=== PATIENT | male | born 1965 | race American Indian/Alaskan Native ===

== ENCOUNTER 2020-06-04 09:36 | Inpatient (IN) | payer OTHER, SELFPAY ==
--- NOTE | 2020-06-04 10:42 | XRay Report ---
CHEST 2 VIEWS INDICATION / CLINICAL INFORMATION: Chest Pain. COMPARISON: 09/16/2009 FINDINGS: SUPPORT DEVICES: None. HEART / MEDIASTINUM: Stable. LUNGS / PLEURA: No significant pulmonary or pleural abnormality. No pneumothorax. No confluent infilt rate or pleural effusion. ADDITIONAL FINDINGS: No significant additional findings. IMPRESSION: 1. No acute findings. No significant interval change since prior exam. Signer Name: Ricardo Sharpe MD Signed: 06/04/2020 10:37 AM Workstation Name: [id number]
[2020-06-04 11:17] LABS: BUN/Creatinine Ratio 15; Blood Urea Nitrogen 19 mg/dL (9-20); Calcium 9.5 mg/dL (8.4-10.2); Hemolysis Index 3
[2020-06-04 11:31] LABS: Basophils # (Auto) 0.1 K/mm3 (0.0-0.1); Basophils % (Auto) 0.8 % (0.0-1.8); Eosinophils # (Auto) 0.1 K/mm3 (0.0-0.4); Eosinophils % (Auto) 0.7 % (0.0-4.3); Hematocrit 38.9 % (35.5-45.6); Hemoglobin 13.3 gm/dl (11.8-15.2); Lymphocytes # (Auto) 2.7 K/mm3 (1.2-5.4); Lymphocytes % (Auto) 31.4 % (13.4-35.0); Mean Corpuscular HGB Conc 34 % (32-34); Mean Corpuscular Volume 81 fl (84-94); Monocytes # (Auto) 0.6 K/mm3 (0.0-0.8); Monocytes % (Auto) 6.9 % (0.0-7.3); Platelet Count 357 K/mm3 (140-440); Red Blood Count 4.82 M/mm3 (3.65-5.03)
[2020-06-04] MEDS ORDERED: INSULIN REGULAR, HUMAN 100 UNITS/1 ML ONE ×3 (16:30)
[2020-06-04] MEDS ORDERED: INSULIN REGULAR, HUMAN 100 UNIT/ML 3ML VIAL IV ONE ×3 (16:31→21:14)
[2020-06-04] MEDS ORDERED: ONDANSETRON 4 MG/2 ML INJ IV ONE (16:52)
[2020-06-04] MEDS ORDERED: SODIUM CHLORIDE 0.9% 1000 ML 1,000 ML IV ONE ×2 (16:52→21:14)
--- NOTE | 2020-06-04 17:13 | Emergency Department Report ---
ED Chest Pain HPI - General Chief Complaint: Chest Pain Stated Complaint: CHEST PAIN/HYPER GLYCEMIA Time Seen by Provider: 06/04/20 16:19 Source: patient, EMS Mode of arrival: Wheelchair Limitations: No Limitations - History of Present Illness Initial Comments: 54-year-old male with a past medical history of manic depression, tobacco use, elevated cholesterol, hypertension, obesity, DVT in 1996, and diabetes currently on insulin presents to the with complaints of chest pain, homelessness, homicidal ideation, and suicidal ideation. Patient states he has had mid sternal chest pain since 6 AM. Pain is aching and constant and sharp with cough and movement. Patient had mild shortness of breath which has since resolved. Patient also reports nausea without vomiting or diaphoresis. Patient has had a dry cough x1 day without fever and denies loss of sense of taste or smell. He received nitroglycerin via EMS reports pain improved after the medication. Last Covid test was -2 months ago. Last stress test approximately 5 years ago was "okay". Positive family history of CAD. Patient is compliant with cholesterol medication, blood pressure medication, but has not taken insulin in 2 days. He has been homeless for the last several days and sleeping at a friend's home since his brother kicked him out. Patient does have a homicidal ideation and suicidal ideation without a plan. He has history of suicide in the past via overdose and when asked if he has access to a gun he states "no comment". Patient presents to the hospital hyperglycemia however, he also states he has not had anything to eat in several days. He denies alcohol or drug abuse Severity scale (0 -10): 0 - Related Data Allergies Allergy/AdvReac Type Severity Reaction Status Date / Time aspirin Allergy Swelling Verified 06/04/20 10:06 Heart Score - HEART Score History: Moderately suspicious EKG: Normal Age: 45-65 Risk factors: > 3 risk factors or hx of atherosclerotic disease Troponin: < normal limit HEART Score: 4 ED Review of Systems ROS: Stated complaint: CHEST PAIN/HYPER GLYCEMIA Other details as noted in HPI Comment: All other systems reviewed and negative ED Past Medical Hx - Past Medical History Hx Hypertension: Yes Hx Diabetes: Yes Hx Deep Vein Thrombosis: Yes (1996) Hx Psychiatric Treatment: Yes (Manic depressive) Additional medical history: HIGH CHOLESTROL / COLLASPE LUNG - Surgical History Additional Surgical History: EYE SURGERY - Social History Smoking Status: Current Every Day Smoker ED Physical Exam - General Limitations: No Limitations - Other Other exam information: General: No acute distress Head: Atraumatic Eyes: normal appearance ENT: Moist mucous membranes Neck: Normal appearance, no midline tenderness Chest: Clear to auscultation bilaterally. Mild sternal chest wall tenderness CV: Regular rate and rhythm Abdomen: Soft, normal bowel sounds, nontender, nondistended, no rebound or guarding Back: Normal inspection Extremity: Normal inspection, full range of motion, no calf tenderness or leg edema, no leg asymmetry Neuro: Alert O x 3, no facial asymmetry, speech clear, no gross motor sensory deficit Psych: Depressed affect Skin: No rash ED Course Vital Signs 06/04/20 06/04/20 10:14 16:23 Temperature 98.2 F Pulse Rate 88 87 Respiratory 18 13 Rate Blood Pressure 132/77 145/96 [Right] O2 Sat by Pulse 100 Oximetry ED Medical Decision Making - Lab Data Result diagrams: 06/04/20 10:43 06/04/20 10:43 Lab Results 06/04/20 06/04/20 06/04/20 Range/Units 10:09 10:43 10:43 WBC 8.6 (4.5-11.0) K/mm3 RBC 4.82 (3.65-5.03) M/mm3 Hgb 13.3 (11.8-15.2) gm/dl Hct 38.9 (35.5-45.6) % MCV 81 L (84-94) fl MCH 28 (28-32) pg MCHC 34 (32-34) % RDW 15.0 (13.2-15.2) % Plt Count 357 (140-440) K/mm3 Lymph % (Auto) 31.4 (13.4-35.0) % [place] % (Auto) 6.9 (0.0-7.3) % Eos % (Auto) 0.7 (0.0-4.3) % Baso % (Auto) 0.8 (0.0-1.8) % Lymph # (Auto) 2.7 (1.2-5.4) K/mm3 [place] # (Auto) 0.6 (0.0-0.8) K/mm3 Eos # (Auto) 0.1 (0.0-0.4) K/mm3 Baso # (Auto) 0.1 (0.0-0.1) K/mm3 Seg Neutrophils % 60.2 (40.0-70.0) % Seg Neutrophils # 5.2 (1.8-7.7) K/mm3 D-Dimer (0-234) ng/mlDDU Sodium 134 L (137-145) mmol/L Potassium 4.6 (3.6-5.0) mmol/L Chloride 98.2 (98-107) mmol/L Carbon Dioxide 23 (22-30) mmol/L Anion Gap 17 mmol/L BUN 19 (9-20) mg/dL Creatinine 1.3 (0.8-1.3) mg/dL Estimated GFR > 60 ml/min BUN/Creatinine Ratio 15 % Glucose 484 H (75-100) mg/dL POC Glucose 457 H (70-105) mg/dL Calcium 9.5 (8.4-10.2) mg/dL Troponin T < 0.010 (0.00-0.029) ng/mL Urine Color (Yellow) Urine Turbidity (Clear) Urine pH (5.0-7.0) Ur Specific [place] (1.003-1.030) Urine Protein (Negative) mg/dL Urine Glucose (UA) (Negative) mg/dL Urine Ketones (Negative) mg/dL Urine Blood (Negative) Urine Nitrite (Negative) Urine Bilirubin (Negative) Urine Urobilinogen (<2.0) mg/dL Ur Leukocyte Esterase (Negative) Urine WBC (Auto) (0.0-6.0) /HPF Urine RBC (Auto) (0.0-6.0) /HPF U Epithel Cells (Auto) (0-13.0) /HPF Urine Opiates Screen Urine Methadone Screen Acetaminophen (10.0-30.0) ug/mL Ur Barbiturates Screen Ur Phencyclidine Scrn Ur Amphetamines Screen U Benzodiazepines Scrn Urine Cocaine Screen U Marijuana (THC) Screen Drugs of Abuse Note Plasma/Serum Alcohol (0-0.07) % 06/04/20 06/04/20 06/04/20 Range/Units 13:28 16:15 18:10 WBC (4.5-11.0) K/mm3 RBC (3.65-5.03) M/mm3 Hgb (11.8-15.2) gm/dl Hct (35.5-45.6) % MCV (84-94) fl MCH (28-32) pg MCHC (32-34) % RDW (13.2-15.2) % Plt Count (140-440) K/mm3 Lymph % (Auto) (13.4-35.0) % [place] % (Auto) (0.0-7.3) % Eos % (Auto) (0.0-4.3) % Baso % (Auto) (0.0-1.8) % Lymph # (Auto) (1.2-5.4) K/mm3 [place] # (Auto) (0.0-0.8) K/mm3 Eos # (Auto) (0.0-0.4) K/mm3 Baso # (Auto) (0.0-0.1) K/mm3 Seg Neutrophils % (40.0-70.0) % Seg Neutrophils # (1.8-7.7) K/mm3 D-Dimer 135.60 (0-234) ng/mlDDU Sodium (137-145) mmol/L Potassium (3.6-5.0) mmol/L Chloride (98-107) mmol/L Carbon Dioxide (22-30) mmol/L Anion Gap mmol/L BUN (9-20) mg/dL Creatinine (0.8-1.3) mg/dL Estimated GFR ml/min BUN/Creatinine Ratio % Glucose (75-100) mg/dL POC Glucose 424 H (70-105) mg/dL Calcium (8.4-10.2) mg/dL Troponin T < 0.010 (0.00-0.029) ng/mL Urine Color (Yellow) Urine Turbidity (Clear) Urine pH (5.0-7.0) Ur Specific [place] (1.003-1.030) Urine Protein (Negative) mg/dL Urine Glucose (UA) (Negative) mg/dL Urine Ketones (Negative) mg/dL Urine Blood (Negative) Urine Nitrite (Negative) Urine Bilirubin (Negative) Urine Urobilinogen (<2.0) mg/dL Ur Leukocyte Esterase (Negative) Urine WBC (Auto) (0.0-6.0) /HPF Urine RBC (Auto) (0.0-6.0) /HPF U Epithel Cells (Auto) (0-13.0) /HPF Urine Opiates Screen Urine Methadone Screen Acetaminophen (10.0-30.0) ug/mL Ur Barbiturates Screen Ur Phencyclidine Scrn Ur Amphetamines Screen U Benzodiazepines Scrn Urine Cocaine Screen U Marijuana (THC) Screen Drugs of Abuse Note Plasma/Serum Alcohol (0-0.07) % 06/04/20 06/04/20 06/04/20 Range/Units 18:10 18:10 18:10 WBC (4.5-11.0) K/mm3 RBC (3.65-5.03) M/mm3 Hgb (11.8-15.2) gm/dl Hct (35.5-45.6) % MCV (84-94) fl MCH (28-32) pg MCHC (32-34) % RDW (13.2-15.2) % Plt Count (140-440) K/mm3 Lymph % (Auto) (13.4-35.0) % [place] % (Auto) (0.0-7.3) % Eos % (Auto) (0.0-4.3) % Baso % (Auto) (0.0-1.8) % Lymph # (Auto) (1.2-5.4) K/mm3 [place] # (Auto) (0.0-0.8) K/mm3 Eos # (Auto) (0.0-0.4) K/mm3 Baso # (Auto) (0.0-0.1) K/mm3 Seg Neutrophils % (40.0-70.0) % Seg Neutrophils # (1.8-7.7) K/mm3 D-Dimer (0-234) ng/mlDDU Sodium (137-145) mmol/L Potassium (3.6-5.0) mmol/L Chloride (98-107) mmol/L Carbon Dioxide (22-30) mmol/L Anion Gap mmol/L BUN (9-20) mg/dL Creatinine (0.8-1.3) mg/dL Estimated GFR ml/min BUN/Creatinine Ratio % Glucose (75-100) mg/dL POC Glucose (70-105) mg/dL Calcium (8.4-10.2) mg/dL Troponin T < 0.010 (0.00-0.029) ng/mL Urine Color (Yellow) Urine Turbidity (Clear) Urine pH (5.0-7.0) Ur Specific [place] (1.003-1.030) Urine Protein (Negative) mg/dL Urine Glucose (UA) (Negative) mg/dL Urine Ketones (Negative) mg/dL Urine Blood (Negative) Urine Nitrite (Negative) Urine Bilirubin (Negative) Urine Urobilinogen (<2.0) mg/dL Ur Leukocyte Esterase (Negative) Urine WBC (Auto) (0.0-6.0) /HPF Urine RBC (Auto) (0.0-6.0) /HPF U Epithel Cells (Auto) (0-13.0) /HPF Urine Opiates Screen Urine Methadone Screen Acetaminophen 5.0 L (10.0-30.0) ug/mL Ur Barbiturates Screen Ur Phencyclidine Scrn Ur Amphetamines Screen U Benzodiazepines Scrn Urine Cocaine Screen U Marijuana (THC) Screen Drugs of Abuse Note Plasma/Serum Alcohol < 0.01 (0-0.07) % 06/04/20 06/04/20 06/04/20 Range/Units 18:25 19:16 19:16 WBC (4.5-11.0) K/mm3 RBC (3.65-5.03) M/mm3 Hgb (11.8-15.2) gm/dl Hct (35.5-45.6) % MCV (84-94) fl MCH (28-32) pg MCHC (32-34) % RDW (13.2-15.2) % Plt Count (140-440) K/mm3 Lymph % (Auto) (13.4-35.0) % [place] % (Auto) (0.0-7.3) % Eos % (Auto) (0.0-4.3) % Baso % (Auto) (0.0-1.8) % Lymph # (Auto) (1.2-5.4) K/mm3 [place] # (Auto) (0.0-0.8) K/mm3 Eos # (Auto) (0.0-0.4) K/mm3 Baso # (Auto) (0.0-0.1) K/mm3 Seg Neutrophils % (40.0-70.0) % Seg Neutrophils # (1.8-7.7) K/mm3 D-Dimer (0-234) ng/mlDDU Sodium (137-145) mmol/L Potassium (3.6-5.0) mmol/L Chloride (98-107) mmol/L Carbon Dioxide (22-30) mmol/L Anion Gap mmol/L BUN (9-20) mg/dL Creatinine (0.8-1.3) mg/dL Estimated GFR ml/min BUN/Creatinine Ratio % Glucose (75-100) mg/dL POC Glucose 365 H (70-105) mg/dL Calcium (8.4-10.2) mg/dL Troponin T (0.00-0.029) ng/mL Urine Color Yellow (Yellow) Urine Turbidity Clear (Clear) Urine pH 5.0 (5.0-7.0) Ur Specific [place] 1.018 (1.003-1.030) Urine Protein <15 mg/dl (Negative) mg/dL Urine Glucose (UA) >=500 (Negative) mg/dL Urine Ketones 20 (Negative) mg/dL Urine Blood Neg (Negative) Urine Nitrite Neg (Negative) Urine Bilirubin Neg (Negative) Urine Urobilinogen < 2.0 (<2.0) mg/dL Ur Leukocyte Esterase Neg (Negative) Urine WBC (Auto) 6.0 (0.0-6.0) /HPF Urine RBC (Auto) 2.0 (0.0-6.0) /HPF U Epithel Cells (Auto) 1.0 (0-13.0) /HPF Urine Opiates Screen Presumptive negative Urine Methadone Screen Presumptive negative Acetaminophen (10.0-30.0) ug/mL Ur Barbiturates Screen Presumptive negative Ur Phencyclidine Scrn Presumptive negative Ur Amphetamines Screen Presumptive negative U Benzodiazepines Scrn Presumptive negative Urine Cocaine Screen Presumptive positive U Marijuana (THC) Screen Presumptive negative Drugs of Abuse Note Disclamer Plasma/Serum Alcohol (0-0.07) % 06/04/20 Range/Units 21:13 WBC (4.5-11.0) K/mm3 RBC (3.65-5.03) M/mm3 Hgb (11.8-15.2) gm/dl Hct (35.5-45.6) % MCV (84-94) fl MCH (28-32) pg MCHC (32-34) % RDW (13.2-15.2) % Plt Count (140-440) K/mm3 Lymph % (Auto) (13.4-35.0) % [place] % (Auto) (0.0-7.3) % Eos % (Auto) (0.0-4.3) % Baso % (Auto) (0.0-1.8) % Lymph # (Auto) (1.2-5.4) K/mm3 [place] # (Auto) (0.0-0.8) K/mm3 Eos # (Auto) (0.0-0.4) K/mm3 Baso # (Auto) (0.0-0.1) K/mm3 Seg Neutrophils % (40.0-70.0) % Seg Neutrophils # (1.8-7.7) K/mm3 D-Dimer (0-234) ng/mlDDU Sodium (137-145) mmol/L Potassium (3.6-5.0) mmol/L Chloride (98-107) mmol/L Carbon Dioxide (22-30) mmol/L Anion Gap mmol/L BUN (9-20) mg/dL Creatinine (0.8-1.3) mg/dL Estimated GFR ml/min BUN/Creatinine Ratio % Glucose (75-100) mg/dL POC Glucose 336 H (70-105) mg/dL Calcium (8.4-10.2) mg/dL Troponin T (0.00-0.029) ng/mL Urine Color (Yellow) Urine Turbidity (Clear) Urine pH (5.0-7.0) Ur Specific [place] (1.003-1.030) Urine Protein (Negative) mg/dL Urine Glucose (UA) (Negative) mg/dL Urine Ketones (Negative) mg/dL Urine Blood (Negative) Urine Nitrite (Negative) Urine Bilirubin (Negative) Urine Urobilinogen (<2.0) mg/dL Ur Leukocyte Esterase (Negative) Urine WBC (Auto) (0.0-6.0) /HPF Urine RBC (Auto) (0.0-6.0) /HPF U Epithel Cells (Auto) (0-13.0) /HPF Urine Opiates Screen Urine Methadone Screen Acetaminophen (10.0-30.0) ug/mL Ur Barbiturates Screen Ur Phencyclidine Scrn Ur Amphetamines Screen U Benzodiazepines Scrn Urine Cocaine Screen U Marijuana (THC) Screen Drugs of Abuse Note Plasma/Serum Alcohol (0-0.07) % - EKG Data -: EKG Interpreted by Fl EKG shows normal: sinus rhythm, ST-T waves (no stemi) Rate: normal - Radiology Data Radiology results: report reviewed CHEST 2 VIEWS INDICATION / CLINICAL INFORMATION: Chest Pain. COMPARISON: 09/16/2009 FINDINGS: SUPPORT DEVICES: None. HEART / MEDIASTINUM: Stable. LUNGS / PLEURA: No significant pulmonary or pleural abnormality. No pneumothorax. No confluent infiltrate or pleural effusion. ADDITIONAL FINDINGS: No significant additional findings. IMPRESSION: 1. No acute findings. No significant interval change since prior exam. - Medical Decision Making 54-year-old male presents with suicidal ideation as well as chest pain. Patient has several cardiac risk factors with a heart score of 4 and UDS positive for cocaine. He has not had any recent cardiac work-up. No signs of ST elevation DE or NSTEMI in the ED. D-dimer negative with low pretest probability for pulmonary. Patient's blood glucose has remained high during ED stay despite IV fluids and insulin because patient ate several meals in the department. No signs of DKA. 1013 signed due to suicidal ideation and patient will be admitted to the hospital service for further cardiac work-up to complete medical cl earance prior to transfer to psychiatric facility. Critical Care Time: No Critical care attestation.: If time is entered above; I have spent that time in minutes in the direct care of this critically ill patient, excluding procedure time. ED Disposition Clinical Impression: Chest pain, Hyperglycemia due to diabetes mellitus, Noncompliance with medication regimen, Suicidal ideation, Homicidal ideation, Homelessness, Manic depressive disorder Disposition: OP ADMIT IP TO THIS HOSP Is pt being admited?: Yes Condition: Stable Instructions: Chest Pain (ED), Diabetes Mellitus Type 2 in Adults (ED) Time of Disposition: 21:41 (DR Calderon/hosp)
[2020-06-04 19:27] LABS: Bilirubin,Urine NEG (Negative); Blood,Urine NEG (Negative); Color,Urine Yellow (Yellow); Protein,Urine <15 mg/dL mg/dL (Negative); Urobilinogen,Urine < 2.0 mg/dL (<2.0)
[2020-06-04 19:35] LABS: Amphetamine Screen,Urine PRESUMPTIVE NEGATIVE; Benzodiazepines Screen,Urine PRESUMPTIVE NEGATIVE; Cannabinoid Screen,Urine PRESUMPTIVE NEGATIVE; Cocaine Screen,Urine PRESUMPTIVE POSITIVE; Methadone Screen,Urine PRESUMPTIVE NEGATIVE; Opiate Screen,Urine PRESUMPTIVE NEGATIVE
[2020-06-05] MEDS ORDERED: ACETAMINOPHEN 325 MG TAB PO PRN (01:42)
[2020-06-05] MEDS ORDERED: NITROGLYCERIN 0.4 MG TAB SUBL SL PRN (01:42)
[2020-06-05] MEDS ORDERED: DEXTROSE 50% IN WATER (25GM) 50 ML SYRINGE IV PRN (01:42)
[2020-06-05] MEDS ORDERED: ONDANSETRON 4 MG/2 ML INJ IV PRN (01:42)
--- NOTE | 2020-06-05 02:14 | History and Physical Report ---
History of Present Illness Date of examination: 06/04/20 Date of admission: 06/04/20 21:42 Chief complaint: Chest Pain History of present illness: 84-year-old -[place] male with known history of bipolar disorder, hypertension, hyperlipidemia, history of DVT in the past and diabetes mellitus presenting to the emergency room today complaining of chest pain. Chest pain was said to have started about 6 AM today and it was midsternal, sharp and constant. He had associated shortness of breath and some mild cough which is nonproductive. He had some nausea but no vomiting. In route to the hospital he had some nitroglycerin which was given by EMS with some improvement. Patient has a strong family history of coronary artery disease and had a stress test about 5 years ago which he indicates was within normal limits. He has been homeless for the past several days and has been staying at a friend's place. He has had some homicidal and suicidal ideations. Work-up in the emergency room today reveals hyperglycemia. Chest x-ray EKG and troponin were within normal limits. Patient is being admitted for chest pain evaluation and hyperglycemia. He has also been placed on 1013 in view of his suicidal homicidal ideations. He has no definite plans at the moment. Past History Past Medical History: diabetes, hypertension, hyperlipidemia, other (DVT in 1996,Bipolar Disorder) Past Surgical History: Other Social history: smoking (Current daily Smoker) Family history: CAD Medications and Allergies Allergies Allergy/AdvReac Type Severity Reaction Status Date / Time aspirin Allergy Swelling Verified 06/04/20 10:06 Active Meds: Active Medications Acetaminophen (Acetaminophen 325 Mg Tab) 650 mg PO Q4H PRN PRN Reason: Pain MILD(1-3)/Fever >100.5/CUNHA Dextrose (Dextrose 50% In Water (25gm) 50 Ml Syringe) 0 ml IV Q30MIN PRN; Protocol PRN Reason: Hypoglycemia Heparin Sodium (Porcine) (Heparin 5,000 Unit/1 Ml Vial) 5,000 unit SUB-Q Q8HR LEOINE Insulin Human Regular (Insulin Regular, Human 100 Unit/Ml 3ml Vial) 0 unit SUB- Q ACHS LEONIE; Protocol Magnesium Hydroxide (Magnesium Hydroxide (Mom) Oral Liqd Udc) 30 ml PO Q4H PRN PRN Reason: Constipation Morphine Sulfate (Morphine 2 Mg/1 Ml Inj) 2 mg IV Q5MIN PRN PRN Reason: Chest Pain Nitroglycerin (Nitroglycerin 0.4 Mg Tab Subl) 0.4 mg SL Q5M PRN PRN Reason: Chest Pain Ondansetron HCl (Ondansetron 4 Mg/2 Ml Inj) 4 mg IV Q8H PRN PRN Reason: Nausea And Vomiting Sodium Chloride (Sodium Chloride 0.9% 10 Ml Flush Syringe) 10 ml IV BID LEONIE Sodium Chloride (Sodium Chloride 0.9% 10 Ml Flush Syringe) 10 ml IV PRN PRN PRN Reason: LINE FLUSH Review of Systems Constitutional: weakness, no fever, no chills Ears, nose, mouth and throat: no nasal congestion, no sore throat Cardiovascular: chest pain, no palpitations Respiratory: no cough, no shortness of breath Gastrointestinal: no abdominal pain, no nausea, no vomiting, no diarrhea Genitourinary Male: no dysuria, no hematuria, no flank pain Musculoskeletal: no neck pain, no low back pain Integumentary: no rash, no pruritis Neurological: no headaches, no confusion Psychiatric: suicidal ideation, depression, no anxiety Exam - Constitutional Vitals: Temp Pulse Resp BP Pulse Ox 98.1 F 93 H 18 134/76 92 06/05/20 00:48 06/05/20 00:48 06/05/20 00:48 06/05/20 00:48 06/05/20 00:48 General appearance: Present: no acute distress, well-nourished - EENT Eyes: Present: PERRL, EOM intact. Absent: scleral icterus ENT: hearing intact, clear oral mucosa, dentition normal - Neck Neck: Present: supple, normal ROM - Respiratory Respiratory effort: normal Respiratory: bilateral: CTA - Cardiovascular Rhythm: regular Heart Sounds: Present: S1 & S2. Absent: gallop, systolic murmur, diastolic murmur, rub - Extremities Extremities: no ischemia, pulses intact, pulses symmetrical, No edema, Full ROM Peripheral Pulses: within normal limits - Abdominal General gastrointestinal: Present: soft, non-tender, non-distended, normal bowel sounds. Absent: mass - Integumentary Integumentary: Present: clear, warm, dry. Absent: rash - Musculoskeletal Musculoskeletal: strength equal bilaterally - Psychiatric Psychiatric: appropriate mood/affect, intact judgment & insight, memory intact, cooperative - Neurologic Neurologic: CNII-XII intact, no focal deficits, moves all extremities HEART Score - HEART Score History: Moderately suspicious EKG: Normal Age: 45-65 Risk factors: > 3 risk factors or hx of atherosclerotic disease Troponin: Troponin T < 0.010 ng/mL (0.00-0.029) 06/04/20 18:10 Troponin: < normal limit HEART Score: 4 Results - Labs CBC & Chem 7: 06/04/20 10:43 06/04/20 10:43 Labs: Abnormal lab results 06/04/20 06/04/20 06/04/20 Range/Units 10:09 10:43 10:43 MCV 81 L (84-94) fl Sodium 134 L (137-145) mmol/L Glucose 484 H (75-100) mg/dL POC Glucose 457 H (70-105) mg/dL Acetaminophen (10.0-30.0) ug/mL 06/04/20 06/04/20 06/04/20 Range/Units 16:15 18:10 18:25 MCV (84-94) fl Sodium (137-145) mmol/L Glucose (75-100) mg/dL POC Glucose 424 H 365 H (70-105) mg/dL Acetaminophen 5.0 L (10.0-30.0) ug/mL 06/04/20 06/04/20 Range/Units 21:13 22:16 MCV (84-94) fl Sodium (137-145) mmol/L Glucose (75-100) mg/dL POC Glucose 336 H 247 H (70-105) mg/dL Acetaminophen (10.0-30.0) ug/mL Assessment and Plan - Patient Problems (1) Chest pain Current Visit: Yes Status: Acute Plan to address problem: Patient admitted and placed on telemetry. We will check serial cardiac enzymes. Patient placed on aspirin, sublingual nitroglycerin and IV morphine as needed for chest pain. We will appreciate cardiology evaluation. (2) Homelessness Current Visit: Yes Status: Acute Plan to address problem: We will place a consult to case management for evaluation. (3) Hyperglycemia due to diabetes mellitus Current Visit: Yes Status: Acute Plan to address problem: We will monitor Accu-Cheks closely. (4) Manic depressive disorder Current Visit: Yes Status: Acute Plan to address problem: Consult placed to mental health for evaluation. (5) Suicidal ideation Current Visit: Yes Status: Acute Plan to address problem: Will await mental health evaluation. (6) DVT prophylaxis Current Visit: Yes Status: Acute Plan to address problem: Patient placed on subcutaneous heparin. (7) Full code status Current Visit: Yes Status: Acute
[2020-06-05] MEDS: HEPARIN 5,000 UNIT/1 ML VIAL SUB-Q SCH ×2 (05:51→21:46)
[2020-06-05] MEDS ORDERED: HEPARIN 5,000 UNIT/1 ML VIAL SUB-Q SCH (06:00)
[2020-06-05] MEDS ORDERED: REGADENOSON 0.4 MG/5 ML INJ IV ONE (07:14)
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
--- NOTE | 2020-06-05 10:41 | Consultation ---
<MICHAEL RODRIGUEZ - Last Filed: 06/05/20 10:55> History of Present Illness Consult date: 06/05/20 Consult reason: chest pain History of present illness: 54-year old male who presents to this hospital with suicidal ideation. There was also report of chest pain thus this cardiac consultation. Chest pain is poorly characterized and non-exertional. No prior cardiac history of prior cardiac workup. Chest x-ray is negative. Laboratory measurements shows uncontrolled diabetes, blood glucose 487 on presentation. Cycled troponin measurement were normal. ECG is benign, no acute ST or T wave changes. Patient was admitted by the hospitalist team and ordered to undergo a stress thallium test today. Past History Past Medical History: diabetes, hypertension, hyperlipidemia, other (DVT in 1996,Bipolar Disorder) Social history: smoking (Current daily Smoker), other (substance abuse) Family history: CAD Medications and Allergies Allergies Allergy/AdvReac Type Severity Reaction Status Date / Time aspirin Allergy Swelling Verified 06/04/20 10:06 Active Meds: Active Medications Acetaminophen (Acetaminophen 325 Mg Tab) 650 mg PO Q4H PRN PRN Reason: Pain MILD(1-3)/Fever >100.5/CUNHA Dextrose (Dextrose 50% In Water (25gm) 50 Ml Syringe) 0 ml IV Q30MIN PRN; Protocol PRN Reason: Hypoglycemia Heparin Sodium (Porcine) (Heparin 5,000 Unit/1 Ml Vial) 5,000 unit SUB-Q Q8HR [facility] Last Admin: 06/05/20 05:51 Dose: 5,000 unit Documented by: Insulin Human Regular (Insulin Regular, Human 100 Unit/Ml 3ml Vial) 0 unit SUB- Q [facility]; Protocol Magnesium Hydroxide (Magnesium Hydroxide (Mom) Oral Liqd Udc) 30 ml PO Q4H PRN PRN Reason: Constipation Morphine Sulfate (Morphine 2 Mg/1 Ml Inj) 2 mg IV Q5MIN PRN PRN Reason: Chest Pain Nitroglycerin (Nitroglycerin 0.4 Mg Tab Subl) 0.4 mg SL Q5M PRN PRN Reason: Chest Pain Ondansetron HCl (Ondansetron 4 Mg/2 Ml Inj) 4 mg IV Q8H PRN PRN Reason: Nausea And Vomiting Sodium Chloride (Sodium Chloride 0.9% 10 Ml Flush Syringe) 10 ml IV BID LEONIE Sodium Chloride (Sodium Chloride 0.9% 10 Ml Flush Syringe) 10 ml IV PRN PRN PRN Reason: LINE FLUSH Review of Systems Cardiovascular: chest pain, no palpitations, no rapid/irregular heart beat, no edema, no syncope, no lightheadedness, no shortness of breath, no dyspnea on e xertion Physical Examination Vital Signs Pulse Pulse Ox 106 H 98 06/04/20 10:13 06/04/20 10:13 General appearance: no acute distress HEENT: Positive: PERRL Neck: Positive: trachea midline Cardiac: Positive: Reg Rate and Rhythm Lungs: Positive: Decreased Breath Sounds Neuro: Positive: Grossly Intact Extremities: Absent: edema Results 06/04/20 10:43 06/04/20 10:43 CBC 06/04/20 Range/Units 10:43 WBC 8.6 (4.5-11.0) K/mm3 RBC 4.82 (3.65-5.03) M/mm3 Hgb 13.3 (11.8-15.2) gm/dl Hct 38.9 (35.5-45.6) % Plt Count 357 (140-440) K/mm3 Lymph # (Auto) 2.7 (1.2-5.4) K/mm3 [place] # (Auto) 0.6 (0.0-0.8) K/mm3 Eos # (Auto) 0.1 (0.0-0.4) K/mm3 Baso # (Auto) 0.1 (0.0-0.1) K/mm3 Comprehensive Metabolic Panel 06/04/20 Range/Units 10:43 Sodium 134 L (137-145) mmol/L Potassium 4.6 (3.6-5.0) mmol/L Chloride 98.2 (98-107) mmol/L Carbon Dioxide 23 (22-30) mmol/L BUN 19 (9-20) mg/dL Creatinine 1.3 (0.8-1.3) mg/dL Glucose 484 H (75-100) mg/dL Calcium 9.5 (8.4-10.2) mg/dL Assessment and Plan Atypical chest pain Suicidal ideation Substance abuse Diabetes, uncontrolled Hypertension Hyperlipidemia Patient completed the resting thallium images but has refuse to undergo stress thallium images due to right and left shoulder pain. Patient was offered pain medication to complete the thallium stress test but this was also declined. An echocardiogram will be done for LVEF assessment. <JASEN SANTILLAN - Last Filed: 06/05/20 12:37> History of Present Illness History of present illness: I SAW THIS PT & AGREE WITH THE Dx & Tx PLAN. Medications and Allergies Active Meds: Active Medications Acetaminophen (Acetaminophen 325 Mg Tab) 650 mg PO Q4H PRN PRN Reason: Pain MILD(1-3)/Fever >100.5/CUNHA Dextrose (Dextrose 50% In Water (25gm) 50 Ml Syringe) 0 ml IV Q30MIN PRN; Protocol PRN Reason: Hypoglycemia Duloxetine HCl (Duloxetine 30 Mg Cap) 30 mg PO QDAY LEONIE Heparin Sodium (Porcine) (Heparin 5,000 Unit/1 Ml Vial) 5,000 unit SUB-Q Q8HR LEONIE Last Admin: 06/05/20 05:51 Dose: 5,000 unit Documented by: Insulin Human Regular (Insulin Regular, Human 100 Unit/Ml 3ml Vial) 0 unit SUB- Q ACHS LEONIE; Protocol Magnesium Hydroxide (Magnesium Hydroxide (Mom) Oral Liqd Udc) 30 ml PO Q4H PRN PRN Reason: Constipation Morphine Sulfate (Morphine 2 Mg/1 Ml Inj) 2 mg IV Q5MIN PRN PRN Reason: Chest Pain Nitroglycerin (Nitroglycerin 0.4 Mg Tab Subl) 0.4 mg SL Q5M PRN PRN Reason: Chest Pain Ondansetron HCl (Ondansetron 4 Mg/2 Ml Inj) 4 mg IV Q8H PRN PRN Reason: Nausea And Vomiting Sodium Chloride (Sodium Chloride 0.9% 10 Ml Flush Syringe) 10 ml IV BID LEONIE Sodium Chloride (Sodium Chloride 0.9% 10 Ml Flush Syringe) 10 ml IV PRN PRN PRN Reason: LINE FLUSH Trazodone HCl (Trazodone 50 Mg Tab) 50 mg PO QHS LEONIE Physical Examination Vital Signs Pulse Pulse Ox 106 H 98 06/04/20 10:13 06/04/20 10:13 Results 06/04/20 10:43 06/04/20 10:43
--- NOTE | 2020-06-05 15:23 | Progress Note ---
Assessment and Plan - Patient Problems (1) Atypical chest pain Current Visit: Yes Status: Acute Plan to address problem: Patient presented with chest pain which was relieved with nitroglycerin Cardiology consulted, patient recommendations 06/05 patient was set to undergo a thallium stress test however he refused Cardiology plans to do an echocardiogram tomorrow Morphine and nitroglycerin EKG as needed Serial troponins have been less than 0.010 (2) Hyperglycemia due to diabetes mellitus Current Visit: Yes Status: Acute Plan to address problem: S/p 26 units of regular insulin in the emergency department given over 3 doses SSI 06/05 Lantus 5 units nightly started for persistent hyperglycemia 06/05 Hemoglobin A1c pending Accu-Cheks AC at bedtime CC cardiac diet (3) Homicidal ideation Current Visit: Yes Status: Acute Plan to address problem: Patient states he has homicidal ideations Psychiatric consult Patient is on 1013 hold Sitter at bedside (4) MDD (major depressive disorder) Current Visit: Yes Status: Acute Qualifiers: Major depression recurrence: recurrent Plan to address problem: Psychiatry consult, appreciate recommendations Initiated patient on Cymbalta Sleep hygiene with trazodone Sitter at bedside Patient presented with SI/HI, currently on a 1013 hold (5) Hyponatremia Current Visit: Yes Status: Acute Plan to address problem: Presented with a sodium of 134 Corrected sodium for hyperglycemia is 140 S/p 2 L normal saline in the emergency department Pseudohyponatremia (6) HLD (hyperlipidemia) Current Visit: Yes Status: Chronic Plan to address problem: 06/06 lipid panel pending We will initiate statin therapy once lipid panel results (7) Substance abuse in remission Current Visit: Yes Status: Chronic Plan to address problem: Per psychiatric note patient had substance abuse with cocaine and meth 3 years ago 06/04 UDS negative (8) Noncompliance with medication regimen Current Visit: Yes Status: Chronic Plan to address problem: Patient reports recent homelessness mental health social worker/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 En route he was given nitroglycerin by EMS which improved his pain. Patient expressed homicidal and suicidal ideation therefore he is a 1013. Work-up in the emergency department revealed hyperglycemia and his troponin, EKG and chest x-ray were within normal limits. Patient was admitted to the hospitalist service with consult to cardiology and psychiatry. This morn ing patient was scheduled for a stress test which she refused due to pain and also reportedly refused pain medication. Cardiology has planned for an echocardiogram in the a.m. Psychiatric consultation has been completed and he was started on antidepressant. No acute events reported overnight and patient does not complain of any chest pain. Hospitalist Physical - Constitutional Vitals: Temp Pulse Resp BP Pulse Ox 98.4 F 92 H 20 140/86 95 06/05/20 08:10 06/05/20 08:10 06/05/20 08:10 06/05/20 09:28 06/05/20 08:10 General appearance: Present: no acute distress, well-nourished - EENT Eyes: Present: PERRL, EOM intact ENT: hearing intact, poor dentition - Neck Neck: Present: normal ROM - Respiratory Respiratory effort: normal Respiratory: bilateral: CTA - Cardiovascular Rhythm: regular Heart Sounds: Present: S1 & S2. Absent: systolic murmur, diastolic murmur - Extremities Extremities: no ischemia, pulses intact, pulses symmetrical, No edema, normal temperature, normal color, Full ROM - Abdominal General gastrointestinal: soft, non-tender, non-distended, normal bowel sounds - Integumentary Integumentary: Present: clear, warm, dry - Psychiatric Psychiatric: appropriate mood/affect, cooperative, other (Patient has homicidal and suicidal ideations, currently on 1013 hold) - Neurologic Neurologic: CNII-XII intact, no focal deficits, moves all extremities - Allied Health Allied health notes reviewed: nursing, social work, case management HEART Score - HEART Score EKG: Normal Age: 45-65 Risk factors: > 3 risk factors or hx of atherosclerotic disease Troponin: Troponin T < 0.010 ng/mL (0.00-0.029) 06/04/20 18:10 Troponin: < normal limit Results - Labs CBC & Chem 7: 06/04/20 10:43 06/04/20 10:43 Labs: Laboratory Last Values WBC 8.6 K/mm3 (4.5-11.0) 06/04/20 10:43 RBC 4.82 M/mm3 (3.65-5.03) 06/04/20 10:43 Hgb 13.3 gm/dl (11.8-15.2) 06/04/20 10:43 Hct 38.9 % (35.5-45.6) 06/04/20 10:43 MCV 81 fl (84-94) L 06/04/20 10:43 MCH 28 pg (28-32) 06/04/20 10:43 MCHC 34 % (32-34) 06/04/20 10:43 RDW 15.0 % (13.2-15.2) 06/04/20 10:43 Plt Count 357 K/mm3 (140-440) 06/04/20 10:43 Lymph % (Auto) 31.4 % (13.4-35.0) 06/04/20 10:43 [place] % (Auto) 6.9 % (0.0-7.3) 06/04/20 10:43 Eos % (Auto) 0.7 % (0.0-4.3) 06/04/20 10:43 Baso % (Auto) 0.8 % (0.0-1.8) 06/04/20 10:43 Lymph # (Auto) 2.7 K/mm3 (1.2-5.4) 06/04/20 10:43 [place] # (Auto) 0.6 K/mm3 (0.0-0.8) 06/04/20 10:43 Eos # (Auto) 0.1 K/mm3 (0.0-0.4) 06/04/20 10:43 Baso # (Auto) 0.1 K/mm3 (0.0-0.1) 06/04/20 10:43 Seg Neutrophils % 60.2 % (40.0-70.0) 06/04/20 10:43 Seg Neutrophils # 5.2 K/mm3 (1.8-7.7) 06/04/20 10:43 D-Dimer 135.60 ng/mlDDU (0-234) 06/04/20 18:10 Sodium 134 mmol/L (137-145) L 06/04/20 10:43 Potassium 4.6 mmol/L (3.6-5.0) 06/04/20 10:43 Chloride 98.2 mmol/L (98-107) 06/04/20 10:43 Carbon Dioxide 23 mmol/L (22-30) 06/04/20 10:43 Anion Gap 17 mmol/L 06/04/20 10:43 BUN 19 mg/dL (9-20) 06/04/20 10:43 Creatinine 1.3 mg/dL (0.8-1.3) 06/04/20 10:43 Estimated GFR > 60 ml/min 06/04/20 10:43 BUN/Creatinine Ratio 15 % 06/04/20 10:43 Glucose 484 mg/dL (75-100) H 06/04/20 10:43 POC Glucose 247 mg/dL (70-105) H 06/04/20 22:16 Calcium 9.5 mg/dL (8.4-10.2) 06/04/20 10:43 Troponin T < 0.010 ng/mL (0.00-0.029) 06/04/20 18:10 Urine Color Yellow (Yellow) 06/04/20 19:16 Urine Turbidity Clear (Clear) 06/04/20 19:16 Urine pH 5.0 (5.0-7.0) 06/04/20 19:16 Ur Specific [place] 1.018 (1.003-1.030) 06/04/20 19:16 Urine Protein <15 mg/dl mg/dL (Negative) 06/04/20 19:16 Urine Glucose (UA) >=500 mg/dL (Negative) 06/04/20 19:16 Urine Ketones 20 mg/dL (Negative) 06/04/20 19:16 Urine Blood Neg (Negative) 06/04/20 19:16 Urine Nitrite Neg (Negative) 06/04/20 19:16 Urine Bilirubin Neg (Negative) 06/04/20 19:16 Urine Urobilinogen < 2.0 mg/dL (<2.0) 06/04/20 19:16 Ur Leukocyte Esterase Neg (Negative) 06/04/20 19:16 Urine WBC (Auto) 6.0 /HPF (0.0-6.0) 06/04/20 19:16 Urine RBC (Auto) 2.0 /HPF (0.0-6.0) 06/04/20 19:16 U Epithel Cells (Auto) 1.0 /HPF (0-13.0) 06/04/20 19:16 Urine Opiates Screen Presumptive negative 06/04/20 19:16 Urine Methadone Screen Presumptive negative 06/04/20 19:16 Acetaminophen 5.0 ug/mL (10.0-30.0) L 06/04/20 18:10 Ur Barbiturates Screen Presumptive negative 06/04/20 19:16 Ur Phencyclidine Scrn Presumptive negative 06/04/20 19:16 Ur Amphetamines Screen Presumptive negative 06/04/20 19:16 U Benzodiazepines Scrn Presumptive negative 06/04/20 19:16 Urine Cocaine Screen Presumptive positive 06/04/20 19:16 U Marijuana (THC) Screen Presumptive negative 06/04/20 19:16 Drugs of Abuse Note Disclamer 06/04/20 19:16 Plasma/Serum Alcohol < 0.01 % (0-0.07) 06/04/20 18:10 - Diagnostic Impressions Diagnostic Impressions: Echocardiogram 06/05/20 01:47 Transthoracic Echocardiogram Indication: Chest Pain BP: 148/87 Conclusions *The left ventricular chamber size is normal. *Mild to moderate concentric left ventricular hypertrophy is observed. *The estimated ejection fraction is 60-65%. *Abnormal left ventricular diastolic filling is observed, consistent with impaired relaxation. *The left atrium is normal in size with no visual thrombus identified. *The right ventricular chamber size and systolic function are within normal limits. *The aortic valve is trileaflet. *The right ventricular systolic pressure is calculated at 23 mmHg. Findings Procedure Info: The study quality is fair. Left Ventricle: The left ventricular chamber size is normal. Mild to moderate concentric left ventricular hypertrophy is observed. The estimated ejection fraction is 60-65%. Abnormal left ventricular diastolic filling is observed, consistent with impaired relaxation. Left Atrium: The left atrium is normal in size with no visual thrombus identified. Right Ventricle: The right ventricular chamber size and systolic function are within normal limits. Right Atrium: The right atrium appears normal. Aortic Valve: The aortic valve is trileaflet. Mild aortic leaflet calcification is visualized. There is trace of aortic regurgitation. There is no evidence of aortic stenosis. Mitral Valve: The mitral valve leaflets appear normal. There is trace of mitral regurgitation. There is no evidence of mitral stenosis. Tricuspid Valve: The tricuspid valve leaflets are normal. There is trace tricuspid regurgitation. The right ventricular systolic pressure is calculated at 23 mmHg. There is no tricuspid stenosis. Pulmonic Valve: The pulmonic valve appears normal in structure and function. Pericardium: The pericardium appears normal. Aorta: The aorta appears normal. Pulmonary Artery: The main pulmonary artery appears normal. Venous: The inferior vena cava appears normal in size. There is a greater than 50% respiratory change in the inferior vena cava dimension. Measurements Chambers 2D Name Value Normal Range IVSd (2D) 1.37 cm (0.6 - 1.1) LVPWd (2D) 1.22 cm (0.6 - 1.1) LVIDd (2D) 5.24 cm (3.7 - 5.6) LVIDs (2D) 3.46 cm (2 - 3.8) LV FS (2D) 34.04 % - EF Teichholz (2D) 62.56 % - Ao root diameter (2D) 3.3 cm (2 - 3.7) Volumes/Mass Name Value Normal Range LA ESV SP 4CH (A/L) 84.94 ml - LA ESV SP 2CH (A/L) 79.25 ml - LA ESV BP (A/L) 84.7 ml - LA ESV BP (A/L) index 33.61 ml/m2 - LA ESV SP 4CH (MOD) 81.89 ml - LA ESV SP 2CH (MOD) 78.96 ml - LA ESV BP (MOD) 82.33 ml - LA ESV BP (MOD) index 32.67 ml/m2 - LV EDV SP 4CH (MOD) 153.69 ml - LV ESV SP 4CH (MOD) 51.13 ml - EF SP 4CH (MOD) 66.73 % - LV EDV SP 2CH (MOD) 110.18 ml - LV ESV SP 2CH (MOD) 42.38 ml - EF SP 2CH (MOD) 61.54 % - LV EDV BP 132.71 ml - LV ESV BP 46.25 ml - BP EF (MOD) 65.15 % - Diastolic/Systolic Function Name Value Normal Range MV E-wave Vmax 0.59 m/sec - MV deceleration time 155.37 msec - MV A-wave Vmax 1 m/sec - MV E:A ratio 0.59 ratio - Aortic Valve Name Value Normal Range AV Vmax 1.52 m/sec - AV VTI 29.1 cm - AV peak gradient 9.23 mmHg - AV mean gradient 5.2 mmHg - LVOT diameter 2.54 cm - LVOT Vmax 0.88 m/sec - LVOT VTI 19.35 cm - LVOT peak gradient 3.08 mmHg - LVOT mean gradient 1.61 mmHg - SV LVOT 98.36 ml - LUKAS (continuity Vmax) 2.94 cm2 - LUKAS (continuity VTI) 3.38 cm2 - Ascending Ao 3.45 cm - Tricuspid Valve Name Value Normal Range TV E-wave Vmax 0.57 m/sec - TR Vmax 2.28 m/sec - TR peak gradient 20.75 mmHg - RAP 3 mmHg - RVSP 23 mmHg - IVC diameter 1.47 cm (1.2 - 2.3) Pulmonic Valve/Qp:Qs Name Value Normal Range PV Vmax 1.36 m/sec - PV peak gradient 7.41 mmHg - RVOT Vmax 0.74 m/sec - RVOT VTI 14 cm - RVOT peak gradient 2.22 mmHg - PV acceleration time 156.04 msec - [place]/IV: Voiding Method Toilet IV Catheter Type [Left Hand] INT / Saline Lock Active Medications - Current Medications Current Medications: Generic Name Dose Route Start Last Admin Trade Name Freq PRN Reason Stop Dose Admin Acetaminophen 650 mg 06/05/20 01:42 Acetaminophen 325 Mg Tab PO Q4H PRN Pain MILD(1-3)/Fever >100.5/CUNHA Dextrose 0 ml 06/05/20 01:42 Dextrose 50% In Water (25gm) 50 Ml Syringe IV Q30MIN PRN Hypoglycemia Protocol Duloxetine HCl 30 mg 06/05/20 13:00 Duloxetine 30 Mg Cap PO QDAY LEONIE Heparin Sodium (Porcine) 5,000 unit 06/05/20 06:00 06/05/20 05:51 Heparin 5,000 Unit/1 Ml Vial SUB-Q 5,000 unit Q8HR LEONIE Administration Insulin Human Regular 0 unit 06/05/20 07:30 Insulin Regular, Human 100 Unit/Ml 3ml Vial SUB-Q ACHS LEONIE Protocol Magnesium Hydroxide 30 ml 06/05/20 01:42 Magnesium Hydroxide (Mom) Oral Liqd Udc PO Q4H PRN Constipation Morphine Sulfate 2 mg 06/05/20 01:42 Morphine 2 Mg/1 Ml Inj IV Q5MIN PRN Chest Pain Nitroglycerin 0.4 mg 06/05/20 01:42 Nitroglycerin 0.4 Mg Tab Subl SL Q5M PRN Chest Pain Ondansetron HCl 4 mg 06/05/20 01:42 Ondansetron 4 Mg/2 Ml Inj IV Q8H PRN Nausea And Vomiting Sodium Chloride 10 ml 06/05/20 10:00 Sodium Chloride 0.9% 10 Ml Flush Syringe IV BID LEONIE Sodium Chloride 10 ml 06/05/20 01:42 Sodium Chloride 0.9% 10 Ml Flush Syringe IV PRN PRN LINE FLUSH Trazodone HCl 50 mg 06/05/20 22:00 Trazodone 50 Mg Tab PO QHS LEONIE Nutrition/Malnutrition Assess - Dietary Evaluation Nutrition/Malnutrition Findings: Nutrition Notes Start: 06/05/20 11:49 Freq: Status: Active Protocol: Document 06/05/20 11:49 AT (Rec: 06/05/20 11:52 AT [id number]) Co-Sign 06/05/20 11:49 LP Nutrition Notes Need for Assessment generated from: MD Order Current Diagnosis Diabetes,Hypertension Other Pertinent Diagnosis Bipolar Disorder, Hyperglycemia Current Diet NPO Labs/Tests BG 484 Subjective/Other Information Consult for diet education. Visited pt twice, first he was not in the room. Second visit , pt refused diet education. Nutrition Intervention Revisit per MD consult or patient Sign Off request:
[2020-06-05 16:11] LABS: Basophils # (Auto) 0.1 K/mm3 (0.0-0.1); Basophils % (Auto) 0.9 % (0.0-1.8); Eosinophils # (Auto) 0.1 K/mm3 (0.0-0.4); Eosinophils % (Auto) 1.6 % (0.0-4.3); Hematocrit 37.1 % (35.5-45.6); Hemoglobin 12.8 gm/dl (11.8-15.2); Lymphocytes # (Auto) 2.5 K/mm3 (1.2-5.4); Lymphocytes % (Auto) 34.8 % (13.4-35.0); Mean Corpuscular HGB Conc 34 % (32-34); Mean Corpuscular Volume 80 fl (84-94); Monocytes # (Auto) 0.4 K/mm3 (0.0-0.8); Monocytes % (Auto) 5.3 % (0.0-7.3); Platelet Count 334 K/mm3 (140-440); Red Blood Count 4.65 M/mm3 (3.65-5.03); Red Cell Distribution Width 14.9 % (13.2-15.2)
[2020-06-05 16:17] LABS: BUN/Creatinine Ratio 15; Blood Urea Nitrogen 16 mg/dL (9-20); Calcium 8.8 mg/dL (8.4-10.2); Hemolysis Index 13
[2020-06-05 16:55] LABS: Chol/HDL Ratio 5.55 %; HDL Cholesterol 34 mg/dL (40-59); LDL Cholesterol,Direct TNR mg/dL (50-130)
[2020-06-05] MEDS: INSULIN REGULAR, HUMAN 100 UNIT/ML 3ML VIAL SUB-Q SCH (21:45)
[2020-06-05] MEDS: GEMFIBROZIL 600 MG TAB PO SCH (21:46)
[2020-06-05] MEDS: INSULIN GLARGINE 100 UNITS/ML SUB-Q SCH (21:47)
[2020-06-05] MEDS: ACETAMINOPHEN 325 MG TAB PO PRN (21:47)
[2020-06-05] MEDS: DULoxetine 30 MG CAP PO SCH (21:51)
[2020-06-05] MEDS: amLODIPine 5 MG TAB PO SCH (21:52)
[2020-06-05] MEDS ORDERED: INSULIN GLARGINE 100 UNITS/ML SUB-Q SCH (22:00)
[2020-06-05] MEDS: traZODone 50 MG TAB PO SCH (22:59)
[2020-06-06] MEDS: HEPARIN 5,000 UNIT/1 ML VIAL SUB-Q SCH ×4 (05:35→21:29)
[2020-06-06 08:02] LABS: Basophils # (Auto) 0.1 K/mm3 (0.0-0.1); Eosinophils # (Auto) 0.2 K/mm3 (0.0-0.4); Eosinophils % (Auto) 2.5 % (0.0-4.3); Hematocrit 36.6 % (35.5-45.6); Hemoglobin 12.6 gm/dl (11.8-15.2); Lymphocytes # (Auto) 2.6 K/mm3 (1.2-5.4); Lymphocytes % (Auto) 42.1 % (13.4-35.0); Mean Corpuscular HGB Conc 34 % (32-34); Mean Corpuscular Volume 80 fl (84-94); Monocytes # (Auto) 0.5 K/mm3 (0.0-0.8); Monocytes % (Auto) 7.2 % (0.0-7.3); Platelet Count 325 K/mm3 (140-440); Red Blood Count 4.57 M/mm3 (3.65-5.03); Red Cell Distribution Width 14.2 % (13.2-15.2)
[2020-06-06 08:07] LABS: INR 0.96 (0.87-1.13)
[2020-06-06 08:10] LABS: BUN/Creatinine Ratio 13; Blood Urea Nitrogen 14 mg/dL (9-20); Calcium 8.8 mg/dL (8.4-10.2); Hemolysis Index 3
--- NOTE | 2020-06-06 08:33 | Progress Note ---
Assessment and Plan Suicidal ideation. Chest pain Type II DM Essential primary hypertension Hyperlipidemia History of DVT 1996 Tobacco use Recommendations: Patient refused ischemic evaluation with stress testing yesterday Continue risk factor modification Subjective Date of service: 06/06/20 Principal diagnosis: Chest Pain Interval history: Patient denies chest pain this morning. No events recorded on tele. Objective Vital Signs Temp Pulse Resp BP Pulse Ox 06/06/20 05:04 97.6 F 79 16 143/79 94 06/06/20 04:00 79 06/06/20 00:03 98.5 F 85 16 147/79 91 06/05/20 21:52 84 06/05/20 21:02 84 95 06/05/20 20:59 98.4 F 82 16 149/81 95 06/05/20 20:09 78 06/05/20 16:11 98.4 F 83 20 144/72 94 06/05/20 11:47 97.8 F 84 20 138/73 95 06/05/20 11:30 77 06/05/20 09:28 140/86 06/05/20 09:27 147/83 06/05/20 09:25 145/87 06/05/20 09:23 158/89 06/05/20 09:21 136/78 06/05/20 09:19 138/83 06/05/20 09:18 141/87 06/05/20 08:52 140/89 - Physical Examination HEENT: Positive: PERRL Neck: Positive: trachea midline Cardiac: Positive: Reg Rate and Rhythm Lungs: Positive: Normal Exam Neuro: Positive: Grossly Intact Extremities: Absent: edema - Labs and Meds Coagulation 06/06/20 Range/Units 07:13 PT 12.6 (12.2-14.9) Sec. INR 0.96 (0.87-1.13) Lipids 06/05/20 Range/Units 15:11 Triglycerides 574 H (2-149) mg/dL Cholesterol 189 (50-199) mg/dL HDL Cholesterol 34 L (40-59) mg/dL Cholesterol/HDL Ratio 5.55 % CBC 06/05/20 06/06/20 Range/Units 15:11 07:13 WBC 7.3 6.2 (4.5-11.0) K/mm3 RBC 4.65 4.57 (3.65-5.03) M/mm3 Hgb 12.8 12.6 (11.8-15.2) gm/dl Hct 37.1 36.6 (35.5-45.6) % Plt Count 334 325 (140-440) K/mm3 Lymph # (Auto) 2.5 2.6 (1.2-5.4) K/mm3 [place] # (Auto) 0.4 0.5 (0.0-0.8) K/mm3 Eos # (Auto) 0.1 0.2 (0.0-0.4) K/mm3 Baso # (Auto) 0.1 0.1 (0.0-0.1) K/mm3 Comprehensive Metabolic Panel 06/05/20 06/06/20 Range/Units 15:11 07:13 Sodium 130 L 135 L (137-145) mmol/L Potassium 4.5 4.2 (3.6-5.0) mmol/L Chloride 96.2 L 99.6 (98-107) mmol/L Carbon Dioxide 22 26 (22-30) mmol/L BUN 16 14 (9-20) mg/dL Creatinine 1.1 1.1 (0.8-1.3) mg/dL Glucose 491 H 378 H (75-100) mg/dL Calcium 8.8 8.8 (8.4-10.2) mg/dL
--- NOTE | 2020-06-06 08:38 | Progress Note ---
Assessment and Plan Assessment and plan: (1) Atypical chest pain Current Visit: Yes Status: Acute Plan to address problem: Patient presented with chest pain which was relieved with nitroglycerin Cardiology consulted, patient recommendations 06/05 patient was set to undergo a thallium stress test however he refused Cardiology plans to do an echocardiogram tomorrow Morphine and nitroglycerin EKG as needed Serial troponins have been less than 0.010 (2) Hyperglycemia due to diabetes mellitus Current Visit: Yes Status: Acute Plan to address problem: S/p 26 units of regular insulin in the emergency department given over 3 doses SSI 06/05 Lantus 5 units nightly started for persistent hyperglycemia 06/05 Hemoglobin A1c pending Accu-Cheks AC at bedtime CC cardiac diet (3) Homicidal ideation Current Visit: Yes Status: Acute Plan to address problem: Patient states he has homicidal ideations Psychiatric consult Patient is on 1013 hold Sitter at bedside (4) MDD (major depressive disorder) Current Visit: Yes Status: Acute Qualifiers: Major depression recurrence: recurrent Plan to address problem: Psychiatry consult, appreciate recommendations Initiated patient on Cymbalta Sleep hygiene with trazodone Sitter at bedside Patient presented with SI/HI, currently on a 1013 hold (5) Hyponatremia Current Visit: Yes Status: Acute Plan to address problem: Presented with a sodium of 134 Corrected sodium for hyperglycemia is 140 S/p 2 L normal saline in the emergency department Pseudohyponatremia (6) HLD (hyperlipidemia) Current Visit: Yes Status: Chronic Plan to address problem: 06/06 lipid panel pending We will initiate statin therapy once lipid panel results (7) Substance abuse in remission Current Visit: Yes Status: Chronic Plan to address problem: Per psychiatric note patient had substance abuse with cocaine and meth 3 years ago 06/04 UDS negative (8) Noncompliance with medication regimen Current Visit: Yes Status: Chronic Plan to address problem: 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 Patient was evaluated by psych and recommended to inpatient psych admission. Patient is on 1013. Patient is still suicidal. History Interval history: Patient was seen and evaluated this morning Patient denied any chest pain He declined ischemic work-up he Is still suicidal Hospitalist Physical - Physical exam Narrative exam: Not in cardiopulmonary distress. The patient appeared well nourished and normally developed. Vital signs as documented. Head exam is unremarkable. No scleral icterus . Neck is without jugular venous distension, thyromegaly, or carotid bruits. Lungs are clear to auscultation. Cardiac exam reveals regular rate and Rhythm. Abdominal exam reveals normal bowel sounds, nontender, no organomegaly. Extremities are nonedematous and both femoral and pedal pulses are normal. ADMINISTRATIVE PROGRAM SPECIALIST: Alert and oriented 3. No focal weakness. - Constitutional Vitals: Temp Pulse Resp BP Pulse Ox 97.6 F 79 16 143/79 94 06/06/20 05:04 06/06/20 05:04 06/06/20 05:04 06/06/20 05:04 06/06/20 05:04 General appearance: Present: no acute distress, well-nourished HEART Score - HEART Score EKG: Normal Age: 45-65 Risk factors: > 3 risk factors or hx of atherosclerotic disease Troponin: Troponin T < 0.010 ng/mL (0.00-0.029) 06/05/20 15:11 Troponin: < normal limit Results - Labs CBC & Chem 7: 06/06/20 07:13 06/06/20 07:13 Labs: Laboratory Last Values WBC 6.2 K/mm3 (4.5-11.0) 06/06/20 07:13 RBC 4.57 M/mm3 (3.65-5.03) 06/06/20 07:13 Hgb 12.6 gm/dl (11.8-15.2) 06/06/20 07:13 Hct 36.6 % (35.5-45.6) 06/06/20 07:13 MCV 80 fl (84-94) L 06/06/20 07:13 MCH 28 pg (28-32) 06/06/20 07:13 MCHC 34 % (32-34) 06/06/20 07:13 RDW 14.2 % (13.2-15.2) 06/06/20 07:13 Plt Count 325 K/mm3 (140-440) 06/06/20 07:13 Lymph % (Auto) 42.1 % (13.4-35.0) H 06/06/20 07:13 [place] % (Auto) 7.2 % (0.0-7.3) 06/06/20 07:13 Eos % (Auto) 2.5 % (0.0-4.3) 06/06/20 07:13 Baso % (Auto) 1.0 % (0.0-1.8) 06/06/20 07:13 Lymph # (Auto) 2.6 K/mm3 (1.2-5.4) 06/06/20 07:13 [place] # (Auto) 0.5 K/mm3 (0.0-0.8) 06/06/20 07:13 Eos # (Auto) 0.2 K/mm3 (0.0-0.4) 06/06/20 07:13 Baso # (Auto) 0.1 K/mm3 (0.0-0.1) 06/06/20 07:13 Seg Neutrophils % 47.2 % (40.0-70.0) 06/06/20 07:13 Seg Neutrophils # 2.9 K/mm3 (1.8-7.7) 06/06/20 07:13 PT 12.6 Sec. (12.2-14.9) 06/06/20 07:13 INR 0.96 (0.87-1.13) 06/06/20 07:13 D-Dimer 135.60 ng/mlDDU (0-234) 06/04/20 18:10 Sodium 135 mmol/L (137-145) L 06/06/20 07:13 Potassium 4.2 mmol/L (3.6-5.0) 06/06/20 07:13 Chloride 99.6 mmol/L (98-107) 06/06/20 07:13 Carbon Dioxide 26 mmol/L (22-30) 06/06/20 07:13 Anion Gap 14 mmol/L 06/06/20 07:13 BUN 14 mg/dL (9-20) 06/06/20 07:13 Creatinine 1.1 mg/dL (0.8-1.3) 06/06/20 07:13 Estimated GFR > 60 ml/min 06/06/20 07:13 BUN/Creatinine Ratio 13 % 06/06/20 07:13 Glucose 378 mg/dL (75-100) H 06/06/20 07:13 POC Glucose 473 mg/dL (70-105) H 06/05/20 21:38 Hemoglobin A1c 11.2 % (4-6) H 06/05/20 15:11 Calcium 8.8 mg/dL (8.4-10.2) 06/06/20 07:13 Troponin T < 0.010 ng/mL (0.00-0.029) 06/05/20 15:11 Triglycerides 574 mg/dL (2-149) H 06/05/20 15:11 Cholesterol 189 mg/dL (50-199) 06/05/20 15:11 LDL Cholesterol Direct TNR 06/05/20 15:11 HDL Cholesterol 34 mg/dL (40-59) L 06/05/20 15:11 Cholesterol/HDL Ratio 5.55 % 06/05/20 15:11 Urine Color Yellow (Yellow) 06/04/20 19:16 Urine Turbidity Clear (Clear) 06/04/20 19:16 Urine pH 5.0 (5.0-7.0) 06/04/20 19:16 Ur Specific [place] 1.018 (1.003-1.030) 06/04/20 19:16 Urine Protein <15 mg/dl mg/dL (Negative) 06/04/20 19:16 Urine Glucose (UA) >=500 mg/dL (Negative) 06/04/20 19:16 Urine Ketones 20 mg/dL (Negative) 06/04/20 19:16 Urine Blood Neg (Negative) 06/04/20 19:16 Urine Nitrite Neg (Negative) 06/04/20 19:16 Urine Bilirubin Neg (Negative) 06/04/20 19:16 Urine Urobilinogen < 2.0 mg/dL (<2.0) 06/04/20 19:16 Ur Leukocyte Esterase Neg (Negative) 06/04/20 19:16 Urine WBC (Auto) 6.0 /HPF (0.0-6.0) 06/04/20 19:16 Urine RBC (Auto) 2.0 /HPF (0.0-6.0) 06/04/20 19:16 U Epithel Cells (Auto) 1.0 /HPF (0-13.0) 06/04/20 19:16 Urine Opiates Screen Presumptive negative 06/04/20 19:16 Urine Methadone Screen Presumptive negative 06/04/20 19:16 Acetaminophen 5.0 ug/mL (10.0-30.0) L 06/04/20 18:10 Ur Barbiturates Screen Presumptive negative 06/04/20 19:16 Ur Phencyclidine Scrn Presumptive negative 06/04/20 19:16 Ur Amphetamines Screen Presumptive negative 06/04/20 19:16 U Benzodiazepines Scrn Presumptive negative 06/04/20 19:16 Urine Cocaine Screen Presumptive positive 06/04/20 19:16 U Marijuana (THC) Screen Presumptive negative 06/04/20 19:16 Drugs of Abuse Note Disclamer 06/04/20 19:16 Plasma/Serum Alcohol < 0.01 % (0-0.07) 06/04/20 18:10 - Diagnostic Impressions Diagnostic Impressions: Echocardiogram 06/05/20 01:47 Transthoracic Echocardiogram Indication: Chest Pain BP: 148/87 Conclusions *The left ventricular chamber size is normal. *Mild to moderate concentric left ventricular hypertrophy is observed. *The estimated ejection fraction is 60-65%. *Abnormal left ventricular diastolic filling is observed, consistent with impaired relaxation. *The left atrium is normal in size with no visual thrombus identified. *The right ventricular chamber size and systolic function are within normal limits. *The aortic valve is trileaflet. *The right ventricular systolic pressure is calculated at 23 mmHg. Findings Procedure Info: The study quality is fair. Left Ventricle: The left ventricular chamber size is normal. Mild to moderate concentric left ventricular hypertrophy is observed. The estimated ejection fraction is 60-65%. Abnormal left ventricular diastolic filling is observed, consistent with impaired relaxation. Left Atrium: The left atrium is normal in size with no visual thrombus identified. Right Ventricle: The right ventricular chamber size and systolic function are within normal limits. Right Atrium: The right atrium appears normal. Aortic Valve: The aortic valve is trileaflet. Mild aortic leaflet calcification is visualized. There is trace of aortic regurgitation. There is no evidence of aortic stenosis. Mitral Valve: The mitral valve leaflets appear normal. There is trace of mitral regurgitation. There is no evidence of mitral stenosis. Tricuspid Valve: The tricuspid valve leaflets are normal. There is trace tricuspid regurgitation. The right ventricular systolic pressure is calculated at 23 mmHg. There is no tricuspid stenosis. Pulmonic Valve: The pulmonic valve appears normal in structure and function. Pericardium: The pericardium appears normal. Aorta: The aorta appears normal. Pulmonary Artery: The main pulmonary artery appears normal. Venous: The inferior vena cava appears normal in size. There is a greater than 50% respiratory change in the inferior vena cava dimension. Measurements Chambers 2D Name Value Normal Range IVSd (2D) 1.37 cm (0.6 - 1.1) LVPWd (2D) 1.22 cm (0.6 - 1.1) LVIDd (2D) 5.24 cm (3.7 - 5.6) LVIDs (2D) 3.46 cm (2 - 3.8) LV FS (2D) 34.04 % - EF Teichholz (2D) 62.56 % - Ao root diameter (2D) 3.3 cm (2 - 3.7) Volumes/Mass Name Value Normal Range LA ESV SP 4CH (A/L) 84.94 ml - LA ESV SP 2CH (A/L) 79.25 ml - LA ESV BP (A/L) 84.7 ml - LA ESV BP (A/L) index 33.61 ml/m2 - LA ESV SP 4CH (MOD) 81.89 ml - LA ESV SP 2CH (MOD) 78.96 ml - LA ESV BP (MOD) 82.33 ml - LA ESV BP (MOD) index 32.67 ml/m2 - LV EDV SP 4CH (MOD) 153.69 ml - LV ESV SP 4CH (MOD) 51.13 ml - EF SP 4CH (MOD) 66.73 % - LV EDV SP 2CH (MOD) 110.18 ml - LV ESV SP 2CH (MOD) 42.38 ml - EF SP 2CH (MOD) 61.54 % - LV EDV BP 132.71 ml - LV ESV BP 46.25 ml - BP EF (MOD) 65.15 % - Diastolic/Systolic Function Name Value Normal Range MV E-wave Vmax 0.59 m/sec - MV deceleration time 155.37 msec - MV A-wave Vmax 1 m/sec - MV E:A ratio 0.59 ratio - Aortic Valve Name Value Normal Range AV Vmax 1.52 m/sec - AV VTI 29.1 cm - AV peak gradient 9.23 mmHg - AV mean gradient 5.2 mmHg - LVOT diameter 2.54 cm - LVOT Vmax 0.88 m/sec - LVOT VTI 19.35 cm - LVOT peak gradient 3.08 mmHg - LVOT mean gradient 1.61 mmHg - SV LVOT 98.36 ml - LUKAS (continuity Vmax) 2.94 cm2 - LUKAS (continuity VTI) 3.38 cm2 - Ascending Ao 3.45 cm - Tricuspid Valve Name Value Normal Range TV E-wave Vmax 0.57 m/sec - TR Vmax 2.28 m/sec - TR peak gradient 20.75 mmHg - RAP 3 mmHg - RVSP 23 mmHg - IVC diameter 1.47 cm (1.2 - 2.3) Pulmonic Valve/Qp:Qs Name Value Normal Range PV Vmax 1.36 m/sec - PV peak gradient 7.41 mmHg - RVOT Vmax 0.74 m/sec - RVOT VTI 14 cm - RVOT peak gradient 2.22 mmHg - PV acceleration time 156.04 msec - [place]/IV: Voiding Method Toilet IV Catheter Type [Left Hand] INT / Saline Lock Active Medications - Current Medications Current Medications: Generic Name Dose Route Start Last Admin Trade Name Freq PRN Reason Stop Dose Admin Acetaminophen 650 mg 06/05/20 01:42 06/05/20 21:47 Acetaminophen 325 Mg Tab PO 650 mg Q4H PRN Administration Pain MILD(1-3)/Fever >100.5/CUNHA Amlodipine Besylate 5 mg 06/05/20 16:00 06/05/20 21:52 Amlodipine 5 Mg Tab PO 5 mg QDAY LEONIE Administration Dextrose 0 ml 06/05/20 01:42 Dextrose 50% In Water (25gm) 50 Ml Syringe IV Q30MIN PRN Hypoglycemia Protocol Duloxetine HCl 30 mg 06/05/20 13:00 06/05/20 21:51 Duloxetine 30 Mg Cap PO 30 mg QDAY LEONIE Administration Gemfibrozil 600 mg 06/05/20 22:00 06/05/20 21:46 Gemfibrozil 600 Mg Tab PO 600 mg BID LEONIE Administration Heparin Sodium (Porcine) 5,000 unit 06/05/20 06:00 06/06/20 05:35 Heparin 5,000 Unit/1 Ml Vial SUB-Q 5,000 unit Q8HR LEONIE Administration Insulin Glargine 10 units 06/05/20 22:00 06/05/20 21:47 Insulin Glargine 100 Units/Ml SUB-Q 10 units QHS LEONIE Administration Insulin Human Regular 0 unit 06/05/20 07:30 06/05/20 21:45 Insulin Regular, Human 100 Unit/Ml 3ml Vial SUB-Q 8 unit ACHS LEONIE Administration Protocol Magnesium Hydroxide 30 ml 06/05/20 01:42 Magnesium Hydroxide (Mom) Oral Liqd Udc PO Q4H PRN Constipation Morphine Sulfate 2 mg 06/05/20 01:42 Morphine 2 Mg/1 Ml Inj IV Q5MIN PRN Chest Pain Nitroglycerin 0.4 mg 06/05/20 01:42 Nitroglycerin 0.4 Mg Tab Subl SL Q5M PRN Chest Pain Ondansetron HCl 4 mg 06/05/20 01:42 Ondansetron 4 Mg/2 Ml Inj IV Q8H PRN Nausea And Vomiting Sodium Chloride 10 ml 06/05/20 10:00 06/05/20 21:45 Sodium Chloride 0.9% 10 Ml Flush Syringe IV 10 ml BID LEONIE Administration Sodium Chloride 10 ml 06/05/20 01:42 Sodium Chloride 0.9% 10 Ml Flush Syringe IV PRN PRN LINE FLUSH Trazodone HCl 50 mg 06/05/20 22:00 06/05/20 22:59 Trazodone 50 Mg Tab PO 50 mg QHS LEONIE Administration Nutrition/Malnutrition Assess - Dietary Evaluation Nutrition/Malnutrition Findings: Nutrition Notes Start: 06/05/20 11:49 Freq: Status: Active Protocol: Document 06/05/20 11:49 AT (Rec: 06/05/20 11:52 AT [id number]) Co-Sign 06/05/20 11:49 LP Nutrition Notes Need for Assessment generated from: MD Order Current Diagnosis Diabetes,Hypertension Other Pertinent Diagnosis Bipolar Disorder, Hyperglycemia Current Diet NPO Labs/Tests BG 484 Subjective/Other Information Consult for diet education. Visited pt twice, first he was not in the room. Second visit , pt refused diet education. Nutrition Intervention Revisit per MD consult or patient Sign Off request:
[2020-06-06] MEDS: INSULIN REGULAR, HUMAN 100 UNIT/ML 3ML VIAL SUB-Q SCH ×5 (09:10→21:31)
[2020-06-06] MEDS: amLODIPine 5 MG TAB PO SCH (09:48)
[2020-06-06] MEDS: GEMFIBROZIL 600 MG TAB PO SCH ×2 (09:48→21:29)
[2020-06-06] MEDS: DULoxetine 30 MG CAP PO SCH (09:48)
[2020-06-06] MEDS: traZODone 50 MG TAB PO SCH (21:29)
[2020-06-06] MEDS: INSULIN GLARGINE 100 UNITS/ML SUB-Q SCH (21:30)
[2020-06-06] MEDS: LORATADINE/PSEUDOEPHEDRINE 5-120 MG TAB 12HR PO SCH (21:30)
[2020-06-07] MEDS: HEPARIN 5,000 UNIT/1 ML VIAL SUB-Q SCH ×3 (06:02→21:54)
[2020-06-07] MEDS: DULoxetine 30 MG CAP PO SCH (09:08)
[2020-06-07] MEDS: GEMFIBROZIL 600 MG TAB PO SCH ×2 (09:08→21:54)
[2020-06-07] MEDS: amLODIPine 5 MG TAB PO SCH (09:08)
[2020-06-07] MEDS: INSULIN REGULAR, HUMAN 100 UNIT/ML 3ML VIAL SUB-Q SCH ×2 (09:12→12:20)
--- NOTE | 2020-06-07 12:54 | Progress Note ---
Assessment and Plan Assessment and Plan Assessment and plan: (1) Atypical chest pain Current Visit: Yes Status: Acute Plan to address problem: Patient presented with chest pain which was relieved with nitroglycerin Cardiology consulted, patient recommendations 06/05 patient was set to undergo a thallium stress test however he refused Cardiology plans to do an echocardiogram tomorrow Morphine and nitroglycerin EKG as needed Serial troponins have been less than 0.010 (2) Hyperglycemia due to diabetes mellitus Current Visit: Yes Status: Acute Plan to address problem: S/p 26 units of regular insulin in the emergency department given over 3 doses SSI 06/05 Lantus 5 units nightly started for persistent hyperglycemia 06/05 Hemoglobin A1c pending Accu-Cheks AC at bedtime CC cardiac diet Lantus changed to 20 units twice a day because of the persistent high blood glucose levels (3) Homicidal ideation Current Visit: Yes Status: Acute Plan to address problem: Patient states he has homicidal ideations Psychiatric consult/mental health consult Patient is on 1013 hold Sitter at bedside (4) MDD (major depressive disorder) Current Visit: Yes Status: Acute Qualifiers: Major depression recurrence: recurrent Plan to address problem: Psychiatry consult, appreciate recommendations Initiated patient on Cymbalta Sleep hygiene with trazodone Sitter at bedside Patient presented with SI/HI, currently on a 1013 hold (5) Hyponatremia Current Visit: Yes Status: Acute Plan to address problem: Presented with a sodium of 134 Corrected sodium for hyperglycemia is 140 S/p 2 L normal saline in the emergency department Pseudohyponatremia --Sodium improved from 130-135 (6) HLD (hyperlipidemia) Current Visit: Yes Status: Chronic Plan to address problem: 06/06 lipid panel pending We will initiate statin therapy once lipid panel results (7) Substance abuse in remission Current Visit: Yes Status: Chronic Plan to address problem: Per psychiatric note patient had substance abuse with cocaine and meth 3 years ago 06/04 UDS negative (8) Noncompliance with medication regimen Current Visit: Yes Status: Chronic Plan to address problem: Patient 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 Counseled on medication compliance (9) DVT prophylaxis Current Visit: Yes Status: Acute Plan to address problem: SCDs to bilateral extremities while in bed Heparin subcu Patient has a history of a DVT in 1996 Discharge planning issues Discharge planning issues Patient may need acute psychiatric inpatient Will defer to mental health consult Subjective Date of service: 06/07/20 Principal diagnosis: Chest Pain Interval history: 54-year-old -[place] male with known history of bipolar disorder, hypertension, hyperlipidemia, history of DVT in the past and diabetes mellitus presenting to the emergency room today complaining of chest pain. Chest pain was said to have started about 6 AM today and it was midsternal, sharp and constant. He had associated shortness of breath and some mild cough which is nonproductive. He had some nausea but no vomiting. In route to the hospital he had some nitroglycerin which was given by EMS with some improvement. Patient has a strong family history of coronary artery disease and had a stress test about 5 years ago which he indicates was within normal limits. He has been homeless for the past several days and has been staying at a friend's place. He has had some homicidal and suicidal ideations. Work-up in the emergency room today reveals hyperglycemia. Chest x-ray EKG and troponin were within normal limits. Patient is being admitted for chest pain evaluation and hyperglycemia. He has also been placed on 1013 in view of his suicidal homicidal ideations. He has no definite plans at the moment. Interval history: Patient was seen and evaluated this morning Patient denied any chest pain He declined ischemic work-up he Is still suicidal 06/06/2020; patient refused ischemic evaluation and cardiology recommend risk modification. Patient was evaluated by psych and recommended to inpatient psych admission. Patient is on 1013. Patient is still suicidal. And usually cannot 06/07/2020 Patient still suicidal Refuses stress test Patient on 1013 Mental health consult requested Objective - Constitutional Vitals: Vital Signs - 12hr 06/07/20 06/07/20 06/07/20 03:33 08:31 10:00 Temperature 97.7 F 97.3 F L Pulse Rate 78 86 86 Respiratory 18 17 Rate Blood Pressure 125/78 144/77 O2 Sat by Pulse 94 92 Oximetry General appearance: Present: no acute distress, well-nourished - EENT Eyes: PERRL, EOM intact ENT: hearing intact, clear oral mucosa Ears: bilateral: normal - Neck Neck: supple, normal ROM - Respiratory Respiratory effort: normal Respiratory: bilateral: CTA - Breasts Breasts: normal - Cardiovascular Heart rate: 78 Rhythm: regular Heart Sounds: Present: S1 & S2. Absent: gallop, rub Extremities: pulses intact, No edema, normal color, Full ROM - Gastrointestinal General gastrointestinal: Present: soft, non-tender, non-distended, normal bowel sounds - Genitourinary Male genitourinary: normal - Integumentary Integumentary: clear, warm, dry - Musculoskeletal Musculoskeletal: 1, strength equal bilaterally - Neurologic Neurologic: moves all extremities - Psychiatric Psychiatric: memory intact, appropriate mood/affect, intact judgment & insight - Allied health notes Allied health notes reviewed: nursing, case management - Labs CBC & Chem 7: 06/06/20 07:13 06/06/20 07:13 Labs: Abnormal lab results 06/06/20 06/06/20 06/07/20 Range/Units 15:37 20:40 08:04 POC Glucose 370 H 322 H 311 H (70-105) mg/dL 06/07/20 Range/Units 12:03 POC Glucose 343 H (70-105) mg/dL HEART Score - HEART Score EKG: Normal Age: 45-65 Risk factors: > 3 risk factors or hx of atherosclerotic disease Troponin: Troponin T < 0.010 ng/mL (0.00-0.029) 06/05/20 15:11 Troponin: < normal limit
[2020-06-07] MEDS: LORATADINE/PSEUDOEPHEDRINE 5-120 MG TAB 12HR PO SCH ×2 (15:33→22:19)
[2020-06-07] MEDS: INSULIN NPH/REGULAR 70/30 INJ SUB-Q SCH (17:29)
[2020-06-07] MEDS: INSULIN LISPRO 100 UNIT/ML VIAL 3 mL SUB-Q SCH ×2 (17:29→21:58)
[2020-06-07] MEDS: traZODone 50 MG TAB PO SCH (21:54)
[2020-06-07] MEDS: INSULIN GLARGINE 100 UNITS/ML SUB-Q SCH (21:57)
[2020-06-08] MEDS: HEPARIN 5,000 UNIT/1 ML VIAL SUB-Q SCH ×3 (05:08→22:24)
[2020-06-08 05:59] LABS: Alanine Aminotransferase 7 units/L (7-56); Albumin 3.5 g/dL (3.9-5); BUN/Creatinine Ratio 15; Blood Urea Nitrogen 16 mg/dL (9-20); Calcium 9.1 mg/dL (8.4-10.2); Hemolysis Index 6
[2020-06-08] MEDS: INSULIN NPH/REGULAR 70/30 INJ SUB-Q SCH (08:43)
[2020-06-08] MEDS: INSULIN LISPRO 100 UNIT/ML VIAL 3 mL SUB-Q SCH ×4 (08:43→22:26)
--- NOTE | 2020-06-08 10:16 | Progress Note ---
Assessment and Plan Atypical chest pain Patient refused ischemic evaluation with stress test Normal LVEF 60-65% by echocardiogram this presentation Suicidal ideation Substance abuse Diabetes, type II Hypertension Hyperlipidemia Advised risk factor modification. Will follow intermittently. Subjective Date of service: 06/08/20 Principal diagnosis: Chest Pain Interval history: Patient is resting in bed comfortably. Has a sitter for safety measures. Objective Vital Signs Temp Pulse Resp BP Pulse Ox 06/08/20 07:50 97.1 F L 88 18 130/88 97 06/08/20 07:15 86 06/08/20 05:29 97.8 F 86 16 147/88 92 06/08/20 02:00 87 06/08/20 00:11 97.8 F 90 16 119/83 94 06/07/20 21:20 98.2 F 84 16 148/89 94 06/07/20 16:35 98.3 F 82 17 144/87 97 06/07/20 12:57 98.2 F 85 17 137/90 96 - Physical Examination General: No Apparent Distress HEENT: Positive: PERRL Neck: Positive: trachea midline Cardiac: Positive: Reg Rate and Rhythm Lungs: Positive: Decreased Breath Sounds Neuro: Positive: Grossly Intact Extremities: Absent: edema - Labs and Meds Cardiac Enzymes 06/08/20 Range/Units 05:26 AST 7 (5-40) units/L Comprehensive Metabolic Panel 06/08/20 Range/Units 05:26 Sodium 136 L (137-145) mmol/L Potassium 4.3 (3.6-5.0) mmol/L Chloride 103.9 (98-107) mmol/L Carbon Dioxide 21 L (22-30) mmol/L BUN 16 (9-20) mg/dL Creatinine 1.1 (0.8-1.3) mg/dL Glucose 291 H (75-100) mg/dL Calcium 9.1 (8.4-10.2) mg/dL AST 7 (5-40) units/L ALT 7 (7-56) units/L Alkaline Phosphatase 114 (35-129) units/L Total Protein 6.9 (6.3-8.2) g/dL Albumin 3.5 L (3.9-5) g/dL
--- NOTE | 2020-06-08 10:30 | Progress Note ---
Subjective - Reason for Consult Consult date: 06/08/20 Reason for consult: MHE Requesting physician: MILTON ROSARIO - Chief Complaint Chief complaint: Psych Progress Patient seen this a.m., patient reported he is feeling so-so, says he has been doing a lot of thinking lately about life indicating has been a little bit about everything but positive and negative thoughts. Patient endorses consistent persistent SI, reports improved sleep with recent medications but states appetite is still poor. REVIEW OF SYSTEMS Constitutional: Negative for weight loss ENT: Negative for stridor Respiratory: Negative for cough or hemoptysis All other systems reviewed and are negative MENTAL STATUS EXAMINATION General Appearance and Behavior: Age appropriate, good hygiene, wearing appro priate clothes,, good eye contact Cooperation: Participating/engaged, but Guarded Psychomotor Behavior: Psychomotor normal Mood: depressed Affect and affective range: irritable, labile Thought Process: illogical Thought Content: hopelessness, helplessness Speech: Normal rate, volume and rythm Intellectual Functioning: Average Suicidal Ideation: SI Homicidal Ideation:HI Impulse Control: Impaired Insight and Judgment: Limited insight and judgment Memory: Normal Attention: Normal Orientation: Alert, oriented Diagnoses: Assessment and Plan - Psychiatric problem (1) MDD (major depressive disorder) Current Visit: Yes Status: Acute Treatment Plan MEDICATIONS: We will start patient on Cymbalta Risks, benefits and alternatives of medications discussed with the patient, questions answered and consent obtained from patient. PSYCHOTHERAPY: Supportive psychotherapy provided MEDICAL: Per primary team DELIRIUM PRECAUTIONS: Please re-orient patient frequently, keep lights on during the day, and minimize benzodiazepines and opiates as these medications could worsen patient's confusion. MANAGER EXCHANGE: DISPOSITION: Do Recommend acute inpatient psychiatric hospitalization at this time LEGAL STATUS: 1013 FOLLOW-UP: Will follow Thank you for the consult. Please contact with any questions and/or concerns. Mental Status Exam - Vital signs Last Vital Signs Temp 97.1 F L 06/08/20 07:50 Pulse 88 06/08/20 07:50 Resp 18 06/08/20 07:50 BP 130/88 06/08/20 07:50 Pulse Ox 97 06/08/20 07:50 Assessment and Plan - Patient Problems (1) MDD (major depressive disorder) Current Visit: Yes Status: Acute Qualifiers: Major depression recurrence: recurrent
[2020-06-08] MEDS: LORATADINE/PSEUDOEPHEDRINE 5-120 MG TAB 12HR PO SCH ×2 (10:48→22:22)
[2020-06-08] MEDS: amLODIPine 5 MG TAB PO SCH (10:48)
[2020-06-08] MEDS: DULoxetine 30 MG CAP PO SCH (10:48)
[2020-06-08] MEDS: busPIRone 5 MG TAB PO SCH (10:48)
[2020-06-08] MEDS: GEMFIBROZIL 600 MG TAB PO SCH ×2 (10:49→22:24)
--- NOTE | 2020-06-08 10:58 | Progress Note ---
Assessment and Plan Assessment and plan: (1) Atypical chest pain Current Visit: Yes Status: Acute Plan to address problem: Patient presented with chest pain which was relieved with nitroglycerin Cardiology consulted, patient recommendations 06/05 patient was set to undergo a thallium stress test however he refused Cardiology plans to do an echocardiogram tomorrow Morphine and nitroglycerin EKG as needed Serial troponins have been less than 0.010 (2) Hyperglycemia due to diabetes mellitus Current Visit: Yes Status: Acute Plan to address problem: S/p 26 units of regular insulin in the emergency department given over 3 doses SSI 06/05 Lantus 5 units nightly started for persistent hyperglycemia 06/05 Hemoglobin A1c pending Accu-Cheks AC at bedtime CC cardiac diet Lantus changed to 20 units twice a day because of the persistent high blood glucose levels (3) Homicidal ideation Current Visit: Yes Status: Acute Plan to address problem: Patient states he has homicidal ideations Psychiatric consult/mental health consult Patient is on 1013 hold Sitter at bedside (4) MDD (major depressive disorder) Current Visit: Yes Status: Acute Qualifiers: Major depression recurrence: recurrent Plan to address problem: Psychiatry consult, appreciate recommendations Initiated patient on Cymbalta Sleep hygiene with trazodone Sitter at bedside Patient presented with SI/HI, currently on a 1013 hold (5) Hyponatremia Current Visit: Yes Status: Acute Plan to address problem: Presented with a sodium of 134 Corrected sodium for hyperglycemia is 140 S/p 2 L normal saline in the emergency department Pseudohyponatremia --Sodium improved from 130-135 (6) HLD (hyperlipidemia) Current Visit: Yes Status: Chronic Plan to address problem: 06/06 lipid panel pending We will initiate statin therapy once lipid panel results (7) Substance abuse in remission Current Visit: Yes Status: Chronic Plan to address problem: Per psychiatric note patient had substance abuse with cocaine and meth 3 years ago 06/04 UDS negative (8) Noncompliance with medication regimen Current Visit: Yes Status: Chronic Plan to address problem: Patient reports recent homelessness property worker/case management consult Counseled on medication compliance (9) DVT prophylaxis Current Visit: Yes Status: Acute Plan to address problem: SCDs to bilateral extremities while in bed Heparin subcu Patient has a history of a DVT in 1996 Discharge planning issues Discharge planning issues Patient may need acute psychiatric inpatient Will defer to mental health consult Subjective Date of service: 06/07/20 Principal diagnosis: Chest Pain Interval history: 54-year-old -[place] male with known history of bipolar disorder, hypertension, hyperlipidemia, history of DVT in the past and diabetes mellitus presenting to the emergency room today complaining of chest pain. Chest pain was said to have started about 6 AM today and it was midsternal, sharp and constant. He had associated shortness of breath and some mild cough which is nonproductive. He had some nausea but no vomiting. In route to the hospital he had some nitroglycerin which was given by EMS with some improvement. Patient has a strong family history of coronary artery disease and had a stress test about 5 years ago which he indicates was within normal limits. He has been homeless for the past several days and has been staying at a friend's place. He has had some homicidal and suicidal ideations. Work-up in the emergency room today reveals hyperglycemia. Chest x-ray EKG and troponin were within normal limits. Patient is being admitted for chest pain evaluation and hyperglycemia. He has also been placed on 1013 in view of his suicidal homicidal ideations. He has no definite plans at the moment. Interval history: Patient was seen and evaluated this morning Patient denied any chest pain He declined ischemic work-up he Is still suicidal 06/06/2020; patient refused ischemic evaluation and cardiology recommend risk modification. Patient was evaluated by psych and recommended to inpatient psych admission. Patient is on 1012. Patient is still suicidal. And usually cannot 06/07/2020 Patient still suicidal Refuses stress test Patient on 1012 Mental health consult requested Hospitalist Physical - Constitutional Vitals: Temp Pulse Resp BP Pulse Ox 97.1 F L 88 18 130/88 97 06/08/20 07:50 06/08/20 07:50 06/08/20 07:50 06/08/20 07:50 06/08/20 07:50 General appearance: Present: no acute distress, well-nourished HEART Score - HEART Score EKG: Normal Age: 45-65 Risk factors: > 3 risk factors or hx of atherosclerotic disease Troponin: Troponin T < 0.010 ng/mL (0.00-0.029) 06/05/20 15:11 Troponin: < normal limit Results - Labs CBC & Chem 7: 06/06/20 07:13 06/08/20 05:26 Labs: Laboratory Last Values WBC 6.2 K/mm3 (4.5-11.0) 06/06/20 07:13 RBC 4.57 M/mm3 (3.65-5.03) 06/06/20 07:13 Hgb 12.6 gm/dl (11.8-15.2) 06/06/20 07:13 Hct 36.6 % (35.5-45.6) 06/06/20 07:13 MCV 80 fl (84-94) L 06/06/20 07:13 MCH 28 pg (28-32) 06/06/20 07:13 MCHC 34 % (32-34) 06/06/20 07:13 RDW 14.2 % (13.2-15.2) 06/06/20 07:13 Plt Count 325 K/mm3 (140-440) 06/06/20 07:13 Lymph % (Auto) 42.1 % (13.4-35.0) H 06/06/20 07:13 [place] % (Auto) 7.2 % (0.0-7.3) 06/06/20 07:13 Eos % (Auto) 2.5 % (0.0-4.3) 06/06/20 07:13 Baso % (Auto) 1.0 % (0.0-1.8) 06/06/20 07:13 Lymph # (Auto) 2.6 K/mm3 (1.2-5.4) 06/06/20 07:13 [place] # (Auto) 0.5 K/mm3 (0.0-0.8) 06/06/20 07:13 Eos # (Auto) 0.2 K/mm3 (0.0-0.4) 06/06/20 07:13 Baso # (Auto) 0.1 K/mm3 (0.0-0.1) 06/06/20 07:13 Seg Neutrophils % 47.2 % (40.0-70.0) 06/06/20 07:13 Seg Neutrophils # 2.9 K/mm3 (1.8-7.7) 06/06/20 07:13 PT 12.6 Sec. (12.2-14.9) 06/06/20 07:13 INR 0.96 (0.87-1.13) 06/06/20 07:13 D-Dimer 135.60 ng/mlDDU (0-234) 06/04/20 18:10 Sodium 136 mmol/L (137-145) L 06/08/20 05:26 Potassium 4.3 mmol/L (3.6-5.0) 06/08/20 05:26 Chloride 103.9 mmol/L (98-107) 06/08/20 05:26 Carbon Dioxide 21 mmol/L (22-30) L 06/08/20 05:26 Anion Gap 15 mmol/L 06/08/20 05:26 BUN 16 mg/dL (9-20) 06/08/20 05:26 Creatinine 1.1 mg/dL (0.8-1.3) 06/08/20 05:26 Estimated GFR > 60 ml/min 06/08/20 05:26 BUN/Creatinine Ratio 15 % 06/08/20 05:26 Glucose 291 mg/dL (75-100) H 06/08/20 05:26 POC Glucose 213 mg/dL (70-105) H 06/07/20 21:55 Hemoglobin A1c 11.2 % (4-6) H 06/05/20 15:11 Calcium 9.1 mg/dL (8.4-10.2) 06/08/20 05:26 Total Bilirubin 0.30 mg/dL (0.1-1.2) 06/08/20 05:26 AST 7 units/L (5-40) 06/08/20 05:26 ALT 7 units/L (7-56) 06/08/20 05:26 Alkaline Phosphatase 114 units/L (35-129) 06/08/20 05:26 Troponin T < 0.010 ng/mL (0.00-0.029) 06/05/20 15:11 Total Protein 6.9 g/dL (6.3-8.2) 06/08/20 05:26 Albumin 3.5 g/dL (3.9-5) L 06/08/20 05:26 Albumin/Globulin Ratio 1.0 % 06/08/20 05:26 Triglycerides 574 mg/dL (2-149) H 06/05/20 15:11 Cholesterol 189 mg/dL (50-199) 06/05/20 15:11 LDL Cholesterol Direct TNR 06/05/20 15:11 HDL Cholesterol 34 mg/dL (40-59) L 06/05/20 15:11 Cholesterol/HDL Ratio 5.55 % 06/05/20 15:11 Urine Color Yellow (Yellow) 06/04/20 19:16 Urine Turbidity Clear (Clear) 06/04/20 19:16 Urine pH 5.0 (5.0-7.0) 06/04/20 19:16 Ur Specific [place] 1.018 (1.003-1.030) 06/04/20 19:16 Urine Protein <15 mg/dl mg/dL (Negative) 06/04/20 19:16 Urine Glucose (UA) >=500 mg/dL (Negative) 06/04/20 19:16 Urine Ketones 20 mg/dL (Negative) 06/04/20 19:16 Urine Blood Neg (Negative) 06/04/20 19:16 Urine Nitrite Neg (Negative) 06/04/20 19:16 Urine Bilirubin Neg (Negative) 06/04/20 19:16 Urine Urobilinogen < 2.0 mg/dL (<2.0) 06/04/20 19:16 Ur Leukocyte Esterase Neg (Negative) 06/04/20 19:16 Urine WBC (Auto) 6.0 /HPF (0.0-6.0) 06/04/20 19:16 Urine RBC (Auto) 2.0 /HPF (0.0-6.0) 06/04/20 19:16 U Epithel Cells (Auto) 1.0 /HPF (0-13.0) 06/04/20 19:16 Urine Opiates Screen Presumptive negative 06/04/20 19:16 Urine Methadone Screen Presumptive negative 06/04/20 19:16 Acetaminophen 5.0 ug/mL (10.0-30.0) L 06/04/20 18:10 Ur Barbiturates Screen Presumptive negative 06/04/20 19:16 Ur Phencyclidine Scrn Presumptive negative 06/04/20 19:16 Ur Amphetamines Screen Presumptive negative 06/04/20 19:16 U Benzodiazepines Scrn Presumptive negative 06/04/20 19:16 Urine Cocaine Screen Presumptive positive 06/04/20 19:16 U Marijuana (THC) Screen Presumptive negative 06/04/20 19:16 Drugs of Abuse Note Disclamer 06/04/20 19:16 Plasma/Serum Alcohol < 0.01 % (0-0.07) 06/04/20 18:10 - Diagnostic Impressions Diagnostic Impressions: Echocardiogram 06/05/20 01:47 Transthoracic Echocardiogram Indication: Chest Pain BP: 148/87 Conclusions *The left ventricular chamber size is normal. *Mild to moderate concentric left ventricular hypertrophy is observed. *The estimated ejection fraction is 60-65%. *Abnormal left ventricular diastolic filling is observed, consistent with impaired relaxation. *The left atrium is normal in size with no visual thrombus identified. *The right ventricular chamber size and systolic function are within normal limits. *The aortic valve is trileaflet. *The right ventricular systolic pressure is calculated at 23 mmHg. Findings Procedure Info: The study quality is fair. Left Ventricle: The left ventricular chamber size is normal. Mild to moderate concentric left ventricular hypertrophy is observed. The estimated ejection fraction is 60-65%. Abnormal left ventricular diastolic filling is observed, consistent with impaired relaxation. Left Atrium: The left atrium is normal in size with no visual thrombus identified. Right Ventricle: The right ventricular chamber size and systolic function are within normal limits. Right Atrium: The right atrium appears normal. Aortic Valve: The aortic valve is trileaflet. Mild aortic leaflet calcification is visualized. There is trace of aortic regurgitation. There is no evidence of aortic stenosis. Mitral Valve: The mitral valve leaflets appear normal. There is trace of mitral regurgitation. There is no evidence of mitral stenosis. Tricuspid Valve: The tricuspid valve leaflets are normal. There is trace tricuspid regurgitation. The right ventricular systolic pressure is calculated at 23 mmHg. There is no tricuspid stenosis. Pulmonic Valve: The pulmonic valve appears normal in structure and function. Pericardium: The pericardium appears normal. Aorta: The aorta appears normal. Pulmonary Artery: The main pulmonary artery appears normal. Venous: The inferior vena cava appears normal in size. There is a greater than 50% respiratory change in the inferior vena cava dimension. Measurements Chambers 2D Name Value Normal Range IVSd (2D) 1.37 cm (0.6 - 1.1) LVPWd (2D) 1.22 cm (0.6 - 1.1) LVIDd (2D) 5.24 cm (3.7 - 5.6) LVIDs (2D) 3.46 cm (2 - 3.8) LV FS (2D) 34.04 % - EF Teichholz (2D) 62.56 % - Ao root diameter (2D) 3.3 cm (2 - 3.7) Volumes/Mass Name Value Normal Range LA ESV SP 4CH (A/L) 84.94 ml - LA ESV SP 2CH (A/L) 79.25 ml - LA ESV BP (A/L) 84.7 ml - LA ESV BP (A/L) index 33.61 ml/m2 - LA ESV SP 4CH (MOD) 81.89 ml - LA ESV SP 2CH (MOD) 78.96 ml - LA ESV BP (MOD) 82.33 ml - LA ESV BP (MOD) index 32.67 ml/m2 - LV EDV SP 4CH (MOD) 153.69 ml - LV ESV SP 4CH (MOD) 51.13 ml - EF SP 4CH (MOD) 66.73 % - LV EDV SP 2CH (MOD) 110.18 ml - LV ESV SP 2CH (MOD) 42.38 ml - EF SP 2CH (MOD) 61.54 % - LV EDV BP 132.71 ml - LV ESV BP 46.25 ml - BP EF (MOD) 65.15 % - Diastolic/Systolic Function Name Value Normal Range MV E-wave Vmax 0.59 m/sec - MV deceleration time 155.37 msec - MV A-wave Vmax 1 m/sec - MV E:A ratio 0.59 ratio - Aortic Valve Name Value Normal Range AV Vmax 1.52 m/sec - AV VTI 29.1 cm - AV peak gradient 9.23 mmHg - AV mean gradient 5.2 mmHg - LVOT diameter 2.54 cm - LVOT Vmax 0.88 m/sec - LVOT VTI 19.35 cm - LVOT peak gradient 3.08 mmHg - LVOT mean gradient 1.61 mmHg - SV LVOT 98.36 ml - LUKAS (continuity Vmax) 2.94 cm2 - LUKAS (continuity VTI) 3.38 cm2 - Ascending Ao 3.45 cm - Tricuspid Valve Name Value Normal Range TV E-wave Vmax 0.57 m/sec - TR Vmax 2.28 m/sec - TR peak gradient 20.75 mmHg - RAP 3 mmHg - RVSP 23 mmHg - IVC diameter 1.47 cm (1.2 - 2.3) Pulmonic Valve/Qp:Qs Name Value Normal Range PV Vmax 1.36 m/sec - PV peak gradient 7.41 mmHg - RVOT Vmax 0.74 m/sec - RVOT VTI 14 cm - RVOT peak gradient 2.22 mmHg - PV acceleration time 156.04 msec - [place]/IV: Voiding Method Toilet IV Catheter Type [Left Hand] INT / Saline Lock Active Medications - Current Medications Current Medications: Generic Name Dose Route Start Last Admin Trade Name Freq PRN Reason Stop Dose Admin Acetaminophen 650 mg 06/05/20 01:42 06/05/20 21:47 Acetaminophen 325 Mg Tab PO 650 mg Q4H PRN Administration Pain MILD(1-3)/Fever >100.5/CUNHA Amlodipine Besylate 5 mg 06/05/20 16:00 06/08/20 10:48 Amlodipine 5 Mg Tab PO 5 mg QDAY LEONIE Administration Buspirone HCl 15 mg 06/08/20 11:00 06/08/20 10:48 Buspirone 5 Mg Tab PO 15 mg QAM LEONIE Administration Dextrose 0 ml 06/05/20 01:42 Dextrose 50% In Water (25gm) 50 Ml Syringe IV Q30MIN PRN Hypoglycemia Protocol Duloxetine HCl 30 mg 06/05/20 13:00 06/08/20 10:48 Duloxetine 30 Mg Cap PO 30 mg QDAY LEONIE Administration Gemfibrozil 600 mg 06/05/20 22:00 06/08/20 10:49 Gemfibrozil 600 Mg Tab PO 600 mg BID LEONIE Administration Heparin Sodium (Porcine) 5,000 unit 06/05/20 06:00 06/08/20 05:08 Heparin 5,000 Unit/1 Ml Vial SUB-Q 5,000 unit Q8HR LEONIE Administration Insulin Glargine 10 units 06/05/20 22:00 06/07/20 21:57 Insulin Glargine 100 Units/Ml SUB-Q 10 units QHS LEONIE Administration Insulin Human Isoph/Insulin Regular 20 unit 06/07/20 17:00 06/08/20 08:43 Insulin Nph/Regular 70/30 Inj SUB-Q 20 unit BIDDIAB LEONIE Administration Insulin Human Lispro 0 unit 06/07/20 16:30 06/08/20 08:43 Insulin Lispro 100 Unit/Ml Vial 3 Ml SUB-Q 6 unit ACHS LEONIE Administration Protocol Loratadine/Pseudoephedrine Sulfate 1 each 06/06/20 22:00 06/08/20 10:48 Loratadine/Pseudoephedrine 5-120 Mg Tab 12hr PO 1 each Q12HR LEONIE Administration Magnesium Hydroxide 30 ml 06/05/20 01:42 Magnesium Hydroxide (Mom) Oral Liqd Udc PO Q4H PRN Constipation Morphine Sulfate 2 mg 06/05/20 01:42 Morphine 2 Mg/1 Ml Inj IV Q5MIN PRN Chest Pain Nitroglycerin 0.4 mg 06/05/20 01:42 Nitroglycerin 0.4 Mg Tab Subl SL Q5M PRN Chest Pain Ondansetron HCl 4 mg 06/05/20 01:42 Ondansetron 4 Mg/2 Ml Inj IV Q8H PRN Nausea And Vomiting Sodium Chloride 10 ml 06/05/20 10:00 06/08/20 10:49 Sodium Chloride 0.9% 10 Ml Flush Syringe IV 10 ml BID LEONIE Administration Sodium Chloride 10 ml 06/05/20 01:42 Sodium Chloride 0.9% 10 Ml Flush Syringe IV PRN PRN LINE FLUSH Trazodone HCl 50 mg 06/05/20 22:00 06/07/20 21:54 Trazodone 50 Mg Tab PO 50 mg QHS LEONIE Administration Nutrition/Malnutrition Assess - Dietary Evaluation Nutrition/Malnutrition Findings: Nutrition Notes Start: 06/05/20 11:49 Freq: Status: Active Protocol: Document 06/05/20 11:49 AT (Rec: 06/05/20 11:52 AT [id number]) Co-Sign 06/05/20 11:49 LP Nutrition Notes Need for Assessment generated from: MD Order Current Diagnosis Diabetes,Hypertension Other Pertinent Diagnosis Bipolar Disorder, Hyperglycemia Current Diet NPO Labs/Tests BG 484 Subjective/Other Information Consult for diet education. Visited pt twice, first he was not in the room. Second visit , pt refused diet education. Nutrition Intervention Revisit per MD consult or patient Sign Off request:
--- NOTE | 2020-06-08 14:53 | Progress Note ---
Assessment and Plan - Patient Problems (1) Atypical chest pain Current Visit: Yes Status: Acute Plan to address problem: Patient presented with chest pain which was relieved with nitroglycerin Cardiology consulted, patient recommendations 06/05 patient was set to undergo a thallium stress test however he refused Cardiology plans to do an echocardiogram tomorrow Morphine and nitroglycerin EKG as needed Serial troponins have been less than 0.010 (2) Hyperglycemia due to diabetes mellitus Current Visit: Yes Status: Acute Plan to address problem: S/p 26 units of regular insulin in the emergency department given over 3 doses SSI 06/05 Lantus 5 units nightly started for persistent hyperglycemia, discontinued 06/08 06/05 Hemoglobin A1c 11.2 06/06 Novolin 70/30 started, titrate as needed Accu-Cheks AC at bedtime CC cardiac diet (3) Homicidal ideation Current Visit: Yes Status: Acute Plan to address problem: Patient states he has homicidal ideations Psychiatric consult Patient is on 1013 hold Sitter at bedside (4) MDD (major depressive disorder) Current Visit: Yes Status: Acute Qualifiers: Major depression recurrence: recurrent Plan to address problem: Psychiatry consult, appreciate recommendations Initiated patient on Cymbalta Sleep hygiene with trazodone Sitter at bedside Patient presented with SI/HI, currently on a 1013 hold Psychiatry recommending inpatient psychiatric hospitalization (5) Hyponatremia Current Visit: Yes Status: Acute Plan to address problem: Presented with a sodium of 134 Corrected sodium for hyperglycemia is remains within normal limits S/p 2 L normal saline in the emergency department Pseudohyponatremia (6) HLD (hyperlipidemia) Current Visit: Yes Status: Chronic Plan to address problem: 06/06 lipid panel pending We will initiate statin therapy once lipid panel results (7) Substance abuse in remission Current Visit: Yes Status: Chronic Plan to address problem: Per psychiatric note patient had substance abuse with cocaine and meth 3 years ago 06/04 UDS negative (8) Noncompliance with medication regimen Current Visit: Yes Status: Chronic Plan to address problem: Patient reports recent homelessness 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 En route he was given nitroglycerin by EMS which improved his pain. Patient expressed homicidal and suicidal ideation therefore he is a 1013. Work-up in the emergency department revealed hyperglycemia and his tropon in, EKG and chest x-ray were within normal limits. Patient was admitted to the hospitalist service with consult to cardiology and psychiatry. This morning patient still complains of chest pain upon examination. He is on room air. Psych history recommends acute inpatient psychiatric hospitalization. Patient was on Novolin 70/30 and Lantus nightly, Lantus discontinued and Novolin 70/30 dose increased. This should help with hypoglycemia. table worker packager made aware of inpatient psych recommendation and will start process of finding placement today. 06/05: Lantus nightly started 06/06: patient refused ischemic evaluation and cardiology recommend risk modification. Patient was evaluated by psych and recommended to inpatient psych admission. Patient is on 1013. Patient is still suicidal. And usually cannot 06/07/2020: Patient still suicidal, Refuses stress test, Patient on 1013, Mental health consult requested, Novolin 70/30 started Hospitalist Physical - Constitutional Vitals: Temp Pulse Resp BP Pulse Ox 98.3 F 88 18 138/88 97 06/08/20 12:30 06/08/20 12:30 06/08/20 12:30 06/08/20 12:30 06/08/20 12:30 General appearance: Present: no acute distress, well-nourished - EENT Eyes: Present: PERRL, EOM intact ENT: hearing intact, poor dentition - Neck Neck: Present: normal ROM - Respiratory Respiratory effort: normal Respiratory: bilateral: CTA - Cardiovascular Rhythm: regular Heart Sounds: Present: S1 & S2. Absent: systolic murmur, diastolic murmur - Extremities Extremities: no ischemia, pulses intact, pulses symmetrical, No edema, normal temperature, normal color, Full ROM Peripheral Pulses: within normal limits - Abdominal General gastrointestinal: soft, non-tender, non-distended, normal bowel sounds - Integumentary Integumentary: Present: clear, warm, dry - Psychiatric Psychiatric: cooperative, depressed, other (SI/HI persist) - Neurologic Neurologic: CNII-XII intact, no focal deficits, moves all extremities HEART Score - HEART Score EKG: Normal Age: 45-65 Risk factors: > 3 risk factors or hx of atherosclerotic disease Troponin: Troponin T < 0.010 ng/mL (0.00-0.029) 06/05/20 15:11 Troponin: < normal limit Results - Labs CBC & Chem 7: 06/06/20 07:13 06/08/20 05:26 Labs: Laboratory Last Values WBC 6.2 K/mm3 (4.5-11.0) 06/06/20 07:13 RBC 4.57 M/mm3 (3.65-5.03) 06/06/20 07:13 Hgb 12.6 gm/dl (11.8-15.2) 06/06/20 07:13 Hct 36.6 % (35.5-45.6) 06/06/20 07:13 MCV 80 fl (84-94) L 06/06/20 07:13 MCH 28 pg (28-32) 06/06/20 07:13 MCHC 34 % (32-34) 06/06/20 07:13 RDW 14.2 % (13.2-15.2) 06/06/20 07:13 Plt Count 325 K/mm3 (140-440) 06/06/20 07:13 Lymph % (Auto) 42.1 % (13.4-35.0) H 06/06/20 07:13 [place] % (Auto) 7.2 % (0.0-7.3) 06/06/20 07:13 Eos % (Auto) 2.5 % (0.0-4.3) 06/06/20 07:13 Baso % (Auto) 1.0 % (0.0-1.8) 06/06/20 07:13 Lymph # (Auto) 2.6 K/mm3 (1.2-5.4) 06/06/20 07:13 [place] # (Auto) 0.5 K/mm3 (0.0-0.8) 06/06/20 07:13 Eos # (Auto) 0.2 K/mm3 (0.0-0.4) 06/06/20 07:13 Baso # (Auto) 0.1 K/mm3 (0.0-0.1) 06/06/20 07:13 Seg Neutrophils % 47.2 % (40.0-70.0) 06/06/20 07:13 Seg Neutrophils # 2.9 K/mm3 (1.8-7.7) 06/06/20 07:13 PT 12.6 Sec. (12.2-14.9) 06/06/20 07:13 INR 0.96 (0.87-1.13) 06/06/20 07:13 D-Dimer 135.60 ng/mlDDU (0-234) 06/04/20 18:10 Sodium 136 mmol/L (137-145) L 06/08/20 05:26 Potassium 4.3 mmol/L (3.6-5.0) 06/08/20 05:26 Chloride 103.9 mmol/L (98-107) 06/08/20 05:26 Carbon Dioxide 21 mmol/L (22-30) L 06/08/20 05:26 Anion Gap 15 mmol/L 06/08/20 05:26 BUN 16 mg/dL (9-20) 06/08/20 05:26 Creatinine 1.1 mg/dL (0.8-1.3) 06/08/20 05:26 Estimated GFR > 60 ml/min 06/08/20 05:26 BUN/Creatinine Ratio 15 % 06/08/20 05:26 Glucose 291 mg/dL (75-100) H 06/08/20 05:26 POC Glucose 232 mg/dL (70-105) H 06/08/20 12:11 Hemoglobin A1c 11.2 % (4-6) H 06/05/20 15:11 Calcium 9.1 mg/dL (8.4-10.2) 06/08/20 05:26 Total Bilirubin 0.30 mg/dL (0.1-1.2) 06/08/20 05:26 AST 7 units/L (5-40) 06/08/20 05:26 ALT 7 units/L (7-56) 06/08/20 05:26 Alkaline Phosphatase 114 units/L (35-129) 06/08/20 05:26 Troponin T < 0.010 ng/mL (0.00-0.029) 06/05/20 15:11 Total Protein 6.9 g/dL (6.3-8.2) 06/08/20 05:26 Albumin 3.5 g/dL (3.9-5) L 06/08/20 05:26 Albumin/Globulin Ratio 1.0 % 06/08/20 05:26 Triglycerides 574 mg/dL (2-149) H 06/05/20 15:11 Cholesterol 189 mg/dL (50-199) 06/05/20 15:11 LDL Cholesterol Direct TNR 06/05/20 15:11 HDL Cholesterol 34 mg/dL (40-59) L 06/05/20 15:11 Cholesterol/HDL Ratio 5.55 % 06/05/20 15:11 Urine Color Yellow (Yellow) 06/04/20 19:16 Urine Turbidity Clear (Clear) 06/04/20 19:16 Urine pH 5.0 (5.0-7.0) 06/04/20 19:16 Ur Specific [place] 1.018 (1.003-1.030) 06/04/20 19:16 Urine Protein <15 mg/dl mg/dL (Negative) 06/04/20 19:16 Urine Glucose (UA) >=500 mg/dL (Negative) 06/04/20 19:16 Urine Ketones 20 mg/dL (Negative) 06/04/20 19:16 Urine Blood Neg (Negative) 06/04/20 19:16 Urine Nitrite Neg (Negative) 06/04/20 19:16 Urine Bilirubin Neg (Negative) 06/04/20 19:16 Urine Urobilinogen < 2.0 mg/dL (<2.0) 06/04/20 19:16 Ur Leukocyte Esterase Neg (Negative) 06/04/20 19:16 Urine WBC (Auto) 6.0 /HPF (0.0-6.0) 06/04/20 19:16 Urine RBC (Auto) 2.0 /HPF (0.0-6.0) 06/04/20 19:16 U Epithel Cells (Auto) 1.0 /HPF (0-13.0) 06/04/20 19:16 Urine Opiates Screen Presumptive negative 06/04/20 19:16 Urine Methadone Screen Presumptive negative 06/04/20 19:16 Acetaminophen 5.0 ug/mL (10.0-30.0) L 12/10/20 18:10 Ur Barbiturates Screen Presumptive negative 06/04/20 19:16 Ur Phencyclidine Scrn Presumptive negative 06/04/20 19:16 Ur Amphetamines Screen Presumptive negative 06/04/20 19:16 U Benzodiazepines Scrn Presumptive negative 06/04/20 19:16 Urine Cocaine Screen Presumptive positive 06/04/20 19:16 U Marijuana (THC) Screen Presumptive negative 06/04/20 19:16 Drugs of Abuse Note Disclamer 06/04/20 19:16 Plasma/Serum Alcohol < 0.01 % (0-0.07) 06/04/20 18:10 - Diagnostic Impressions Diagnostic Impressions: Echocardiogram 06/05/20 01:47 Transthoracic Echocardiogram Indication: Chest Pain BP: 148/87 Conclusions *The left ventricular chamber size is normal. *Mild to moderate concentric left ventricular hypertrophy is observed. *The estimated ejection fraction is 60-65%. *Abnormal left ventricular diastolic filling is observed, consistent with impaired relaxation. *The left atrium is normal in size with no visual thrombus identified. *The right ventricular chamber size and systolic function are within normal limits. *The aortic valve is trileaflet. *The right ventricular systolic pressure is calculated at 23 mmHg. Findings Procedure Info: The study quality is fair. Left Ventricle: The left ventricular chamber size is normal. Mild to moderate concentric left ventricular hypertrophy is observed. The estimated ejection fraction is 60-65%. Abnormal left ventricular diastolic filling is observed, consistent with impaired relaxation. Left Atrium: The left atrium is normal in size with no visual thrombus identified. Right Ventricle: The right ventricular chamber size and systolic function are within normal limits. Right Atrium: The right atrium appears normal. Aortic Valve: The aortic valve is trileaflet. Mild aortic leaflet calcification is visualized. There is trace of aortic regurgitation. There is no evidence of aortic stenosis. Mitral Valve: The mitral valve leaflets appear normal. There is trace of mitral regurgitation. There is no evidence of mitral stenosis. Tricuspid Valve: The tricuspid valve leaflets are normal. There is trace tricuspid regurgitation. The right ventricular systolic pressure is calculated at 23 mmHg. There is no tricuspid stenosis. Pulmonic Valve: The pulmonic valve appears normal in structure and function. Pericardium: The pericardium appears normal. Aorta: The aorta appears normal. Pulmonary Artery: The main pulmonary artery appears normal. Venous: The inferior vena cava appears normal in size. There is a greater than 50% respiratory change in the inferior vena cava dimension. Measurements Chambers 2D Name Value Normal Range IVSd (2D) 1.37 cm (0.6 - 1.1) LVPWd (2D) 1.22 cm (0.6 - 1.1) LVIDd (2D) 5.24 cm (3.7 - 5.6) LVIDs (2D) 3.46 cm (2 - 3.8) LV FS (2D) 34.04 % - EF Teichholz (2D) 62.56 % - Ao root diameter (2D) 3.3 cm (2 - 3.7) Volumes/Mass Name Value Normal Range LA ESV SP 4CH (A/L) 84.94 ml - LA ESV SP 2CH (A/L) 79.25 ml - LA ESV BP (A/L) 84.7 ml - LA ESV BP (A/L) index 33.61 ml/m2 - LA ESV SP 4CH (MOD) 81.89 ml - LA ESV SP 2CH (MOD) 78.96 ml - LA ESV BP (MOD) 82.33 ml - LA ESV BP (MOD) index 32.67 ml/m2 - LV EDV SP 4CH (MOD) 153.69 ml - LV ESV SP 4CH (MOD) 51.13 ml - EF SP 4CH (MOD) 66.73 % - LV EDV SP 2CH (MOD) 110.18 ml - LV ESV SP 2CH (MOD) 42.38 ml - EF SP 2CH (MOD) 61.54 % - LV EDV BP 132.71 ml - LV ESV BP 46.25 ml - BP EF (MOD) 65.15 % - Diastolic/Systolic Function Name Value Normal Range MV E-wave Vmax 0.59 m/sec - MV deceleration time 155.37 msec - MV A-wave Vmax 1 m/sec - MV E:A ratio 0.59 ratio - Aortic Valve Name Value Normal Range AV Vmax 1.52 m/sec - AV VTI 29.1 cm - AV peak gradient 9.23 mmHg - AV mean gradient 5.2 mmHg - LVOT diameter 2.54 cm - LVOT Vmax 0.88 m/sec - LVOT VTI 19.35 cm - LVOT peak gradient 3.08 mmHg - LVOT mean gradient 1.61 mmHg - SV LVOT 98.36 ml - LUKAS (continuity Vmax) 2.94 cm2 - LUKAS (continuity VTI) 3.38 cm2 - Ascending Ao 3.45 cm - Tricuspid Valve Name Value Normal Range TV E-wave Vmax 0.57 m/sec - TR Vmax 2.28 m/sec - TR peak gradient 20.75 mmHg - RAP 3 mmHg - RVSP 23 mmHg - IVC diameter 1.47 cm (1.2 - 2.3) Pulmonic Valve/Qp:Qs Name Value Normal Range PV Vmax 1.36 m/sec - PV peak gradient 7.41 mmHg - RVOT Vmax 0.74 m/sec - RVOT VTI 14 cm - RVOT peak gradient 2.22 mmHg - PV acceleration time 156.04 msec - [place]/IV: Voiding Method Toilet IV Catheter Type [Left Hand] INT / Saline Lock Active Medications - Current Medications Current Medications: Generic Name Dose Route Start Last Admin Trade Name Freq PRN Reason Stop Dose Admin Acetaminophen 650 mg 06/05/20 01:42 06/05/20 21:47 Acetaminophen 325 Mg Tab PO 650 mg Q4H PRN Administration Pain MILD(1-3)/Fever >100.5/CUNHA Amlodipine Besylate 5 mg 06/05/20 16:00 06/08/20 10:48 Amlodipine 5 Mg Tab PO 5 mg QDAY LEONIE Administration Buspirone HCl 15 mg 06/08/20 11:00 06/08/20 10:48 Buspirone 5 Mg Tab PO 15 mg QAM LEONIE Administration Dextrose 0 ml 06/05/20 01:42 Dextrose 50% In Water (25gm) 50 Ml Syringe IV Q30MIN PRN Hypoglycemia Protocol Duloxetine HCl 30 mg 06/05/20 13:00 06/08/20 10:48 Duloxetine 30 Mg Cap PO 30 mg QDAY LEONIE Administration Gemfibrozil 600 mg 06/05/20 22:00 06/08/20 10:49 Gemfibrozil 600 Mg Tab PO 600 mg BID LEONIE Administration Heparin Sodium (Porcine) 5,000 unit 06/05/20 06:00 06/08/20 13:15 Heparin 5,000 Unit/1 Ml Vial SUB-Q 5,000 unit Q8HR LEONIE Administration Insulin Human Isoph/Insulin Regular 22 unit 06/08/20 14:44 Insulin Nph/Regular 70/30 Inj SUB-Q BIDDIAB LEONIE Insulin Human Lispro 0 unit 06/07/20 16:30 06/08/20 13:15 Insulin Lispro 100 Unit/Ml Vial 3 Ml SUB-Q 4 unit ACHS LEONIE Administration Protocol Loratadine/Pseudoephedrine Sulfate 1 each 06/06/20 22:00 06/08/20 10:48 Loratadine/Pseudoephedrine 5-120 Mg Tab 12hr PO 1 each Q12HR LEONIE Administration Magnesium Hydroxide 30 ml 06/05/20 01:42 Magnesium Hydroxide (Mom) Oral Liqd Udc PO Q4H PRN Constipation Morphine Sulfate 2 mg 06/05/20 01:42 Morphine 2 Mg/1 Ml Inj IV Q5MIN PRN Chest Pain Nitroglycerin 0.4 mg 06/05/20 01:42 Nitroglycerin 0.4 Mg Tab Subl SL Q5M PRN Chest Pain Ondansetron HCl 4 mg 06/05/20 01:42 Ondansetron 4 Mg/2 Ml Inj IV Q8H PRN Nausea And Vomiting Sodium Chloride 10 ml 06/05/20 10:00 06/08/20 10:49 Sodium Chloride 0.9% 10 Ml Flush Syringe IV 10 ml BID LEONIE Administration Sodium Chloride 10 ml 06/05/20 01:42 Sodium Chloride 0.9% 10 Ml Flush Syringe IV PRN PRN LINE FLUSH Trazodone HCl 50 mg 06/05/20 22:00 06/07/20 21:54 Trazodone 50 Mg Tab PO 50 mg QHS LEONIE Administration Nutrition/Malnutrition Assess - Dietary Evaluation Nutrition/Malnutrition Findings: Nutrition Notes Start: 06/05/20 11:49 Freq: Status: Active Protocol: Document 06/05/20 11:49 AT (Rec: 06/05/20 11:52 AT [id number]) Co-Sign 06/05/20 11:49 LP Nutrition Notes Need for Assessment generated from: MD Order Current Diagnosis Diabetes,Hypertension Other Pertinent Diagnosis Bipolar Disorder, Hyperglycemia Current Diet NPO Labs/Tests BG 484 Subjective/Other Information Consult for diet education. Visited pt twice, first he was not in the room. Second visit , pt refused diet education. Nutrition Intervention Revisit per MD consult or patient Sign Off request:
[2020-06-08] MEDS ORDERED: INSULIN NPH/REGULAR 70/30 INJ SUB-Q SCH (17:00)
[2020-06-08] MEDS: traZODone 50 MG TAB PO SCH (22:24)
[2020-06-09] MEDS: HEPARIN 5,000 UNIT/1 ML VIAL SUB-Q SCH ×3 (05:31→21:44)
[2020-06-09 05:35] LABS: BUN/Creatinine Ratio 15; Blood Urea Nitrogen 17 mg/dL (9-20); Calcium 9.1 mg/dL (8.4-10.2); Hemolysis Index 13
[2020-06-09] MEDS: INSULIN NPH/REGULAR 70/30 INJ SUB-Q SCH ×2 (09:08→16:53)
[2020-06-09] MEDS: busPIRone 5 MG TAB PO SCH (09:08)
[2020-06-09] MEDS: DULoxetine 30 MG CAP PO SCH (09:09)
[2020-06-09] MEDS: amLODIPine 5 MG TAB PO SCH (09:09)
[2020-06-09] MEDS: INSULIN LISPRO 100 UNIT/ML VIAL 3 mL SUB-Q SCH ×4 (09:09→21:44)
[2020-06-09] MEDS: GEMFIBROZIL 600 MG TAB PO SCH ×2 (09:09→21:44)
[2020-06-09] MEDS: LORATADINE/PSEUDOEPHEDRINE 5-120 MG TAB 12HR PO SCH ×2 (09:13→21:43)
--- NOTE | 2020-06-09 10:42 | Progress Note ---
Assessment and Plan - Patient Problems (1) Atypical chest pain Current Visit: Yes Status: Resolved Plan to address problem: Patient presented with chest pain which was relieved with nitroglycerin Cardiology consulted, patient recommendations 06/05 patient was set to undergo a thallium stress test however he refused Cardiology plans to do an echocardiogram tomorrow Morphine and nitroglycerin EKG as needed Serial troponins have been less than 0.010 (2) Hyperglycemia due to diabetes mellitus Current Visit: Yes Status: Acute Plan to address problem: S/p 26 units of regular insulin in the emergency department given over 3 doses SSI 06/05 Lantus 5 units nightly started for persistent hyperglycemia, discontinued 06/08 06/05 Hemoglobin A1c 11.2 06/06 Novolin 70/30 started, titrate as needed Accu-Cheks AC at bedtime CC cardiac diet (3) Homicidal ideation Current Visit: Yes Status: Acute Plan to address problem: Patient states he has homicidal ideations Psychiatric consult Patient is on 1013 hold Sitter at bedside (4) MDD (major depressive disorder) Current Visit: Yes Status: Acute Qualifiers: Major depression recurrence: recurrent Plan to address problem: Psychiatry consult, appreciate recommendations Initiated patient on Cymbalta Sleep hygiene with trazodone Sitter at bedside Patient presented with SI/HI, currently on a 1013 hold Psychiatry recommending inpatient psychiatric hospitalization (5) Hyponatremia Current Visit: Yes Status: Acute Plan to address problem: Presented with a sodium of 134 Corrected sodium for hyperglycemia is remains within normal limits S/p 2 L normal saline in the emergency department Pseudohyponatremia (6) HLD (hyperlipidemia) Current Visit: Yes Status: Chronic Plan to address problem: 06/06 lipid panel pending We will initiate statin therapy once lipid panel results (7) Substance abuse in remission Current Visit: Yes Status: Chronic Plan to address problem: Per psychiatric note patient had substance abuse with cocaine and meth 3 years ago 06/04 UDS negative (8) Noncompliance with medication regimen Current Visit: Yes Status: Chronic Plan to address problem: Patient reports recent homelessness well service derrick worker/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 En route he was given nitroglycerin by EMS which improved his pain. Patient expressed homicidal and suicidal ideation therefore he is a 1013. Work-up in the emergency department revealed hyperglycemia and his tro ponin, EKG and chest x-ray were within normal limits. Patient was admitted to the hospitalist service with consult to cardiology and psychiatry. This morning patient still complains of chest pain upon examination. He is on room air. Psych history recommends acute inpatient psychiatric hospitalization. He remains hyperglycemic therefore his Novolin 70/30 dose was increased today. RN informs me that according to the psych nurse patient blood glucose has to be persistently less than 200s for transfer. Patient still remains with a 1013. Patient states that he still has SI/HI however does not have a plan. No acute events reported overnight. Patient denies any chest pain. 06/05: Lantus nightly started 06/06: patient refused ischemic evaluation and cardiology recommend risk modification. Patient was evaluated by psych and recommended to inpatient psych admission. Patient is on 1013. Patient is still suicidal. And usually cannot 06/07/2020: Patient still suicidal, Refuses stress test, Patient on 1013, Mental health consult requested, Novolin 70/30 started 06/08: Lantus discontinued and Novolin 70/30 dose increased. well service derrick worker made aware of inpatient psych recommendation and will start process of finding placement today. Hospitalist Physical - Constitutional Vitals: Temp Pulse Resp BP Pulse Ox 98.4 F 80 18 149/81 97 06/09/20 08:40 06/09/20 08:40 06/09/20 08:40 06/09/20 08:40 06/09/20 08:40 General appearance: Present: no acute distress, well-nourished - EENT Eyes: Present: PERRL, EOM intact ENT: hearing intact, poor dentition - Neck Neck: Present: normal ROM - Respiratory Respiratory effort: normal Respiratory: bilateral: CTA - Cardiovascular Rhythm: regular Heart Sounds: Present: S1 & S2. Absent: systolic murmur, diastolic murmur - Extremities Extremities: no ischemia, pulses intact, pulses symmetrical, No edema, normal temperature, normal color, Full ROM - Abdominal General gastrointestinal: soft, non-tender, non-distended, normal bowel sounds - Integumentary Integumentary: Present: clear, warm, dry - Psychiatric Psychiatric: appropriate mood/affect, cooperative - Neurologic Neurologic: CNII-XII intact, no focal deficits, moves all extremities - Allied Health Allied health notes reviewed: nursing HEART Score - HEART Score EKG: Normal Age: 45-65 Risk factors: > 3 risk factors or hx of atherosclerotic disease Troponin: Troponin T < 0.010 ng/mL (0.00-0.029) 06/05/20 15:11 Troponin: < normal limit Results - Labs CBC & Chem 7: 06/06/20 07:13 06/09/20 04:57 Labs: Laboratory Last Values WBC 6.2 K/mm3 (4.5-11.0) 06/06/20 07:13 RBC 4.57 M/mm3 (3.65-5.03) 06/06/20 07:13 Hgb 12.6 gm/dl (11.8-15.2) 06/06/20 07:13 Hct 36.6 % (35.5-45.6) 06/06/20 07:13 MCV 80 fl (84-94) L 06/06/20 07:13 MCH 28 pg (28-32) 06/06/20 07:13 MCHC 34 % (32-34) 06/06/20 07:13 RDW 14.2 % (13.2-15.2) 06/06/20 07:13 Plt Count 325 K/mm3 (140-440) 06/06/20 07:13 Lymph % (Auto) 42.1 % (13.4-35.0) H 06/06/20 07:13 Wharton % (Auto) 7.2 % (0.0-7.3) 06/06/20 07:13 Eos % (Auto) 2.5 % (0.0-4.3) 06/06/20 07:13 Baso % (Auto) 1.0 % (0.0-1.8) 06/06/20 07:13 Lymph # (Auto) 2.6 K/mm3 (1.2-5.4) 06/06/20 07:13 Wharton # (Auto) 0.5 K/mm3 (0.0-0.8) 06/06/20 07:13 Eos # (Auto) 0.2 K/mm3 (0.0-0.4) 06/06/20 07:13 Baso # (Auto) 0.1 K/mm3 (0.0-0.1) 06/06/20 07:13 Seg Neutrophils % 47.2 % (40.0-70.0) 06/06/20 07:13 Seg Neutrophils # 2.9 K/mm3 (1.8-7.7) 06/06/20 07:13 PT 12.6 Sec. (12.2-14.9) 06/06/20 07:13 INR 0.96 (0.87-1.13) 06/06/20 07:13 D-Dimer 135.60 ng/mlDDU (0-234) 06/04/20 18:10 Sodium 135 mmol/L (137-145) L 06/09/20 04:57 Potassium 4.2 mmol/L (3.6-5.0) 06/09/20 04:57 Chloride 102.3 mmol/L (98-107) 06/09/20 04:57 Carbon Dioxide 21 mmol/L (22-30) L 06/09/20 04:57 Anion Gap 16 mmol/L 06/09/20 04:57 BUN 17 mg/dL (9-20) 06/09/20 04:57 Creatinine 1.1 mg/dL (0.8-1.3) 06/09/20 04:57 Estimated GFR > 60 ml/min 06/09/20 04:57 BUN/Creatinine Ratio 15 % 06/09/20 04:57 Glucose 305 mg/dL (75-100) H 06/09/20 04:57 POC Glucose 271 mg/dL (70-105) H 06/09/20 08:34 Hemoglobin A1c 11.2 % (4-6) H 06/05/20 15:11 Calcium 9.1 mg/dL (8.4-10.2) 06/09/20 04:57 Total Bilirubin 0.30 mg/dL (0.1-1.2) 06/08/20 05:26 AST 7 units/L (5-40) 06/08/20 05:26 ALT 7 units/L (7-56) 06/08/20 05:26 Alkaline Phosphatase 114 units/L (35-129) 06/08/20 05:26 Troponin T < 0.010 ng/mL (0.00-0.029) 06/05/20 15:11 Total Protein 6.9 g/dL (6.3-8.2) 06/08/20 05:26 Albumin 3.5 g/dL (3.9-5) L 06/08/20 05:26 Albumin/Globulin Ratio 1.0 % 06/08/20 05:26 Triglycerides 574 mg/dL (2-149) H 06/05/20 15:11 Cholesterol 189 mg/dL (50-199) 06/05/20 15:11 LDL Cholesterol Direct TNR 06/05/20 15:11 HDL Cholesterol 34 mg/dL (40-59) L 06/05/20 15:11 Cholesterol/HDL Ratio 5.55 % 06/05/20 15:11 Urine Color Yellow (Yellow) 06/04/20 19:16 Urine Turbidity Clear (Clear) 06/04/20 19:16 Urine pH 5.0 (5.0-7.0) 06/04/20 19:16 Ur Specific [place] 1.018 (1.003-1.030) 06/04/20 19:16 Urine Protein <15 mg/dl mg/dL (Negative) 06/04/20 19:16 Urine Glucose (UA) >=500 mg/dL (Negative) 06/04/20 19:16 Urine Ketones 20 mg/dL (Negative) 06/04/20 19:16 Urine Blood Neg (Negative) 06/04/20 19:16 Urine Nitrite Neg (Negative) 06/04/20 19:16 Urine Bilirubin Neg (Negative) 06/04/20 19:16 Urine Urobilinogen < 2.0 mg/dL (<2.0) 06/04/20 19:16 Ur Leukocyte Esterase Neg (Negative) 06/04/20 19:16 Urine WBC (Auto) 6.0 /HPF (0.0-6.0) 06/04/20 19:16 Urine RBC (Auto) 2.0 /HPF (0.0-6.0) 06/04/20 19:16 U Epithel Cells (Auto) 1.0 /HPF (0-13.0) 06/04/20 19:16 Urine Opiates Screen Presumptive negative 06/04/20 19:16 Urine Methadone Screen Presumptive negative 06/04/20 19:16 Acetaminophen 5.0 ug/mL (10.0-30.0) L 06/04/20 18:10 Ur Barbiturates Screen Presumptive negative 06/04/20 19:16 Ur Phencyclidine Scrn Presumptive negative 06/04/20 19:16 Ur Amphetamines Screen Presumptive negative 06/04/20 19:16 U Benzodiazepines Scrn Presumptive negative 06/04/20 19:16 Urine Cocaine Screen Presumptive positive 06/04/20 19:16 U Marijuana (THC) Screen Presumptive negative 06/04/20 19:16 Drugs of Abuse Note Disclamer 06/04/20 19:16 Plasma/Serum Alcohol < 0.01 % (0-0.07) 06/04/20 18:10 - Diagnostic Impressions Diagnostic Impressions: Echocardiogram 06/05/20 01:47 Transthoracic Echocardiogram Indication: Chest Pain BP: 148/87 Conclusions *The left ventricular chamber size is normal. *Mild to moderate concentric left ventricular hypertrophy is observed. *The estimated ejection fraction is 60-65%. *Abnormal left ventricular diastolic filling is observed, consistent with impaired relaxation. *The left atrium is normal in size with no visual thrombus identified. *The right ventricular chamber size and systolic function are within normal limits. *The aortic valve is trileaflet. *The right ventricular systolic pressure is calculated at 23 mmHg. Findings Procedure Info: The study quality is fair. Left Ventricle: The left ventricular chamber size is normal. Mild to moderate concentric left ventricular hypertrophy is observed. The estimated ejection fraction is 60-65%. Abnormal left ventricular diastolic filling is observed, consistent with impaired relaxation. Left Atrium: The left atrium is normal in size with no visual thrombus identified. Right Ventricle: The right ventricular chamber size and systolic function are within normal limits. Right Atrium: The right atrium appears normal. Aortic Valve: The aortic valve is trileaflet. Mild aortic leaflet calcification is visualized. There is trace of aortic regurgitation. There is no evidence of aortic stenosis. Mitral Valve: The mitral valve leaflets appear normal. There is trace of mitral regurgitation. There is no evidence of mitral stenosis. Tricuspid Valve: The tricuspid valve leaflets are normal. There is trace tricuspid regurgitation. The right ventricular systolic pressure is calculated at 23 mmHg. There is no tricuspid stenosis. Pulmonic Valve: The pulmonic valve appears normal in structure and function. Pericardium: The pericardium appears normal. Aorta: The aorta appears normal. Pulmonary Artery: The main pulmonary artery appears normal. Venous: The inferior vena cava appears normal in size. There is a greater than 50% respiratory change in the inferior vena cava dimension. Measurements Chambers 2D Name Value Normal Range IVSd (2D) 1.37 cm (0.6 - 1.1) LVPWd (2D) 1.22 cm (0.6 - 1.1) LVIDd (2D) 5.24 cm (3.7 - 5.6) LVIDs (2D) 3.46 cm (2 - 3.8) LV FS (2D) 34.04 % - EF Teichholz (2D) 62.56 % - Ao root diameter (2D) 3.3 cm (2 - 3.7) Volumes/Mass Name Value Normal Range LA ESV SP 4CH (A/L) 84.94 ml - LA ESV SP 2CH (A/L) 79.25 ml - LA ESV BP (A/L) 84.7 ml - LA ESV BP (A/L) index 33.61 ml/m2 - LA ESV SP 4CH (MOD) 81.89 ml - LA ESV SP 2CH (MOD) 78.96 ml - LA ESV BP (MOD) 82.33 ml - LA ESV BP (MOD) index 32.67 ml/m2 - LV EDV SP 4CH (MOD) 153.69 ml - LV ESV SP 4CH (MOD) 51.13 ml - EF SP 4CH (MOD) 66.73 % - LV EDV SP 2CH (MOD) 110.18 ml - LV ESV SP 2CH (MOD) 42.38 ml - EF SP 2CH (MOD) 61.54 % - LV EDV BP 132.71 ml - LV ESV BP 46.25 ml - BP EF (MOD) 65.15 % - Diastolic/Systolic Function Name Value Normal Range MV E-wave Vmax 0.59 m/sec - MV deceleration time 155.37 msec - MV A-wave Vmax 1 m/sec - MV E:A ratio 0.59 ratio - Aortic Valve Name Value Normal Range AV Vmax 1.52 m/sec - AV VTI 29.1 cm - AV peak gradient 9.23 mmHg - AV mean gradient 5.2 mmHg - LVOT diameter 2.54 cm - LVOT Vmax 0.88 m/sec - LVOT VTI 19.35 cm - LVOT peak gradient 3.08 mmHg - LVOT mean gradient 1.61 mmHg - SV LVOT 98.36 ml - LUKAS (continuity Vmax) 2.94 cm2 - LUKAS (continuity VTI) 3.38 cm2 - Ascending Ao 3.45 cm - Tricuspid Valve Name Value Normal Range TV E-wave Vmax 0.57 m/sec - TR Vmax 2.28 m/sec - TR peak gradient 20.75 mmHg - RAP 3 mmHg - RVSP 23 mmHg - IVC diameter 1.47 cm (1.2 - 2.3) Pulmonic Valve/Qp:Qs Name Value Normal Range PV Vmax 1.36 m/sec - PV peak gradient 7.41 mmHg - RVOT Vmax 0.74 m/sec - RVOT VTI 14 cm - RVOT peak gradient 2.22 mmHg - PV acceleration time 156.04 msec - Rosenberg/IV: Voiding Method Toilet IV Catheter Type [Left Hand] INT / Saline Lock Active Medications - Current Medications Current Medications: Generic Name Dose Route Start Last Admin Trade Name Freq PRN Reason Stop Dose Admin Acetaminophen 650 mg 06/05/20 01:42 06/05/20 21:47 Acetaminophen 325 Mg Tab PO 650 mg Q4H PRN Administration Pain MILD(1-3)/Fever >100.5/CUNHA Amlodipine Besylate 5 mg 06/05/20 16:00 06/09/20 09:09 Amlodipine 5 Mg Tab PO 5 mg QDAY LEONIE Administration Buspirone HCl 15 mg 06/08/20 11:00 06/09/20 09:08 Buspirone 5 Mg Tab PO 15 mg QAM LEONIE Administration Dextrose 0 ml 06/05/20 01:42 Dextrose 50% In Water (25gm) 50 Ml Syringe IV Q30MIN PRN Hypoglycemia Protocol Duloxetine HCl 30 mg 06/05/20 13:00 06/09/20 09:09 Duloxetine 30 Mg Cap PO 30 mg QDAY LEONIE Administration Gemfibrozil 600 mg 06/05/20 22:00 06/09/20 09:09 Gemfibrozil 600 Mg Tab PO 600 mg BID LEONIE Administration Heparin Sodium (Porcine) 5,000 unit 06/05/20 06:00 06/09/20 05:31 Heparin 5,000 Unit/1 Ml Vial SUB-Q 5,000 unit Q8HR LEONIE Administration Insulin Human Isoph/Insulin Regular 25 unit 06/09/20 08:00 06/09/20 09:08 Insulin Nph/Regular 70/30 Inj SUB-Q 25 unit BIDDIAB LEONIE Administration Insulin Human Lispro 0 unit 06/07/20 16:30 06/09/20 09:09 Insulin Lispro 100 Unit/Ml Vial 3 Ml SUB-Q 6 unit ACHS LEONIE Administration Protocol Loratadine/Pseudoephedrine Sulfate 1 each 06/06/20 22:00 06/09/20 09:13 Loratadine/Pseudoephedrine 5-120 Mg Tab 12hr PO Not Given Q12HR LEONIE Magnesium Hydroxide 30 ml 06/05/20 01:42 Magnesium Hydroxide (Mom) Oral Liqd Udc PO Q4H PRN Constipation Morphine Sulfate 2 mg 06/05/20 01:42 Morphine 2 Mg/1 Ml Inj IV Q5MIN PRN Chest Pain Nitroglycerin 0.4 mg 06/05/20 01:42 Nitroglycerin 0.4 Mg Tab Subl SL Q5M PRN Chest Pain Ondansetron HCl 4 mg 06/05/20 01:42 Ondansetron 4 Mg/2 Ml Inj IV Q8H PRN Nausea And Vomiting Sodium Chloride 10 ml 06/05/20 10:00 06/09/20 09:09 Sodium Chloride 0.9% 10 Ml Flush Syringe IV 10 ml BID LEONIE Administration Sodium Chloride 10 ml 06/05/20 01:42 Sodium Chloride 0.9% 10 Ml Flush Syringe IV PRN PRN LINE FLUSH Trazodone HCl 50 mg 06/05/20 22:00 06/08/20 22:24 Trazodone 50 Mg Tab PO 50 mg QHS LEONIE Administration Nutrition/Malnutrition Assess - Dietary Evaluation Nutrition/Malnutrition Findings: Nutrition Notes Start: 06/05/20 11:49 Freq: Status: Active Protocol: Document 06/05/20 11:49 AT (Rec: 06/05/20 11:52 AT [id number]) Co-Sign 06/05/20 11:49 LP Nutrition Notes Need for Assessment generated from: MD Order Current Diagnosis Diabetes,Hypertension Other Pertinent Diagnosis Bipolar Disorder, Hyperglycemia Current Diet NPO Labs/Tests BG 484 Subjective/Other Information Consult for diet education. Visited pt twice, first he was not in the room. Second visit , pt refused diet education. Nutrition Intervention Revisit per MD consult or patient Sign Off request:
[2020-06-09] MEDS: ACETAMINOPHEN 325 MG TAB PO PRN (13:57)
--- NOTE | 2020-06-09 14:27 | Treadmill Report ---
[facility] STRESS TEST REPORT This is an incomplete study, with only a resting study available. The patient allegedly declined stress imaging. The resting study shows a normal myocardial perfusion uptake in all segments. CONCLUSION: Incomplete study, uninterpretable in the absence of stress perfusion study. JOB# [id number] CA/NTS
--- NOTE | 2020-06-09 14:31 | Progress Note ---
Assessment and Plan - Patient Problems (1) Hyperglycemia due to diabetes mellitus Current Visit: Yes Status: Acute Plan to address problem: S/p 26 units of regular insulin in the emergency department given over 3 doses SSI 06/05 Lantus 5 units nightly started for persistent hyperglycemia, discontinued 06/08 06/05 Hemoglobin A1c 11.2 06/06 Novolin 70/30 started, titrate as needed Accu-Cheks AC at bedtime CC cardiac diet (2) Homicidal ideation Current Visit: Yes Status: Acute Plan to address problem: Patient states he has homicidal ideations Psychiatric consult Patient is on 1013 hold Sitter at bedside (3) MDD (major depressive disorder) Current Visit: Yes Status: Acute Qualifiers: Major depression recurrence: recurrent Plan to address problem: Psychiatry consult, appreciate recommendations Initiated patient on Cymbalta Sleep hygiene with trazodone Sitter at bedside Patient presented with SI/HI, currently on a 1013 hold Psychiatry recommending inpatient psychiatric hospitalization (4) Hyponatremia Current Visit: Yes Status: Acute Plan to address problem: Presented with a sodium of 134 Corrected sodium for hyperglycemia is remains within normal limits S/p 2 L normal saline in the emergency department Pseudohyponatremia (5) HLD (hyperlipidemia) Current Visit: Yes Status: Chronic Plan to address problem: 06/06 lipid panel pending We will initiate statin therapy once lipid panel results (6) Substance abuse in remission Current Visit: Yes Status: Chronic Plan to address problem: Per psychiatric note patient had substance abuse with cocaine and meth 3 years ago 06/04 UDS negative (7) Noncompliance with medication regimen Current Visit: Yes Status: Chronic Plan to address problem: Patient reports recent homelessness circulation worker/case 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 En route he was given nitroglycerin by EMS which improved his pain. Patient expressed homicidal and suicidal ideation therefore he is a 1013. Work-up in the emergency department revealed hyperglycemia and his troponin, EKG and chest x-ray were within normal limits. Patient was admitted to the hospitalist service with consult to cardiology and psychiatry. This morning patient still complains of chest pain upon examination. He is on room air. Psych history recommends acute inpatient psychiatric hospitalization. He remains hyperglycemic therefore his Novolin 70/30 dose was increased today. RN informs me that according to the psych nurse patient blood glucose has to be persistently less than 200s for transfer. Patient still remains with a 1013. Patient states that he still has SI/HI however does not have a plan. No acute events reported overnight. Patient denies any chest pain. 06/05: Lantus nightly started 06/06: patient refused ischemic evaluation and cardiology recommend risk modification. Patient was evaluated by psych and recommended to inpatient psych admission. Patient is on 1013. Patient is still suicidal. And usually cannot 06/07/2020: Patient still suicidal, Refuses stress test, Patient on 1013, Mental health consult requested, Novolin 70/30 started 06/08: Lantus discontinued and Novolin 70/30 dose increased. circulation worker made aware of inpatient psych recommendation and will start process of finding placement today. Hospitalist Physical - Constitutional Vitals: Temp Pulse Resp BP Pulse Ox 98.4 F 80 16 141/79 98 06/09/20 12:45 06/09/20 12:45 06/09/20 12:45 06/09/20 12:45 06/09/20 12:45 General appearance: Present: no acute distress, well-nourished - EENT Eyes: Present: PERRL, EOM intact ENT: hearing intact, poor dentition - Neck Neck: Present: normal ROM - Respiratory Respiratory effort: normal Respiratory: bilateral: CTA - Cardiovascular Rhythm: regular Heart Sounds: Present: S1 & S2. Absent: systolic murmur, diastolic murmur - Extremities Extremities: no ischemia, pulses intact, pulses symmetrical, No edema, normal temperature, normal color, Full ROM Peripheral Pulses: within normal limits - Abdominal General gastrointestinal: soft, non-tender, non-distended, normal bowel sounds - Integumentary Integumentary: Present: clear, warm, dry - Psychiatric Psychiatric: appropriate mood/affect, cooperative - Neurologic Neurologic: CNII-XII intact, no focal deficits, moves all extremities HEART Score - HEART Score EKG: Normal Age: 45-65 Risk factors: > 3 risk factors or hx of atherosclerotic disease Troponin: Troponin T < 0.010 ng/mL (0.00-0.029) 06/05/20 15:11 Troponin: < normal limit Results - Labs CBC & Chem 7: 06/06/20 07:13 06/09/20 04:57 Labs: Laboratory Last Values WBC 6.2 K/mm3 (4.5-11.0) 06/06/20 07:13 RBC 4.57 M/mm3 (3.65-5.03) 06/06/20 07:13 Hgb 12.6 gm/dl (11.8-15.2) 06/06/20 07:13 Hct 36.6 % (35.5-45.6) 06/06/20 07:13 MCV 80 fl (84-94) L 06/06/20 07:13 MCH 28 pg (28-32) 06/06/20 07:13 MCHC 34 % (32-34) 06/06/20 07:13 RDW 14.2 % (13.2-15.2) 06/06/20 07:13 Plt Count 325 K/mm3 (140-440) 06/06/20 07:13 Lymph % (Auto) 42.1 % (13.4-35.0) H 06/06/20 07:13 [place] % (Auto) 7.2 % (0.0-7.3) 06/06/20 07:13 Eos % (Auto) 2.5 % (0.0-4.3) 06/06/20 07:13 Baso % (Auto) 1.0 % (0.0-1.8) 06/06/20 07:13 Lymph # (Auto) 2.6 K/mm3 (1.2-5.4) 06/06/20 07:13 [place] # (Auto) 0.5 K/mm3 (0.0-0.8) 06/06/20 07:13 Eos # (Auto) 0.2 K/mm3 (0.0-0.4) 06/06/20 07:13 Baso # (Auto) 0.1 K/mm3 (0.0-0.1) 06/06/20 07:13 Seg Neutrophils % 47.2 % (40.0-70.0) 06/06/20 07:13 Seg Neutrophils # 2.9 K/mm3 (1.8-7.7) 06/06/20 07:13 PT 12.6 Sec. (12.2-14.9) 06/06/20 07:13 INR 0.96 (0.87-1.13) 06/06/20 07:13 D-Dimer 135.60 ng/mlDDU (0-234) 06/04/20 18:10 Sodium 135 mmol/L (137-145) L 06/09/20 04:57 Potassium 4.2 mmol/L (3.6-5.0) 06/09/20 04:57 Chloride 102.3 mmol/L (98-107) 06/09/20 04:57 Carbon Dioxide 21 mmol/L (22-30) L 06/09/20 04:57 Anion Gap 16 mmol/L 06/09/20 04:57 BUN 17 mg/dL (9-20) 06/09/20 04:57 Creatinine 1.1 mg/dL (0.8-1.3) 06/09/20 04:57 Estimated GFR > 60 ml/min 06/09/20 04:57 BUN/Creatinine Ratio 15 % 06/09/20 04:57 Glucose 305 mg/dL (75-100) H 06/09/20 04:57 POC Glucose 235 mg/dL (70-105) H 06/09/20 12:37 Hemoglobin A1c 11.2 % (4-6) H 06/05/20 15:11 Calcium 9.1 mg/dL (8.4-10.2) 06/09/20 04:57 Total Bilirubin 0.30 mg/dL (0.1-1.2) 06/08/20 05:26 AST 7 units/L (5-40) 06/08/20 05:26 ALT 7 units/L (7-56) 06/08/20 05:26 Alkaline Phosphatase 114 units/L (35-129) 06/08/20 05:26 Troponin T < 0.010 ng/mL (0.00-0.029) 06/05/20 15:11 Total Protein 6.9 g/dL (6.3-8.2) 06/08/20 05:26 Albumin 3.5 g/dL (3.9-5) L 06/08/20 05:26 Albumin/Globulin Ratio 1.0 % 06/08/20 05:26 Triglycerides 574 mg/dL (2-149) H 06/05/20 15:11 Cholesterol 189 mg/dL (50-199) 06/05/20 15:11 LDL Cholesterol Direct TNR 06/05/20 15:11 HDL Cholesterol 34 mg/dL (40-59) L 06/05/20 15:11 Cholesterol/HDL Ratio 5.55 % 06/05/20 15:11 Urine Color Yellow (Yellow) 06/04/20 19:16 Urine Turbidity Clear (Clear) 06/04/20 19:16 Urine pH 5.0 (5.0-7.0) 06/04/20 19:16 Ur Specific [place] 1.018 (1.003-1.030) 06/04/20 19:16 Urine Protein <15 mg/dl mg/dL (Negative) 06/04/20 19:16 Urine Glucose (UA) >=500 mg/dL (Negative) 06/04/20 19:16 Urine Ketones 20 mg/dL (Negative) 06/04/20 19:16 Urine Blood Neg (Negative) 06/04/20 19:16 Urine Nitrite Neg (Negative) 06/04/20 19:16 Urine Bilirubin Neg (Negative) 06/04/20 19:16 Urine Urobilinogen < 2.0 mg/dL (<2.0) 06/04/20 19:16 Ur Leukocyte Esterase Neg (Negative) 06/04/20 19:16 Urine WBC (Auto) 6.0 /HPF (0.0-6.0) 06/04/20 19:16 Urine RBC (Auto) 2.0 /HPF (0.0-6.0) 06/04/20 19:16 U Epithel Cells (Auto) 1.0 /HPF (0-13.0) 06/04/20 19:16 Urine Opiates Screen Presumptive negative 06/04/20 19:16 Urine Methadone Screen Presumptive negative 06/04/20 19:16 Acetaminophen 5.0 ug/mL (10.0-30.0) L 06/04/20 18:10 Ur Barbiturates Screen Presumptive negative 06/04/20 19:16 Ur Phencyclidine Scrn Presumptive negative 06/04/20 19:16 Ur Amphetamines Screen Presumptive negative 06/04/20 19:16 U Benzodiazepines Scrn Presumptive negative 06/04/20 19:16 Urine Cocaine Screen Presumptive positive 06/04/20 19:16 U Marijuana (THC) Screen Presumptive negative 06/04/20 19:16 Drugs of Abuse Note Disclamer 06/04/20 19:16 Plasma/Serum Alcohol < 0.01 % (0-0.07) 06/04/20 18:10 - Diagnostic Impressions Diagnostic Impressions: Echocardiogram 06/05/20 01:47 Transthoracic Echocardiogram Indication: Chest Pain BP: 148/87 Conclusions *The left ventricular chamber size is normal. *Mild to moderate concentric left ventricular hypertrophy is observed. *The estimated ejection fraction is 60-65%. *Abnormal left ventricular diastolic filling is observed, consistent with impaired relaxation. *The left atrium is normal in size with no visual thrombus identified. *The right ventricular chamber size and systolic function are within normal limits. *The aortic valve is trileaflet. *The right ventricular systolic pressure is calculated at 23 mmHg. Findings Procedure Info: The study quality is fair. Left Ventricle: The left ventricular chamber size is normal. Mild to moderate concentric left ventricular hypertrophy is observed. The estimated ejection fraction is 60-65%. Abnormal left ventricular diastolic filling is observed, consistent with impaired relaxation. Left Atrium: The left atrium is normal in size with no visual thrombus identified. Right Ventricle: The right ventricular chamber size and systolic function are within normal limits. Right Atrium: The right atrium appears normal. Aortic Valve: The aortic valve is trileaflet. Mild aortic leaflet calcification is visualized. There is trace of aortic regurgitation. There is no evidence of aortic stenosis. Mitral Valve: The mitral valve leaflets appear normal. There is trace of mitral regurgitation. There is no evidence of mitral stenosis. Tricuspid Valve: The tricuspid valve leaflets are normal. There is trace tricuspid regurgitation. The right ventricular systolic pressure is calculated at 23 mmHg. There is no tricuspid stenosis. Pulmonic Valve: The pulmonic valve appears normal in structure and function. Pericardium: The pericardium appears normal. Aorta: The aorta appears normal. Pulmonary Artery: The main pulmonary artery appears normal. Venous: The inferior vena cava appears normal in size. There is a greater than 50% respiratory change in the inferior vena cava dimension. Measurements Chambers 2D Name Value Normal Range IVSd (2D) 1.37 cm (0.6 - 1.1) LVPWd (2D) 1.22 cm (0.6 - 1.1) LVIDd (2D) 5.24 cm (3.7 - 5.6) LVIDs (2D) 3.46 cm (2 - 3.8) LV FS (2D) 34.04 % - EF Teichholz (2D) 62.56 % - Ao root diameter (2D) 3.3 cm (2 - 3.7) Volumes/Mass Name Value Normal Range LA ESV SP 4CH (A/L) 84.94 ml - LA ESV SP 2CH (A/L) 79.25 ml - LA ESV BP (A/L) 84.7 ml - LA ESV BP (A/L) index 33.61 ml/m2 - LA ESV SP 4CH (MOD) 81.89 ml - LA ESV SP 2CH (MOD) 78.96 ml - LA ESV BP (MOD) 82.33 ml - LA ESV BP (MOD) index 32.67 ml/m2 - LV EDV SP 4CH (MOD) 153.69 ml - LV ESV SP 4CH (MOD) 51.13 ml - EF SP 4CH (MOD) 66.73 % - LV EDV SP 2CH (MOD) 110.18 ml - LV ESV SP 2CH (MOD) 42.38 ml - EF SP 2CH (MOD) 61.54 % - LV EDV BP 132.71 ml - LV ESV BP 46.25 ml - BP EF (MOD) 65.15 % - Diastolic/Systolic Function Name Value Normal Range MV E-wave Vmax 0.59 m/sec - MV deceleration time 155.37 msec - MV A-wave Vmax 1 m/sec - MV E:A ratio 0.59 ratio - Aortic Valve Name Value Normal Range AV Vmax 1.52 m/sec - AV VTI 29.1 cm - AV peak gradient 9.23 mmHg - AV mean gradient 5.2 mmHg - LVOT diameter 2.54 cm - LVOT Vmax 0.88 m/sec - LVOT VTI 19.35 cm - LVOT peak gradient 3.08 mmHg - LVOT mean gradient 1.61 mmHg - SV LVOT 98.36 ml - LUKAS (continuity Vmax) 2.94 cm2 - LUKAS (continuity VTI) 3.38 cm2 - Ascending Ao 3.45 cm - Tricuspid Valve Name Value Normal Range TV E-wave Vmax 0.57 m/sec - TR Vmax 2.28 m/sec - TR peak gradient 20.75 mmHg - RAP 3 mmHg - RVSP 23 mmHg - IVC diameter 1.47 cm (1.2 - 2.3) Pulmonic Valve/Qp:Qs Name Value Normal Range PV Vmax 1.36 m/sec - PV peak gradient 7.41 mmHg - RVOT Vmax 0.74 m/sec - RVOT VTI 14 cm - RVOT peak gradient 2.22 mmHg - PV acceleration time 156.04 msec - [place]/IV: Voiding Method Toilet IV Catheter Type [Left Hand] INT / Saline Lock Active Medications - Current Medications Current Medications: Generic Name Dose Route Start Last Admin Trade Name Freq PRN Reason Stop Dose Admin Acetaminophen 650 mg 06/05/20 01:42 06/09/20 13:57 Acetaminophen 325 Mg Tab PO 650 mg Q4H PRN Administration Pain MILD(1-3)/Fever >100.5/CUNHA Amlodipine Besylate 5 mg 06/05/20 16:00 06/09/20 09:09 Amlodipine 5 Mg Tab PO 5 mg QDAY LEONIE Administration Buspirone HCl 15 mg 06/08/20 11:00 06/09/20 09:08 Buspirone 5 Mg Tab PO 15 mg QAM LEONIE Administration Dextrose 0 ml 06/05/20 01:42 Dextrose 50% In Water (25gm) 50 Ml Syringe IV Q30MIN PRN Hypoglycemia Protocol Duloxetine HCl 30 mg 06/05/20 13:00 06/09/20 09:09 Duloxetine 30 Mg Cap PO 30 mg QDAY LEONIE Administration Gemfibrozil 600 mg 06/05/20 22:00 06/09/20 09:09 Gemfibrozil 600 Mg Tab PO 600 mg BID LEONIE Administration Heparin Sodium (Porcine) 5,000 unit 06/05/20 06:00 06/09/20 13:58 Heparin 5,000 Unit/1 Ml Vial SUB-Q 5,000 unit Q8HR LEONIE Administration Insulin Human Isoph/Insulin Regular 25 unit 06/09/20 08:00 06/09/20 09:08 Insulin Nph/Regular 70/30 Inj SUB-Q 25 unit BIDDIAB LEONIE Administration Insulin Human Lispro 0 unit 06/07/20 16:30 06/09/20 13:57 Insulin Lispro 100 Unit/Ml Vial 3 Ml SUB-Q 4 unit ACHS LEONIE Administration Protocol Loratadine/Pseudoephedrine Sulfate 1 each 06/06/20 22:00 06/09/20 09:13 Loratadine/Pseudoephedrine 5-120 Mg Tab 12hr PO Not Given Q12HR LEONIE Magnesium Hydroxide 30 ml 06/05/20 01:42 Magnesium Hydroxide (Mom) Oral Liqd Udc PO Q4H PRN Constipation Morphine Sulfate 2 mg 06/05/20 01:42 Morphine 2 Mg/1 Ml Inj IV Q5MIN PRN Chest Pain Nitroglycerin 0.4 mg 06/05/20 01:42 Nitroglycerin 0.4 Mg Tab Subl SL Q5M PRN Chest Pain Ondansetron HCl 4 mg 06/05/20 01:42 Ondansetron 4 Mg/2 Ml Inj IV Q8H PRN Nausea And Vomiting Sodium Chloride 10 ml 06/05/20 10:00 06/09/20 09:09 Sodium Chloride 0.9% 10 Ml Flush Syringe IV 10 ml BID LEONIE Administration Sodium Chloride 10 ml 06/05/20 01:42 Sodium Chloride 0.9% 10 Ml Flush Syringe IV PRN PRN LINE FLUSH Trazodone HCl 50 mg 06/05/20 22:00 06/08/20 22:24 Trazodone 50 Mg Tab PO 50 mg QHS LEONIE Administration Nutrition/Malnutrition Assess - Dietary Evaluation Nutrition/Malnutrition Findings: Nutrition Notes Start: 06/05/20 11:49 Freq: Status: Active Protocol: Document 06/05/20 11:49 AT (Rec: 06/05/20 11:52 AT [id number]) Co-Sign 06/05/20 11:49 LP Nutrition Notes Need for Assessment generated from: MD Order Current Diagnosis Diabetes,Hypertension Other Pertinent Diagnosis Bipolar Disorder, Hyperglycemia Current Diet NPO Labs/Tests BG 484 Subjective/Other Information Consult for diet education. Visited pt twice, first he was not in the room. Second visit , pt refused diet education. Nutrition Intervention Revisit per MD consult or patient Sign Off request:
[2020-06-09] MEDS: traZODone 50 MG TAB PO SCH (21:44)
[2020-06-10] MEDS: HEPARIN 5,000 UNIT/1 ML VIAL SUB-Q SCH ×3 (06:10→22:38)
[2020-06-10] MEDS: GEMFIBROZIL 600 MG TAB PO SCH ×2 (09:23→22:38)
[2020-06-10] MEDS: busPIRone 5 MG TAB PO SCH (09:23)
[2020-06-10] MEDS: DULoxetine 30 MG CAP PO SCH (09:23)
[2020-06-10] MEDS: amLODIPine 5 MG TAB PO SCH (09:23)
[2020-06-10] MEDS: INSULIN LISPRO 100 UNIT/ML VIAL 3 mL SUB-Q SCH ×4 (09:24→22:39)
[2020-06-10] MEDS: INSULIN NPH/REGULAR 70/30 INJ SUB-Q SCH ×2 (09:29→17:54)
[2020-06-10] MEDS: MAGNESIUM HYDROXIDE (MOM) ORAL LIQD UDC PO PRN ×2 (09:35→22:46)
[2020-06-10] MEDS: LORATADINE/PSEUDOEPHEDRINE 5-120 MG TAB 12HR PO SCH ×2 (11:13→22:38)
--- NOTE | 2020-06-10 12:13 | Progress Note ---
Assessment and Plan - Patient Problems (1) Hyperglycemia due to diabetes mellitus Current Visit: Yes Status: Acute Plan to address problem: S/p 26 units of regular insulin in the emergency department given over 3 doses SSI 06/05 Lantus 5 units nightly started for persistent hyperglycemia, discontinued 06/08 06/05 Hemoglobin A1c 11.2 06/06 Novolin 70/30 started, titrate as needed Accu-Cheks AC at bedtime CC cardiac diet (2) Homicidal ideation Current Visit: Yes Status: Acute Plan to address problem: Patient states he has homicidal ideations Psychiatric consult Patient is on 1013 hold Sitter at bedside (3) MDD (major depressive disorder) Current Visit: Yes Status: Acute Qualifiers: Major depression recurrence: recurrent Plan to address problem: Psychiatry consult, appreciate recommendations Initiated patient on Cymbalta Sleep hygiene with trazodone Sitter at bedside Patient presented with SI/HI, currently on a 1013 hold Psychiatry recommending inpatient psychiatric hospitalization (4) Hyponatremia Current Visit: Yes Status: Acute Plan to address problem: Presented with a sodium of 134 Corrected sodium for hyperglycemia is remains within normal limits S/p 2 L normal saline in the emergency department Pseudohyponatremia (5) HLD (hyperlipidemia) Current Visit: Yes Status: Chronic Plan to address problem: 06/06 lipid panel pending We will initiate statin therapy once lipid panel results (6) Substance abuse in remission Current Visit: Yes Status: Chronic Plan to address problem: Per psychiatric note patient had substance abuse with cocaine and meth 3 years ago 06/04 UDS negative (7) Noncompliance with medication regimen Current Visit: Yes Status: Chronic Plan to address problem: Patient reports recent homelessness boil off worker/case 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 En route he was given nitroglycerin by EMS which improved his pain. Patient expressed homicidal and suicidal ideation therefore he is a 1013. Work-up in the emergency department revealed hyperglycemia and his troponin, EKG and chest x-ray were within normal limits. Patient was admitted to the hospitalist service with consult to cardiology and psychiatry. This morning patient still complains of chest pain upon examination. He is on room air. Psych history recommends acute inpatient psychiatric hospitalization. Patient still remains with a 1013. Patient states that he still has SI/HI however does not have a plan. No acute events reported overnight. Patient denies any chest pain. 06/05: Lantus nightly started 06/06: patient refused ischemic evaluation and cardiology recommend risk modification. Patient was evaluated by psych and recommended to inpatient psych admission. Patient is on 1013. Patient is still suicidal. And usually cannot 06/07/2020: Patient still suicidal, Refuses stress test, Patient on 1013, Mental health consult requested, Novolin 70/30 started 06/08: Lantus discontinued and Novolin 70/30 dose increased. boil off worker made aware of inpatient psych recommendation and will start process of finding placement today. 06/09: Novolin 70/30 dose was increased, RN informs me that according to the psych nurse patient blood glucose has to be persistently less than 200s for transfer. Patient still remains with a 1013 and still has SI/HI however does not have a plan. Hospitalist Physical - Constitutional Vitals: Temp Pulse Resp BP Pulse Ox 98.0 F 81 18 143/89 97 06/10/20 08:32 06/10/20 08:32 06/10/20 08:32 06/10/20 08:32 06/10/20 08:32 General appearance: Present: no acute distress, well-nourished - EENT Eyes: Present: EOM intact ENT: hearing intact, poor dentition - Neck Neck: Present: normal ROM - Respiratory Respiratory effort: normal Respiratory: bilateral: CTA - Cardiovascular Rhythm: regular Heart Sounds: Present: S1 & S2. Absent: systolic murmur, diastolic murmur - Extremities Extremities: no ischemia, pulses intact, pulses symmetrical, No edema, normal temperature, normal color, Full ROM Peripheral Pulses: within normal limits - Abdominal General gastrointestinal: soft, non-tender, non-distended, normal bowel sounds - Integumentary Integumentary: Present: warm, dry - Psychiatric Psychiatric: cooperative, depressed - Neurologic Neurologic: CNII-XII intact, no focal deficits, moves all extremities - Allied Health Allied health notes reviewed: nursing HEART Score - HEART Score EKG: Normal Age: 45-65 Risk factors: > 3 risk factors or hx of atherosclerotic disease Troponin: Troponin T < 0.010 ng/mL (0.00-0.029) 06/05/20 15:11 Troponin: < normal limit Results - Labs CBC & Chem 7: 06/06/20 07:13 06/09/20 04:57 Labs: Laboratory Last Values WBC 6.2 K/mm3 (4.5-11.0) 06/06/20 07:13 RBC 4.57 M/mm3 (3.65-5.03) 06/06/20 07:13 Hgb 12.6 gm/dl (11.8-15.2) 06/06/20 07:13 Hct 36.6 % (35.5-45.6) 06/06/20 07:13 MCV 80 fl (84-94) L 06/06/20 07:13 MCH 28 pg (28-32) 06/06/20 07:13 MCHC 34 % (32-34) 06/06/20 07:13 RDW 14.2 % (13.2-15.2) 06/06/20 07:13 Plt Count 325 K/mm3 (140-440) 06/06/20 07:13 Lymph % (Auto) 42.1 % (13.4-35.0) H 06/06/20 07:13 [place] % (Auto) 7.2 % (0.0-7.3) 06/06/20 07:13 Eos % (Auto) 2.5 % (0.0-4.3) 06/06/20 07:13 Baso % (Auto) 1.0 % (0.0-1.8) 06/06/20 07:13 Lymph # (Auto) 2.6 K/mm3 (1.2-5.4) 06/06/20 07:13 [place] # (Auto) 0.5 K/mm3 (0.0-0.8) 06/06/20 07:13 Eos # (Auto) 0.2 K/mm3 (0.0-0.4) 06/06/20 07:13 Baso # (Auto) 0.1 K/mm3 (0.0-0.1) 06/06/20 07:13 Seg Neutrophils % 47.2 % (40.0-70.0) 06/06/20 07:13 Seg Neutrophils # 2.9 K/mm3 (1.8-7.7) 06/06/20 07:13 PT 12.6 Sec. (12.2-14.9) 06/06/20 07:13 INR 0.96 (0.87-1.13) 06/06/20 07:13 D-Dimer 135.60 ng/mlDDU (0-234) 06/04/20 18:10 Sodium 135 mmol/L (137-145) L 06/09/20 04:57 Potassium 4.2 mmol/L (3.6-5.0) 06/09/20 04:57 Chloride 102.3 mmol/L (98-107) 06/09/20 04:57 Carbon Dioxide 21 mmol/L (22-30) L 06/09/20 04:57 Anion Gap 16 mmol/L 06/09/20 04:57 BUN 17 mg/dL (9-20) 06/09/20 04:57 Creatinine 1.1 mg/dL (0.8-1.3) 06/09/20 04:57 Estimated GFR > 60 ml/min 06/09/20 04:57 BUN/Creatinine Ratio 15 % 06/09/20 04:57 Glucose 305 mg/dL (75-100) H 06/09/20 04:57 POC Glucose 307 mg/dL (70-105) H 06/10/20 11:34 Hemoglobin A1c 11.2 % (4-6) H 06/05/20 15:11 Calcium 9.1 mg/dL (8.4-10.2) 06/09/20 04:57 Total Bilirubin 0.30 mg/dL (0.1-1.2) 06/08/20 05:26 AST 7 units/L (5-40) 06/08/20 05:26 ALT 7 units/L (7-56) 06/08/20 05:26 Alkaline Phosphatase 114 units/L (35-129) 06/08/20 05:26 Troponin T < 0.010 ng/mL (0.00-0.029) 06/05/20 15:11 Total Protein 6.9 g/dL (6.3-8.2) 06/08/20 05:26 Albumin 3.5 g/dL (3.9-5) L 06/08/20 05:26 Albumin/Globulin Ratio 1.0 % 06/08/20 05:26 Triglycerides 574 mg/dL (2-149) H 06/05/20 15:11 Cholesterol 189 mg/dL (50-199) 06/05/20 15:11 LDL Cholesterol Direct TNR 06/05/20 15:11 HDL Cholesterol 34 mg/dL (40-59) L 06/05/20 15:11 Cholesterol/HDL Ratio 5.55 % 06/05/20 15:11 Urine Color Yellow (Yellow) 06/04/20 19:16 Urine Turbidity Clear (Clear) 06/04/20 19:16 Urine pH 5.0 (5.0-7.0) 06/04/20 19:16 Ur Specific [place] 1.018 (1.003-1.030) 06/04/20 19:16 Urine Protein <15 mg/dl mg/dL (Negative) 06/04/20 19:16 Urine Glucose (UA) >=500 mg/dL (Negative) 06/04/20 19:16 Urine Ketones 20 mg/dL (Negative) 06/04/20 19:16 Urine Blood Neg (Negative) 06/04/20 19:16 Urine Nitrite Neg (Negative) 06/04/20 19:16 Urine Bilirubin Neg (Negative) 06/04/20 19:16 Urine Urobilinogen < 2.0 mg/dL (<2.0) 06/04/20 19:16 Ur Leukocyte Esterase Neg (Negative) 06/04/20 19:16 Urine WBC (Auto) 6.0 /HPF (0.0-6.0) 06/04/20 19:16 Urine RBC (Auto) 2.0 /HPF (0.0-6.0) 06/04/20 19:16 U Epithel Cells (Auto) 1.0 /HPF (0-13.0) 06/04/20 19:16 Urine Opiates Screen Presumptive negative 06/04/20 19:16 Urine Methadone Screen Presumptive negative 06/04/20 19:16 Acetaminophen 5.0 ug/mL (10.0-30.0) L 06/04/20 18:10 Ur Barbiturates Screen Presumptive negative 06/04/20 19:16 Ur Phencyclidine Scrn Presumptive negative 06/04/20 19:16 Ur Amphetamines Screen Presumptive negative 06/04/20 19:16 U Benzodiazepines Scrn Presumptive negative 06/04/20 19:16 Urine Cocaine Screen Presumptive positive 06/04/20 19:16 U Marijuana (THC) Screen Presumptive negative 06/04/20 19:16 Drugs of Abuse Note Disclamer 06/04/20 19:16 Plasma/Serum Alcohol < 0.01 % (0-0.07) 06/04/20 18:10 Coronavirus (PCR) Negative (Negative) 06/09/20 Unknown - Diagnostic Impressions Diagnostic Impressions: Echocardiogram 06/05/20 01:47 Transthoracic Echocardiogram Indication: Chest Pain BP: 148/87 Conclusions *The left ventricular chamber size is normal. *Mild to moderate concentric left ventricular hypertrophy is observed. *The estimated ejection fraction is 60-65%. *Abnormal left ventricular diastolic filling is observed, consistent with impaired relaxation. *The left atrium is normal in size with no visual thrombus identified. *The right ventricular chamber size and systolic function are within normal limits. *The aortic valve is trileaflet. *The right ventricular systolic pressure is calculated at 23 mmHg. Findings Procedure Info: The study quality is fair. Left Ventricle: The left ventricular chamber size is normal. Mild to moderate concentric left ventricular hypertrophy is observed. The estimated ejection fraction is 60-65%. Abnormal left ventricular diastolic filling is observed, consistent with impaired relaxation. Left Atrium: The left atrium is normal in size with no visual thrombus identified. Right Ventricle: The right ventricular chamber size and systolic function are within normal limits. Right Atrium: The right atrium appears normal. Aortic Valve: The aortic valve is trileaflet. Mild aortic leaflet calcification is visualized. There is trace of aortic regurgitation. There is no evidence of aortic stenosis. Mitral Valve: The mitral valve leaflets appear normal. There is trace of mitral regurgitation. There is no evidence of mitral stenosis. Tricuspid Valve: The tricuspid valve leaflets are normal. There is trace tricuspid regurgitation. The right ventricular systolic pressure is calculated at 23 mmHg. There is no tricuspid stenosis. Pulmonic Valve: The pulmonic valve appears normal in structure and function. Pericardium: The pericardium appears normal. Aorta: The aorta appears normal. Pulmonary Artery: The main pulmonary artery appears normal. Venous: The inferior vena cava appears normal in size. There is a greater than 50% respiratory change in the inferior vena cava dimension. Measurements Chambers 2D Name Value Normal Range IVSd (2D) 1.37 cm (0.6 - 1.1) LVPWd (2D) 1.22 cm (0.6 - 1.1) LVIDd (2D) 5.24 cm (3.7 - 5.6) LVIDs (2D) 3.46 cm (2 - 3.8) LV FS (2D) 34.04 % - EF Teichholz (2D) 62.56 % - Ao root diameter (2D) 3.3 cm (2 - 3.7) Volumes/Mass Name Value Normal Range LA ESV SP 4CH (A/L) 84.94 ml - LA ESV SP 2CH (A/L) 79.25 ml - LA ESV BP (A/L) 84.7 ml - LA ESV BP (A/L) index 33.61 ml/m2 - LA ESV SP 4CH (MOD) 81.89 ml - LA ESV SP 2CH (MOD) 78.96 ml - LA ESV BP (MOD) 82.33 ml - LA ESV BP (MOD) index 32.67 ml/m2 - LV EDV SP 4CH (MOD) 153.69 ml - LV ESV SP 4CH (MOD) 51.13 ml - EF SP 4CH (MOD) 66.73 % - LV EDV SP 2CH (MOD) 110.18 ml - LV ESV SP 2CH (MOD) 42.38 ml - EF SP 2CH (MOD) 61.54 % - LV EDV BP 132.71 ml - LV ESV BP 46.25 ml - BP EF (MOD) 65.15 % - Diastolic/Systolic Function Name Value Normal Range MV E-wave Vmax 0.59 m/sec - MV deceleration time 155.37 msec - MV A-wave Vmax 1 m/sec - MV E:A ratio 0.59 ratio - Aortic Valve Name Value Normal Range AV Vmax 1.52 m/sec - AV VTI 29.1 cm - AV peak gradient 9.23 mmHg - AV mean gradient 5.2 mmHg - LVOT diameter 2.54 cm - LVOT Vmax 0.88 m/sec - LVOT VTI 19.35 cm - LVOT peak gradient 3.08 mmHg - LVOT mean gradient 1.61 mmHg - SV LVOT 98.36 ml - LUKAS (continuity Vmax) 2.94 cm2 - LUKAS (continuity VTI) 3.38 cm2 - Ascending Ao 3.45 cm - Tricuspid Valve Name Value Normal Range TV E-wave Vmax 0.57 m/sec - TR Vmax 2.28 m/sec - TR peak gradient 20.75 mmHg - RAP 3 mmHg - RVSP 23 mmHg - IVC diameter 1.47 cm (1.2 - 2.3) Pulmonic Valve/Qp:Qs Name Value Normal Range PV Vmax 1.36 m/sec - PV peak gradient 7.41 mmHg - RVOT Vmax 0.74 m/sec - RVOT VTI 14 cm - RVOT peak gradient 2.22 mmHg - PV acceleration time 156.04 msec - [place]/IV: Voiding Method Toilet IV Catheter Type [Left Hand] INT / Saline Lock Active Medications - Current Medications Current Medications: Generic Name Dose Route Start Last Admin Trade Name Freq PRN Reason Stop Dose Admin Acetaminophen 650 mg 06/05/20 01:42 06/09/20 13:57 Acetaminophen 325 Mg Tab PO 650 mg Q4H PRN Administration Pain MILD(1-3)/Fever >100.5/CUNHA Amlodipine Besylate 10 mg 06/10/20 10:00 06/10/20 09:23 Amlodipine 5 Mg Tab PO 10 mg QDAY LEONIE Administration Buspirone HCl 15 mg 06/08/20 11:00 06/10/20 09:23 Buspirone 5 Mg Tab PO 15 mg QAM LEONIE Administration Dextrose 0 ml 06/05/20 01:42 Dextrose 50% In Water (25gm) 50 Ml Syringe IV Q30MIN PRN Hypoglycemia Protocol Duloxetine HCl 30 mg 06/05/20 13:00 06/10/20 09:23 Duloxetine 30 Mg Cap PO 30 mg QDAY LEONIE Administration Gemfibrozil 600 mg 06/05/20 22:00 06/10/20 09:23 Gemfibrozil 600 Mg Tab PO 600 mg BID ELONIE Administration Heparin Sodium (Porcine) 5,000 unit 06/05/20 06:00 06/10/20 06:10 Heparin 5,000 Unit/1 Ml Vial SUB-Q 5,000 unit Q8HR LEONIE Administration Insulin Human Isoph/Insulin Regular 27 unit 12/16/20 08:30 06/10/20 09:29 Insulin Nph/Regular 70/30 Inj SUB-Q 27 unit BIDDIAB LEONIE Administration Insulin Human Lispro 0 unit 06/07/20 16:30 06/10/20 09:24 Insulin Lispro 100 Unit/Ml Vial 3 Ml SUB-Q 6 unit ACHS LEONIE Administration Protocol Loratadine/Pseudoephedrine Sulfate 1 each 06/06/20 22:00 06/10/20 11:13 Loratadine/Pseudoephedrine 5-120 Mg Tab 12hr PO 1 each Q12HR LEONIE Administration Magnesium Hydroxide 30 ml 06/05/20 01:42 06/10/20 09:35 Magnesium Hydroxide (Mom) Oral Liqd Udc PO 30 ml Q4H PRN Administration Constipation Morphine Sulfate 2 mg 06/05/20 01:42 Morphine 2 Mg/1 Ml Inj IV Q5MIN PRN Chest Pain Nitroglycerin 0.4 mg 06/05/20 01:42 Nitroglycerin 0.4 Mg Tab Subl SL Q5M PRN Chest Pain Ondansetron HCl 4 mg 06/05/20 01:42 Ondansetron 4 Mg/2 Ml Inj IV Q8H PRN Nausea And Vomiting Sodium Chloride 10 ml 06/05/20 10:00 06/10/20 09:25 Sodium Chloride 0.9% 10 Ml Flush Syringe IV 10 ml BID LEONIE Administration Sodium Chloride 10 ml 06/05/20 01:42 Sodium Chloride 0.9% 10 Ml Flush Syringe IV PRN PRN LINE FLUSH Trazodone HCl 50 mg 06/05/20 22:00 06/09/20 21:44 Trazodone 50 Mg Tab PO 50 mg QHS LEONIE Administration Nutrition/Malnutrition Assess - Dietary Evaluation Nutrition/Malnutrition Findings: Nutrition Notes Start: 06/05/20 11:49 Freq: Status: Active Protocol: Document 06/05/20 11:49 AT (Rec: 06/05/20 11:52 AT [id number]) Co-Sign 06/05/20 11:49 LP Nutrition Notes Need for Assessment generated from: Order Current Diagnosis Diabetes,Hypertension Other Pertinent Diagnosis Bipolar Disorder, Hyperglycemia Current Diet NPO Labs/Tests BG 484 Subjective/Other Information Consult for diet education. Visited pt twice, first he was not in the room. Second visit , pt refused diet education. Nutrition Intervention Revisit per MD consult or patient Sign Off request:
[2020-06-10] MEDS: MORPHINE 2 MG/1 ML INJ IV PRN ×2 (17:59→22:46)
[2020-06-10] MEDS: traZODone 50 MG TAB PO SCH (22:38)
[2020-06-11] MEDS: HEPARIN 5,000 UNIT/1 ML VIAL SUB-Q SCH ×3 (06:21→22:30)
[2020-06-11 06:53] LABS: BUN/Creatinine Ratio 13; Blood Urea Nitrogen 13 mg/dL (9-20); Calcium 9.3 mg/dL (8.4-10.2); Hemolysis Index 2
[2020-06-11] MEDS: INSULIN LISPRO 100 UNIT/ML VIAL 3 mL SUB-Q SCH ×4 (07:30→22:23)
[2020-06-11] MEDS: oxyCODONE /ACETAMINOPHEN 5-325MG TAB PO PRN ×3 (08:14→22:29)
[2020-06-11] MEDS ORDERED: INSULIN NPH/REGULAR 70/30 INJ SUB-Q SCH (09:00)
[2020-06-11] MEDS: DULoxetine 30 MG CAP PO SCH (09:35)
[2020-06-11] MEDS: busPIRone 5 MG TAB PO SCH (09:35)
[2020-06-11] MEDS: amLODIPine 5 MG TAB PO SCH (09:36)
[2020-06-11] MEDS: GEMFIBROZIL 600 MG TAB PO SCH ×2 (09:37→22:28)
[2020-06-11] MEDS: LORATADINE/PSEUDOEPHEDRINE 5-120 MG TAB 12HR PO SCH (10:29)
--- NOTE | 2020-06-11 13:10 | Progress Note ---
Assessment and Plan - Patient Problems (1) Hyperglycemia due to diabetes mellitus Current Visit: Yes Status: Acute Plan to address problem: S/p 26 units of regular insulin in the emergency department given over 3 doses SSI 06/05 Lantus 5 units nightly started for persistent hyperglycemia, discontinued 06/08 06/05 Hemoglobin A1c 11.2 06/06 Novolin 70/30 started, titrate as needed Accu-Cheks AC at bedtime CC cardiac diet (2) Homicidal ideation Current Visit: Yes Status: Acute Plan to address problem: Patient states he has homicidal ideations Psychiatric consult Patient is on 1013 hold Sitter at bedside (3) MDD (major depressive disorder) Current Visit: Yes Status: Chronic Qualifiers: Major depression recurrence: recurrent Plan to address problem: Psychiatry consult, appreciate recommendations Initiated patient on Cymbalta Sleep hygiene with trazodone Sitter at bedside Patient presented with SI/HI, currently on a 1013 hold Psychiatry recommending inpatient psychiatric hospitalization (4) Hyponatremia Current Visit: Yes Status: Acute Plan to address problem: Presented with a sodium of 134 Corrected sodium for hyperglycemia is remains within normal limits S/p 2 L normal saline in the emergency department Pseudohyponatremia (5) HLD (hyperlipidemia) Current Visit: Yes Status: Chronic Plan to address problem: 06/06 lipid panel pending We will initiate statin therapy once lipid panel results (6) Substance abuse in remission Current Visit: Yes Status: Chronic Plan to address problem: Per psychiatric note patient had substance abuse with cocaine and meth 3 years ago 06/04 UDS negative (7) Noncompliance with medication regimen Current Visit: Yes Status: Chronic Plan to address problem: Patient reports recent homelessness community mental health social worker/case 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 En route he was given nitroglycerin by EMS which improved his pain. Patient expressed homicidal and suicidal ideation therefore he is a 1013. Work-up in the emergency department revealed hyperglycemia and his troponin, EKG and chest x-ray were within normal limits. Patient was admitted to the hospitalist service with consult to cardiology and psychiatry. This morning patient still complains of chest pain upon examination. He is on room air. Psych history recommends acute inpatient psychiatric hospitalization. Patient still remains with a 1013. Patient states that he still has SI/HI however does not have a plan and has a flat affect today. No acute events reported overnight.Patient remains hyperglycemic and Novolin 70/30 increased 06/05: Lantus nightly started 06/06: patient refused ischemic evaluation and cardiology recommend risk modification. Patient was evaluated by psych and recommended to inpatient psych admission. Patient is on 1013. Patient is still suicidal. And usually cannot 06/07/2020: Patient still suicidal, Refuses stress test, Patient on 1013, Mental health consult requested, Novolin 70/30 started 06/08: Lantus discontinued and Novolin 70/30 dose increased. community mental health social worker made aware of inpatient psych recommendation and will start process of finding placement today. 06/09: Novolin 70/30 dose was increased, RN informs me that according to the psych nurse patient blood glucose has to be persistently less than 200s for transfer. Patient still remains with a 1013 and still has SI/HI however does not have a plan. 06/10: Novolin 70/30 increased due to persistent hypoglycemia Hospitalist Physical - Constitutional Vitals: Temp Pulse Resp BP Pulse Ox 98.4 F 81 20 158/68 93 06/11/20 10:00 06/11/20 10:00 06/11/20 10:00 06/11/20 10:00 06/11/20 10:00 General appearance: Present: no acute distress, well-nourished - EENT Eyes: Present: PERRL, EOM intact ENT: hearing intact, poor dentition - Neck Neck: Present: normal ROM - Respiratory Respiratory effort: normal Respiratory: bilateral: CTA - Cardiovascular Rhythm: regular Heart Sounds: Present: S1 & S2. Absent: systolic murmur, diastolic murmur - Extremities Extremities: no ischemia, pulses intact, pulses symmetrical, No edema, normal temperature, normal color, Full ROM Peripheral Pulses: within normal limits - Abdominal General gastrointestinal: soft, non-tender, non-distended, normal bowel sounds - Integumentary Integumentary: Present: warm, dry - Psychiatric Psychiatric: cooperative, depressed - Neurologic Neurologic: CNII-XII intact, no focal deficits, moves all extremities - Allied Health Allied health notes reviewed: nursing HEART Score - HEART Score EKG: Normal Age: 45-65 Risk factors: > 3 risk factors or hx of atherosclerotic disease Troponin: Troponin T < 0.010 ng/mL (0.00-0.029) 06/05/20 15:11 Troponin: < normal limit Results - Labs CBC & Chem 7: 06/06/20 07:13 06/11/20 04:46 Labs: Laboratory Last Values WBC 6.2 K/mm3 (4.5-11.0) 06/06/20 07:13 RBC 4.57 M/mm3 (3.65-5.03) 06/06/20 07:13 Hgb 12.6 gm/dl (11.8-15.2) 06/06/20 07:13 Hct 36.6 % (35.5-45.6) 06/06/20 07:13 MCV 80 fl (84-94) L 06/06/20 07:13 MCH 28 pg (28-32) 06/06/20 07:13 MCHC 34 % (32-34) 06/06/20 07:13 RDW 14.2 % (13.2-15.2) 06/06/20 07:13 Plt Count 325 K/mm3 (140-440) 06/06/20 07:13 Lymph % (Auto) 42.1 % (13.4-35.0) H 06/06/20 07:13 [place] % (Auto) 7.2 % (0.0-7.3) 06/06/20 07:13 Eos % (Auto) 2.5 % (0.0-4.3) 06/06/20 07:13 Baso % (Auto) 1.0 % (0.0-1.8) 06/06/20 07:13 Lymph # (Auto) 2.6 K/mm3 (1.2-5.4) 06/06/20 07:13 [place] # (Auto) 0.5 K/mm3 (0.0-0.8) 06/06/20 07:13 Eos # (Auto) 0.2 K/mm3 (0.0-0.4) 06/06/20 07:13 Baso # (Auto) 0.1 K/mm3 (0.0-0.1) 06/06/20 07:13 Seg Neutrophils % 47.2 % (40.0-70.0) 06/06/20 07:13 Seg Neutrophils # 2.9 K/mm3 (1.8-7.7) 06/06/20 07:13 PT 12.6 Sec. (12.2-14.9) 06/06/20 07:13 INR 0.96 (0.87-1.13) 06/06/20 07:13 D-Dimer 135.60 ng/mlDDU (0-234) 06/04/20 18:10 Sodium 136 mmol/L (137-145) L 06/11/20 04:46 Potassium 4.2 mmol/L (3.6-5.0) 06/11/20 04:46 Chloride 99.9 mmol/L (98-107) 06/11/20 04:46 Carbon Dioxide 24 mmol/L (22-30) 06/11/20 04:46 Anion Gap 16 mmol/L 06/11/20 04:46 BUN 13 mg/dL (9-20) 06/11/20 04:46 Creatinine 1.0 mg/dL (0.8-1.3) 06/11/20 04:46 Estimated GFR > 60 ml/min 06/11/20 04:46 BUN/Creatinine Ratio 13 % 06/11/20 04:46 Glucose 280 mg/dL (75-100) H 06/11/20 04:46 POC Glucose 288 mg/dL (70-105) H 06/11/20 11:55 Hemoglobin A1c 11.2 % (4-6) H 06/05/20 15:11 Calcium 9.3 mg/dL (8.4-10.2) 06/11/20 04:46 Total Bilirubin 0.30 mg/dL (0.1-1.2) 06/08/20 05:26 AST 7 units/L (5-40) 06/08/20 05:26 ALT 7 units/L (7-56) 06/08/20 05:26 Alkaline Phosphatase 114 units/L (35-129) 06/08/20 05:26 Troponin T < 0.010 ng/mL (0.00-0.029) 06/05/20 15:11 Total Protein 6.9 g/dL (6.3-8.2) 06/08/20 05:26 Albumin 3.5 g/dL (3.9-5) L 06/08/20 05:26 Albumin/Globulin Ratio 1.0 % 06/08/20 05:26 Triglycerides 574 mg/dL (2-149) H 06/05/20 15:11 Cholesterol 189 mg/dL (50-199) 06/05/20 15:11 LDL Cholesterol Direct TNR 06/05/20 15:11 HDL Cholesterol 34 mg/dL (40-59) L 06/05/20 15:11 Cholesterol/HDL Ratio 5.55 % 06/05/20 15:11 Urine Color Yellow (Yellow) 06/04/20 19:16 Urine Turbidity Clear (Clear) 06/04/20 19:16 Urine pH 5.0 (5.0-7.0) 06/04/20 19:16 Ur Specific [place] 1.018 (1.003-1.030) 06/04/20 19:16 Urine Protein <15 mg/dl mg/dL (Negative) 06/04/20 19:16 Urine Glucose (UA) >=500 mg/dL (Negative) 06/04/20 19:16 Urine Ketones 20 mg/dL (Negative) 06/04/20 19:16 Urine Blood Neg (Negative) 06/04/20 19:16 Urine Nitrite Neg (Negative) 06/04/20 19:16 Urine Bilirubin Neg (Negative) 06/04/20 19:16 Urine Urobilinogen < 2.0 mg/dL (<2.0) 06/04/20 19:16 Ur Leukocyte Esterase Neg (Negative) 06/04/20 19:16 Urine WBC (Auto) 6.0 /HPF (0.0-6.0) 06/04/20 19:16 Urine RBC (Auto) 2.0 /HPF (0.0-6.0) 06/04/20 19:16 U Epithel Cells (Auto) 1.0 /HPF (0-13.0) 06/04/20 19:16 Urine Opiates Screen Presumptive negative 06/04/20 19:16 Urine Methadone Screen Presumptive negative 06/04/20 19:16 Acetaminophen 5.0 ug/mL (10.0-30.0) L 06/04/20 18:10 Ur Barbiturates Screen Presumptive negative 06/04/20 19:16 Ur Phencyclidine Scrn Presumptive negative 06/04/20 19:16 Ur Amphetamines Screen Presumptive negative 06/04/20 19:16 U Benzodiazepines Scrn Presumptive negative 06/04/20 19:16 Urine Cocaine Screen Presumptive positive 06/04/20 19:16 U Marijuana (THC) Screen Presumptive negative 06/04/20 19:16 Drugs of Abuse Note Disclamer 06/04/20 19:16 Plasma/Serum Alcohol < 0.01 % (0-0.07) 06/04/20 18:10 Coronavirus (PCR) Negative (Negative) 06/09/20 Unknown - Diagnostic Impressions Diagnostic Impressions: Echocardiogram 06/05/20 01:47 Transthoracic Echocardiogram Indication: Chest Pain BP: 148/87 Conclusions *The left ventricular chamber size is normal. *Mild to moderate concentric left ventricular hypertrophy is observed. *The estimated ejection fraction is 60-65%. *Abnormal left ventricular diastolic filling is observed, consistent with impaired relaxation. *The left atrium is normal in size with no visual thrombus identified. *The right ventricular chamber size and systolic function are within normal limits. *The aortic valve is trileaflet. *The right ventricular systolic pressure is calculated at 23 mmHg. Findings Procedure Info: The study quality is fair. Left Ventricle: The left ventricular chamber size is normal. Mild to moderate concentric left ventricular hypertrophy is observed. The estimated ejection fraction is 60-65%. Abnormal left ventricular diastolic filling is observed, consistent with impaired relaxation. Left Atrium: The left atrium is normal in size with no visual thrombus identified. Right Ventricle: The right ventricular chamber size and systolic function are within normal limits. Right Atrium: The right atrium appears normal. Aortic Valve: The aortic valve is trileaflet. Mild aortic leaflet calcification is visualized. There is trace of aortic regurgitation. There is no evidence of aortic stenosis. Mitral Valve: The mitral valve leaflets appear normal. There is trace of mitral regurgitation. There is no evidence of mitral stenosis. Tricuspid Valve: The tricuspid valve leaflets are normal. There is trace tricuspid regurgitation. The right ventricular systolic pressure is calculated at 23 mmHg. There is no tricuspid stenosis. Pulmonic Valve: The pulmonic valve appears normal in structure and function. Pericardium: The pericardium appears normal. Aorta: The aorta appears normal. Pulmonary Artery: The main pulmonary artery appears normal. Venous: The inferior vena cava appears normal in size. There is a greater than 50% respiratory change in the inferior vena cava dimension. Measurements Chambers 2D Name Value Normal Range IVSd (2D) 1.37 cm (0.6 - 1.1) LVPWd (2D) 1.22 cm (0.6 - 1.1) LVIDd (2D) 5.24 cm (3.7 - 5.6) LVIDs (2D) 3.46 cm (2 - 3.8) LV FS (2D) 34.04 % - EF Teichholz (2D) 62.56 % - Ao root diameter (2D) 3.3 cm (2 - 3.7) Volumes/Mass Name Value Normal Range LA ESV SP 4CH (A/L) 84.94 ml - LA ESV SP 2CH (A/L) 79.25 ml - LA ESV BP (A/L) 84.7 ml - LA ESV BP (A/L) index 33.61 ml/m2 - LA ESV SP 4CH (MOD) 81.89 ml - LA ESV SP 2CH (MOD) 78.96 ml - LA ESV BP (MOD) 82.33 ml - LA ESV BP (MOD) index 32.67 ml/m2 - LV EDV SP 4CH (MOD) 153.69 ml - LV ESV SP 4CH (MOD) 51.13 ml - EF SP 4CH (MOD) 66.73 % - LV EDV SP 2CH (MOD) 110.18 ml - LV ESV SP 2CH (MOD) 42.38 ml - EF SP 2CH (MOD) 61.54 % - LV EDV BP 132.71 ml - LV ESV BP 46.25 ml - BP EF (MOD) 65.15 % - Diastolic/Systolic Function Name Value Normal Range MV E-wave Vmax 0.59 m/sec - MV deceleration time 155.37 msec - MV A-wave Vmax 1 m/sec - MV E:A ratio 0.59 ratio - Aortic Valve Name Value Normal Range AV Vmax 1.52 m/sec - AV VTI 29.1 cm - AV peak gradient 9.23 mmHg - AV mean gradient 5.2 mmHg - LVOT diameter 2.54 cm - LVOT Vmax 0.88 m/sec - LVOT VTI 19.35 cm - LVOT peak gradient 3.08 mmHg - LVOT mean gradient 1.61 mmHg - SV LVOT 98.36 ml - LUKAS (continuity Vmax) 2.94 cm2 - LUKAS (continuity VTI) 3.38 cm2 - Ascending Ao 3.45 cm - Tricuspid Valve Name Value Normal Range TV E-wave Vmax 0.57 m/sec - TR Vmax 2.28 m/sec - TR peak gradient 20.75 mmHg - RAP 3 mmHg - RVSP 23 mmHg - IVC diameter 1.47 cm (1.2 - 2.3) Pulmonic Valve/Qp:Qs Name Value Normal Range PV Vmax 1.36 m/sec - PV peak gradient 7.41 mmHg - RVOT Vmax 0.74 m/sec - RVOT VTI 14 cm - RVOT peak gradient 2.22 mmHg - PV acceleration time 156.04 msec - Rosenberg/IV: Voiding Method Toilet IV Catheter Type [Left Hand] INT / Saline Lock Active Medications - Current Medications Current Medications: Generic Name Dose Route Start Last Admin Trade Name Freq PRN Reason Stop Dose Admin Acetaminophen 650 mg 06/05/20 01:42 06/09/20 13:57 Acetaminophen 325 Mg Tab PO 650 mg Q4H PRN Administration Pain MILD(1-3)/Fever >100.5/CUNHA Amlodipine Besylate 10 mg 06/10/20 10:00 06/11/20 09:36 Amlodipine 5 Mg Tab PO 10 mg QDAY LEONIE Administration Buspirone HCl 15 mg 06/08/20 11:00 06/11/20 09:35 Buspirone 5 Mg Tab PO 15 mg QAM LEONIE Administration Dextrose 0 ml 06/05/20 01:42 Dextrose 50% In Water (25gm) 50 Ml Syringe IV Q30MIN PRN Hypoglycemia Protocol Duloxetine HCl 30 mg 06/05/20 13:00 06/11/20 09:35 Duloxetine 30 Mg Cap PO 30 mg QDAY LEONIE Administration Gemfibrozil 600 mg 06/05/20 22:00 06/11/20 09:37 Gemfibrozil 600 Mg Tab PO 600 mg BID LEONIE Administration Heparin Sodium (Porcine) 5,000 unit 06/05/20 06:00 06/11/20 06:21 Heparin 5,000 Unit/1 Ml Vial SUB-Q 5,000 unit Q8HR LEONIE Administration Insulin Human Isoph/Insulin Regular 29 unit 06/11/20 09:00 06/11/20 09:34 Insulin Nph/Regular 70/30 Inj SUB-Q 29 unit BIDDIAB LEONIE Administration Insulin Human Lispro 0 unit 06/07/20 16:30 06/11/20 11:30 Insulin Lispro 100 Unit/Ml Vial 3 Ml SUB-Q 6 unit ACHS LEONIE Administration Protocol Loratadine/Pseudoephedrine Sulfate 1 each 06/06/20 22:00 06/11/20 10:29 Loratadine/Pseudoephedrine 5-120 Mg Tab 12hr PO 1 each Q12HR LEONIE Administration Magnesium Hydroxide 30 ml 06/05/20 01:42 06/10/20 22:46 Magnesium Hydroxide (Mom) Oral Liqd Udc PO 30 ml Q4H PRN Administration Constipation Morphine Sulfate 2 mg 06/05/20 01:42 06/10/20 22:46 Morphine 2 Mg/1 Ml Inj IV 2 mg Q5MIN PRN Administration Chest Pain Nitroglycerin 0.4 mg 06/05/20 01:42 Nitroglycerin 0.4 Mg Tab Subl SL Q5M PRN Chest Pain Ondansetron HCl 4 mg 06/05/20 01:42 Ondansetron 4 Mg/2 Ml Inj IV Q8H PRN Nausea And Vomiting Oxycodone/Acetaminophen 1 tab 06/11/20 08:30 06/11/20 08:14 Oxycodone /Acetaminophen 5-325mg Tab PO 1 tab Q6H PRN Administration Pain, Moderate (4-6) Sodium Chloride 10 ml 06/05/20 10:00 06/11/20 09:37 Sodium Chloride 0.9% 10 Ml Flush Syringe IV 10 ml BID LEONIE Administration Sodium Chloride 10 ml 06/05/20 01:42 Sodium Chloride 0.9% 10 Ml Flush Syringe IV PRN PRN LINE FLUSH Trazodone HCl 50 mg 06/05/20 22:00 06/10/20 22:38 Trazodone 50 Mg Tab PO 50 mg QHS LEONIE Administration Nutrition/Malnutrition Assess - Dietary Evaluation Nutrition/Malnutrition Findings: Nutrition Notes Start: 06/05/20 11:49 Freq: Status: Active Protocol: Document 12/11/20 11:49 AT (Rec: 06/05/20 11:52 AT [id number]) Co-Sign 06/05/20 11:49 LP Nutrition Notes Need for Assessment generated from: MD Order Current Diagnosis Diabetes,Hypertension Other Pertinent Diagnosis Bipolar Disorder, Hyperglycemia Current Diet NPO Labs/Tests BG 484 Subjective/Other Information Consult for diet education. Visited pt twice, first he was not in the room. Second visit , pt refused diet education. Nutrition Intervention Revisit per MD consult or patient Sign Off request:
[2020-06-11] MEDS: LISINOPRIL 5 MG TAB PO SCH (13:34)
--- NOTE | 2020-06-11 15:39 | Progress Note ---
Subjective - Reason for Consult Consult date: 06/11/20 Reason for consult: MHE Requesting physician: DORA VARGAS - Chief Complaint Chief complaint: Psych Progress Patient seen this a.m., endorses intermittent SI thoughts, poor sleep and poor appetite. Reports trazodone not working for him. REVIEW OF SYSTEMS Constitutional: Negative for weight loss ENT: Negative for stridor Respiratory: Negative for cough or hemoptysis All other systems reviewed and are negative MENTAL STATUS EXAMINATION General Appearance and Behavior: Age appropriate, good hygiene, wearing appropr iate clothes,, good eye contact Cooperation: Participating/engaged, but Guarded Psychomotor Behavior: Psychomotor normal Mood: depressed Affect and affective range: irritable, labile Thought Process: illogical Thought Content: hopelessness, helplessness Speech: Normal rate, volume and rythm Intellectual Functioning: Average Suicidal Ideation: SI Homicidal Ideation:HI Impulse Control: Impaired Insight and Judgment: Limited insight and judgment Memory: Normal Attention: Normal Orientation: Alert, oriented Diagnoses: Assessment and Plan - Psychiatric problem (1) MDD (major depressive disorder) Current Visit: Yes Status: Acute Treatment Plan MEDICATIONS: Patient started on Cymbalta and seroquel 200mg QHS addded Risks, benefits and alternatives of medications discussed with the patient, questions answered and consent obtained from patient. PSYCHOTHERAPY: Supportive psychotherapy provided MEDICAL: Per primary team DELIRIUM PRECAUTIONS: Please re-orient patient frequently, keep lights on during the day, and minimize benzodiazepines and opiates as these medications could wor sen patient's confusion. 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 Please contact with any questions and/or concerns. Mental Status Exam - Vital signs Last Vital Signs Temp 95.1 F L 06/11/20 11:51 Pulse 85 06/11/20 13:34 Resp 20 06/11/20 10:00 BP 158/68 06/11/20 13:34 Pulse Ox 94 06/11/20 11:51 Assessment and Plan - Patient Problems (1) MDD (major depressive disorder) Current Visit: Yes Status: Chronic Qualifiers: Major depression recurrence: recurrent
[2020-06-11] MEDS: INSULIN NPH/REGULAR 70/30 INJ SUB-Q SCH (17:09)
[2020-06-11] MEDS ORDERED: QUEtiapine 25 MG TAB PO SCH (22:00)
[2020-06-11] MEDS: QUEtiapine 200 MG TAB PO SCH (22:28)
[2020-06-12] MEDS: LORATADINE/PSEUDOEPHEDRINE 5-120 MG TAB 12HR PO SCH ×3 (01:07→23:22)
[2020-06-12] MEDS: HEPARIN 5,000 UNIT/1 ML VIAL SUB-Q SCH ×3 (06:38→22:08)
[2020-06-12] MEDS: INSULIN NPH/REGULAR 70/30 INJ SUB-Q SCH ×3 (08:36→22:08)
[2020-06-12] MEDS: INSULIN LISPRO 100 UNIT/ML VIAL 3 mL SUB-Q SCH ×4 (08:37→22:08)
[2020-06-12] MEDS: amLODIPine 5 MG TAB PO SCH (10:31)
[2020-06-12] MEDS: oxyCODONE /ACETAMINOPHEN 5-325MG TAB PO PRN ×2 (10:32→19:29)
[2020-06-12] MEDS: LISINOPRIL 5 MG TAB PO SCH (10:32)
[2020-06-12] MEDS: busPIRone 5 MG TAB PO SCH (10:32)
[2020-06-12] MEDS: GEMFIBROZIL 600 MG TAB PO SCH ×2 (10:32→22:08)
[2020-06-12] MEDS: DULoxetine 30 MG CAP PO SCH (10:32)
--- NOTE | 2020-06-12 18:22 | Progress Note ---
Assessment and Plan - Patient Problems (1) Hyperglycemia due to diabetes mellitus Current Visit: Yes Status: Acute Plan to address problem: S/p 26 units of regular insulin in the emergency department given over 3 doses SSI 06/05 Lantus 5 units nightly started for persistent hyperglycemia, discontinued 06/08 06/05 Hemoglobin A1c 11.2 06/06 Novolin 70/30 started, titrate as needed Accu-Cheks AC at bedtime CC cardiac diet (2) Homicidal ideation Current Visit: Yes Status: Acute Plan to address problem: Patient states he has homicidal ideations Psychiatric consult Patient is on 1013 hold Sitter at bedside (3) MDD (major depressive disorder) Current Visit: Yes Status: Chronic Qualifiers: Major depression recurrence: recurrent Plan to address problem: Psychiatry consult, appreciate recommendations Initiated patient on Cymbalta Sleep hygiene with trazodone Sitter at bedside Patient presented with SI/HI, currently on a 1013 hold Psychiatry recommending inpatient psychiatric hospitalization (4) Hyponatremia Current Visit: Yes Status: Acute Plan to address problem: Presented with a sodium of 134 Corrected sodium for hyperglycemia is remains within normal limits S/p 2 L normal saline in the emergency department Pseudohyponatremia (5) HLD (hyperlipidemia) Current Visit: Yes Status: Chronic Plan to address problem: 06/06 lipid panel pending We will initiate statin therapy once lipid panel results (6) Substance abuse in remission Current Visit: Yes Status: Chronic Plan to address problem: Per psychiatric note patient had substance abuse with cocaine and meth 3 years ago 06/04 UDS negative (7) Noncompliance with medication regimen Current Visit: Yes Status: Chronic Plan to address problem: Patient reports recent homelessness bridge gang worker/case 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 En route he was given nitroglycerin by EMS which improved his pain. Patient expressed homicidal and suicidal ideation therefore he is a 1013. Work-up in the emergency department revealed hyperglycemia and his troponin, EKG and chest x-ray were within normal limits. Patient was admitted to the hospitalist service with consult to cardiology and psychiatry. This morning patient still complains of chest pain upon examination. He is on room air. Psych history recommends acute inpatient psychiatric hospitalization. Patient still remains with a 1013. Patient states that he still has SI/HI however does not have a plan and has a flat affect today. No acute events reported overnight. Patient remains hyperglycemic and Novolin 70/30 increased. Patient has not had any more chest pain during admission. 06/05: Lantus nightly started 06/06: patient refused ischemic evaluation and cardiology recommend risk modification. Patient was evaluated by psych and recommended to inpatient psych admission. Patient is on 1013. Patient is still suicidal. 06/07/2020: Patient still suicidal, Refuses stress test, Patient on 1013, Mental health consult requested, Novolin 70/30 started 06/08: Lantus discontinued and Novolin 70/30 dose increased. bridge gang worker made aware of inpatient psych recommendation and will start process of finding placement today. 06/09: Novolin 70/30 dose was increased, RN informs me that according to the psych nurse patient blood glucose has to be persistently less than 200s for transfer. Patient still remains with a 1013 and still has SI/HI however does not have a plan. 06/10: Novolin 70/30 increased due to persistent hyperglycemia 06/11: Novolin 70/30 increased due to persistent hyperglycemia Hospitalist Physical - Constitutional Vitals: Temp Pulse Resp BP Pulse Ox 98.2 F 85 18 146/84 98 06/12/20 16:00 06/12/20 16:00 06/12/20 16:00 06/12/20 16:00 06/12/20 16:00 General appearance: Present: no acute distress, well-nourished - EENT Eyes: Present: PERRL, EOM intact ENT: hearing decreased, poor dentition - Neck Neck: Present: normal ROM - Respiratory Respiratory effort: normal Respiratory: bilateral: CTA - Cardiovascular Rhythm: regular Heart Sounds: Present: S1 & S2. Absent: systolic murmur, diastolic murmur - Extremities Extremities: no ischemia, pulses intact, pulses symmetrical, No edema, normal temperature, normal color, Full ROM Peripheral Pulses: within normal limits - Abdominal General gastrointestinal: soft, non-tender, non-distended, normal bowel sounds - Integumentary Integumentary: Present: clear, warm, dry - Psychiatric Psychiatric: cooperative, depressed - Neurologic Neurologic: CNII-XII intact, no focal deficits, moves all extremities - Allied Health Allied health notes reviewed: nursing HEART Score - HEART Score EKG: Normal Age: 45-65 Risk factors: > 3 risk factors or hx of atherosclerotic disease Troponin: Troponin T < 0.010 ng/mL (0.00-0.029) 06/05/20 15:11 Troponin: < normal limit Results - Labs CBC & Chem 7: 06/06/20 07:13 06/11/20 04:46 Labs: Laboratory Last Values WBC 6.2 K/mm3 (4.5-11.0) 06/06/20 07:13 RBC 4.57 M/mm3 (3.65-5.03) 06/06/20 07:13 Hgb 12.6 gm/dl (11.8-15.2) 06/06/20 07:13 Hct 36.6 % (35.5-45.6) 06/06/20 07:13 MCV 80 fl (84-94) L 06/06/20 07:13 MCH 28 pg (28-32) 06/06/20 07:13 MCHC 34 % (32-34) 06/06/20 07:13 RDW 14.2 % (13.2-15.2) 06/06/20 07:13 Plt Count 325 K/mm3 (140-440) 06/06/20 07:13 Lymph % (Auto) 42.1 % (13.4-35.0) H 06/06/20 07:13 [place] % (Auto) 7.2 % (0.0-7.3) 06/06/20 07:13 Eos % (Auto) 2.5 % (0.0-4.3) 06/06/20 07:13 Baso % (Auto) 1.0 % (0.0-1.8) 06/06/20 07:13 Lymph # (Auto) 2.6 K/mm3 (1.2-5.4) 06/06/20 07:13 [place] # (Auto) 0.5 K/mm3 (0.0-0.8) 06/06/20 07:13 Eos # (Auto) 0.2 K/mm3 (0.0-0.4) 06/06/20 07:13 Baso # (Auto) 0.1 K/mm3 (0.0-0.1) 06/06/20 07:13 Seg Neutrophils % 47.2 % (40.0-70.0) 06/06/20 07:13 Seg Neutrophils # 2.9 K/mm3 (1.8-7.7) 06/06/20 07:13 PT 12.6 Sec. (12.2-14.9) 06/06/20 07:13 INR 0.96 (0.87-1.13) 06/06/20 07:13 D-Dimer 135.60 ng/mlDDU (0-234) 06/04/20 18:10 Sodium 136 mmol/L (137-145) L 06/11/20 04:46 Potassium 4.2 mmol/L (3.6-5.0) 06/11/20 04:46 Chloride 99.9 mmol/L (98-107) 06/11/20 04:46 Carbon Dioxide 24 mmol/L (22-30) 06/11/20 04:46 Anion Gap 16 mmol/L 06/11/20 04:46 BUN 13 mg/dL (9-20) 06/11/20 04:46 Creatinine 1.0 mg/dL (0.8-1.3) 06/11/20 04:46 Estimated GFR > 60 ml/min 06/11/20 04:46 BUN/Creatinine Ratio 13 % 06/11/20 04:46 Glucose 280 mg/dL (75-100) H 06/11/20 04:46 POC Glucose 256 mg/dL (70-105) H 06/12/20 16:18 Hemoglobin A1c 11.2 % (4-6) H 06/05/20 15:11 Calcium 9.3 mg/dL (8.4-10.2) 06/11/20 04:46 Total Bilirubin 0.30 mg/dL (0.1-1.2) 06/08/20 05:26 AST 7 units/L (5-40) 06/08/20 05:26 ALT 7 units/L (7-56) 06/08/20 05:26 Alkaline Phosphatase 114 units/L (35-129) 06/08/20 05:26 Troponin T < 0.010 ng/mL (0.00-0.029) 06/05/20 15:11 Total Protein 6.9 g/dL (6.3-8.2) 06/08/20 05:26 Albumin 3.5 g/dL (3.9-5) L 06/08/20 05:26 Albumin/Globulin Ratio 1.0 % 06/08/20 05:26 Triglycerides 574 mg/dL (2-149) H 06/05/20 15:11 Cholesterol 189 mg/dL (50-199) 06/05/20 15:11 LDL Cholesterol Direct TNR 06/05/20 15:11 HDL Cholesterol 34 mg/dL (40-59) L 06/05/20 15:11 Cholesterol/HDL Ratio 5.55 % 06/05/20 15:11 Urine Color Yellow (Yellow) 06/04/20 19:16 Urine Turbidity Clear (Clear) 06/04/20 19:16 Urine pH 5.0 (5.0-7.0) 06/04/20 19:16 Ur Specific [place] 1.018 (1.003-1.030) 06/04/20 19:16 Urine Protein <15 mg/dl mg/dL (Negative) 06/04/20 19:16 Urine Glucose (UA) >=500 mg/dL (Negative) 06/04/20 19:16 Urine Ketones 20 mg/dL (Negative) 06/04/20 19:16 Urine Blood Neg (Negative) 06/04/20 19:16 Urine Nitrite Neg (Negative) 06/04/20 19:16 Urine Bilirubin Neg (Negative) 06/04/20 19:16 Urine Urobilinogen < 2.0 mg/dL (<2.0) 06/04/20 19:16 Ur Leukocyte Esterase Neg (Negative) 06/04/20 19:16 Urine WBC (Auto) 6.0 /HPF (0.0-6.0) 06/04/20 19:16 Urine RBC (Auto) 2.0 /HPF (0.0-6.0) 06/04/20 19:16 U Epithel Cells (Auto) 1.0 /HPF (0-13.0) 06/04/20 19:16 Urine Opiates Screen Presumptive negative 06/04/20 19:16 Urine Methadone Screen Presumptive negative 06/04/20 19:16 Acetaminophen 5.0 ug/mL (10.0-30.0) L 06/04/20 18:10 Ur Barbiturates Screen Presumptive negative 06/04/20 19:16 Ur Phencyclidine Scrn Presumptive negative 06/04/20 19:16 Ur Amphetamines Screen Presumptive negative 06/04/20 19:16 U Benzodiazepines Scrn Presumptive negative 06/04/20 19:16 Urine Cocaine Screen Presumptive positive 06/04/20 19:16 U Marijuana (THC) Screen Presumptive negative 06/04/20 19:16 Drugs of Abuse Note Disclamer 06/04/20 19:16 Plasma/Serum Alcohol < 0.01 % (0-0.07) 06/04/20 18:10 Coronavirus (PCR) Negative (Negative) 06/09/20 Unknown - Diagnostic Impressions Diagnostic Impressions: Echocardiogram 06/05/20 01:47 Transthoracic Echocardiogram Indication: Chest Pain BP: 148/87 Conclusions *The left ventricular chamber size is normal. *Mild to moderate concentric left ventricular hypertrophy is observed. *The estimated ejection fraction is 60-65%. *Abnormal left ventricular diastolic filling is observed, consistent with impaired relaxation. *The left atrium is normal in size with no visual thrombus identified. *The right ventricular chamber size and systolic function are within normal limits. *The aortic valve is trileaflet. *The right ventricular systolic pressure is calculated at 23 mmHg. Findings Procedure Info: The study quality is fair. Left Ventricle: The left ventricular chamber size is normal. Mild to moderate concentric left ventricular hypertrophy is observed. The estimated ejection fraction is 60-65%. Abnormal left ventricular diastolic filling is observed, consistent with impaired relaxation. Left Atrium: The left atrium is normal in size with no visual thrombus identified. Right Ventricle: The right ventricular chamber size and systolic function are within normal limits. Right Atrium: The right atrium appears normal. Aortic Valve: The aortic valve is trileaflet. Mild aortic leaflet calcification is visualized. There is trace of aortic regurgitation. There is no evidence of aortic stenosis. Mitral Valve: The mitral valve leaflets appear normal. There is trace of mitral regurgitation. There is no evidence of mitral stenosis. Tricuspid Valve: The tricuspid valve leaflets are normal. There is trace tricuspid regurgitation. The right ventricular systolic pressure is calculated at 23 mmHg. There is no tricuspid stenosis. Pulmonic Valve: The pulmonic valve appears normal in structure and function. Pericardium: The pericardium appears normal. Aorta: The aorta appears normal. Pulmonary Artery: The main pulmonary artery appears normal. Venous: The inferior vena cava appears normal in size. There is a greater than 50% respiratory change in the inferior vena cava dimension. Measurements Chambers 2D Name Value Normal Range IVSd (2D) 1.37 cm (0.6 - 1.1) LVPWd (2D) 1.22 cm (0.6 - 1.1) LVIDd (2D) 5.24 cm (3.7 - 5.6) LVIDs (2D) 3.46 cm (2 - 3.8) LV FS (2D) 34.04 % - EF Teichholz (2D) 62.56 % - Ao root diameter (2D) 3.3 cm (2 - 3.7) Volumes/Mass Name Value Normal Range LA ESV SP 4CH (A/L) 84.94 ml - LA ESV SP 2CH (A/L) 79.25 ml - LA ESV BP (A/L) 84.7 ml - LA ESV BP (A/L) index 33.61 ml/m2 - LA ESV SP 4CH (MOD) 81.89 ml - LA ESV SP 2CH (MOD) 78.96 ml - LA ESV BP (MOD) 82.33 ml - LA ESV BP (MOD) index 32.67 ml/m2 - LV EDV SP 4CH (MOD) 153.69 ml - LV ESV SP 4CH (MOD) 51.13 ml - EF SP 4CH (MOD) 66.73 % - LV EDV SP 2CH (MOD) 110.18 ml - LV ESV SP 2CH (MOD) 42.38 ml - EF SP 2CH (MOD) 61.54 % - LV EDV BP 132.71 ml - LV ESV BP 46.25 ml - BP EF (MOD) 65.15 % - Diastolic/Systolic Function Name Value Normal Range MV E-wave Vmax 0.59 m/sec - MV deceleration time 155.37 msec - MV A-wave Vmax 1 m/sec - MV E:A ratio 0.59 ratio - Aortic Valve Name Value Normal Range AV Vmax 1.52 m/sec - AV VTI 29.1 cm - AV peak gradient 9.23 mmHg - AV mean gradient 5.2 mmHg - LVOT diameter 2.54 cm - LVOT Vmax 0.88 m/sec - LVOT VTI 19.35 cm - LVOT peak gradient 3.08 mmHg - LVOT mean gradient 1.61 mmHg - SV LVOT 98.36 ml - LUKAS (continuity Vmax) 2.94 cm2 - LUKAS (continuity VTI) 3.38 cm2 - Ascending Ao 3.45 cm - Tricuspid Valve Name Value Normal Range TV E-wave Vmax 0.57 m/sec - TR Vmax 2.28 m/sec - TR peak gradient 20.75 mmHg - RAP 3 mmHg - RVSP 23 mmHg - IVC diameter 1.47 cm (1.2 - 2.3) Pulmonic Valve/Qp:Qs Name Value Normal Range PV Vmax 1.36 m/sec - PV peak gradient 7.41 mmHg - RVOT Vmax 0.74 m/sec - RVOT VTI 14 cm - RVOT peak gradient 2.22 mmHg - PV acceleration time 156.04 msec - [place]/IV: Voiding Method Urinal IV Catheter Type [Left Hand] INT / Saline Lock Active Medications - Current Medications Current Medications: Generic Name Dose Route Start Last Admin Trade Name Freq PRN Reason Stop Dose Admin Acetaminophen 650 mg 06/05/20 01:42 06/09/20 13:57 Acetaminophen 325 Mg Tab PO 650 mg Q4H PRN Administration Pain MILD(1-3)/Fever >100.5/CUNHA Amlodipine Besylate 10 mg 06/10/20 10:00 06/12/20 10:31 Amlodipine 5 Mg Tab PO 10 mg QDAY LEONIE Administration Buspirone HCl 15 mg 06/08/20 11:00 06/12/20 10:32 Buspirone 5 Mg Tab PO 15 mg QAM LEONIE Administration Dextrose 0 ml 06/05/20 01:42 Dextrose 50% In Water (25gm) 50 Ml Syringe IV Q30MIN PRN Hypoglycemia Protocol Duloxetine HCl 30 mg 06/05/20 13:00 06/12/20 10:32 Duloxetine 30 Mg Cap PO 30 mg QDAY LEONIE Administration Gemfibrozil 600 mg 06/05/20 22:00 06/12/20 10:32 Gemfibrozil 600 Mg Tab PO 600 mg BID LEONIE Administration Heparin Sodium (Porcine) 5,000 unit 06/05/20 06:00 06/12/20 14:54 Heparin 5,000 Unit/1 Ml Vial SUB-Q 5,000 unit Q8HR LEONIE Administration Insulin Human Isoph/Insulin Regular 30 unit 06/11/20 17:00 06/12/20 17:46 Insulin Nph/Regular 70/30 Inj SUB-Q 30 unit BIDDIAB LEONIE Administration Insulin Human Lispro 0 unit 06/07/20 16:30 06/12/20 17:45 Insulin Lispro 100 Unit/Ml Vial 3 Ml SUB-Q 6 unit ACHS LEONIE Administration Protocol Lisinopril 2.5 mg 06/11/20 14:00 06/12/20 10:32 Lisinopril 5 Mg Tab PO 2.5 mg QDAY LEONIE Administration Loratadine/Pseudoephedrine Sulfate 1 each 06/06/20 22:00 06/12/20 10:33 Loratadine/Pseudoephedrine 5-120 Mg Tab 12hr PO 1 each Q12HR LEONIE Administration Magnesium Hydroxide 30 ml 06/05/20 01:42 06/10/20 22:46 Magnesium Hydroxide (Mom) Oral Liqd Udc PO 30 ml Q4H PRN Administration Constipation Morphine Sulfate 2 mg 06/05/20 01:42 06/10/20 22:46 Morphine 2 Mg/1 Ml Inj IV 2 mg Q5MIN PRN Administration Chest Pain Nitroglycerin 0.4 mg 06/05/20 01:42 Nitroglycerin 0.4 Mg Tab Subl SL Q5M PRN Chest Pain Ondansetron HCl 4 mg 06/05/20 01:42 Ondansetron 4 Mg/2 Ml Inj IV Q8H PRN Nausea And Vomiting Oxycodone/Acetaminophen 1 tab 06/11/20 08:30 06/12/20 10:32 Oxycodone /Acetaminophen 5-325mg Tab PO 1 tab Q6H PRN Administration Pain, Moderate (4-6) Quetiapine Fumarate 200 mg 06/11/20 22:00 06/11/20 22:28 Quetiapine 200 Mg Tab PO 200 mg QHS LEONIE Administration Sodium Chloride 10 ml 06/05/20 10:00 06/12/20 10:34 Sodium Chloride 0.9% 10 Ml Flush Syringe IV 10 ml BID LEONIE Administration Sodium Chloride 10 ml 06/05/20 01:42 Sodium Chloride 0.9% 10 Ml Flush Syringe IV PRN PRN LINE FLUSH Nutrition/Malnutrition Assess - Dietary Evaluation Nutrition/Malnutrition Findings: Nutrition Notes Start: 06/05/20 11:49 Freq: Status: Active Protocol: Document 06/12/20 11:20 EN (Rec: 06/12/20 11:23 EN [email or web address]) Co-Sign 06/12/20 11:20 MK Nutrition Notes Need for Assessment generated from: LOS Initial or Follow up Brief Note Current Diagnosis Diabetes,Hypertension, Hyperlipidemia Other Pertinent Diagnosis Bipolar Disorder, Hyperglycemia Current Diet Cardiac/Consistent CHO Subjective/Other Information Pt screened for LOS. Pt states that he has a decreased appetite yesterday d/t new medication, however, pt consuming 100% of meals regardless. Pt states that he has been eating 100% of his meals consistently and that he has not had any recent weight loss. Pt denies N/V/D. Pt would like turkey sausage with breakfast. Nutrition Intervention Anticipated Discharge Needs: Cardiac/Consistent CHO diet Revisit per MD consult or patient Sign Off request:
[2020-06-12] MEDS: QUEtiapine 200 MG TAB PO SCH (22:08)
[2020-06-13] MEDS: HEPARIN 5,000 UNIT/1 ML VIAL SUB-Q SCH ×3 (07:13→21:22)
[2020-06-13] MEDS: GEMFIBROZIL 600 MG TAB PO SCH ×2 (09:46→21:13)
[2020-06-13] MEDS: LISINOPRIL 5 MG TAB PO SCH (09:46)
[2020-06-13] MEDS: INSULIN NPH/REGULAR 70/30 INJ SUB-Q SCH ×2 (09:47→17:52)
[2020-06-13] MEDS: INSULIN LISPRO 100 UNIT/ML VIAL 3 mL SUB-Q SCH ×4 (09:47→21:21)
[2020-06-13] MEDS: busPIRone 5 MG TAB PO SCH (09:47)
[2020-06-13] MEDS: oxyCODONE /ACETAMINOPHEN 5-325MG TAB PO PRN ×3 (09:47→23:01)
[2020-06-13] MEDS: amLODIPine 5 MG TAB PO SCH (09:47)
[2020-06-13] MEDS: DULoxetine 30 MG CAP PO SCH (09:47)
[2020-06-13] MEDS: LORATADINE/PSEUDOEPHEDRINE 5-120 MG TAB 12HR PO SCH ×2 (09:48→21:24)
[2020-06-13] MEDS: QUEtiapine 200 MG TAB PO SCH (21:12)
--- NOTE | 2020-06-13 22:31 | Progress Note ---
Assessment and Plan Assessment and plan: (1) Hyperglycemia due to diabetes mellitus Current Visit: Yes Status: Acute Plan to address problem: Uncontrolled increase Novolin 70/30, 35 units twice a day Patient is noncompliant with diet Hemoglobin A1c 11.2 Diabetic education, nutrition education We will closely monitor (2) Homicidal ideation Current Visit: Yes Status: Acute Plan to address problem: Patient states he has homicidal ideations Psychiatric consult Patient is on 1013 hold Sitter at bedside (3) MDD (major depressive disorder) Current Visit: Yes Status: Chronic Qualifiers: Major depression recurrence: recurrent Plan to address problem: Psychiatry consult, appreciate recommendations Initiated patient on Cymbalta Sleep hygiene with trazodone Sitter at bedside Patient presented with SI/HI, currently on a 1013 hold Psychiatry recommending inpatient psychiatric hospitalization (4) Hyponatremia Current Visit: Yes Status: Acute Plan to address problem: Presented with a sodium of 134 Corrected sodium for hyperglycemia is remains within normal limits S/p 2 L normal saline in the emergency department Pseudohyponatremia (5) HLD (hyperlipidemia) Current Visit: Yes Status: Chronic Plan to address problem: 06/06 lipid panel pending We will initiate statin therapy once lipid panel results (6) Substance abuse in remission Current Visit: Yes Status: Chronic Plan to address problem: Per psychiatric note patient had substance abuse with cocaine and meth 3 years ago 06/04 UDS negative (7) Noncompliance with medication regimen Current Visit: Yes Status: Chronic Plan to address problem: Patient reports recent homelessness tent worker/case 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 En route he was given nitroglycerin by EMS which improved his pain. Patient expressed homicidal and suicidal ideation therefore he is a 1013. Work-up in the emergency department revealed hyperglycemia and his troponin, EKG and chest x-ray were within normal limits. Patient was admitted to the hospitalist service with consult to cardiology and psychiatry. This morning patient still complains of chest pain upon examination. He is on room air. Psych history recommends acute inpatient psychiatric hospitalization. Patient still remains with a 1013. Patient states that he still has SI/HI however does not have a plan and has a flat affect today. No acute events reported overnight. Patient remains hyperglycemic and Novolin 70/30 increased. Patient has not had any more chest pain during admission. 06/05: Lantus nightly started 06/06: patient refused ischemic evaluation and cardiology recommend risk modification. Patient was evaluated by psych and recommended to inpatient psych admission. Patient is on 1013. Patient is still suicidal. 06/07/2020: Patient still suicidal, Refuses stress test, Patient on 1013, Mental health consult requested, Novolin 70/30 started 06/08: Lantus discontinued and Novolin 70/30 dose increased. tent worker made aware of inpatient psych recommendation and will start process of finding placement today. 06/09: Novolin 70/30 dose was increased, RN informs me that according to the psych nurse patient blood glucose has to be persistently less than 200s for transfer. Patient still remains with a 1013 and still has SI/HI however does not have a plan. 06/10: Novolin 70/30 increased due to persistent hyperglycemia 06/11: Novolin 70/30 increased due to persistent hyperglycemia 06/13; blood sugars are uncontrolled secondary to patient's noncompliance with diet Will increase Novolin 70/30 dose to 35 units twice a day, awaiting inpatient psych placement History Interval history: I have seen and examined the patient at the bedside this morning Patient's chart and medications reviewed Patient's blood sugars are uncontrolled Patient also complains of depression and suicidal thoughts Vital signs noted Hospitalist Physical - Constitutional Vitals: Temp Pulse Resp BP Pulse Ox 98.4 F 81 16 143/80 93 06/13/20 20:11 06/13/20 20:11 06/13/20 20:11 06/13/20 20:11 06/13/20 20:11 General appearance: Present: no acute distress, well-nourished - EENT Eyes: Present: PERRL, EOM intact - Neck Neck: Present: supple, normal ROM - Respiratory Respiratory effort: normal Respiratory: bilateral: diminished, negative: rales, rhonchi, wheezing - Cardiovascular Rhythm: regular Heart Sounds: Present: S1 & S2 - Extremities Extremities: no ischemia, No edema - Abdominal General gastrointestinal: soft, non-tender, non-distended, normal bowel sounds - Integumentary Integumentary: Present: clear, warm - Psychiatric Psychiatric: appropriate mood/affect, cooperative - Neurologic Neurologic: CNII-XII intact, moves all extremities HEART Score - HEART Score EKG: Normal Age: 45-65 Risk factors: > 3 risk factors or hx of atherosclerotic disease Troponin: Troponin T < 0.010 ng/mL (0.00-0.029) 06/05/20 15:11 Troponin: < normal limit Results - Labs CBC & Chem 7: 06/06/20 07:13 06/11/20 04:46 Labs: Laboratory Last Values WBC 6.2 K/mm3 (4.5-11.0) 06/06/20 07:13 RBC 4.57 M/mm3 (3.65-5.03) 06/06/20 07:13 Hgb 12.6 gm/dl (11.8-15.2) 06/06/20 07:13 Hct 36.6 % (35.5-45.6) 06/06/20 07:13 MCV 80 fl (84-94) L 06/06/20 07:13 MCH 28 pg (28-32) 06/06/20 07:13 MCHC 34 % (32-34) 06/06/20 07:13 RDW 14.2 % (13.2-15.2) 06/06/20 07:13 Plt Count 325 K/mm3 (140-440) 06/06/20 07:13 Lymph % (Auto) 42.1 % (13.4-35.0) H 06/06/20 07:13 [place] % (Auto) 7.2 % (0.0-7.3) 06/06/20 07:13 Eos % (Auto) 2.5 % (0.0-4.3) 06/06/20 07:13 Baso % (Auto) 1.0 % (0.0-1.8) 06/06/20 07:13 Lymph # (Auto) 2.6 K/mm3 (1.2-5.4) 06/06/20 07:13 Sherman # (Auto) 0.5 K/mm3 (0.0-0.8) 06/06/20 07:13 Eos # (Auto) 0.2 K/mm3 (0.0-0.4) 06/06/20 07:13 Baso # (Auto) 0.1 K/mm3 (0.0-0.1) 06/06/20 07:13 Seg Neutrophils % 47.2 % (40.0-70.0) 06/06/20 07:13 Seg Neutrophils # 2.9 K/mm3 (1.8-7.7) 06/06/20 07:13 PT 12.6 Sec. (12.2-14.9) 06/06/20 07:13 INR 0.96 (0.87-1.13) 06/06/20 07:13 D-Dimer 135.60 ng/mlDDU (0-234) 06/04/20 18:10 Sodium 136 mmol/L (137-145) L 06/11/20 04:46 Potassium 4.2 mmol/L (3.6-5.0) 06/11/20 04:46 Chloride 99.9 mmol/L (98-107) 06/11/20 04:46 Carbon Dioxide 24 mmol/L (22-30) 06/11/20 04:46 Anion Gap 16 mmol/L 06/11/20 04:46 BUN 13 mg/dL (9-20) 06/11/20 04:46 Creatinine 1.0 mg/dL (0.8-1.3) 06/11/20 04:46 Estimated GFR > 60 ml/min 06/11/20 04:46 BUN/Creatinine Ratio 13 % 06/11/20 04:46 Glucose 280 mg/dL (75-100) H 06/11/20 04:46 POC Glucose 281 mg/dL (70-105) H 06/13/20 21:20 Hemoglobin A1c 11.2 % (4-6) H 06/05/20 15:11 Calcium 9.3 mg/dL (8.4-10.2) 06/11/20 04:46 Total Bilirubin 0.30 mg/dL (0.1-1.2) 06/08/20 05:26 AST 7 units/L (5-40) 06/08/20 05:26 ALT 7 units/L (7-56) 06/08/20 05:26 Alkaline Phosphatase 114 units/L (35-129) 06/08/20 05:26 Troponin T < 0.010 ng/mL (0.00-0.029) 06/05/20 15:11 Total Protein 6.9 g/dL (6.3-8.2) 06/08/20 05:26 Albumin 3.5 g/dL (3.9-5) L 06/08/20 05:26 Albumin/Globulin Ratio 1.0 % 06/08/20 05:26 Triglycerides 574 mg/dL (2-149) H 06/05/20 15:11 Cholesterol 189 mg/dL (50-199) 06/05/20 15:11 LDL Cholesterol Direct TNR 06/05/20 15:11 HDL Cholesterol 34 mg/dL (40-59) L 06/05/20 15:11 Cholesterol/HDL Ratio 5.55 % 06/05/20 15:11 Urine Color Yellow (Yellow) 06/04/20 19:16 Urine Turbidity Clear (Clear) 06/04/20 19:16 Urine pH 5.0 (5.0-7.0) 06/04/20 19:16 Ur Specific [place] 1.018 (1.003-1.030) 06/04/20 19:16 Urine Protein <15 mg/dl mg/dL (Negative) 06/04/20 19:16 Urine Glucose (UA) >=500 mg/dL (Negative) 06/04/20 19:16 Urine Ketones 20 mg/dL (Negative) 06/04/20 19:16 Urine Blood Neg (Negative) 06/04/20 19:16 Urine Nitrite Neg (Negative) 06/04/20 19:16 Urine Bilirubin Neg (Negative) 06/04/20 19:16 Urine Urobilinogen < 2.0 mg/dL (<2.0) 06/04/20 19:16 Ur Leukocyte Esterase Neg (Negative) 06/04/20 19:16 Urine WBC (Auto) 6.0 /HPF (0.0-6.0) 06/04/20 19:16 Urine RBC (Auto) 2.0 /HPF (0.0-6.0) 06/04/20 19:16 U Epithel Cells (Auto) 1.0 /HPF (0-13.0) 06/04/20 19:16 Urine Opiates Screen Presumptive negative 06/04/20 19:16 Urine Methadone Screen Presumptive negative 06/04/20 19:16 Acetaminophen 5.0 ug/mL (10.0-30.0) L 06/04/20 18:10 Ur Barbiturates Screen Presumptive negative 06/04/20 19:16 Ur Phencyclidine Scrn Presumptive negative 06/04/20 19:16 Ur Amphetamines Screen Presumptive negative 06/04/20 19:16 U Benzodiazepines Scrn Presumptive negative 06/04/20 19:16 Urine Cocaine Screen Presumptive positive 06/04/20 19:16 U Marijuana (THC) Screen Presumptive negative 06/04/20 19:16 Drugs of Abuse Note Disclamer 06/04/20 19:16 Plasma/Serum Alcohol < 0.01 % (0-0.07) 06/04/20 18:10 Coronavirus (PCR) Negative (Negative) 06/09/20 Unknown - Diagnostic Impressions Diagnostic Impressions: Echocardiogram 06/05/20 01:47 Transthoracic Echocardiogram Indication: Chest Pain BP: 148/87 Conclusions *The left ventricular chamber size is normal. *Mild to moderate concentric left ventricular hypertrophy is observed. *The estimated ejection fraction is 60-65%. *Abnormal left ventricular diastolic filling is observed, consistent with impaired relaxation. *The left atrium is normal in size with no visual thrombus identified. *The right ventricular chamber size and systolic function are within normal limits. *The aortic valve is trileaflet. *The right ventricular systolic pressure is calculated at 23 mmHg. Findings Procedure Info: The study quality is fair. Left Ventricle: The left ventricular chamber size is normal. Mild to moderate concentric left ventricular hypertrophy is observed. The estimated ejection fraction is 60-65%. Abnormal left ventricular diastolic filling is observed, consistent with impaired relaxation. Left Atrium: The left atrium is normal in size with no visual thrombus identified. Right Ventricle: The right ventricular chamber size and systolic function are within normal limits. Right Atrium: The right atrium appears normal. Aortic Valve: The aortic valve is trileaflet. Mild aortic leaflet calcification is visualized. There is trace of aortic regurgitation. There is no evidence of aortic stenosis. Mitral Valve: The mitral valve leaflets appear normal. There is trace of mitral regurgitation. There is no evidence of mitral stenosis. Tricuspid Valve: The tricuspid valve leaflets are normal. There is trace tricuspid regurgitation. The right ventricular systolic pressure is calculated at 23 mmHg. There is no tricuspid stenosis. Pulmonic Valve: The pulmonic valve appears normal in structure and function. Pericardium: The pericardium appears normal. Aorta: The aorta appears normal. Pulmonary Artery: The main pulmonary artery appears normal. Venous: The inferior vena cava appears normal in size. There is a greater than 50% respiratory change in the inferior vena cava dimension. Measurements Chambers 2D Name Value Normal Range IVSd (2D) 1.37 cm (0.6 - 1.1) LVPWd (2D) 1.22 cm (0.6 - 1.1) LVIDd (2D) 5.24 cm (3.7 - 5.6) LVIDs (2D) 3.46 cm (2 - 3.8) LV FS (2D) 34.04 % - EF Teichholz (2D) 62.56 % - Ao root diameter (2D) 3.3 cm (2 - 3.7) Volumes/Mass Name Value Normal Range LA ESV SP 4CH (A/L) 84.94 ml - LA ESV SP 2CH (A/L) 79.25 ml - LA ESV BP (A/L) 84.7 ml - LA ESV BP (A/L) index 33.61 ml/m2 - LA ESV SP 4CH (MOD) 81.89 ml - LA ESV SP 2CH (MOD) 78.96 ml - LA ESV BP (MOD) 82.33 ml - LA ESV BP (MOD) index 32.67 ml/m2 - LV EDV SP 4CH (MOD) 153.69 ml - LV ESV SP 4CH (MOD) 51.13 ml - EF SP 4CH (MOD) 66.73 % - LV EDV SP 2CH (MOD) 110.18 ml - LV ESV SP 2CH (MOD) 42.38 ml - EF SP 2CH (MOD) 61.54 % - LV EDV BP 132.71 ml - LV ESV BP 46.25 ml - BP EF (MOD) 65.15 % - Diastolic/Systolic Function Name Value Normal Range MV E-wave Vmax 0.59 m/sec - MV deceleration time 155.37 msec - MV A-wave Vmax 1 m/sec - MV E:A ratio 0.59 ratio - Aortic Valve Name Value Normal Range AV Vmax 1.52 m/sec - AV VTI 29.1 cm - AV peak gradient 9.23 mmHg - AV mean gradient 5.2 mmHg - LVOT diameter 2.54 cm - LVOT Vmax 0.88 m/sec - LVOT VTI 19.35 cm - LVOT peak gradient 3.08 mmHg - LVOT mean gradient 1.61 mmHg - SV LVOT 98.36 ml - LUKAS (continuity Vmax) 2.94 cm2 - LUKAS (continuity VTI) 3.38 cm2 - Ascending Ao 3.45 cm - Tricuspid Valve Name Value Normal Range TV E-wave Vmax 0.57 m/sec - TR Vmax 2.28 m/sec - TR peak gradient 20.75 mmHg - RAP 3 mmHg - RVSP 23 mmHg - IVC diameter 1.47 cm (1.2 - 2.3) Pulmonic Valve/Qp:Qs Name Value Normal Range PV Vmax 1.36 m/sec - PV peak gradient 7.41 mmHg - RVOT Vmax 0.74 m/sec - RVOT VTI 14 cm - RVOT peak gradient 2.22 mmHg - PV acceleration time 156.04 msec - [place]/IV: Voiding Method Toilet IV Catheter Type [Left Hand] INT / Saline Lock Active Medications - Current Medications Current Medications: Generic Name Dose Route Start Last Admin Trade Name Freq PRN Reason Stop Dose Admin Acetaminophen 650 mg 06/05/20 01:42 06/09/20 13:57 Acetaminophen 325 Mg Tab PO 650 mg Q4H PRN Administration Pain MILD(1-3)/Fever >100.5/CUNHA Amlodipine Besylate 10 mg 06/10/20 10:00 06/13/20 09:47 Amlodipine 5 Mg Tab PO 10 mg QDAY LEONIE Administration Buspirone HCl 15 mg 06/08/20 11:00 06/13/20 09:47 Buspirone 5 Mg Tab PO 15 mg QAM LEONIE Administration Dextrose 0 ml 06/05/20 01:42 Dextrose 50% In Water (25gm) 50 Ml Syringe IV Q30MIN PRN Hypoglycemia Protocol Duloxetine HCl 30 mg 06/05/20 13:00 06/13/20 09:47 Duloxetine 30 Mg Cap PO 30 mg QDAY LEONIE Administration Gemfibrozil 600 mg 06/05/20 22:00 06/13/20 21:13 Gemfibrozil 600 Mg Tab PO 600 mg BID LEONIE Administration Heparin Sodium (Porcine) 5,000 unit 06/05/20 06:00 06/13/20 21:22 Heparin 5,000 Unit/1 Ml Vial SUB-Q 5,000 unit Q8HR LEONIE Administration Insulin Human Isoph/Insulin Regular 35 unit 06/13/20 15:45 06/13/20 17:52 Insulin Nph/Regular 70/30 Inj SUB-Q 35 unit BIDDIAB LEONIE Administration Insulin Human Lispro 0 unit 06/07/20 16:30 06/13/20 21:21 Insulin Lispro 100 Unit/Ml Vial 3 Ml SUB-Q 6 unit ACHS LEONIE Administration Protocol Lisinopril 2.5 mg 06/11/20 14:00 06/13/20 09:46 Lisinopril 5 Mg Tab PO 2.5 mg QDAY LEONIE Administration Loratadine/Pseudoephedrine Sulfate 1 each 06/06/20 22:00 06/13/20 21:24 Loratadine/Pseudoephedrine 5-120 Mg Tab 12hr PO 1 each Q12HR LEONIE Administration Magnesium Hydroxide 30 ml 06/05/20 01:42 06/10/20 22:46 Magnesium Hydroxide (Mom) Oral Liqd Udc PO 30 ml Q4H PRN Administration Constipation Morphine Sulfate 2 mg 06/05/20 01:42 06/10/20 22:46 Morphine 2 Mg/1 Ml Inj IV 2 mg Q5MIN PRN Administration Chest Pain Nitroglycerin 0.4 mg 06/05/20 01:42 Nitroglycerin 0.4 Mg Tab Subl SL Q5M PRN Chest Pain Ondansetron HCl 4 mg 06/05/20 01:42 Ondansetron 4 Mg/2 Ml Inj IV Q8H PRN Nausea And Vomiting Oxycodone/Acetaminophen 1 tab 06/11/20 08:30 06/13/20 17:21 Oxycodone /Acetaminophen 5-325mg Tab PO 1 tab Q6H PRN Administration Pain, Moderate (4-6) Quetiapine Fumarate 200 mg 06/11/20 22:00 06/13/20 21:12 Quetiapine 200 Mg Tab PO 200 mg QHS LEONIE Administration Sodium Chloride 10 ml 06/05/20 10:00 06/13/20 21:13 Sodium Chloride 0.9% 10 Ml Flush Syringe IV 10 ml BID LEONIE Administration Sodium Chloride 10 ml 06/05/20 01:42 Sodium Chloride 0.9% 10 Ml Flush Syringe IV PRN PRN LINE FLUSH Nutrition/Malnutrition Assess - Dietary Evaluation Nutrition/Malnutrition Findings: Nutrition Notes Start: 06/05/20 11:49 Freq: Status: Active Protocol: Document 06/12/20 11:20 EN (Rec: 06/12/20 11:23 EN [email or web address]) Co-Sign 06/12/20 11:20 MK Nutrition Notes Need for Assessment generated from: LOS Initial or Follow up Brief Note Current Diagnosis Diabetes,Hypertension, Hyperlipidemia Other Pertinent Diagnosis Bipolar Disorder, Hyperglycemia Current Diet Cardiac/Consistent CHO Subjective/Other Information Pt screened for LOS. Pt states that he has a decreased appetite yesterday d/t new medication, however, pt consuming 100% of meals regardless. Pt states that he has been eating 100% of his meals consistently and that he has not had any recent weight loss. Pt denies N/V/D. Pt would like turkey sausage with breakfast. Nutrition Intervention Anticipated Discharge Needs: Cardiac/Consistent CHO diet Revisit per MD consult or patient Sign Off request:
[2020-06-14] MEDS: oxyCODONE /ACETAMINOPHEN 5-325MG TAB PO PRN ×3 (05:12→22:00)
[2020-06-14] MEDS: HEPARIN 5,000 UNIT/1 ML VIAL SUB-Q SCH ×3 (05:12→21:52)
[2020-06-14] MEDS: INSULIN NPH/REGULAR 70/30 INJ SUB-Q SCH ×3 (09:47→21:50)
[2020-06-14] MEDS: amLODIPine 5 MG TAB PO SCH (09:47)
[2020-06-14] MEDS: busPIRone 5 MG TAB PO SCH (09:47)
[2020-06-14] MEDS: LISINOPRIL 5 MG TAB PO SCH (09:47)
[2020-06-14] MEDS: GEMFIBROZIL 600 MG TAB PO SCH ×2 (09:48→21:50)
[2020-06-14] MEDS: DULoxetine 30 MG CAP PO SCH (09:48)
[2020-06-14] MEDS: INSULIN LISPRO 100 UNIT/ML VIAL 3 mL SUB-Q SCH ×4 (09:48→23:18)
--- NOTE | 2020-06-14 10:31 | Progress Note ---
Subjective - Reason for Consult Consult date: 06/14/20 Reason for consult: depression, suicidal - Chief Complaint Chief complaint: During my interview with the patient today, he is lying down. A sitter is at bedside. The patient makes poor eye contact. He appears withdrawn. He verbalizes feeling "depressed." The patient states, "I was having issues and thought about suicide." He still verbalizes feeling suicidal. He says "I got a lot going on and I'm just tired." He denies hallucinations of any kind. The patient states he does not feel any better staring on the meds. REVIEW OF SYSTEMS Constitutional: Negative for weight loss ENT: Negative for stridor Respiratory: Negative for cough or hemoptysis All other systems reviewed and are negative MENTAL STATUS EXAMINATION General Appearance and Behavior: Age appropriate, good hygiene, wearing appropriate clothes, poor eye contact, withdrawn Cooperation: Participating/engaged Psychomotor Behavior: Psychomotor normal Mood: depressed Affect and affective range: congruent with stated mood Thought Process: goal directed Thought Content: hopelessness Speech: Normal rate, volume and rhythm Suicidal Ideation: Yes Homicidal Ideation: Denies Hallucinations: Denies Delusions: None elicited Impulse Control: Linited Insight and Judgment: Limited insight and judgment Memory: Normal Attention: Normal Orientation: Alert, oriented Assessment and Plan (1) MDD (major depressive disorder) Current Visit: Yes Status: Acute Treatment Plan D/c Cymbalta Start Zoloft 25mg po daily Start Depakote DR 125mg po BID Increase Buspar 10mg po BID Risks, benefits and alternatives of medications discussed with the patient, questions answered and consent obtained from patient. PSYCHOTHERAPY: Supportive psychotherapy provided MEDICAL: Per primary team DELIRIUM PRECAUTIONS: Please re-orient patient frequently, keep lights on during the day, and minimize benzodiazepines and opiates as these medications could worsen patient's confusion. ASSISTANT CLINICAL DIRECTOR: DISPOSITION: Do Recommend acute inpatient psychiatric hospitalization at this time LEGAL STATUS: 1013 FOLLOW-UP: Will follow the patient 06/16 Thank you for the consult. Please contact with any questions and/or concerns. Mental Status Exam - Vital signs Last Vital Signs Temp 98.3 F 06/14/20 08:04 Pulse 78 06/14/20 08:04 Resp 16 06/14/20 03:41 BP 135/75 06/14/20 08:04 Pulse Ox 96 06/14/20 08:04
[2020-06-14] MEDS: LORATADINE/PSEUDOEPHEDRINE 5-120 MG TAB 12HR PO SCH ×2 (11:52→21:49)
[2020-06-14] MEDS: DIVALPROEX DR 125 MG TAB PO SCH ×2 (11:52→22:00)
--- NOTE | 2020-06-14 17:55 | Progress Note ---
Subjective Date of service: 06/14/20 Principal diagnosis: Chest Pain Interval history: Assessment and plan: (1) Hyperglycemia due to diabetes mellitus Current Visit: Yes Status: Acute Plan to address problem: Uncontrolled acu checks reviewed increase Novolin 70/30, 40 units twice a day Hemoglobin A1c 11.2 Diabetic education, nutrition education (2) Homicidal ideation Current Visit: Yes Status: Acute Plan to address problem: Patient states he has homicidal ideations Psychiatric consult Patient is on 1013 hold Sitter at bedside (3) MDD (major depressive disorder) Current Visit: Yes Status: Chronic Qualifiers: Major depression recurrence: recurrent Plan to address problem: Psychiatry consult, appreciate recommendations Initiated patient on Cymbalta Sleep hygiene with trazodone Sitter at bedside Patient presented with SI/HI, currently on a 1013 hold Psychiatry recommending inpatient psychiatric hospitalization (4) Hyponatremia Current Visit: Yes Status: Acute Plan to address problem: Presented with a sodium of 134 Corrected sodium for hyperglycemia is remains within normal limits S/p 2 L normal saline in the emergency department Pseudohyponatremia (5) HLD (hyperlipidemia) Current Visit: Yes Status: Chronic Plan to address problem: 06/06 lipid panel pending We will initiate statin therapy once lipid panel results (6) Substance abuse in remission Current Visit: Yes Status: Chronic Plan to address problem: Per psychiatric note patient had substance abuse with cocaine and meth 3 years ago 06/04 UDS negative (7) Noncompliance with medication regimen Current Visit: Yes Status: Chronic Plan to address problem: Patient reports recent homelessness 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 En route he was given nitroglycerin by EMS which improved his pain. Patient expressed homicidal and suicidal ideation therefore he is a 1013. Work-up in the emergency department revealed hyperglycemia and his troponin, EKG and chest x-ray were within normal limits. Patient was admitted to the hospitalist service with consult to cardiology and psychiatry. This morning patient still complains of chest pain upon examination. He is on room air. Psych history recommends acute inpatient psychiatric hospitalization. Patient still remains with a 1013. Patient states that he still has SI/HI however does not have a plan and has a flat affect today. No acute events reported overnight. Patient remains hyperglycemic and Novolin 70/30 increased. Patient has not had any more chest pain during admission. 06/05: Lantus nightly started 06/06: patient refused ischemic evaluation and cardiology recommend risk modification. Patient was evaluated by psych and recommended to inpatient psych admission. Patient is on 1013. Patient is still suicidal. 06/07/2020: Patient still suicidal, Refuses stress test, Patient on 1013, Mental health consult requested, Novolin 70/30 started 06/08: Lantus discontinued and Novolin 70/30 dose increased. bull wheel worker made aware of inpatient psych recommendation and will start process of finding placement today. 06/09: Novolin 70/30 dose was increased, RN informs me that according to the psych nurse patient blood glucose has to be persistently less than 200s for transfer. Patient still remains with a 1013 and still has SI/HI however does not have a plan. 06/10: Novolin 70/30 increased due to persistent hyperglycemia 06/11: Novolin 70/30 increased due to persistent hyperglycemia 06/13; blood sugars are uncontrolled secondary to patient's noncompliance with diet Will increase Novolin 70/30 dose to 35 units twice a day, awaiting inpatient psych placement 06/14 sitter in the room. patient is A&O, feels depressed and continues to admit SI and HI. he is on 1013 psych note reviewed. Awaiting transfer to inpatient psych. facility Objective - Constitutional Vitals: Vital Signs - 12hr 06/14/20 06/14/20 06/14/20 08:04 13:00 16:15 Temperature 98.3 F 97.9 F 98.4 F Pulse Rate 78 81 86 Respiratory 20 22 Rate Blood Pressure 135/75 Blood Pressure 144/84 133/71 [Right] O2 Sat by Pulse 96 93 96 Oximetry General appearance: Present: no acute distress, well-nourished - EENT Eyes: PERRL, EOM intact ENT: hearing intact, clear oral mucosa - Neck Neck: supple, normal ROM - Respiratory Respiratory effort: normal Respiratory: bilateral: CTA - Cardiovascular Rhythm: regular Heart Sounds: Present: S1 & S2 Extremities: No edema - Gastrointestinal General gastrointestinal: Present: soft, non-tender Rectal Exam: deferred - Integumentary Integumentary: clear - Musculoskeletal Musculoskeletal: strength equal bilaterally - Neurologic Neurologic: no focal deficits - Psychiatric Psychiatric: appropriate mood/affect - Labs CBC & Chem 7: 06/06/20 07:13 06/11/20 04:46 Labs: Abnormal lab results 06/13/20 06/14/20 06/14/20 Range/Units 21:20 08:02 11:41 POC Glucose 281 H 253 H 325 H (70-105) mg/dL 06/14/20 Range/Units 16:19 POC Glucose 249 H (70-105) mg/dL HEART Score - HEART Score EKG: Normal Age: 45-65 Risk factors: > 3 risk factors or hx of atherosclerotic disease Troponin: Troponin T < 0.010 ng/mL (0.00-0.029) 06/05/20 15:11 Troponin: < normal limit
[2020-06-14] MEDS: busPIRone 10 MG TAB PO SCH (21:50)
[2020-06-14] MEDS: QUEtiapine 200 MG TAB PO SCH (23:24)
[2020-06-15] MEDS: HEPARIN 5,000 UNIT/1 ML VIAL SUB-Q SCH ×3 (05:19→21:20)
[2020-06-15] MEDS: INSULIN NPH/REGULAR 70/30 INJ SUB-Q SCH ×2 (08:28→17:08)
[2020-06-15] MEDS: INSULIN LISPRO 100 UNIT/ML VIAL 3 mL SUB-Q SCH ×4 (08:28→21:51)
[2020-06-15] MEDS: amLODIPine 5 MG TAB PO SCH (10:01)
[2020-06-15] MEDS: DIVALPROEX DR 125 MG TAB PO SCH ×2 (10:01→21:20)
[2020-06-15] MEDS: GEMFIBROZIL 600 MG TAB PO SCH ×2 (10:01→21:20)
[2020-06-15] MEDS: LORATADINE/PSEUDOEPHEDRINE 5-120 MG TAB 12HR PO SCH ×2 (10:01→21:51)
[2020-06-15] MEDS: SERTRALINE 25 MG TAB PO SCH (10:02)
[2020-06-15] MEDS: busPIRone 10 MG TAB PO SCH ×2 (10:02→21:20)
[2020-06-15] MEDS: LISINOPRIL 5 MG TAB PO SCH (10:02)
[2020-06-15] MEDS: oxyCODONE /ACETAMINOPHEN 5-325MG TAB PO PRN ×2 (15:23→21:19)
--- NOTE | 2020-06-15 16:32 | Progress Note ---
Assessment and Plan - Patient Problems (1) Hyperglycemia due to diabetes mellitus Current Visit: Yes Status: Acute Plan to address problem: S/p 26 units of regular insulin in the emergency department given over 3 doses SSI 06/05 Lantus 5 units nightly started for persistent hyperglycemia, discontinued 06/08 06/05 Hemoglobin A1c 11.2 06/06 Novolin 70/30 started, titrate as needed Accu-Cheks AC at bedtime CC cardiac diet (2) Homicidal ideation Current Visit: Yes Status: Acute Plan to address problem: Patient states he has homicidal ideations Psychiatric consult Patient is on 1013 hold Sitter at bedside (3) MDD (major depressive disorder) Current Visit: Yes Status: Chronic Qualifiers: Major depression recurrence: recurrent Plan to address problem: Psychiatry consult, appreciate recommendations Initiated patient on Cymbalta Sleep hygiene with trazodone Sitter at bedside Patient presented with SI/HI, currently on a 1013 hold Psychiatry recommending inpatient psychiatric hospitalization (4) Hyponatremia Current Visit: Yes Status: Acute Plan to address problem: Presented with a sodium of 134 Corrected sodium for hyperglycemia is remains within normal limits S/p 2 L normal saline in the emergency department Pseudohyponatremia (5) HLD (hyperlipidemia) Current Visit: Yes Status: Chronic Plan to address problem: 06/06 lipid panel: triglycerides 574, cholesterol 189, HDL 34, cholesterol/HDL ratio 5.5 Gemfibrozil started (6) Substance abuse in remission Current Visit: Yes Status: Chronic Plan to address problem: Per psychiatric note patient had substance abuse with cocaine and meth 3 years ago 06/04 UDS negative (7) Noncompliance with medication regimen Current Visit: Yes Status: Chronic Plan to address problem: Patient reports recent homelessness 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 eligibility worker/case management consult Counseled on medication compliance (8) DVT prophylaxis Current Visit: Yes Status: Acute Plan to address problem: SCDs to bilateral extremities while in bed Heparin subcu Patient has a history of a DVT in 1996 History Interval history: This is a 54 year-old male with bipolar disorder, HTN, HLD, history of DVT (1996) and DM who presented to the emergency department on 06/04 complaining of midsternal chest pain which started around 6 AM which was sharp and constant associated with shortness of breath, nausea with no vomiting and mild nonproductive cough. En route he was given nitroglycerin by EMS which improved his pain. Patient expressed homicidal and suicidal ideation therefore he is a 1013. Work-up in the emergency department revealed hyperglycemia and his troponin, EKG and chest x-ray were within normal limits. Patient was admitted to the hospitalist service with consult to cardiology and psychiatry. This morning patient still complains of chest pain upon examination. He is on room air. Psych history recommends acute inpatient psychiatric hospitalization. Patient still remains with a 1013. Patient states that he still has SI/HI how ever does not have a plan and has a flat affect. He remains persistently hyperglycemic and his insulin has been increased again. Patient is medically stable for discharge and transfer to a psych facility for continued mental health care. No acute events reported overnight. 06/05: Lantus nightly started 06/06: patient refused ischemic evaluation and cardiology recommend risk modification. Patient was evaluated by psych and recommended to inpatient psych admission. Patient is on 1013. Patient is still suicidal. 06/07/2020: Patient still suicidal, Refuses stress test, Patient on 1013, Mental health consult requested, Novolin 70/30 started 06/08: Lantus discontinued and Novolin 70/30 dose increased. welfare eligibility worker made aware of inpatient psych recommendation and will start process of finding placement today. 06/09: Novolin 70/30 dose was increased, RN informs me that according to the psych nurse patient blood glucose has to be persistently less than 200s for transfer. Patient still remains with a 1013 and still has SI/HI however does not have a plan. 06/10: Novolin 70/30 increased due to persistent hyperglycemia 06/11: Novolin 70/30 increased due to persistent hyperglycemia 06/12: Patient remains hyperglycemic and Novolin 70/30 increased. Patient has not had any more chest pain during admission. 06/13: blood sugars are uncontrolled secondary to patient's noncompliance with diet. Will increase Novolin 70/30 dose to 35 units twice a day, awaiting inpatient psych placement 06/14 sitter in the room. patient is A&O, feels depressed and continues to admit SI and HI. he is on 1013. psych note reviewed. Awaiting transfer to inpatient psych. facility Hospitalist Physical - Constitutional Vitals: Temp Pulse Resp BP Pulse Ox 98.5 F 82 18 114/70 94 06/15/20 11:55 06/15/20 11:55 06/15/20 11:55 06/15/20 11:55 06/15/20 11:55 General appearance: Present: no acute distress, well-nourished - EENT Eyes: Present: PERRL, EOM intact ENT: hearing intact, poor dentition - Neck Neck: Present: normal ROM - Respiratory Respiratory effort: normal Respiratory: bilateral: CTA - Cardiovascular Rhythm: regular Heart Sounds: Present: S1 & S2. Absent: systolic murmur, diastolic murmur - Extremities Extremities: no ischemia, pulses intact, pulses symmetrical, No edema, normal temperature, normal color, Full ROM Peripheral Pulses: within normal limits - Abdominal General gastrointestinal: soft, non-tender, non-distended, normal bowel sounds - Integumentary Integumentary: Present: warm, dry - Psychiatric Psychiatric: depressed - Neurologic Neurologic: CNII-XII intact, no focal deficits, moves all extremities HEART Score - HEART Score EKG: Normal Age: 45-65 Risk factors: > 3 risk factors or hx of atherosclerotic disease Troponin: Troponin T < 0.010 ng/mL (0.00-0.029) 06/05/20 15:11 Troponin: < normal limit Results - Labs CBC & Chem 7: 06/06/20 07:13 06/11/20 04:46 Labs: Laboratory Last Values WBC 6.2 K/mm3 (4.5-11.0) 06/06/20 07:13 RBC 4.57 M/mm3 (3.65-5.03) 06/06/20 07:13 Hgb 12.6 gm/dl (11.8-15.2) 06/06/20 07:13 Hct 36.6 % (35.5-45.6) 06/06/20 07:13 MCV 80 fl (84-94) L 06/06/20 07:13 MCH 28 pg (28-32) 06/06/20 07:13 MCHC 34 % (32-34) 06/06/20 07:13 RDW 14.2 % (13.2-15.2) 06/06/20 07:13 Plt Count 325 K/mm3 (140-440) 06/06/20 07:13 Lymph % (Auto) 42.1 % (13.4-35.0) H 06/06/20 07:13 Wilkinson % (Auto) 7.2 % (0.0-7.3) 06/06/20 07:13 Eos % (Auto) 2.5 % (0.0-4.3) 06/06/20 07:13 Baso % (Auto) 1.0 % (0.0-1.8) 06/06/20 07:13 Lymph # (Auto) 2.6 K/mm3 (1.2-5.4) 06/06/20 07:13 Wilkinson # (Auto) 0.5 K/mm3 (0.0-0.8) 06/06/20 07:13 Eos # (Auto) 0.2 K/mm3 (0.0-0.4) 06/06/20 07:13 Baso # (Auto) 0.1 K/mm3 (0.0-0.1) 06/06/20 07:13 Seg Neutrophils % 47.2 % (40.0-70.0) 06/06/20 07:13 Seg Neutrophils # 2.9 K/mm3 (1.8-7.7) 06/06/20 07:13 PT 12.6 Sec. (12.2-14.9) 06/06/20 07:13 INR 0.96 (0.87-1.13) 06/06/20 07:13 D-Dimer 135.60 ng/mlDDU (0-234) 06/04/20 18:10 Sodium 136 mmol/L (137-145) L 06/11/20 04:46 Potassium 4.2 mmol/L (3.6-5.0) 06/11/20 04:46 Chloride 99.9 mmol/L (98-107) 06/11/20 04:46 Carbon Dioxide 24 mmol/L (22-30) 06/11/20 04:46 Anion Gap 16 mmol/L 06/11/20 04:46 BUN 13 mg/dL (9-20) 06/11/20 04:46 Creatinine 1.0 mg/dL (0.8-1.3) 06/11/20 04:46 Estimated GFR > 60 ml/min 06/11/20 04:46 BUN/Creatinine Ratio 13 % 06/11/20 04:46 Glucose 280 mg/dL (75-100) H 06/11/20 04:46 POC Glucose 254 mg/dL (70-105) H 06/15/20 16:08 Hemoglobin A1c 11.2 % (4-6) H 06/05/20 15:11 Calcium 9.3 mg/dL (8.4-10.2) 06/11/20 04:46 Total Bilirubin 0.30 mg/dL (0.1-1.2) 06/08/20 05:26 AST 7 units/L (5-40) 06/08/20 05:26 ALT 7 units/L (7-56) 06/08/20 05:26 Alkaline Phosphatase 114 units/L (35-129) 06/08/20 05:26 Troponin T < 0.010 ng/mL (0.00-0.029) 06/05/20 15:11 Total Protein 6.9 g/dL (6.3-8.2) 06/08/20 05:26 Albumin 3.5 g/dL (3.9-5) L 06/08/20 05:26 Albumin/Globulin Ratio 1.0 % 06/08/20 05:26 Triglycerides 574 mg/dL (2-149) H 06/05/20 15:11 Cholesterol 189 mg/dL (50-199) 06/05/20 15:11 LDL Cholesterol Direct TNR 06/05/20 15:11 HDL Cholesterol 34 mg/dL (40-59) L 06/05/20 15:11 Cholesterol/HDL Ratio 5.55 % 06/05/20 15:11 Urine Color Yellow (Yellow) 06/04/20 19:16 Urine Turbidity Clear (Clear) 06/04/20 19:16 Urine pH 5.0 (5.0-7.0) 06/04/20 19:16 Ur Specific [place] 1.018 (1.003-1.030) 06/04/20 19:16 Urine Protein <15 mg/dl mg/dL (Negative) 06/04/20 19:16 Urine Glucose (UA) >=500 mg/dL (Negative) 06/04/20 19:16 Urine Ketones 20 mg/dL (Negative) 06/04/20 19:16 Urine Blood Neg (Negative) 06/04/20 19:16 Urine Nitrite Neg (Negative) 06/04/20 19:16 Urine Bilirubin Neg (Negative) 06/04/20 19:16 Urine Urobilinogen < 2.0 mg/dL (<2.0) 06/04/20 19:16 Ur Leukocyte Esterase Neg (Negative) 06/04/20 19:16 Urine WBC (Auto) 6.0 /HPF (0.0-6.0) 06/04/20 19:16 Urine RBC (Auto) 2.0 /HPF (0.0-6.0) 06/04/20 19:16 U Epithel Cells (Auto) 1.0 /HPF (0-13.0) 06/04/20 19:16 Urine Opiates Screen Presumptive negative 06/04/20 19:16 Urine Methadone Screen Presumptive negative 06/04/20 19:16 Acetaminophen 5.0 ug/mL (10.0-30.0) L 06/04/20 18:10 Ur Barbiturates Screen Presumptive negative 06/04/20 19:16 Ur Phencyclidine Scrn Presumptive negative 06/04/20 19:16 Ur Amphetamines Screen Presumptive negative 06/04/20 19:16 U Benzodiazepines Scrn Presumptive negative 06/04/20 19:16 Urine Cocaine Screen Presumptive positive 06/04/20 19:16 U Marijuana (THC) Screen Presumptive negative 06/04/20 19:16 Drugs of Abuse Note Disclamer 06/04/20 19:16 Plasma/Serum Alcohol < 0.01 % (0-0.07) 06/04/20 18:10 Coronavirus (PCR) Negative (Negative) 06/09/20 Unknown - Diagnostic Impressions Diagnostic Impressions: Echocardiogram 06/05/20 01:47 Transthoracic Echocardiogram Indication: Chest Pain BP: 148/87 Conclusions *The left ventricular chamber size is normal. *Mild to moderate concentric left ventricular hypertrophy is observed. *The estimated ejection fraction is 60-65%. *Abnormal left ventricular diastolic filling is observed, consistent with impaired relaxation. *The left atrium is normal in size with no visual thrombus identified. *The right ventricular chamber size and systolic function are within normal limits. *The aortic valve is trileaflet. *The right ventricular systolic pressure is calculated at 23 mmHg. Findings Procedure Info: The study quality is fair. Left Ventricle: The left ventricular chamber size is normal. Mild to moderate concentric left ventricular hypertrophy is observed. The estimated ejection fraction is 60-65%. Abnormal left ventricular diastolic filling is observed, consistent with impaired relaxation. Left Atrium: The left atrium is normal in size with no visual thrombus identified. Right Ventricle: The right ventricular chamber size and systolic function are within normal limits. Right Atrium: The right atrium appears normal. Aortic Valve: The aortic valve is trileaflet. Mild aortic leaflet calcification is visualized. There is trace of aortic regurgitation. There is no evidence of aortic stenosis. Mitral Valve: The mitral valve leaflets appear normal. There is trace of mitral regurgitation. There is no evidence of mitral stenosis. Tricuspid Valve: The tricuspid valve leaflets are normal. There is trace tricuspid regurgitation. The right ventricular systolic pressure is calculated at 23 mmHg. There is no tricuspid stenosis. Pulmonic Valve: The pulmonic valve appears normal in structure and function. Pericardium: The pericardium appears normal. Aorta: The aorta appears normal. Pulmonary Artery: The main pulmonary artery appears normal. Venous: The inferior vena cava appears normal in size. There is a greater than 50% respiratory change in the inferior vena cava dimension. Measurements Chambers 2D Name Value Normal Range IVSd (2D) 1.37 cm (0.6 - 1.1) LVPWd (2D) 1.22 cm (0.6 - 1.1) LVIDd (2D) 5.24 cm (3.7 - 5.6) LVIDs (2D) 3.46 cm (2 - 3.8) LV FS (2D) 34.04 % - EF Teichholz (2D) 62.56 % - Ao root diameter (2D) 3.3 cm (2 - 3.7) Volumes/Mass Name Value Normal Range LA ESV SP 4CH (A/L) 84.94 ml - LA ESV SP 2CH (A/L) 79.25 ml - LA ESV BP (A/L) 84.7 ml - LA ESV BP (A/L) index 33.61 ml/m2 - LA ESV SP 4CH (MOD) 81.89 ml - LA ESV SP 2CH (MOD) 78.96 ml - LA ESV BP (MOD) 82.33 ml - LA ESV BP (MOD) index 32.67 ml/m2 - LV EDV SP 4CH (MOD) 153.69 ml - LV ESV SP 4CH (MOD) 51.13 ml - EF SP 4CH (MOD) 66.73 % - LV EDV SP 2CH (MOD) 110.18 ml - LV ESV SP 2CH (MOD) 42.38 ml - EF SP 2CH (MOD) 61.54 % - LV EDV BP 132.71 ml - LV ESV BP 46.25 ml - BP EF (MOD) 65.15 % - Diastolic/Systolic Function Name Value Normal Range MV E-wave Vmax 0.59 m/sec - MV deceleration time 155.37 msec - MV A-wave Vmax 1 m/sec - MV E:A ratio 0.59 ratio - Aortic Valve Name Value Normal Range AV Vmax 1.52 m/sec - AV VTI 29.1 cm - AV peak gradient 9.23 mmHg - AV mean gradient 5.2 mmHg - LVOT diameter 2.54 cm - LVOT Vmax 0.88 m/sec - LVOT VTI 19.35 cm - LVOT peak gradient 3.08 mmHg - LVOT mean gradient 1.61 mmHg - SV LVOT 98.36 ml - LUKAS (continuity Vmax) 2.94 cm2 - LUKAS (continuity VTI) 3.38 cm2 - Ascending Ao 3.45 cm - Tricuspid Valve Name Value Normal Range TV E-wave Vmax 0.57 m/sec - TR Vmax 2.28 m/sec - TR peak gradient 20.75 mmHg - RAP 3 mmHg - RVSP 23 mmHg - IVC diameter 1.47 cm (1.2 - 2.3) Pulmonic Valve/Qp:Qs Name Value Normal Range PV Vmax 1.36 m/sec - PV peak gradient 7.41 mmHg - RVOT Vmax 0.74 m/sec - RVOT VTI 14 cm - RVOT peak gradient 2.22 mmHg - PV acceleration time 156.04 msec - Rosenberg/IV: Voiding Method Toilet IV Catheter Type [Left Hand] INT / Saline Lock Active Medications - Current Medications Current Medications: Generic Name Dose Route Start Last Admin Trade Name Freq PRN Reason Stop Dose Admin Acetaminophen 650 mg 06/05/20 01:42 06/09/20 13:57 Acetaminophen 325 Mg Tab PO 650 mg Q4H PRN Administration Pain MILD(1-3)/Fever >100.5/CUNHA Amlodipine Besylate 10 mg 06/16/20 10:00 Amlodipine 10 Mg Tab PO DAILY LEONIE Buspirone HCl 10 mg 06/14/20 22:00 06/15/20 10:02 Buspirone 10 Mg Tab PO 10 mg BID LEONIE Administration Dextrose 0 ml 06/05/20 01:42 Dextrose 50% In Water (25gm) 50 Ml Syringe IV Q30MIN PRN Hypoglycemia Protocol Divalproex Sodium 125 mg 06/14/20 11:00 06/15/20 10:[address] 125 Mg Tab PO 125 mg BID LEONIE Administration Gemfibrozil 600 mg 06/05/20 22:00 06/15/20 10:01 Gemfibrozil 600 Mg Tab PO 600 mg BID LEONIE Administration Heparin Sodium (Porcine) 5,000 unit 06/05/20 06:00 06/15/20 15:24 Heparin 5,000 Unit/1 Ml Vial SUB-Q Not Given Q8HR LEONIE Insulin Human Isoph/Insulin Regular 40 unit 06/14/20 18:45 06/15/20 08:28 Insulin Nph/Regular 70/30 Inj SUB-Q 40 unit BIDDIAB LEONIE Administration Insulin Human Lispro 0 unit 06/07/20 16:30 06/15/20 12:58 Insulin Lispro 100 Unit/Ml Vial 3 Ml SUB-Q 3 unit ACHS LEONIE Administration Protocol Lisinopril 2.5 mg 06/11/20 14:00 06/15/20 10:02 Lisinopril 5 Mg Tab PO 2.5 mg QDAY LEONIE Administration Loratadine/Pseudoephedrine Sulfate 1 each 06/06/20 22:00 06/15/20 10:01 Loratadine/Pseudoephedrine 5-120 Mg Tab 12hr PO Not Given Q12HR LEONIE Magnesium Hydroxide 30 ml 06/05/20 01:42 06/10/20 22:46 Magnesium Hydroxide (Mom) Oral Liqd Udc PO 30 ml Q4H PRN Administration Constipation Morphine Sulfate 2 mg 06/05/20 01:42 06/10/20 22:46 Morphine 2 Mg/1 Ml Inj IV 2 mg Q5MIN PRN Administration Chest Pain Nitroglycerin 0.4 mg 06/05/20 01:42 Nitroglycerin 0.4 Mg Tab Subl SL Q5M PRN Chest Pain Ondansetron HCl 4 mg 06/05/20 01:42 Ondansetron 4 Mg/2 Ml Inj IV Q8H PRN Nausea And Vomiting Oxycodone/Acetaminophen 1 tab 06/11/20 08:30 06/15/20 15:23 Oxycodone /Acetaminophen 5-325mg Tab PO 1 tab Q6H PRN Administration Pain, Moderate (4-6) Quetiapine Fumarate 200 mg 06/11/20 22:00 06/14/20 23:24 Quetiapine 200 Mg Tab PO 200 mg QHS LEONIE Administration Sertraline HCl 25 mg 06/15/20 10:00 06/15/20 10:02 Sertraline 25 Mg Tab PO 25 mg QDAY LEONIE Administration Sodium Chloride 10 ml 06/05/20 10:00 06/15/20 10:02 Sodium Chloride 0.9% 10 Ml Flush Syringe IV 10 ml BID LEONIE Administration Sodium Chloride 10 ml 06/05/20 01:42 Sodium Chloride 0.9% 10 Ml Flush Syringe IV PRN PRN LINE FLUSH Nutrition/Malnutrition Assess - Dietary Evaluation Nutrition/Malnutrition Findings: Nutrition Notes Start: 06/05/20 11:49 Freq: Status: Active Protocol: Document 06/12/20 11:20 EN (Rec: 06/12/20 11:23 EN [email or web address]) Co-Sign 06/12/20 11:20 MK Nutrition Notes Need for Assessment generated from: LOS Initial or Follow up Brief Note Current Diagnosis Diabetes,Hypertension, Hyperlipidemia Other Pertinent Diagnosis Bipolar Disorder, Hyperglycemia Current Diet Cardiac/Consistent CHO Subjective/Other Information Pt screened for LOS. Pt states that he has a decreased appetite yesterday d/t new medication, however, pt consuming 100% of meals regardless. Pt states that he has been eating 100% of his meals consistently and that he has not had any recent weight loss. Pt denies N/V/D. Pt would like turkey sausage with breakfast. Nutrition Intervention Anticipated Discharge Needs: Cardiac/Consistent CHO diet Revisit per MD consult or patient Sign Off request:
[2020-06-15] MEDS: QUEtiapine 200 MG TAB PO SCH (21:22)
[2020-06-16] MEDS: HEPARIN 5,000 UNIT/1 ML VIAL SUB-Q SCH ×3 (07:11→21:45)
[2020-06-16] MEDS: INSULIN NPH/REGULAR 70/30 INJ SUB-Q SCH ×2 (09:35→17:36)
[2020-06-16] MEDS: INSULIN LISPRO 100 UNIT/ML VIAL 3 mL SUB-Q SCH ×4 (09:35→21:55)
[2020-06-16] MEDS: busPIRone 10 MG TAB PO SCH ×2 (09:36→21:43)
[2020-06-16] MEDS: oxyCODONE /ACETAMINOPHEN 5-325MG TAB PO PRN ×2 (09:36→17:36)
[2020-06-16] MEDS: LISINOPRIL 5 MG TAB PO SCH (09:36)
[2020-06-16] MEDS: SERTRALINE 25 MG TAB PO SCH (09:36)
[2020-06-16] MEDS: DIVALPROEX DR 125 MG TAB PO SCH (09:36)
[2020-06-16] MEDS: GEMFIBROZIL 600 MG TAB PO SCH ×2 (09:36→21:44)
[2020-06-16] MEDS: amLODIPine 10 MG TAB PO SCH (09:36)
--- NOTE | 2020-06-16 11:25 | Progress Note ---
Subjective - Reason for Consult Consult date: 06/16/20 Reason for consult: depression/SI - Chief Complaint Chief complaint: During my interview with the patient today, he is lying down. A sitter is at bedside. The patient makes poor eye contact. He appears withdrawn. The sitter says all he does is just lays there. The patient says "he's depressed and has more stuff popping up in my head." He says "but I'll tell you this, me depression is a little bit better." He says "I'm tired and I'm ready to leave this world." He says "I'm just ready to go. I don't want to live like this any more." He denies hallucinations of any kind. REVIEW OF SYSTEMS Constitutional: Negative for weight loss ENT: Negative for stridor Respiratory: Negative for cough or hemoptysis All other systems reviewed and are negative MENTAL STATUS EXAMINATION General Appearance and Behavior: Age appropriate, good hygiene, wearing appropriate clothes, poor eye contact, withdrawn Cooperation: Participating/engaged Psychomotor Behavior: Psychomotor normal Mood: depressed Affect and affective range: congruent with stated mood Thought Process: goal directed Thought Content: hopelessness Speech: Normal rate, volume and rhythm Suicidal Ideation: Yes Homicidal Ideation: Denies Hallucinations: Denies Delusions: None elicited Impulse Control: Linited Insight and Judgment: Limited insight and judgment Memory: Normal Attention: Normal Orientation: Alert, oriented Assessment and Plan (1) MDD (major depressive disorder) Current Visit: Yes Status: Acute Treatment Plan Increase Zoloft 50mg po daily Increase Depakote DR 250mg po BID Risks, benefits and alternatives of medications discussed with the patient, questions answered and consent obtained from patient. PSYCHOTHERAPY: Supportive psychotherapy provided MEDICAL: Per primary team DELIRIUM PRECAUTIONS: Please re-orient patient frequently, keep lights on during the day, and minimize benzodiazepines and opiates as these medications could worsen patient's confusion. 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 Please contact with any questions and/or concerns. Mental Status Exam - Vital signs Last Vital Signs Temp 98.1 F 06/16/20 09:18 Pulse 83 06/16/20 09:18 Resp 17 06/16/20 09:18 BP 128/68 06/16/20 09:18 Pulse Ox 94 06/16/20 09:18
[2020-06-16] MEDS: LORATADINE/PSEUDOEPHEDRINE 5-120 MG TAB 12HR PO SCH ×2 (12:07→22:06)
--- NOTE | 2020-06-16 15:23 | Progress Note ---
Assessment and Plan - Patient Problems (1) Hyperglycemia due to diabetes mellitus Current Visit: Yes Status: Acute Plan to address problem: S/p 26 units of regular insulin in the emergency department given over 3 doses SSI 06/05 Lantus 5 units nightly started for persistent hyperglycemia, discontinued 06/08 06/05 Hemoglobin A1c 11.2 06/06 Novolin 70/30 started, titrate as needed 06/16 Lantus nightly started for persistent hyperglycemia Accu-Cheks AC at bedtime CC cardiac diet (2) Homicidal ideation Current Visit: Yes Status: Acute Plan to address problem: Patient states he has homicidal ideations Psychiatric consult Patient is on 1013 hold Sitter at bedside (3) MDD (major depressive disorder) Current Visit: Yes Status: Chronic Qualifiers: Major depression recurrence: recurrent Plan to address problem: Psychiatry consult, appreciate recommendations Aditya Stauffer Seroquel, Zoloft Sitter at bedside Patient presented with SI/HI, currently on a 1013 hold Psychiatry recommending inpatient psychiatric hospitalization (4) Hyponatremia Current Visit: Yes Status: Acute Plan to address problem: Presented with a sodium of 134 Corrected sodium for hyperglycemia is remains within normal limits S/p 2 L normal saline in the emergency department Pseudohyponatremia (5) HLD (hyperlipidemia) Current Visit: Yes Status: Chronic Plan to address problem: 06/06 lipid panel: triglycerides 574, cholesterol 189, HDL 34, cholesterol/HDL ratio 5.5 Gemfibrozil started (6) Substance abuse in remission Current Visit: Yes Status: Chronic Plan to address problem: Per psychiatric note patient had substance abuse with cocaine and meth 3 years ago 06/04 UDS negative (7) Noncompliance with medication regimen Current Visit: Yes Status: Chronic Plan to address problem: 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 En route he was given nitroglycerin by EMS which improved his pain. Patient expressed homicidal and suicidal ideation therefore he is a 1013. Work-up in the emergency department revealed hyperglycemia and his troponin, EKG and chest x-ray were within normal limits. Patient was admitted to the hospitalist service with consult to cardiology and psychiatry. This morning patient still complains of chest pain upon examination. He is on room air. Psych history recommends acute inpatient psychiatric hospitalization. Patient still remains with a 1013. Patient states that he still has SI/HI however does not have a plan and has a flat affect. No acute events reported overnight. Psych has seen him today and adjusted his medications. We also added Lantus to his insulin regimen. Awaiting peer to peer from inpatient psych center. 06/05: Lantus nightly started 06/06: patient refused ischemic evaluation and cardiology recommend risk modification. Patient was evaluated by psych and recommended to inpatient psych admission. Patient is on 1013. Patient is still suicidal. 06/07/2020: Patient still suicidal, Refuses stress test, Patient on 1013, Mental health consult requested, Novolin 70/30 started 06/08: Lantus discontinued and Novolin 70/30 dose increased. sheet metal worker helper made aware of inpatient psych recommendation and will start process of finding placement today. 06/09: Novolin 70/30 dose was increased, RN informs me that according to the psych nurse patient blood glucose has to be persistently less than 200s for transfer. Patient still remains with a 1013 and still has SI/HI however does not have a plan. 06/10: Novolin 70/30 increased due to persistent hyperglycemia 06/11: Novolin 70/30 increased due to persistent hyperglycemia 06/12: Patient remains hyperglycemic and Novolin 70/30 increased. Patient has not had any more chest pain during admission. 06/13: blood sugars are uncontrolled secondary to patient's noncompliance with diet. Will increase Novolin 70/30 dose to 35 units twice a day, awaiting inpatient psych placement 06/14 sitter in the room. patient is A&O, feels depressed and continues to admit SI and HI. he is on 1013. psych note reviewed. Awaiting transfer to inpatient psych. facility 06/15: He remains persistently hyperglycemic and his insulin has been increased again. Patient is medically stable for discharge and transfer to a psych facility for continued mental health care. No acute events reported overnight. Hospitalist Physical - Constitutional Vitals: Temp Pulse Resp BP Pulse Ox 98.1 F 79 17 119/63 94 06/16/20 11:26 06/16/20 11:26 06/16/20 11:26 06/16/20 11:26 06/16/20 11:26 General appearance: Present: no acute distress, well-nourished - EENT Eyes: Present: PERRL, EOM intact ENT: hearing intact, poor dentition - Neck Neck: Present: supple, normal ROM - Respiratory Respiratory effort: normal Respiratory: bilateral: CTA - Cardiovascular Rhythm: regular Heart Sounds: Present: S1 & S2. Absent: systolic murmur, diastolic murmur - Extremities Extremities: no ischemia, pulses intact, pulses symmetrical, No edema, normal temperature, normal color, Full ROM Peripheral Pulses: within normal limits - Abdominal General gastrointestinal: soft, non-tender, non-distended, normal bowel sounds - Integumentary Integumentary: Present: warm, dry - Psychiatric Psychiatric: cooperative, depressed - Neurologic Neurologic: CNII-XII intact, no focal deficits, moves all extremities HEART Score - HEART Score EKG: Normal Age: 45-65 Risk factors: > 3 risk factors or hx of atherosclerotic disease Troponin: Troponin T < 0.010 ng/mL (0.00-0.029) 06/05/20 15:11 Troponin: < normal limit Results - Labs CBC & Chem 7: 06/06/20 07:13 06/11/20 04:46 Labs: Laboratory Last Values WBC 6.2 K/mm3 (4.5-11.0) 06/06/20 07:13 RBC 4.57 M/mm3 (3.65-5.03) 06/06/20 07:13 Hgb 12.6 gm/dl (11.8-15.2) 06/06/20 07:13 Hct 36.6 % (35.5-45.6) 06/06/20 07:13 MCV 80 fl (84-94) L 06/06/20 07:13 MCH 28 pg (28-32) 06/06/20 07:13 MCHC 34 % (32-34) 06/06/20 07:13 RDW 14.2 % (13.2-15.2) 06/06/20 07:13 Plt Count 325 K/mm3 (140-440) 06/06/20 07:13 Lymph % (Auto) 42.1 % (13.4-35.0) H 06/06/20 07:13 Garden % (Auto) 7.2 % (0.0-7.3) 06/06/20 07:13 Eos % (Auto) 2.5 % (0.0-4.3) 06/06/20 07:13 Baso % (Auto) 1.0 % (0.0-1.8) 06/06/20 07:13 Lymph # (Auto) 2.6 K/mm3 (1.2-5.4) 06/06/20 07:13 Garden # (Auto) 0.5 K/mm3 (0.0-0.8) 06/06/20 07:13 Eos # (Auto) 0.2 K/mm3 (0.0-0.4) 06/06/20 07:13 Baso # (Auto) 0.1 K/mm3 (0.0-0.1) 06/06/20 07:13 Seg Neutrophils % 47.2 % (40.0-70.0) 06/06/20 07:13 Seg Neutrophils # 2.9 K/mm3 (1.8-7.7) 06/06/20 07:13 PT 12.6 Sec. (12.2-14.9) 06/06/20 07:13 INR 0.96 (0.87-1.13) 06/06/20 07:13 D-Dimer 135.60 ng/mlDDU (0-234) 06/04/20 18:10 Sodium 136 mmol/L (137-145) L 06/11/20 04:46 Potassium 4.2 mmol/L (3.6-5.0) 06/11/20 04:46 Chloride 99.9 mmol/L (98-107) 06/11/20 04:46 Carbon Dioxide 24 mmol/L (22-30) 06/11/20 04:46 Anion Gap 16 mmol/L 06/11/20 04:46 BUN 13 mg/dL (9-20) 06/11/20 04:46 Creatinine 1.0 mg/dL (0.8-1.3) 06/11/20 04:46 Estimated GFR > 60 ml/min 06/11/20 04:46 BUN/Creatinine Ratio 13 % 06/11/20 04:46 Glucose 280 mg/dL (75-100) H 06/11/20 04:46 POC Glucose 281 mg/dL (70-105) H 06/16/20 11:59 Hemoglobin A1c 11.2 % (4-6) H 06/05/20 15:11 Calcium 9.3 mg/dL (8.4-10.2) 06/11/20 04:46 Total Bilirubin 0.30 mg/dL (0.1-1.2) 06/08/20 05:26 AST 7 units/L (5-40) 06/08/20 05:26 ALT 7 units/L (7-56) 06/08/20 05:26 Alkaline Phosphatase 114 units/L (35-129) 06/08/20 05:26 Troponin T < 0.010 ng/mL (0.00-0.029) 06/05/20 15:11 Total Protein 6.9 g/dL (6.3-8.2) 06/08/20 05:26 Albumin 3.5 g/dL (3.9-5) L 06/08/20 05:26 Albumin/Globulin Ratio 1.0 % 06/08/20 05:26 Triglycerides 574 mg/dL (2-149) H 06/05/20 15:11 Cholesterol 189 mg/dL (50-199) 06/05/20 15:11 LDL Cholesterol Direct TNR 06/05/20 15:11 HDL Cholesterol 34 mg/dL (40-59) L 06/05/20 15:11 Cholesterol/HDL Ratio 5.55 % 06/05/20 15:11 Urine Color Yellow (Yellow) 06/04/20 19:16 Urine Turbidity Clear (Clear) 06/04/20 19:16 Urine pH 5.0 (5.0-7.0) 06/04/20 19:16 Ur Specific [place] 1.018 (1.003-1.030) 06/04/20 19:16 Urine Protein <15 mg/dl mg/dL (Negative) 06/04/20 19:16 Urine Glucose (UA) >=500 mg/dL (Negative) 06/04/20 19:16 Urine Ketones 20 mg/dL (Negative) 06/04/20 19:16 Urine Blood Neg (Negative) 06/04/20 19:16 Urine Nitrite Neg (Negative) 06/04/20 19:16 Urine Bilirubin Neg (Negative) 06/04/20 19:16 Urine Urobilinogen < 2.0 mg/dL (<2.0) 06/04/20 19:16 Ur Leukocyte Esterase Neg (Negative) 06/04/20 19:16 Urine WBC (Auto) 6.0 /HPF (0.0-6.0) 06/04/20 19:16 Urine RBC (Auto) 2.0 /HPF (0.0-6.0) 06/04/20 19:16 U Epithel Cells (Auto) 1.0 /HPF (0-13.0) 06/04/20 19:16 Urine Opiates Screen Presumptive negative 06/04/20 19:16 Urine Methadone Screen Presumptive negative 06/04/20 19:16 Acetaminophen 5.0 ug/mL (10.0-30.0) L 06/04/20 18:10 Ur Barbiturates Screen Presumptive negative 06/04/20 19:16 Ur Phencyclidine Scrn Presumptive negative 06/04/20 19:16 Ur Amphetamines Screen Presumptive negative 06/04/20 19:16 U Benzodiazepines Scrn Presumptive negative 06/04/20 19:16 Urine Cocaine Screen Presumptive positive 06/04/20 19:16 U Marijuana (THC) Screen Presumptive negative 06/04/20 19:16 Drugs of Abuse Note Disclamer 06/04/20 19:16 Plasma/Serum Alcohol < 0.01 % (0-0.07) 06/04/20 18:10 Coronavirus (PCR) Negative (Negative) 06/09/20 Unknown - Diagnostic Impressions Diagnostic Impressions: Echocardiogram 06/05/20 01:47 Transthoracic Echocardiogram Indication: Chest Pain BP: 148/87 Conclusions *The left ventricular chamber size is normal. *Mild to moderate concentric left ventricular hypertrophy is observed. *The estimated ejection fraction is 60-65%. *Abnormal left ventricular diastolic filling is observed, consistent with impaired relaxation. *The left atrium is normal in size with no visual thrombus identified. *The right ventricular chamber size and systolic function are within normal limits. *The aortic valve is trileaflet. *The right ventricular systolic pressure is calculated at 23 mmHg. Findings Procedure Info: The study quality is fair. Left Ventricle: The left ventricular chamber size is normal. Mild to moderate concentric left ventricular hypertrophy is observed. The estimated ejection fraction is 60-65%. Abnormal left ventricular diastolic filling is observed, consistent with impaired relaxation. Left Atrium: The left atrium is normal in size with no visual thrombus identified. Right Ventricle: The right ventricular chamber size and systolic function are within normal limits. Right Atrium: The right atrium appears normal. Aortic Valve: The aortic valve is trileaflet. Mild aortic leaflet calcification is visualized. There is trace of aortic regurgitation. There is no evidence of aortic stenosis. Mitral Valve: The mitral valve leaflets appear normal. There is trace of mitral regurgitation. There is no evidence of mitral stenosis. Tricuspid Valve: The tricuspid valve leaflets are normal. There is trace tricuspid regurgitation. The right ventricular systolic pressure is calculated at 23 mmHg. There is no tricuspid stenosis. Pulmonic Valve: The pulmonic valve appears normal in structure and function. Pericardium: The pericardium appears normal. Aorta: The aorta appears normal. Pulmonary Artery: The main pulmonary artery appears normal. Venous: The inferior vena cava appears normal in size. There is a greater than 50% respiratory change in the inferior vena cava dimension. Measurements Chambers 2D Name Value Normal Range IVSd (2D) 1.37 cm (0.6 - 1.1) LVPWd (2D) 1.22 cm (0.6 - 1.1) LVIDd (2D) 5.24 cm (3.7 - 5.6) LVIDs (2D) 3.46 cm (2 - 3.8) LV FS (2D) 34.04 % - EF Teichholz (2D) 62.56 % - Ao root diameter (2D) 3.3 cm (2 - 3.7) Volumes/Mass Name Value Normal Range LA ESV SP 4CH (A/L) 84.94 ml - LA ESV SP 2CH (A/L) 79.25 ml - LA ESV BP (A/L) 84.7 ml - LA ESV BP (A/L) index 33.61 ml/m2 - LA ESV SP 4CH (MOD) 81.89 ml - LA ESV SP 2CH (MOD) 78.96 ml - LA ESV BP (MOD) 82.33 ml - LA ESV BP (MOD) index 32.67 ml/m2 - LV EDV SP 4CH (MOD) 153.69 ml - LV ESV SP 4CH (MOD) 51.13 ml - EF SP 4CH (MOD) 66.73 % - LV EDV SP 2CH (MOD) 110.18 ml - LV ESV SP 2CH (MOD) 42.38 ml - EF SP 2CH (MOD) 61.54 % - LV EDV BP 132.71 ml - LV ESV BP 46.25 ml - BP EF (MOD) 65.15 % - Diastolic/Systolic Function Name Value Normal Range MV E-wave Vmax 0.59 m/sec - MV deceleration time 155.37 msec - MV A-wave Vmax 1 m/sec - MV E:A ratio 0.59 ratio - Aortic Valve Name Value Normal Range AV Vmax 1.52 m/sec - AV VTI 29.1 cm - AV peak gradient 9.23 mmHg - AV mean gradient 5.2 mmHg - LVOT diameter 2.54 cm - LVOT Vmax 0.88 m/sec - LVOT VTI 19.35 cm - LVOT peak gradient 3.08 mmHg - LVOT mean gradient 1.61 mmHg - SV LVOT 98.36 ml - LUKAS (continuity Vmax) 2.94 cm2 - LUKAS (continuity VTI) 3.38 cm2 - Ascending Ao 3.45 cm - Tricuspid Valve Name Value Normal Range TV E-wave Vmax 0.57 m/sec - TR Vmax 2.28 m/sec - TR peak gradient 20.75 mmHg - RAP 3 mmHg - RVSP 23 mmHg - IVC diameter 1.47 cm (1.2 - 2.3) Pulmonic Valve/Qp:Qs Name Value Normal Range PV Vmax 1.36 m/sec - PV peak gradient 7.41 mmHg - RVOT Vmax 0.74 m/sec - RVOT VTI 14 cm - RVOT peak gradient 2.22 mmHg - PV acceleration time 156.04 msec - Rosenberg/IV: Voiding Method Urinal IV Catheter Type [Left Hand] INT / Saline Lock Active Medications - Current Medications Current Medications: Generic Name Dose Route Start Last Admin Trade Name Freq PRN Reason Stop Dose Admin Acetaminophen 650 mg 06/05/20 01:42 06/09/20 13:57 Acetaminophen 325 Mg Tab PO 650 mg Q4H PRN Administration Pain MILD(1-3)/Fever >100.5/CUNHA Amlodipine Besylate 10 mg 06/16/20 10:00 06/16/20 09:36 Amlodipine 10 Mg Tab PO 10 mg DAILY LEONIE Administration Buspirone HCl 10 mg 06/14/20 22:00 06/16/20 09:36 Buspirone 10 Mg Tab PO 10 mg BID LEONIE Administration Dextrose 0 ml 06/05/20 01:42 Dextrose 50% In Water (25gm) 50 Ml Syringe IV Q30MIN PRN Hypoglycemia Protocol Divalproex Sodium 250 mg 06/16/20 22:[address] 250 Mg Tab PO BID LEONIE Gemfibrozil 600 mg 06/05/20 22:00 06/16/20 09:36 Gemfibrozil 600 Mg Tab PO 600 mg BID LEONIE Administration Heparin Sodium (Porcine) 5,000 unit 06/05/20 06:00 06/16/20 14:24 Heparin 5,000 Unit/1 Ml Vial SUB-Q Not Given Q8HR LEONIE Insulin Glargine 10 units 06/16/20 22:00 Insulin Glargine 100 Units/Ml SUB-Q QHS LEONIE Insulin Human Isoph/Insulin Regular 42 unit 06/16/20 08:00 06/16/20 09:35 Insulin Nph/Regular 70/30 Inj SUB-Q 42 unit BIDDIAB LEONIE Administration Insulin Human Lispro 0 unit 06/07/20 16:30 06/16/20 12:24 Insulin Lispro 100 Unit/Ml Vial 3 Ml SUB-Q 6 unit ACHS LEONIE Administration Protocol Lisinopril 2.5 mg 06/11/20 14:00 06/16/20 09:36 Lisinopril 5 Mg Tab PO 2.5 mg QDAY LEONIE Administration Loratadine/Pseudoephedrine Sulfate 1 each 06/06/20 22:00 06/16/20 12:07 Loratadine/Pseudoephedrine 5-120 Mg Tab 12hr PO 1 each Q12HR LEONIE Administration Magnesium Hydroxide 30 ml 06/05/20 01:42 06/10/20 22:46 Magnesium Hydroxide (Mom) Oral Liqd Udc PO 30 ml Q4H PRN Administration Constipation Morphine Sulfate 2 mg 06/05/20 01:42 06/10/20 22:46 Morphine 2 Mg/1 Ml Inj IV 2 mg Q5MIN PRN Administration Chest Pain Nitroglycerin 0.4 mg 06/05/20 01:42 Nitroglycerin 0.4 Mg Tab Subl SL Q5M PRN Chest Pain Ondansetron HCl 4 mg 06/05/20 01:42 Ondansetron 4 Mg/2 Ml Inj IV Q8H PRN Nausea And Vomiting Oxycodone/Acetaminophen 1 tab 06/11/20 08:30 06/16/20 09:36 Oxycodone /Acetaminophen 5-325mg Tab PO 1 tab Q6H PRN Administration Pain, Moderate (4-6) Quetiapine Fumarate 200 mg 06/11/20 22:00 06/15/20 21:22 Quetiapine 200 Mg Tab PO 200 mg QHS LEONIE Administration Sertraline HCl 50 mg 06/17/20 10:00 Sertraline 50 Mg Tab PO QDAY LEONIE Sodium Chloride 10 ml 06/05/20 10:00 06/16/20 09:37 Sodium Chloride 0.9% 10 Ml Flush Syringe IV 10 ml BID LEONIE Administration Sodium Chloride 10 ml 06/05/20 01:42 Sodium Chloride 0.9% 10 Ml Flush Syringe IV PRN PRN LINE FLUSH Nutrition/Malnutrition Assess - Dietary Evaluation Nutrition/Malnutrition Findings: Nutrition Notes Start: 06/05/20 11:49 Freq: Status: Active Protocol: Document 06/12/20 11:20 EN (Rec: 06/12/20 11:23 EN [id number]) Co-Sign 06/12/20 11:20 Nutrition Notes Need for Assessment generated from: LOS Initial or Follow up Brief Note Current Diagnosis Diabetes,Hypertension, Hyperlipidemia Other Pertinent Diagnosis Bipolar Disorder, Hyperglycemia Current Diet Cardiac/Consistent CHO Subjective/Other Information Pt screened for LOS. Pt states that he has a decreased appetite yesterday d/t new medication, however, pt consuming 100% of meals regardless. Pt states that he has been eating 100% of his meals consistently and that he has not had any recent weight loss. Pt denies N/V/D. Pt would like turkey sausage with breakfast. Nutrition Intervention Anticipated Discharge Needs: Cardiac/Consistent CHO diet Revisit per MD consult or patient Sign Off request:
[2020-06-16] MEDS: DIVALPROEX DR 250 MG TAB PO SCH (21:43)
[2020-06-16] MEDS: QUEtiapine 200 MG TAB PO SCH (21:44)
[2020-06-16] MEDS: INSULIN GLARGINE 100 UNITS/ML SUB-Q SCH (21:50)
[2020-06-17] MEDS: HEPARIN 5,000 UNIT/1 ML VIAL SUB-Q SCH ×3 (06:26→21:16)
[2020-06-17] MEDS: MORPHINE 2 MG/1 ML INJ IV PRN (07:31)
[2020-06-17] MEDS: INSULIN NPH/REGULAR 70/30 INJ SUB-Q SCH ×2 (08:41→17:27)
[2020-06-17] MEDS: INSULIN LISPRO 100 UNIT/ML VIAL 3 mL SUB-Q SCH ×4 (08:42→21:17)
[2020-06-17] MEDS: amLODIPine 10 MG TAB PO SCH (09:40)
[2020-06-17] MEDS: busPIRone 10 MG TAB PO SCH ×2 (09:40→21:14)
[2020-06-17] MEDS: GEMFIBROZIL 600 MG TAB PO SCH ×2 (09:40→21:13)
[2020-06-17] MEDS: LISINOPRIL 5 MG TAB PO SCH (09:41)
[2020-06-17] MEDS: SERTRALINE 50 MG TAB PO SCH (09:41)
[2020-06-17] MEDS: DIVALPROEX DR 250 MG TAB PO SCH ×2 (09:42→21:13)
[2020-06-17] MEDS: MAGNESIUM HYDROXIDE (MOM) ORAL LIQD UDC PO PRN ×2 (10:13→17:26)
[2020-06-17] MEDS: oxyCODONE /ACETAMINOPHEN 5-325MG TAB PO PRN ×2 (10:15→17:26)
[2020-06-17] MEDS: LORATADINE/PSEUDOEPHEDRINE 5-120 MG TAB 12HR PO SCH ×2 (12:07→21:15)
[2020-06-17] MEDS ORDERED: LISINOPRIL 5 MG TAB PO SCH (13:00)
--- NOTE | 2020-06-17 13:24 | Progress Note ---
Assessment and Plan - Patient Problems (1) Hyperglycemia due to diabetes mellitus Current Visit: Yes Status: Acute Plan to address problem: S/p 26 units of regular insulin in the emergency department given over 3 doses SSI 06/05 Lantus 5 units nightly started for persistent hyperglycemia, discontinued 06/08 06/05 Hemoglobin A1c 11.2 06/06 Novolin 70/30 started, titrate as needed 06/16 Lantus nightly started for persistent hyperglycemia Accu-Cheks AC at bedtime CC cardiac diet (2) Homicidal ideation Current Visit: Yes Status: Acute Plan to address problem: Patient states he has homicidal ideations Psychiatric consult Patient is on 1013 hold Sitter at bedside (3) MDD (major depressive disorder) Current Visit: Yes Status: Chronic Qualifiers: Major depression recurrence: recurrent Plan to address problem: Psychiatry consult, appreciate recommendations Aditya Stauffer Seroquel, Zoloft Sitter at bedside Patient presented with SI/HI, currently on a 1013 hold Psychiatry recommending inpatient psychiatric hospitalization (4) Hyponatremia Current Visit: Yes Status: Acute Plan to address problem: Presented with a sodium of 134 Corrected sodium for hyperglycemia is remains within normal limits S/p 2 L normal saline in the emergency department Pseudohyponatremia (5) HLD (hyperlipidemia) Current Visit: Yes Status: Chronic Plan to address problem: 06/06 lipid panel: triglycerides 574, cholesterol 189, HDL 34, cholesterol/HDL ratio 5.5 Gemfibrozil started (6) Substance abuse in remission Current Visit: Yes Status: Chronic Plan to address problem: Per psychiatric note patient had substance abuse with cocaine and meth 3 years ago 06/04 UDS negative (7) Noncompliance with medication regimen Current Visit: Yes Status: Chronic Plan to address problem: Patient reports recent homelessness hand worker/case management consult Counseled on medication compliance (8) Constipation Current Visit: Yes Status: Acute Qualifiers: Constipation type: other constipation type Qualified Code(s): K59.09 - Other constipation Plan to address problem: -06/17 Patient states he has not had a BM since admit and no documentation found - Lactulose x1 VT now because pt refused suppository - Colace, Senna scheduled - PRN MOM (9) DVT prophylaxis Current Visit: Yes Status: Acute Plan to address problem: SCDs to bilateral extremities while in bed Heparin subcu Patient has a history of a DVT in 1996 History Interval history: This is a 54 year-old male with bipolar disorder, HTN, HLD, history of DVT (1996) and DM who presented to the emergency department on 06/04 complaining of midsternal chest pain which started around 6 AM which was sharp and constant associated with shortness of breath, nausea with no vomiting and mild nonproductive cough. En route he was given nitroglycerin by EMS which improved his pain. Patient expressed homicidal and suicidal ideation therefore he is a 1013. Work-up in the emergency department revealed hyperglycemia and his troponin, EKG and chest x-ray were within normal limits. Patient was admitted to the hospitalist service with consult to cardiology and psychiatry. Today the patient states he has not had a BM since admit and has epigastric pain when eating, lactulose x1 ordered and placed on a bowel regimen. He remains hyperglycemic and his insulin was increased. 06/05: Lantus nightly started 06/06: patient refused ischemic evaluation and cardiology recommend risk modification. Patient was evaluated by psych and recommended to inpatient psych admission. Patient is on 1013. Patient is still suicidal. 06/07/2020: Patient still suicidal, Refuses stress test, Patient on 1013, Mental health consult requested, Novolin 70/30 started 06/08: Lantus discontinued and Novolin 70/30 dose increased. hand worker made aware of inpatient psych recommendation and will start process of finding placement today. 06/09: Novolin 70/30 dose was increased, RN informs me that according to the psych nurse patient blood glucose has to be persistently less than 200s for transfer. Patient still remains with a 1013 and still has SI/HI however does not have a plan. 06/10: Novolin 70/30 increased due to persistent hyperglycemia 06/11: Novolin 70/30 increased due to persistent hyperglycemia 06/12: Patient remains hyperglycemic and Novolin 70/30 increased. Patient has not had any more chest pain during admission. 06/13: blood sugars are uncontrolled secondary to patient's noncompliance with diet. Will increase Novolin 70/30 dose to 35 units twice a day, awaiting inpatient psych placement 06/14 sitter in the room. patient is A&O, feels depressed and continues to admit SI and HI. he is on 1013. psych note reviewed. Awaiting transfer to inpatient psych. facility 06/15: He remains persistently hyperglycemic and his insulin has been increased again. Patient is medically stable for discharge and transfer to a psych facility for continued mental health care. No acute events reported overnight. 06/16: No acute events reported overnight. Psych has seen him today and adjusted his medications. We also added Lantus to his insulin regimen. Awaiting peer to peer from inpatient psych center. Hospitalist Physical - Constitutional Vitals: Temp Pulse Resp BP Pulse Ox 97.4 F L 91 H 18 145/83 94 06/17/20 11:52 06/17/20 11:52 06/17/20 11:52 06/17/20 11:52 06/17/20 11:52 General appearance: Present: no acute distress, well-nourished - EENT Eyes: Present: EOM intact ENT: dentition normal, poor dentition - Neck Neck: Present: normal ROM - Respiratory Respiratory effort: normal Respiratory: bilateral: CTA - Cardiovascular Rhythm: regular Heart Sounds: Present: S1 & S2. Absent: systolic murmur, diastolic murmur - Extremities Extremities: no ischemia, pulses intact, pulses symmetrical, No edema, normal temperature, normal color, Full ROM Peripheral Pulses: within normal limits - Abdominal General gastrointestinal: soft, non-tender, non-distended, normal bowel sounds - Integumentary Integumentary: Present: warm, dry - Psychiatric Psychiatric: cooperative, depressed - Neurologic Neurologic: CNII-XII intact, no focal deficits, moves all extremities - Allied Health Allied health notes reviewed: nursing HEART Score - HEART Score EKG: Normal Age: 45-65 Risk factors: > 3 risk factors or hx of atherosclerotic disease Troponin: Troponin T < 0.010 ng/mL (0.00-0.029) 06/05/20 15:11 Troponin: < normal limit Results - Labs CBC & Chem 7: 06/06/20 07:13 06/11/20 04:46 Labs: Laboratory Last Values WBC 6.2 K/mm3 (4.5-11.0) 06/06/20 07:13 RBC 4.57 M/mm3 (3.65-5.03) 06/06/20 07:13 Hgb 12.6 gm/dl (11.8-15.2) 06/06/20 07:13 Hct 36.6 % (35.5-45.6) 06/06/20 07:13 MCV 80 fl (84-94) L 06/06/20 07:13 MCH 28 pg (28-32) 06/06/20 07:13 MCHC 34 % (32-34) 06/06/20 07:13 RDW 14.2 % (13.2-15.2) 06/06/20 07:13 Plt Count 325 K/mm3 (140-440) 06/06/20 07:13 Lymph % (Auto) 42.1 % (13.4-35.0) H 06/06/20 07:13 Craven % (Auto) 7.2 % (0.0-7.3) 06/06/20 07:13 Eos % (Auto) 2.5 % (0.0-4.3) 06/06/20 07:13 Baso % (Auto) 1.0 % (0.0-1.8) 06/06/20 07:13 Lymph # (Auto) 2.6 K/mm3 (1.2-5.4) 06/06/20 07:13 Craven # (Auto) 0.5 K/mm3 (0.0-0.8) 06/06/20 07:13 Eos # (Auto) 0.2 K/mm3 (0.0-0.4) 06/06/20 07:13 Baso # (Auto) 0.1 K/mm3 (0.0-0.1) 06/06/20 07:13 Seg Neutrophils % 47.2 % (40.0-70.0) 06/06/20 07:13 Seg Neutrophils # 2.9 K/mm3 (1.8-7.7) 06/06/20 07:13 PT 12.6 Sec. (12.2-14.9) 06/06/20 07:13 INR 0.96 (0.87-1.13) 06/06/20 07:13 D-Dimer 135.60 ng/mlDDU (0-234) 06/04/20 18:10 Sodium 136 mmol/L (137-145) L 06/11/20 04:46 Potassium 4.2 mmol/L (3.6-5.0) 06/11/20 04:46 Chloride 99.9 mmol/L (98-107) 06/11/20 04:46 Carbon Dioxide 24 mmol/L (22-30) 06/11/20 04:46 Anion Gap 16 mmol/L 06/11/20 04:46 BUN 13 mg/dL (9-20) 06/11/20 04:46 Creatinine 1.0 mg/dL (0.8-1.3) 06/11/20 04:46 Estimated GFR > 60 ml/min 06/11/20 04:46 BUN/Creatinine Ratio 13 % 06/11/20 04:46 Glucose 280 mg/dL (75-100) H 06/11/20 04:46 POC Glucose 293 mg/dL (70-105) H 06/17/20 11:51 Hemoglobin A1c 11.2 % (4-6) H 06/05/20 15:11 Calcium 9.3 mg/dL (8.4-10.2) 06/11/20 04:46 Total Bilirubin 0.30 mg/dL (0.1-1.2) 06/08/20 05:26 AST 7 units/L (5-40) 06/08/20 05:26 ALT 7 units/L (7-56) 06/08/20 05:26 Alkaline Phosphatase 114 units/L (35-129) 06/08/20 05:26 Troponin T < 0.010 ng/mL (0.00-0.029) 06/05/20 15:11 Total Protein 6.9 g/dL (6.3-8.2) 06/08/20 05:26 Albumin 3.5 g/dL (3.9-5) L 06/08/20 05:26 Albumin/Globulin Ratio 1.0 % 06/08/20 05:26 Triglycerides 574 mg/dL (2-149) H 06/05/20 15:11 Cholesterol 189 mg/dL (50-199) 06/05/20 15:11 LDL Cholesterol Direct TNR 06/05/20 15:11 HDL Cholesterol 34 mg/dL (40-59) L 06/05/20 15:11 Cholesterol/HDL Ratio 5.55 % 06/05/20 15:11 Urine Color Yellow (Yellow) 06/04/20 19:16 Urine Turbidity Clear (Clear) 06/04/20 19:16 Urine pH 5.0 (5.0-7.0) 06/04/20 19:16 Ur Specific Roebling 1.018 (1.003-1.030) 06/04/20 19:16 Urine Protein <15 mg/dl mg/dL (Negative) 06/04/20 19:16 Urine Glucose (UA) >=500 mg/dL (Negative) 06/04/20 19:16 Urine Ketones 20 mg/dL (Negative) 06/04/20 19:16 Urine Blood Neg (Negative) 06/04/20 19:16 Urine Nitrite Neg (Negative) 06/04/20 19:16 Urine Bilirubin Neg (Negative) 06/04/20 19:16 Urine Urobilinogen < 2.0 mg/dL (<2.0) 06/04/20 19:16 Ur Leukocyte Esterase Neg (Negative) 06/04/20 19:16 Urine WBC (Auto) 6.0 /HPF (0.0-6.0) 06/04/20 19:16 Urine RBC (Auto) 2.0 /HPF (0.0-6.0) 06/04/20 19:16 U Epithel Cells (Auto) 1.0 /HPF (0-13.0) 06/04/20 19:16 Urine Opiates Screen Presumptive negative 06/04/20 19:16 Urine Methadone Screen Presumptive negative 06/04/20 19:16 Acetaminophen 5.0 ug/mL (10.0-30.0) L 06/04/20 18:10 Ur Barbiturates Screen Presumptive negative 06/04/20 19:16 Ur Phencyclidine Scrn Presumptive negative 06/04/20 19:16 Ur Amphetamines Screen Presumptive negative 06/04/20 19:16 U Benzodiazepines Scrn Presumptive negative 06/04/20 19:16 Urine Cocaine Screen Presumptive positive 06/04/20 19:16 U Marijuana (THC) Screen Presumptive negative 06/04/20 19:16 Drugs of Abuse Note Disclamer 06/04/20 19:16 Plasma/Serum Alcohol < 0.01 % (0-0.07) 06/04/20 18:10 Coronavirus (PCR) Negative (Negative) 06/09/20 Unknown - Diagnostic Impressions Diagnostic Impressions: Echocardiogram 06/05/20 01:47 Transthoracic Echocardiogram Indication: Chest Pain BP: 148/87 Conclusions *The left ventricular chamber size is normal. *Mild to moderate concentric left ventricular hypertrophy is observed. *The estimated ejection fraction is 60-65%. *Abnormal left ventricular diastolic filling is observed, consistent with impaired relaxation. *The left atrium is normal in size with no visual thrombus identified. *The right ventricular chamber size and systolic function are within normal limits. *The aortic valve is trileaflet. *The right ventricular systolic pressure is calculated at 23 mmHg. Findings Procedure Info: The study quality is fair. Left Ventricle: The left ventricular chamber size is normal. Mild to moderate concentric left ventricular hypertrophy is observed. The estimated ejection fraction is 60-65%. Abnormal left ventricular diastolic filling is observed, consistent with impaired relaxation. Left Atrium: The left atrium is normal in size with no visual thrombus identified. Right Ventricle: The right ventricular chamber size and systolic function are within normal limits. Right Atrium: The right atrium appears normal. Aortic Valve: The aortic valve is trileaflet. Mild aortic leaflet calcification is visualized. There is trace of aortic regurgitation. There is no evidence of aortic stenosis. Mitral Valve: The mitral valve leaflets appear normal. There is trace of mitral regurgitation. There is no evidence of mitral stenosis. Tricuspid Valve: The tricuspid valve leaflets are normal. There is trace tricuspid regurgitation. The right ventricular systolic pressure is calculated at 23 mmHg. There is no tricuspid stenosis. Pulmonic Valve: The pulmonic valve appears normal in structure and function. Pericardium: The pericardium appears normal. Aorta: The aorta appears normal. Pulmonary Artery: The main pulmonary artery appears normal. Venous: The inferior vena cava appears normal in size. There is a greater than 50% respiratory change in the inferior vena cava dimension. Measurements Chambers 2D Name Value Normal Range IVSd (2D) 1.37 cm (0.6 - 1.1) LVPWd (2D) 1.22 cm (0.6 - 1.1) LVIDd (2D) 5.24 cm (3.7 - 5.6) LVIDs (2D) 3.46 cm (2 - 3.8) LV FS (2D) 34.04 % - EF Teichholz (2D) 62.56 % - Ao root diameter (2D) 3.3 cm (2 - 3.7) Volumes/Mass Name Value Normal Range LA ESV SP 4CH (A/L) 84.94 ml - LA ESV SP 2CH (A/L) 79.25 ml - LA ESV BP (A/L) 84.7 ml - LA ESV BP (A/L) index 33.61 ml/m2 - LA ESV SP 4CH (MOD) 81.89 ml - LA ESV SP 2CH (MOD) 78.96 ml - LA ESV BP (MOD) 82.33 ml - LA ESV BP (MOD) index 32.67 ml/m2 - LV EDV SP 4CH (MOD) 153.69 ml - LV ESV SP 4CH (MOD) 51.13 ml - EF SP 4CH (MOD) 66.73 % - LV EDV SP 2CH (MOD) 110.18 ml - LV ESV SP 2CH (MOD) 42.38 ml - EF SP 2CH (MOD) 61.54 % - LV EDV BP 132.71 ml - LV ESV BP 46.25 ml - BP EF (MOD) 65.15 % - Diastolic/Systolic Function Name Value Normal Range MV E-wave Vmax 0.59 m/sec - MV deceleration time 155.37 msec - MV A-wave Vmax 1 m/sec - MV E:A ratio 0.59 ratio - Aortic Valve Name Value Normal Range AV Vmax 1.52 m/sec - AV VTI 29.1 cm - AV peak gradient 9.23 mmHg - AV mean gradient 5.2 mmHg - LVOT diameter 2.54 cm - LVOT Vmax 0.88 m/sec - LVOT VTI 19.35 cm - LVOT peak gradient 3.08 mmHg - LVOT mean gradient 1.61 mmHg - SV LVOT 98.36 ml - LUKAS (continuity Vmax) 2.94 cm2 - LUKAS (continuity VTI) 3.38 cm2 - Ascending Ao 3.45 cm - Tricuspid Valve Name Value Normal Range TV E-wave Vmax 0.57 m/sec - TR Vmax 2.28 m/sec - TR peak gradient 20.75 mmHg - RAP 3 mmHg - RVSP 23 mmHg - IVC diameter 1.47 cm (1.2 - 2.3) Pulmonic Valve/Qp:Qs Name Value Normal Range PV Vmax 1.36 m/sec - PV peak gradient 7.41 mmHg - RVOT Vmax 0.74 m/sec - RVOT VTI 14 cm - RVOT peak gradient 2.22 mmHg - PV acceleration time 156.04 msec - Rosenberg/IV: Voiding Method Toilet IV Catheter Type [Left Hand] INT / Saline Lock Active Medications - Current Medications Current Medications: Generic Name Dose Route Start Last Admin Trade Name Freq PRN Reason Stop Dose Admin Acetaminophen 650 mg 06/05/20 01:42 06/09/20 13:57 Acetaminophen 325 Mg Tab PO 650 mg Q4H PRN Administration Pain MILD(1-3)/Fever >100.5/CUNHA Amlodipine Besylate 10 mg 06/16/20 10:00 06/17/20 09:40 Amlodipine 10 Mg Tab PO 10 mg DAILY LEONIE Administration Bisacodyl 10 mg 06/17/20 13:12 Bisacodyl 10 Mg Rect Supp VT 06/17/20 14:30 ONCE NR Buspirone HCl 10 mg 06/14/20 22:00 06/17/20 09:40 Buspirone 10 Mg Tab PO 10 mg BID LEONIE Administration Dextrose 0 ml 06/05/20 01:42 Dextrose 50% In Water (25gm) 50 Ml Syringe IV Q30MIN PRN Hypoglycemia Protocol Divalproex Sodium 250 mg 06/16/20 22:00 06/17/20 09:[address] 250 Mg Tab PO 250 mg BID LEONIE Administration Docusate Sodium 100 mg 06/17/20 22:00 Docusate Sodium 100 Mg Cap PO BID LEONIE Gemfibrozil 600 mg 06/05/20 22:00 06/17/20 09:40 Gemfibrozil 600 Mg Tab PO 600 mg BID LEONIE Administration Heparin Sodium (Porcine) 5,000 unit 06/05/20 06:00 06/17/20 06:26 Heparin 5,000 Unit/1 Ml Vial SUB-Q Not Given Q8HR [facility] Insulin Glargine 10 units 06/16/20 22:00 06/16/20 21:50 Insulin Glargine 100 Units/Ml SUB-Q 10 units QHS LEONIE Administration Insulin Human Isoph/Insulin Regular 45 unit 06/17/20 12:15 Insulin Nph/Regular 70/30 Inj SUB-Q BIDDIAB LEONIE Insulin Human Lispro 0 unit 06/07/20 16:30 06/17/20 12:07 Insulin Lispro 100 Unit/Ml Vial 3 Ml SUB-Q 6 unit ACHS LEONIE Administration Protocol Lactulose 20 gm 06/17/20 13:18 Lactulose 20 Gm/30 Ml Oral Liqd PO 06/17/20 13:19 ONCE ONE Lisinopril 5 mg 06/18/20 10:00 Lisinopril 5 Mg Tab PO QDAY LEONIE Loratadine/Pseudoephedrine Sulfate 1 each 06/06/20 22:00 06/17/20 12:07 Loratadine/Pseudoephedrine 5-120 Mg Tab 12hr PO 1 each Q12HR LEONIE Administration Magnesium Hydroxide 30 ml 06/05/20 01:42 06/17/20 10:13 Magnesium Hydroxide (Mom) Oral Liqd Udc PO 30 ml Q4H PRN Administration Constipation Morphine Sulfate 2 mg 06/05/20 01:42 06/17/20 07:31 Morphine 2 Mg/1 Ml Inj IV 2 mg Q5MIN PRN Administration Chest Pain Nitroglycerin 0.4 mg 06/05/20 01:42 Nitroglycerin 0.4 Mg Tab Subl SL Q5M PRN Chest Pain Ondansetron HCl 4 mg 06/05/20 01:42 Ondansetron 4 Mg/2 Ml Inj IV Q8H PRN Nausea And Vomiting Oxycodone/Acetaminophen 2 tab 06/16/20 16:00 06/17/20 10:15 Oxycodone /Acetaminophen 5-325mg Tab PO 2 tab Q6H PRN Administration Pain, Moderate (4-6) Quetiapine Fumarate 200 mg 06/11/20 22:00 06/16/20 21:44 Quetiapine 200 Mg Tab PO 200 mg QHS LEONIE Administration Senna 17.2 mg 06/17/20 22:00 Sennosides 8.6 Mg Tab PO QHS LEONIE Sertraline HCl 50 mg 06/17/20 10:00 06/17/20 09:41 Sertraline 50 Mg Tab PO 50 mg QDAY LEONIE Administration Sodium Chloride 10 ml 06/05/20 10:00 06/17/20 09:43 Sodium Chloride 0.9% 10 Ml Flush Syringe IV 10 ml BID LEONIE Administration Sodium Chloride 10 ml 06/05/20 01:42 Sodium Chloride 0.9% 10 Ml Flush Syringe IV PRN PRN LINE FLUSH Nutrition/Malnutrition Assess - Dietary Evaluation Nutrition/Malnutrition Findings: Nutrition Notes Start: 06/05/20 11:49 Freq: Status: Active Protocol: Document 06/12/20 11:20 EN (Rec: 06/12/20 11:23 EN [id number]) Co-Sign 06/12/20 11:20 MK Nutrition Notes Need for Assessment generated from: LOS Initial or Follow up Brief Note Current Diagnosis Diabetes,Hypertension, Hyperlipidemia Other Pertinent Diagnosis Bipolar Disorder, Hyperglycemia Current Diet Cardiac/Consistent CHO Subjective/Other Information Pt screened for LOS. Pt states that he has a decreased appetite yesterday d/t new medication, however, pt consuming 100% of meals regardless. Pt states that he has been eating 100% of his meals consistently and that he has not had any recent weight loss. Pt denies N/V/D. Pt would like turkey sausage with breakfast. Nutrition Intervention Anticipated Discharge Needs: Cardiac/Consistent CHO diet Revisit per MD consult or patient Sign Off request:
[2020-06-17] MEDS ORDERED: LACTULOSE 20 GM/30 ML ORAL LIQD PO ONE (14:18)
[2020-06-17] MEDS: FAMOTIDINE 20 MG TAB PO SCH (14:25)
[2020-06-17] MEDS: SENNOSIDES 8.6 MG TAB PO SCH (21:14)
[2020-06-17] MEDS: DOCUSATE SODIUM 100 MG CAP PO SCH (21:14)
[2020-06-17] MEDS: INSULIN GLARGINE 100 UNITS/ML SUB-Q SCH (21:16)
[2020-06-17] MEDS: QUEtiapine 200 MG TAB PO SCH (21:20)
[2020-06-18] MEDS: HEPARIN 5,000 UNIT/1 ML VIAL SUB-Q SCH ×3 (06:32→23:00)
[2020-06-18] MEDS: INSULIN NPH/REGULAR 70/30 INJ SUB-Q SCH ×2 (08:47→17:37)
[2020-06-18] MEDS: INSULIN LISPRO 100 UNIT/ML VIAL 3 mL SUB-Q SCH ×4 (08:47→23:05)
[2020-06-18] MEDS: DIVALPROEX DR 250 MG TAB PO SCH ×2 (10:51→23:00)
[2020-06-18] MEDS: SERTRALINE 50 MG TAB PO SCH (10:51)
[2020-06-18] MEDS: LISINOPRIL 5 MG TAB PO SCH (10:51)
[2020-06-18] MEDS: DOCUSATE SODIUM 100 MG CAP PO SCH ×2 (10:51→22:59)
[2020-06-18] MEDS: busPIRone 10 MG TAB PO SCH ×2 (10:51→22:58)
[2020-06-18] MEDS: GEMFIBROZIL 600 MG TAB PO SCH ×2 (10:51→23:00)
[2020-06-18] MEDS: QUEtiapine 200 MG TAB PO SCH (10:51)
[2020-06-18] MEDS: FAMOTIDINE 20 MG TAB PO SCH (10:51)
[2020-06-18] MEDS: amLODIPine 10 MG TAB PO SCH (10:51)
[2020-06-18] MEDS: LORATADINE/PSEUDOEPHEDRINE 5-120 MG TAB 12HR PO SCH (10:53)
--- NOTE | 2020-06-18 11:19 | Progress Note ---
Assessment and Plan - Patient Problems (1) Hyperglycemia due to diabetes mellitus Current Visit: Yes Status: Acute Plan to address problem: S/p 26 units of regular insulin in the emergency department given over 3 doses SSI 06/05 Lantus 5 units nightly started for persistent hyperglycemia, discontinued 06/08 06/05 Hemoglobin A1c 11.2 06/06 Novolin 70/30 started, titrate as needed 06/16 Lantus nightly started for persistent hyperglycemia Accu-Cheks AC at bedtime CC cardiac diet (2) Homicidal ideation Current Visit: Yes Status: Acute Plan to address problem: Patient states he has homicidal ideations Psychiatric consult Patient is on 1013 hold Sitter at bedside (3) MDD (major depressive disorder) Current Visit: Yes Status: Chronic Qualifiers: Major depression recurrence: recurrent Plan to address problem: Psychiatry consult, appreciate recommendations Aditya Stauffer Seroquel, Zoloft Sitter at bedside Patient presented with SI/HI, currently on a 1013 hold Psychiatry recommending inpatient psychiatric hospitalization (4) Hyponatremia Current Visit: Yes Status: Acute Plan to address problem: Presented with a sodium of 134 Corrected sodium for hyperglycemia is remains within normal limits S/p 2 L normal saline in the emergency department Pseudohyponatremia (5) HLD (hyperlipidemia) Current Visit: Yes Status: Chronic Plan to address problem: 06/06 lipid panel: triglycerides 574, cholesterol 189, HDL 34, cholesterol/HDL ratio 5.5 Gemfibrozil started (6) Substance abuse in remission Current Visit: Yes Status: Chronic Plan to address problem: Per psychiatric note patient had substance abuse with cocaine and meth 3 years ago 06/04 UDS negative (7) Noncompliance with medication regimen Current Visit: Yes Status: Chronic Plan to address problem: Patient reports recent homelessness material worker/case management consult Counseled on medication compliance (8) Constipation Current Visit: Yes Status: Acute Qualifiers: Constipation type: other constipation type Qualified Code(s): K59.09 - Other constipation Plan to address problem: 06/17 Patient states he has not had a BM since admit and no documentation found Lactulose x1 TX now because pt refused suppository Colace, Senna scheduled PRN MOM 06/18 patient produced a bowel movement (9) DVT prophylaxis Current Visit: Yes Status: Acute Plan to address problem: SCDs to bilateral extremities while in bed Heparin subcu Patient has a history of a DVT in 1996 History Interval history: This is a 54 year-old male with bipolar disorder, HTN, HLD, history of DVT (1996) and DM who presented to the emergency department on 06/04 complaining of midsternal chest pain which started around 6 AM which was sharp and constant associated with shortness of breath, nausea with no vomiting and mild nonproductive cough. En route he was given nitroglycerin by EMS which improved his pain. Patient expressed homicidal and suicidal ideation therefore he is a 1013. Work-up in the emergency department revealed hyperglycemia and his troponin, EKG and chest x-ray were within normal limits. Patient was admitted to the hospitalist service with consult to cardiology and psychiatry. Today the patient states that he feels much better and had a bowel movement last night however he still remains hyperglycemic and his insulin was increased. 06/05: Lantus nightly started 06/06: patient refused ischemic evaluation and cardiology recommend risk mo dification. Patient was evaluated by psych and recommended to inpatient psych admission. Patient is on 1013. Patient is still suicidal. 06/07/2020: Patient still suicidal, Refuses stress test, Patient on 1013, Mental health consult requested, Novolin 70/30 started 06/08: Lantus discontinued and Novolin 70/30 dose increased. material worker made aware of inpatient psych recommendation and will start process of finding placement today. 06/09: Novolin 70/30 dose was increased, RN informs me that according to the psych nurse patient blood glucose has to be persistently less than 200s for transfer. Patient still remains with a 1013 and still has SI/HI however does not have a plan. 06/10: Novolin 70/30 increased due to persistent hyperglycemia 06/11: Novolin 70/30 increased due to persistent hyperglycemia 06/12: Patient remains hyperglycemic and Novolin 70/30 increased. Patient has not had any more chest pain during admission. 06/13: blood sugars are uncontrolled secondary to patient's noncompliance with diet. Will increase Novolin 70/30 dose to 35 units twice a day, awaiting inpatie nt psych placement 06/14 sitter in the room. patient is A&O, feels depressed and continues to admit SI and HI. he is on 1013. psych note reviewed. Awaiting transfer to inpatient psych. facility 06/15: He remains persistently hyperglycemic and his insulin has been increased again. Patient is medically stable for discharge and transfer to a psych facility for continued mental health care. No acute events reported overnight. 06/16: No acute events reported overnight. Psych has seen him today and adjusted his medications. We also added Lantus to his insulin regimen. Awaiting peer to peer from inpatient psych center. 06/17: Today the patient states he has not had a BM since admit and has ep igastric pain when eating, lactulose x1 ordered and placed on a bowel regimen. Hospitalist Physical - Constitutional Vitals: Temp Pulse Resp BP Pulse Ox 98.2 F 83 18 152/88 97 06/18/20 07:24 06/18/20 07:24 06/18/20 08:10 06/18/20 07:24 06/18/20 08:10 General appearance: Present: no acute distress, well-nourished - EENT Eyes: Present: PERRL, EOM intact ENT: hearing intact, poor dentition - Neck Neck: Present: supple, normal ROM - Respiratory Respiratory effort: normal Respiratory: bilateral: CTA - Cardiovascular Rhythm: regular Heart Sounds: Present: S1 & S2. Absent: systolic murmur, diastolic murmur - Extremities Extremities: no ischemia, pulses intact, pulses symmetrical, No edema, normal temperature, normal color, Full ROM Peripheral Pulses: within normal limits - Abdominal General gastrointestinal: soft, non-tender, non-distended, normal bowel sounds - Integumentary Integumentary: Present: warm, dry - Psychiatric Psychiatric: cooperative - Neurologic Neurologic: CNII-XII intact, no focal deficits, moves all extremities - Allied Health Allied health notes reviewed: nursing HEART Score - HEART Score EKG: Normal Age: 45-65 Risk factors: > 3 risk factors or hx of atherosclerotic disease Troponin: Troponin T < 0.010 ng/mL (0.00-0.029) 06/05/20 15:11 Troponin: < normal limit Results - Labs CBC & Chem 7: 06/06/20 07:13 06/11/20 04:46 Labs: Laboratory Last Values WBC 6.2 K/mm3 (4.5-11.0) 06/06/20 07:13 RBC 4.57 M/mm3 (3.65-5.03) 06/06/20 07:13 Hgb 12.6 gm/dl (11.8-15.2) 06/06/20 07:13 Hct 36.6 % (35.5-45.6) 06/06/20 07:13 MCV 80 fl (84-94) L 06/06/20 07:13 MCH 28 pg (28-32) 06/06/20 07:13 MCHC 34 % (32-34) 06/06/20 07:13 RDW 14.2 % (13.2-15.2) 06/06/20 07:13 Plt Count 325 K/mm3 (140-440) 06/06/20 07:13 Lymph % (Auto) 42.1 % (13.4-35.0) H 06/06/20 07:13 Bowman % (Auto) 7.2 % (0.0-7.3) 06/06/20 07:13 Eos % (Auto) 2.5 % (0.0-4.3) 06/06/20 07:13 Baso % (Auto) 1.0 % (0.0-1.8) 06/06/20 07:13 Lymph # (Auto) 2.6 K/mm3 (1.2-5.4) 06/06/20 07:13 Bowman # (Auto) 0.5 K/mm3 (0.0-0.8) 06/06/20 07:13 Eos # (Auto) 0.2 K/mm3 (0.0-0.4) 06/06/20 07:13 Baso # (Auto) 0.1 K/mm3 (0.0-0.1) 06/06/20 07:13 Seg Neutrophils % 47.2 % (40.0-70.0) 06/06/20 07:13 Seg Neutrophils # 2.9 K/mm3 (1.8-7.7) 06/06/20 07:13 PT 12.6 Sec. (12.2-14.9) 06/06/20 07:13 INR 0.96 (0.87-1.13) 06/06/20 07:13 D-Dimer 135.60 ng/mlDDU (0-234) 06/04/20 18:10 Sodium 136 mmol/L (137-145) L 06/11/20 04:46 Potassium 4.2 mmol/L (3.6-5.0) 06/11/20 04:46 Chloride 99.9 mmol/L (98-107) 06/11/20 04:46 Carbon Dioxide 24 mmol/L (22-30) 06/11/20 04:46 Anion Gap 16 mmol/L 06/11/20 04:46 BUN 13 mg/dL (9-20) 06/11/20 04:46 Creatinine 1.0 mg/dL (0.8-1.3) 06/11/20 04:46 Estimated GFR > 60 ml/min 06/11/20 04:46 BUN/Creatinine Ratio 13 % 06/11/20 04:46 Glucose 280 mg/dL (75-100) H 06/11/20 04:46 POC Glucose 260 mg/dL (70-105) H 06/18/20 07:52 Hemoglobin A1c 11.2 % (4-6) H 06/05/20 15:11 Calcium 9.3 mg/dL (8.4-10.2) 06/11/20 04:46 Total Bilirubin 0.30 mg/dL (0.1-1.2) 06/08/20 05:26 AST 7 units/L (5-40) 06/08/20 05:26 ALT 7 units/L (7-56) 06/08/20 05:26 Alkaline Phosphatase 114 units/L (35-129) 06/08/20 05:26 Troponin T < 0.010 ng/mL (0.00-0.029) 06/05/20 15:11 Total Protein 6.9 g/dL (6.3-8.2) 06/08/20 05:26 Albumin 3.5 g/dL (3.9-5) L 06/08/20 05:26 Albumin/Globulin Ratio 1.0 % 06/08/20 05:26 Triglycerides 574 mg/dL (2-149) H 06/05/20 15:11 Cholesterol 189 mg/dL (50-199) 06/05/20 15:11 LDL Cholesterol Direct TNR 06/05/20 15:11 HDL Cholesterol 34 mg/dL (40-59) L 06/05/20 15:11 Cholesterol/HDL Ratio 5.55 % 06/05/20 15:11 Urine Color Yellow (Yellow) 06/04/20 19:16 Urine Turbidity Clear (Clear) 06/04/20 19:16 Urine pH 5.0 (5.0-7.0) 06/04/20 19:16 Ur Specific Hayden 1.018 (1.003-1.030) 06/04/20 19:16 Urine Protein <15 mg/dl mg/dL (Negative) 06/04/20 19:16 Urine Glucose (UA) >=500 mg/dL (Negative) 06/04/20 19:16 Urine Ketones 20 mg/dL (Negative) 06/04/20 19:16 Urine Blood Neg (Negative) 06/04/20 19:16 Urine Nitrite Neg (Negative) 06/04/20 19:16 Urine Bilirubin Neg (Negative) 06/04/20 19:16 Urine Urobilinogen < 2.0 mg/dL (<2.0) 06/04/20 19:16 Ur Leukocyte Esterase Neg (Negative) 06/04/20 19:16 Urine WBC (Auto) 6.0 /HPF (0.0-6.0) 06/04/20 19:16 Urine RBC (Auto) 2.0 /HPF (0.0-6.0) 06/04/20 19:16 U Epithel Cells (Auto) 1.0 /HPF (0-13.0) 06/04/20 19:16 Urine Opiates Screen Presumptive negative 06/04/20 19:16 Urine Methadone Screen Presumptive negative 06/04/20 19:16 Acetaminophen 5.0 ug/mL (10.0-30.0) L 06/04/20 18:10 Ur Barbiturates Screen Presumptive negative 06/04/20 19:16 Ur Phencyclidine Scrn Presumptive negative 06/04/20 19:16 Ur Amphetamines Screen Presumptive negative 06/04/20 19:16 U Benzodiazepines Scrn Presumptive negative 06/04/20 19:16 Urine Cocaine Screen Presumptive positive 06/04/20 19:16 U Marijuana (THC) Screen Presumptive negative 06/04/20 19:16 Drugs of Abuse Note Disclamer 06/04/20 19:16 Plasma/Serum Alcohol < 0.01 % (0-0.07) 06/04/20 18:10 Coronavirus (PCR) Negative (Negative) 06/09/20 Unknown - Diagnostic Impressions Diagnostic Impressions: Echocardiogram 06/05/20 01:47 Transthoracic Echocardiogram Indication: Chest Pain BP: 148/87 Conclusions *The left ventricular chamber size is normal. *Mild to moderate concentric left ventricular hypertrophy is observed. *The estimated ejection fraction is 60-65%. *Abnormal left ventricular diastolic filling is observed, consistent with impaired relaxation. *The left atrium is normal in size with no visual thrombus identified. *The right ventricular chamber size and systolic function are within normal limits. *The aortic valve is trileaflet. *The right ventricular systolic pressure is calculated at 23 mmHg. Findings Procedure Info: The study quality is fair. Left Ventricle: The left ventricular chamber size is normal. Mild to moderate concentric left ventricular hypertrophy is observed. The estimated ejection fraction is 60-65%. Abnormal left ventricular diastolic filling is observed, consistent with impaired relaxation. Left Atrium: The left atrium is normal in size with no visual thrombus identified. Right Ventricle: The right ventricular chamber size and systolic function are within normal limits. Right Atrium: The right atrium appears normal. Aortic Valve: The aortic valve is trileaflet. Mild aortic leaflet calcification is visualized. There is trace of aortic regurgitation. There is no evidence of aortic stenosis. Mitral Valve: The mitral valve leaflets appear normal. There is trace of mitral regurgitation. There is no evidence of mitral stenosis. Tricuspid Valve: The tricuspid valve leaflets are normal. There is trace tricuspid regurgitation. The right ventricular systolic pressure is calculated at 23 mmHg. There is no tricuspid stenosis. Pulmonic Valve: The pulmonic valve appears normal in structure and function. Pericardium: The pericardium appears normal. Aorta: The aorta appears normal. Pulmonary Artery: The main pulmonary artery appears normal. Venous: The inferior vena cava appears normal in size. There is a greater than 50% respiratory change in the inferior vena cava dimension. Measurements Chambers 2D Name Value Normal Range IVSd (2D) 1.37 cm (0.6 - 1.1) LVPWd (2D) 1.22 cm (0.6 - 1.1) LVIDd (2D) 5.24 cm (3.7 - 5.6) LVIDs (2D) 3.46 cm (2 - 3.8) LV FS (2D) 34.04 % - EF Teichholz (2D) 62.56 % - Ao root diameter (2D) 3.3 cm (2 - 3.7) Volumes/Mass Name Value Normal Range LA ESV SP 4CH (A/L) 84.94 ml - LA ESV SP 2CH (A/L) 79.25 ml - LA ESV BP (A/L) 84.7 ml - LA ESV BP (A/L) index 33.61 ml/m2 - LA ESV SP 4CH (MOD) 81.89 ml - LA ESV SP 2CH (MOD) 78.96 ml - LA ESV BP (MOD) 82.33 ml - LA ESV BP (MOD) index 32.67 ml/m2 - LV EDV SP 4CH (MOD) 153.69 ml - LV ESV SP 4CH (MOD) 51.13 ml - EF SP 4CH (MOD) 66.73 % - LV EDV SP 2CH (MOD) 110.18 ml - LV ESV SP 2CH (MOD) 42.38 ml - EF SP 2CH (MOD) 61.54 % - LV EDV BP 132.71 ml - LV ESV BP 46.25 ml - BP EF (MOD) 65.15 % - Diastolic/Systolic Function Name Value Normal Range MV E-wave Vmax 0.59 m/sec - MV deceleration time 155.37 msec - MV A-wave Vmax 1 m/sec - MV E:A ratio 0.59 ratio - Aortic Valve Name Value Normal Range AV Vmax 1.52 m/sec - AV VTI 29.1 cm - AV peak gradient 9.23 mmHg - AV mean gradient 5.2 mmHg - LVOT diameter 2.54 cm - LVOT Vmax 0.88 m/sec - LVOT VTI 19.35 cm - LVOT peak gradient 3.08 mmHg - LVOT mean gradient 1.61 mmHg - SV LVOT 98.36 ml - LUKAS (continuity Vmax) 2.94 cm2 - LUKAS (continuity VTI) 3.38 cm2 - Ascending Ao 3.45 cm - Tricuspid Valve Name Value Normal Range TV E-wave Vmax 0.57 m/sec - TR Vmax 2.28 m/sec - TR peak gradient 20.75 mmHg - RAP 3 mmHg - RVSP 23 mmHg - IVC diameter 1.47 cm (1.2 - 2.3) Pulmonic Valve/Qp:Qs Name Value Normal Range PV Vmax 1.36 m/sec - PV peak gradient 7.41 mmHg - RVOT Vmax 0.74 m/sec - RVOT VTI 14 cm - RVOT peak gradient 2.22 mmHg - PV acceleration time 156.04 msec - Rosenberg/IV: Voiding Method Toilet IV Catheter Type [Left Hand] INT / Saline Lock Active Medications - Current Medications Current Medications: Generic Name Dose Route Start Last Admin Trade Name Freq PRN Reason Stop Dose Admin Acetaminophen 650 mg 06/05/20 01:42 06/09/20 13:57 Acetaminophen 325 Mg Tab PO 650 mg Q4H PRN Administration Pain MILD(1-3)/Fever >100.5/CUNHA Amlodipine Besylate 10 mg 06/16/20 10:00 06/18/20 10:51 Amlodipine 10 Mg Tab PO 10 mg DAILY LEONIE Administration Buspirone HCl 10 mg 06/14/20 22:00 06/18/20 10:51 Buspirone 10 Mg Tab PO 10 mg BID LEONIE Administration Dextrose 0 ml 06/05/20 01:42 Dextrose 50% In Water (25gm) 50 Ml Syringe IV Q30MIN PRN Hypoglycemia Protocol Divalproex Sodium 250 mg 06/16/20 22:00 06/18/20 10:[address] 250 Mg Tab PO 250 mg BID LEONIE Administration Docusate Sodium 100 mg 06/17/20 22:00 06/18/20 10:51 Docusate Sodium 100 Mg Cap PO 100 mg BID LEONIE Administration Famotidine 20 mg 06/17/20 15:00 06/18/20 10:51 Famotidine 20 Mg Tab PO 20 mg QDAY LEONIE Administration Gemfibrozil 600 mg 06/05/20 22:00 06/18/20 10:51 Gemfibrozil 600 Mg Tab PO 600 mg BID LEONIE Administration Heparin Sodium (Porcine) 5,000 unit 06/05/20 06:00 06/18/20 06:32 Heparin 5,000 Unit/1 Ml Vial SUB-Q 5,000 unit Q8HR LEONIE Administration Insulin Glargine 10 units 06/16/20 22:00 06/17/20 21:16 Insulin Glargine 100 Units/Ml SUB-Q 10 units QHS LEONIE Administration Insulin Human Lispro 0 unit 06/07/20 16:30 06/18/20 08:47 Insulin Lispro 100 Unit/Ml Vial 3 Ml SUB-Q 6 unit ACHS LEONIE Administration Protocol Lisinopril 5 mg 06/18/20 10:00 06/18/20 10:51 Lisinopril 5 Mg Tab PO 5 mg QDAY LEONIE Administration Loratadine/Pseudoephedrine Sulfate 1 each 06/06/20 22:00 06/18/20 10:53 Loratadine/Pseudoephedrine 5-120 Mg Tab 12hr PO Not Given Q12HR LEONIE Magnesium Hydroxide 30 ml 06/05/20 01:42 06/17/20 17:26 Magnesium Hydroxide (Mom) Oral Liqd Udc PO 30 ml Q4H PRN Administration Constipation Morphine Sulfate 2 mg 06/05/20 01:42 06/17/20 07:31 Morphine 2 Mg/1 Ml Inj IV 2 mg Q5MIN PRN Administration Chest Pain Nitroglycerin 0.4 mg 06/05/20 01:42 Nitroglycerin 0.4 Mg Tab Subl SL Q5M PRN Chest Pain Ondansetron HCl 4 mg 06/05/20 01:42 Ondansetron 4 Mg/2 Ml Inj IV Q8H PRN Nausea And Vomiting Oxycodone/Acetaminophen 2 tab 06/16/20 16:00 06/17/20 17:26 Oxycodone /Acetaminophen 5-325mg Tab PO 2 tab Q6H PRN Administration Pain, Moderate (4-6) Quetiapine Fumarate 200 mg 06/18/20 10:00 06/18/20 10:51 Quetiapine 200 Mg Tab PO 200 mg QDAY@1000 LEONIE Administration Senna 17.2 mg 06/17/20 22:00 06/17/20 21:14 Sennosides 8.6 Mg Tab PO 17.2 mg QHS LEONIE Administration Sertraline HCl 50 mg 06/17/20 10:00 06/18/20 10:51 Sertraline 50 Mg Tab PO 50 mg QDAY LEONIE Administration Sodium Chloride 10 ml 06/05/20 10:00 06/17/20 21:20 Sodium Chloride 0.9% 10 Ml Flush Syringe IV Not Given BID LEONIE Sodium Chloride 10 ml 06/05/20 01:42 Sodium Chloride 0.9% 10 Ml Flush Syringe IV PRN PRN LINE FLUSH Nutrition/Malnutrition Assess - Dietary Evaluation Nutrition/Malnutrition Findings: Nutrition Notes Start: 06/05/20 11:49 Freq: Status: Active Protocol: Document 06/12/20 11:20 EN (Rec: 12/18/20 11:23 EN [id number]) Co-Sign 06/12/20 11:20 MK Nutrition Notes Need for Assessment generated from: LOS Initial or Follow up Brief Note Current Diagnosis Diabetes,Hypertension, Hyperlipidemia Other Pertinent Diagnosis Bipolar Disorder, Hyperglycemia Current Diet Cardiac/Consistent CHO Subjective/Other Information Pt screened for LOS. Pt states that he has a decreased appetite yesterday d/t new medication, however, pt consuming 100% of meals regardless. Pt states that he has been eating 100% of his meals consistently and that he has not had any recent weight loss. Pt denies N/V/D. Pt would like turkey sausage with breakfast. Nutrition Intervention Anticipated Discharge Needs: Cardiac/Consistent CHO diet Revisit per MD consult or patient Sign Off request:
[2020-06-18] MEDS: oxyCODONE /ACETAMINOPHEN 5-325MG TAB PO PRN (13:04)
--- NOTE | 2020-06-18 14:44 | Event Note ---
I spoke with [facility] at [phone] and was informed that the patient's referral was received on 06/10 and reviewed by the psychiatric team. It has been sent to internal medicine for review. Internal medicine has reviewed the case yet and may do so by Friday 06/22 and they will call [facility] back for any requests.
[2020-06-18] MEDS: SENNOSIDES 8.6 MG TAB PO SCH (23:01)
[2020-06-18] MEDS: INSULIN GLARGINE 100 UNITS/ML SUB-Q SCH (23:04)
[2020-06-19] MEDS: HEPARIN 5,000 UNIT/1 ML VIAL SUB-Q SCH (05:11)
[2020-06-19] MEDS: LORATADINE/PSEUDOEPHEDRINE 5-120 MG TAB 12HR PO SCH ×2 (05:11→22:22)
[2020-06-19] MEDS: INSULIN NPH/REGULAR 70/30 INJ SUB-Q SCH ×2 (09:27→22:23)
[2020-06-19] MEDS: QUEtiapine 200 MG TAB PO SCH (09:27)
[2020-06-19] MEDS: LISINOPRIL 5 MG TAB PO SCH (09:27)
[2020-06-19] MEDS: amLODIPine 10 MG TAB PO SCH (09:27)
[2020-06-19] MEDS: INSULIN LISPRO 100 UNIT/ML VIAL 3 mL SUB-Q SCH ×5 (09:27→22:30)
[2020-06-19] MEDS: GEMFIBROZIL 600 MG TAB PO SCH ×2 (09:28→22:23)
[2020-06-19] MEDS: DIVALPROEX DR 250 MG TAB PO SCH ×2 (09:28→22:23)
[2020-06-19] MEDS: busPIRone 10 MG TAB PO SCH ×2 (09:28→22:23)
[2020-06-19] MEDS: FAMOTIDINE 20 MG TAB PO SCH (09:28)
[2020-06-19] MEDS: DOCUSATE SODIUM 100 MG CAP PO SCH ×2 (09:28→22:23)
[2020-06-19] MEDS: SERTRALINE 50 MG TAB PO SCH (09:28)
--- NOTE | 2020-06-19 10:36 | Progress Note ---
Subjective - Reason for Consult Consult date: 06/19/20 Reason for consult: MHE Requesting physician: MILTON ROSARIO - Chief Complaint Chief complaint: Psych Progress Patient seen this a.m., endorses persistent SI thoughts, depressed mood and hopelessness REVIEW OF SYSTEMS Constitutional: Negative for weight loss ENT: Negative for stridor Respiratory: Negative for cough or hemoptysis All other systems reviewed and are negative MENTAL STATUS EXAMINATION General Appearance and Behavior: Age appropriate, good hygiene, wearing appropriate clothes, poor eye contact, withdrawn Cooperation: Participating/engaged Psychomotor Behavior: Psychomotor normal Mood: depressed Affect and affective range: congruent with stated mood Thought Process: goal directed Thought Content: hopelessness Speech: Normal rate, volume and rhythm Suicidal Ideation: Yes Homicidal Ideation: Denies Hallucinations: Denies Delusions: None elicited Impulse Control: Linited Insight and Judgment: Limited insight and judgment Memory: Normal Attention: Normal Orientation: Alert, oriented Assessment and Plan (1) MDD (major depressive disorder) Current Visit: Yes Status: Acute Treatment Plan continue current meds Risks, benefits and alternatives of medications discussed with the patient, questions answered and consent obtained from patient. PSYCHOTHERAPY: Supportive psychotherapy provided MEDICAL: Per primary team DELIRIUM PRECAUTIONS: Please re-orient patient frequently, keep lights on during the day, and minimize benzodiazepines and opiates as these medications could worsen patient's confusion. SIGNAL TOWER DIRECTOR: DISPOSITION: Recommend acute inpatient psychiatric hospitalization at this time LEGAL STATUS: 1013 FOLLOW-UP: Will follow the patient 06/22 Thank you for the consult. Please contact with any questions and/or concerns. Mental Status Exam - Vital signs Last Vital Signs Temp 95.8 F L 06/19/20 04:29 Pulse 91 H 06/19/20 04:29 Resp 16 06/19/20 04:29 BP 167/92 06/19/20 04:29 Pulse Ox 93 06/19/20 04:29 Assessment and Plan - Patient Problems (1) MDD (major depressive disorder) Current Visit: Yes Status: Chronic Qualifiers: Major depression recurrence: recurrent
[2020-06-19 11:26] LABS: BUN/Creatinine Ratio 16; Blood Urea Nitrogen 18 mg/dL (9-20); Hemolysis Index 1
--- NOTE | 2020-06-19 12:32 | Progress Note ---
Assessment and Plan - Patient Problems (1) Hyperglycemia due to diabetes mellitus Current Visit: Yes Status: Acute Plan to address problem: S/p 26 units of regular insulin in the emergency department given over 3 doses SSI 06/05 Lantus 5 units nightly started for persistent hyperglycemia, discontinued 06/08 06/05 Hemoglobin A1c 11.2 06/06 Novolin 70/30 started, titrate as needed 06/16 Lantus nightly started for persistent hyperglycemia Accu-Cheks AC at bedtime CC cardiac diet 06/19 added lispro with meals (2) Homicidal ideation Current Visit: Yes Status: Acute Plan to address problem: Patient states he has homicidal ideations Psychiatric consult Patient is on 1013 hold Sitter at bedside (3) MDD (major depressive disorder) Current Visit: Yes Status: Chronic Qualifiers: Major depression recurrence: recurrent Plan to address problem: Psychiatry consult, appreciate recommendations BuSpar, Depakote, Seroquel, Zoloft Sitter at bedside Patient presented with SI/HI, currently on a 1013 hold Psychiatry recommending inpatient psychiatric hospitalization (4) Hyponatremia Current Visit: Yes Status: Acute Plan to address problem: Presented with a sodium of 134 Corrected sodium for hyperglycemia is remains within normal limits S/p 2 L normal saline in the emergency department Pseudohyponatremia (5) HLD (hyperlipidemia) Current Visit: Yes Status: Chronic Plan to address problem: 06/06 lipid panel: triglycerides 574, cholesterol 189, HDL 34, cholesterol/HDL ratio 5.5 Gemfibrozil started (6) Substance abuse in remission Current Visit: Yes Status: Chronic Plan to address problem: Per psychiatric note patient had substance abuse with cocaine and meth 3 years ago 06/04 UDS negative (7) Noncompliance with medication regimen Current Visit: Yes Status: Chronic Plan to address problem: 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 Counseled on medication compliance (8) Constipation Current Visit: Yes Status: Resolved Qualifiers: Constipation type: other constipation type Qualified Code(s): K59.09 - Other constipation Plan to address problem: 06/17 Patient states he has not had a BM since admit and no documentation found Lactulose x1 VA now because pt refused suppository Colace, Senna scheduled PRN MOM 06/18 patient produced a bowel movement (9) DVT prophylaxis Current Visit: Yes Status: Acute Plan to address problem: SCDs to bilateral extremities while in bed Heparin subcu Patient has a history of a DVT in 1996 History Interval history: This is a 54 year-old male with bipolar disorder, HTN, HLD, history of DVT (1996) and DM who presented to the emergency department on 06/04 complaining of midsternal chest pain which started around 6 AM which was sharp and constant associated with shortness of breath, nausea with no vomiting and mild nonproductive cough. En route he was given nitroglycerin by EMS which improved his pain. Patient expressed homicidal and suicidal ideation therefore he is a 1013. Work-up in the emergency department revealed hyperglycemia and his troponin, EKG and chest x-ray were within normal limits. Patient was admitted to the hospitalist service with consult to cardiology and psychiatry. He is hyperglycemic today and we added scheduled lispro with meals. Reports that he did not sleep last night but states seroquel has helped him sleep. 06/05: Lantus nightly started 06/06: patient refused ischemic evaluation and cardiology recommend risk modification. Patient was evaluated by psych and recommended to inpatient psych admission. Patient is on 1013. Patient is still suicidal. 06/07/2020: Patient still suicidal, Refuses stress test, Patient on 1013, Mental health consult requested, Novolin 70/30 started 06/08: Lantus discontinued and Novolin 70/30 dose increased. yarn dry room worker made aware of inpatient psych recommendation and will start process of finding placement today. 06/09: Novolin 70/30 dose was increased, RN informs me that according to the psych nurse patient blood glucose has to be persistently less than 200s for transfer. Patient still remains with a 1013 and still has SI/HI however does not have a plan. 06/10: Novolin 70/30 increased due to persistent hyperglycemia 06/11: Novolin 70/30 increased due to persistent hyperglycemia 06/12: Patient remains hyperglycemic and Novolin 70/30 increased. Patient has not had any more chest pain during admission. 06/13: blood sugars are uncontrolled secondary to patient's noncompliance with diet. Will increase Novolin 70/30 dose to 35 units twice a day, awaiting inpatient psych placement 06/14 sitter in the room. patient is A&O, feels depressed and continues to admit SI and HI. he is on 1013. psych note reviewed. Awaiting transfer to inpatient psych. facility 06/15: He remains persistently hyperglycemic and his insulin has been increased again. Patient is medically stable for discharge and transfer to a psych facility for continued mental health care. No acute events reported overnight. 06/16: No acute events reported overnight. Psych has seen him today and adjusted his medications. We also added Lantus to his insulin regimen. Awaiting peer to peer from inpatient psych center. 06/17: Today the patient states he has not had a BM since admit and has epigastric pain when eating, lactulose x1 ordered and placed on a bowel regimen. 06/18: Patient had a BM today, states he feels much better. Remains hyperglycemic, adjusted insulin. I spoke to [facility] regarding transfer, patient case reviewed by psych and awaiting medical review. Hospitalist Physical - Constitutional Vitals: Temp Pulse Resp BP Pulse Ox 95.8 F L 91 H 16 167/92 93 06/19/20 04:29 06/19/20 04:29 06/19/20 04:29 06/19/20 04:29 06/19/20 04:29 General appearance: Present: no acute distress, well-nourished - EENT Eyes: Present: PERRL, EOM intact ENT: clear oral mucosa, poor dentition - Neck Neck: Present: normal ROM - Respiratory Respiratory effort: normal Respiratory: bilateral: CTA - Cardiovascular Rhythm: regular Heart Sounds: Present: S1 & S2. Absent: systolic murmur, diastolic murmur - Extremities Extremities: no ischemia, pulses intact, pulses symmetrical, No edema, normal temperature, normal color, Full ROM Peripheral Pulses: within normal limits - Abdominal General gastrointestinal: soft, non-tender, non-distended, normal bowel sounds - Integumentary Integumentary: Present: warm, dry - Psychiatric Psychiatric: cooperative, depressed - Neurologic Neurologic: CNII-XII intact, no focal deficits, moves all extremities - Allied Health Allied health notes reviewed: nursing HEART Score - HEART Score EKG: Normal Age: 45-65 Risk factors: > 3 risk factors or hx of atherosclerotic disease Troponin: Troponin T < 0.010 ng/mL (0.00-0.029) 06/05/20 15:11 Troponin: < normal limit Results - Labs CBC & Chem 7: 06/06/20 07:13 06/19/20 10:46 Labs: Laboratory Last Values WBC 6.2 K/mm3 (4.5-11.0) 06/06/20 07:13 RBC 4.57 M/mm3 (3.65-5.03) 06/06/20 07:13 Hgb 12.6 gm/dl (11.8-15.2) 06/06/20 07:13 Hct 36.6 % (35.5-45.6) 06/06/20 07:13 MCV 80 fl (84-94) L 06/06/20 07:13 MCH 28 pg (28-32) 06/06/20 07:13 MCHC 34 % (32-34) 06/06/20 07:13 RDW 14.2 % (13.2-15.2) 06/06/20 07:13 Plt Count 325 K/mm3 (140-440) 06/06/20 07:13 Lymph % (Auto) 42.1 % (13.4-35.0) H 06/06/20 07:13 Spencer % (Auto) 7.2 % (0.0-7.3) 06/06/20 07:13 Eos % (Auto) 2.5 % (0.0-4.3) 06/06/20 07:13 Baso % (Auto) 1.0 % (0.0-1.8) 06/06/20 07:13 Lymph # (Auto) 2.6 K/mm3 (1.2-5.4) 06/06/20 07:13 Spencer # (Auto) 0.5 K/mm3 (0.0-0.8) 06/06/20 07:13 Eos # (Auto) 0.2 K/mm3 (0.0-0.4) 06/06/20 07:13 Baso # (Auto) 0.1 K/mm3 (0.0-0.1) 06/06/20 07:13 Seg Neutrophils % 47.2 % (40.0-70.0) 06/06/20 07:13 Seg Neutrophils # 2.9 K/mm3 (1.8-7.7) 06/06/20 07:13 PT 12.6 Sec. (12.2-14.9) 06/06/20 07:13 INR 0.96 (0.87-1.13) 06/06/20 07:13 D-Dimer 135.60 ng/mlDDU (0-234) 06/04/20 18:10 Sodium 135 mmol/L (137-145) L 06/19/20 10:46 Potassium 4.4 mmol/L (3.6-5.0) 06/19/20 10:46 Chloride 100.8 mmol/L (98-107) 06/19/20 10:46 Carbon Dioxide 27 mmol/L (22-30) 06/19/20 10:46 Anion Gap 12 mmol/L 06/19/20 10:46 BUN 18 mg/dL (9-20) 06/19/20 10:46 Creatinine 1.1 mg/dL (0.8-1.3) 06/19/20 10:46 Estimated GFR > 60 ml/min 06/19/20 10:46 BUN/Creatinine Ratio 16 % 06/19/20 10:46 Glucose 332 mg/dL (75-100) H 06/19/20 10:46 POC Glucose 289 mg/dL (70-105) H 06/19/20 11:45 Hemoglobin A1c 11.2 % (4-6) H 06/05/20 15:11 Calcium 9.0 mg/dL (8.4-10.2) 06/19/20 10:46 Total Bilirubin 0.30 mg/dL (0.1-1.2) 06/08/20 05:26 AST 7 units/L (5-40) 06/08/20 05:26 ALT 7 units/L (7-56) 06/08/20 05:26 Alkaline Phosphatase 114 units/L (35-129) 06/08/20 05:26 Troponin T < 0.010 ng/mL (0.00-0.029) 06/05/20 15:11 Total Protein 6.9 g/dL (6.3-8.2) 06/08/20 05:26 Albumin 3.5 g/dL (3.9-5) L 06/08/20 05:26 Albumin/Globulin Ratio 1.0 % 06/08/20 05:26 Triglycerides 574 mg/dL (2-149) H 06/05/20 15:11 Cholesterol 189 mg/dL (50-199) 06/05/20 15:11 LDL Cholesterol Direct TNR 06/05/20 15:11 HDL Cholesterol 34 mg/dL (40-59) L 06/05/20 15:11 Cholesterol/HDL Ratio 5.55 % 06/05/20 15:11 Urine Color Yellow (Yellow) 06/04/20 19:16 Urine Turbidity Clear (Clear) 06/04/20 19:16 Urine pH 5.0 (5.0-7.0) 06/04/20 19:16 Ur Specific [place] 1.018 (1.003-1.030) 06/04/20 19:16 Urine Protein <15 mg/dl mg/dL (Negative) 06/04/20 19:16 Urine Glucose (UA) >=500 mg/dL (Negative) 06/04/20 19:16 Urine Ketones 20 mg/dL (Negative) 06/04/20 19:16 Urine Blood Neg (Negative) 06/04/20 19:16 Urine Nitrite Neg (Negative) 06/04/20 19:16 Urine Bilirubin Neg (Negative) 06/04/20 19:16 Urine Urobilinogen < 2.0 mg/dL (<2.0) 06/04/20 19:16 Ur Leukocyte Esterase Neg (Negative) 06/04/20 19:16 Urine WBC (Auto) 6.0 /HPF (0.0-6.0) 06/04/20 19:16 Urine RBC (Auto) 2.0 /HPF (0.0-6.0) 06/04/20 19:16 U Epithel Cells (Auto) 1.0 /HPF (0-13.0) 06/04/20 19:16 Urine Opiates Screen Presumptive negative 06/04/20 19:16 Urine Methadone Screen Presumptive negative 06/04/20 19:16 Acetaminophen 5.0 ug/mL (10.0-30.0) L 06/04/20 18:10 Ur Barbiturates Screen Presumptive negative 06/04/20 19:16 Ur Phencyclidine Scrn Presumptive negative 06/04/20 19:16 Ur Amphetamines Screen Presumptive negative 06/04/20 19:16 U Benzodiazepines Scrn Presumptive negative 06/04/20 19:16 Urine Cocaine Screen Presumptive positive 06/04/20 19:16 U Marijuana (THC) Screen Presumptive negative 06/04/20 19:16 Drugs of Abuse Note Disclamer 06/04/20 19:16 Plasma/Serum Alcohol < 0.01 % (0-0.07) 06/04/20 18:10 Coronavirus (PCR) Negative (Negative) 06/09/20 Unknown - Diagnostic Impressions Diagnostic Impressions: Echocardiogram 06/05/20 01:47 Transthoracic Echocardiogram Indication: Chest Pain BP: 148/87 Conclusions *The left ventricular chamber size is normal. *Mild to moderate concentric left ventricular hypertrophy is observed. *The estimated ejection fraction is 60-65%. *Abnormal left ventricular diastolic filling is observed, consistent with impaired relaxation. *The left atrium is normal in size with no visual thrombus identified. *The right ventricular chamber size and systolic function are within normal limits. *The aortic valve is trileaflet. *The right ventricular systolic pressure is calculated at 23 mmHg. Findings Procedure Info: The study quality is fair. Left Ventricle: The left ventricular chamber size is normal. Mild to moderate concentric left ventricular hypertrophy is observed. The estimated ejection fraction is 60-65%. Abnormal left ventricular diastolic filling is observed, consistent with impaired relaxation. Left Atrium: The left atrium is normal in size with no visual thrombus identified. Right Ventricle: The right ventricular chamber size and systolic function are within normal limits. Right Atrium: The right atrium appears normal. Aortic Valve: The aortic valve is trileaflet. Mild aortic leaflet calcification is visualized. There is trace of aortic regurgitation. There is no evidence of aortic stenosis. Mitral Valve: The mitral valve leaflets appear normal. There is trace of mitral regurgitation. There is no evidence of mitral stenosis. Tricuspid Valve: The tricuspid valve leaflets are normal. There is trace tricuspid regurgitation. The right ventricular systolic pressure is calculated at 23 mmHg. There is no tricuspid stenosis. Pulmonic Valve: The pulmonic valve appears normal in structure and function. Pericardium: The pericardium appears normal. Aorta: The aorta appears normal. Pulmonary Artery: The main pulmonary artery appears normal. Venous: The inferior vena cava appears normal in size. There is a greater than 50% respiratory change in the inferior vena cava dimension. Measurements Chambers 2D Name Value Normal Range IVSd (2D) 1.37 cm (0.6 - 1.1) LVPWd (2D) 1.22 cm (0.6 - 1.1) LVIDd (2D) 5.24 cm (3.7 - 5.6) LVIDs (2D) 3.46 cm (2 - 3.8) LV FS (2D) 34.04 % - EF Teichholz (2D) 62.56 % - Ao root diameter (2D) 3.3 cm (2 - 3.7) Volumes/Mass Name Value Normal Range LA ESV SP 4CH (A/L) 84.94 ml - LA ESV SP 2CH (A/L) 79.25 ml - LA ESV BP (A/L) 84.7 ml - LA ESV BP (A/L) index 33.61 ml/m2 - LA ESV SP 4CH (MOD) 81.89 ml - LA ESV SP 2CH (MOD) 78.96 ml - LA ESV BP (MOD) 82.33 ml - LA ESV BP (MOD) index 32.67 ml/m2 - LV EDV SP 4CH (MOD) 153.69 ml - LV ESV SP 4CH (MOD) 51.13 ml - EF SP 4CH (MOD) 66.73 % - LV EDV SP 2CH (MOD) 110.18 ml - LV ESV SP 2CH (MOD) 42.38 ml - EF SP 2CH (MOD) 61.54 % - LV EDV BP 132.71 ml - LV ESV BP 46.25 ml - BP EF (MOD) 65.15 % - Diastolic/Systolic Function Name Value Normal Range MV E-wave Vmax 0.59 m/sec - MV deceleration time 155.37 msec - MV A-wave Vmax 1 m/sec - MV E:A ratio 0.59 ratio - Aortic Valve Name Value Normal Range AV Vmax 1.52 m/sec - AV VTI 29.1 cm - AV peak gradient 9.23 mmHg - AV mean gradient 5.2 mmHg - LVOT diameter 2.54 cm - LVOT Vmax 0.88 m/sec - LVOT VTI 19.35 cm - LVOT peak gradient 3.08 mmHg - LVOT mean gradient 1.61 mmHg - SV LVOT 98.36 ml - LUKAS (continuity Vmax) 2.94 cm2 - LUKAS (continuity VTI) 3.38 cm2 - Ascending Ao 3.45 cm - Tricuspid Valve Name Value Normal Range TV E-wave Vmax 0.57 m/sec - TR Vmax 2.28 m/sec - TR peak gradient 20.75 mmHg - RAP 3 mmHg - RVSP 23 mmHg - IVC diameter 1.47 cm (1.2 - 2.3) Pulmonic Valve/Qp:Qs Name Value Normal Range PV Vmax 1.36 m/sec - PV peak gradient 7.41 mmHg - RVOT Vmax 0.74 m/sec - RVOT VTI 14 cm - RVOT peak gradient 2.22 mmHg - PV acceleration time 156.04 msec - Rosenberg/IV: Voiding Method Toilet IV Catheter Type [Left Hand] INT / Saline Lock Active Medications - Current Medications Current Medications: Generic Name Dose Route Start Last Admin Trade Name Freq PRN Reason Stop Dose Admin Acetaminophen 650 mg 06/05/20 01:42 06/09/20 13:57 Acetaminophen 325 Mg Tab PO 650 mg Q4H PRN Administration Pain MILD(1-3)/Fever >100.5/CUNHA Amlodipine Besylate 10 mg 06/16/20 10:00 06/19/20 09:27 Amlodipine 10 Mg Tab PO 10 mg DAILY LEONIE Administration Buspirone HCl 10 mg 06/14/20 22:00 06/19/20 09:28 Buspirone 10 Mg Tab PO 10 mg BID LEONIE Administration Dextrose 0 ml 06/05/20 01:42 Dextrose 50% In Water (25gm) 50 Ml Syringe IV Q30MIN PRN Hypoglycemia Protocol Divalproex Sodium 250 mg 06/16/20 22:00 06/19/20 09:[address] 250 Mg Tab PO 250 mg BID LEONIE Administration Docusate Sodium 100 mg 06/17/20 22:00 06/19/20 09:28 Docusate Sodium 100 Mg Cap PO 100 mg BID LEONIE Administration Famotidine 20 mg 06/17/20 15:00 06/19/20 09:28 Famotidine 20 Mg Tab PO 20 mg QDAY LEONIE Administration Gemfibrozil 600 mg 06/05/20 22:00 06/19/20 09:28 Gemfibrozil 600 Mg Tab PO 600 mg BID LEONIE Administration Heparin Sodium (Porcine) 5,000 unit 06/05/20 06:00 06/19/20 05:11 Heparin 5,000 Unit/1 Ml Vial SUB-Q Not Given Q8HR LEONIE Insulin Glargine 10 units 06/16/20 22:00 06/18/20 23:04 Insulin Glargine 100 Units/Ml SUB-Q 10 units QHS LEONIE Administration Insulin Human Isoph/Insulin Regular 47 unit 06/18/20 17:00 06/19/20 09:27 Insulin Nph/Regular 70/30 Inj SUB-Q 47 unit BIDDIAB LEONIE Administration Insulin Human Lispro 0 unit 06/07/20 16:30 06/19/20 09:27 Insulin Lispro 100 Unit/Ml Vial 3 Ml SUB-Q 6 unit ACHS LEONIE Administration Protocol Insulin Human Lispro 2 unit 06/19/20 16:30 Insulin Lispro 100 Unit/Ml Vial 3 Ml SUB-Q ACHS LEONIE Lisinopril 5 mg 06/18/20 10:00 06/19/20 09:27 Lisinopril 5 Mg Tab PO 5 mg QDAY LEONIE Administration Loratadine/Pseudoephedrine Sulfate 1 each 06/06/20 22:00 06/19/20 05:11 Loratadine/Pseudoephedrine 5-120 Mg Tab 12hr PO Not Given Q12HR LEONIE Magnesium Hydroxide 30 ml 06/05/20 01:42 06/17/20 17:26 Magnesium Hydroxide (Mom) Oral Liqd Udc PO 30 ml Q4H PRN Administration Constipation Morphine Sulfate 2 mg 06/05/20 01:42 06/17/20 07:31 Morphine 2 Mg/1 Ml Inj IV 2 mg Q5MIN PRN Administration Chest Pain Nitroglycerin 0.4 mg 06/05/20 01:42 Nitroglycerin 0.4 Mg Tab Subl SL Q5M PRN Chest Pain Ondansetron HCl 4 mg 06/05/20 01:42 Ondansetron 4 Mg/2 Ml Inj IV Q8H PRN Nausea And Vomiting Oxycodone/Acetaminophen 2 tab 06/16/20 16:00 06/18/20 13:04 Oxycodone /Acetaminophen 5-325mg Tab PO 2 tab Q6H PRN Administration Pain, Moderate (4-6) Quetiapine Fumarate 200 mg 06/18/20 10:00 06/19/20 09:27 Quetiapine 200 Mg Tab PO 200 mg QDAY@1000 LEONIE Administration Senna 17.2 mg 06/17/20 22:00 06/18/20 23:01 Sennosides 8.6 Mg Tab PO 17.2 mg QHS LEONIE Administration Sertraline HCl 50 mg 06/17/20 10:00 06/19/20 09:28 Sertraline 50 Mg Tab PO 50 mg QDAY LEONIE Administration Sodium Chloride 10 ml 06/05/20 10:00 06/19/20 09:28 Sodium Chloride 0.9% 10 Ml Flush Syringe IV 10 ml BID LEONIE Administration Sodium Chloride 10 ml 06/05/20 01:42 Sodium Chloride 0.9% 10 Ml Flush Syringe IV PRN PRN LINE FLUSH Nutrition/Malnutrition Assess - Dietary Evaluation Nutrition/Malnutrition Findings: Nutrition Notes Start: 06/05/20 11:49 Freq: Status: Active Protocol: Document 06/12/20 11:20 EN (Rec: 06/12/20 11:23 EN [email or web address]) Co-Sign 06/12/20 11:20 MK Nutrition Notes Need for Assessment generated from: LOS Initial or Follow up Brief Note Current Diagnosis Diabetes,Hypertension, Hyperlipidemia Other Pertinent Diagnosis Bipolar Disorder, Hyperglycemia Current Diet Cardiac/Consistent CHO Subjective/Other Information Pt screened for LOS. Pt states that he has a decreased appetite yesterday d/t new medication, however, pt consuming 100% of meals regardless. Pt states that he has been eating 100% of his meals consistently and that he has not had any recent weight loss. Pt denies N/V/D. Pt would like turkey sausage with breakfast. Nutrition Intervention Anticipated Discharge Needs: Cardiac/Consistent CHO diet Revisit per MD consult or patient Sign Off request:
[2020-06-19] MEDS: oxyCODONE /ACETAMINOPHEN 5-325MG TAB PO PRN (20:30)
[2020-06-19] MEDS: SENNOSIDES 8.6 MG TAB PO SCH (22:23)
[2020-06-19] MEDS: INSULIN GLARGINE 100 UNITS/ML SUB-Q SCH (22:24)
[2020-06-20] MEDS: HEPARIN 5,000 UNIT/1 ML VIAL SUB-Q SCH ×5 (00:32→21:30)
[2020-06-20] MEDS: LORATADINE/PSEUDOEPHEDRINE 5-120 MG TAB 12HR PO SCH ×3 (09:22→21:27)
[2020-06-20] MEDS: INSULIN LISPRO 100 UNIT/ML VIAL 3 mL SUB-Q SCH ×9 (09:23→21:30)
--- NOTE | 2020-06-20 10:56 | Progress Note ---
Assessment and Plan Assessment and plan: (1) Hyperglycemia due to diabetes mellitus S/p 26 units of regular insulin in the emergency department given over 3 doses SSI 06/05 Lantus 5 units nightly started for persistent hyperglycemia, discontinued 06/08 06/05 Hemoglobin A1c 11.2 06/06 Novolin 70/30 started, titrate as needed 06/16 Lantus nightly started for persistent hyperglycemia Accu-Cheks AC at bedtime CC cardiac diet 06/19 added lispro with meals Homicidal ideation Patient states he has homicidal ideations Psychiatric consult Patient is on 1013 hold Sitter at bedside MDD (major depressive disorder) Psychiatry consult, appreciate recommendations BuSpar, Depakote, Seroquel, Zoloft Sitter at bedside Patient presented with SI/HI, currently on a 1013 hold Psychiatry recommending inpatient psychiatric hospitalization Hyponatremia Presented with a sodium of 134 Corrected sodium for hyperglycemia is remains within normal limits S/p 2 L normal saline in the emergency department Pseudohyponatremia HLD (hyperlipidemia) 06/06 lipid panel: triglycerides 574, cholesterol 189, HDL 34, cholesterol/HDL ratio 5.5 Gemfibrozil started Substance abuse in remission Per psychiatric note patient had substance abuse with cocaine and meth 3 years ago 06/04 UDS negative Noncompliance with medication regimen Patient reports recent homelessness health worker/case management consult Counseled on medication compliance Constipation 06/17 Patient states he has not had a BM since admit and no documentation found Lactulose x1 MN now because pt refused suppository Colace, Senna scheduled PRN MOM 06/18 patient produced a bowel movement DVT prophylaxis SCDs to bilateral extremities while in bed Heparin subcu Patient has a history of a DVT in 06/05: Lantus nightly started 06/06: patient refused ischemic evaluation and cardiology recommend risk modification. Patient was evaluated by psych and recommended to inpatient psych admission. Patient is on 1012. Patient is still suicidal. 06/07/2020: Patient still suicidal, Refuses stress test, Patient on 1012, Mental health consult requested, Novolin 70/30 started 06/08: Lantus discontinued and Novolin 70/30 dose increased. health worker made aware of inpatient psych recommendation and will start process of finding placement today. 06/09: Novolin 70/30 dose was increased, RN informs me that according to the psych nurse patient blood glucose has to be persistently less than 200s for transfer. Patient still remains with a 1013 and still has SI/HI however does not have a plan. 06/10: Novolin 70/30 increased due to persistent hyperglycemia 06/11: Novolin 70/30 increased due to persistent hyperglycemia 06/12: Patient remains hyperglycemic and Novolin 70/30 increased. Patient has not had any more chest pain during admission. 06/13: blood sugars are uncontrolled secondary to patient's noncompliance with diet. Will increase Novolin 70/30 dose to 35 units twice a day, awaiting inpatient psych placement 06/14 sitter in the room. patient is A&O, feels depressed and continues to admit SI and HI. he is on 1013. psych note reviewed. Awaiting transfer to inpatient psych. facility 06/15: He remains persistently hyperglycemic and his insulin has been increased again. Patient is medically stable for discharge and transfer to a psych facility for continued mental health care. No acute events reported overnight. 06/16: No acute events reported overnight. Psych has seen him today and adjuste d his medications. We also added Lantus to his insulin regimen. Awaiting peer to peer from inpatient psych center. 06/17: Today the patient states he has not had a BM since admit and has epigastric pain when eating, lactulose x1 ordered and placed on a bowel regimen. 06/18: Patient had a BM today, states he feels much better. Remains hyperglycemic, adjusted insulin. I spoke to [facility] regarding transfer, patient case reviewed by psych and awaiting medical review. 06/19: No new issues overnight. Patient denies any complaints. 06/20: BG better but still not consistently below 200. Increase Novolin 70/30 to 50 units twice daily. Increase Lantus insulin to 15 units at bedtime. Follow-up BG. Awaiting transfer to inpatient psych. facility when BG stable <200 History Interval history: No new issues overnight. Hospitalist Physical - Constitutional Vitals: Temp Pulse Resp BP Pulse Ox 98.6 F 94 H 18 151/84 94 06/20/20 07:50 06/20/20 07:50 06/20/20 07:50 06/20/20 07:50 06/20/20 07:50 General appearance: Present: no acute distress, well-nourished - EENT Eyes: Present: PERRL, EOM intact ENT: hearing intact, clear oral mucosa, dentition normal - Neck Neck: Present: supple, normal ROM - Respiratory Respiratory effort: normal Respiratory: bilateral: CTA - Cardiovascular Rhythm: regular Heart Sounds: Present: S1 & S2. Absent: gallop, rub - Extremities Extremities: no ischemia, No edema, Full ROM - Abdominal General gastrointestinal: soft, non-tender, non-distended, normal bowel sounds - Integumentary Integumentary: Present: clear, warm, dry - Neurologic Neurologic: CNII-XII intact, moves all extremities HEART Score - HEART Score EKG: Normal Age: 45-65 Risk factors: > 3 risk factors or hx of atherosclerotic disease Troponin: Troponin T < 0.010 ng/mL (0.00-0.029) 06/05/20 15:11 Troponin: < normal limit Results - Labs CBC & Chem 7: 06/06/20 07:13 06/19/20 10:46 Labs: Laboratory Last Values WBC 6.2 K/mm3 (4.5-11.0) 06/06/20 07:13 RBC 4.57 M/mm3 (3.65-5.03) 06/06/20 07:13 Hgb 12.6 gm/dl (11.8-15.2) 06/06/20 07:13 Hct 36.6 % (35.5-45.6) 06/06/20 07:13 MCV 80 fl (84-94) L 06/06/20 07:13 MCH 28 pg (28-32) 06/06/20 07:13 MCHC 34 % (32-34) 06/06/20 07:13 RDW 14.2 % (13.2-15.2) 06/06/20 07:13 Plt Count 325 K/mm3 (140-440) 06/06/20 07:13 Lymph % (Auto) 42.1 % (13.4-35.0) H 06/06/20 07:13 [place] % (Auto) 7.2 % (0.0-7.3) 06/06/20 07:13 Eos % (Auto) 2.5 % (0.0-4.3) 06/06/20 07:13 Baso % (Auto) 1.0 % (0.0-1.8) 06/06/20 07:13 Lymph # (Auto) 2.6 K/mm3 (1.2-5.4) 06/06/20 07:13 [place] # (Auto) 0.5 K/mm3 (0.0-0.8) 06/06/20 07:13 Eos # (Auto) 0.2 K/mm3 (0.0-0.4) 06/06/20 07:13 Baso # (Auto) 0.1 K/mm3 (0.0-0.1) 06/06/20 07:13 Seg Neutrophils % 47.2 % (40.0-70.0) 06/06/20 07:13 Seg Neutrophils # 2.9 K/mm3 (1.8-7.7) 06/06/20 07:13 PT 12.6 Sec. (12.2-14.9) 06/06/20 07:13 INR 0.96 (0.87-1.13) 06/06/20 07:13 D-Dimer 135.60 ng/mlDDU (0-234) 06/04/20 18:10 Sodium 135 mmol/L (137-145) L 06/19/20 10:46 Potassium 4.4 mmol/L (3.6-5.0) 06/19/20 10:46 Chloride 100.8 mmol/L (98-107) 06/19/20 10:46 Carbon Dioxide 27 mmol/L (22-30) 06/19/20 10:46 Anion Gap 12 mmol/L 06/19/20 10:46 BUN 18 mg/dL (9-20) 06/19/20 10:46 Creatinine 1.1 mg/dL (0.8-1.3) 06/19/20 10:46 Estimated GFR > 60 ml/min 06/19/20 10:46 BUN/Creatinine Ratio 16 % 06/19/20 10:46 Glucose 332 mg/dL (75-100) H 06/19/20 10:46 POC Glucose 265 mg/dL (70-105) H 06/20/20 08:48 Hemoglobin A1c 11.2 % (4-6) H 06/05/20 15:11 Calcium 9.0 mg/dL (8.4-10.2) 06/19/20 10:46 Total Bilirubin 0.30 mg/dL (0.1-1.2) 06/08/20 05:26 AST 7 units/L (5-40) 06/08/20 05:26 ALT 7 units/L (7-56) 06/08/20 05:26 Alkaline Phosphatase 114 units/L (35-129) 06/08/20 05:26 Troponin T < 0.010 ng/mL (0.00-0.029) 06/05/20 15:11 Total Protein 6.9 g/dL (6.3-8.2) 06/08/20 05:26 Albumin 3.5 g/dL (3.9-5) L 06/08/20 05:26 Albumin/Globulin Ratio 1.0 % 06/08/20 05:26 Triglycerides 574 mg/dL (2-149) H 06/05/20 15:11 Cholesterol 189 mg/dL (50-199) 06/05/20 15:11 LDL Cholesterol Direct TNR 06/05/20 15:11 HDL Cholesterol 34 mg/dL (40-59) L 06/05/20 15:11 Cholesterol/HDL Ratio 5.55 % 06/05/20 15:11 Urine Color Yellow (Yellow) 06/04/20 19:16 Urine Turbidity Clear (Clear) 06/04/20 19:16 Urine pH 5.0 (5.0-7.0) 06/04/20 19:16 Ur Specific [place] 1.018 (1.003-1.030) 06/04/20 19:16 Urine Protein <15 mg/dl mg/dL (Negative) 06/04/20 19:16 Urine Glucose (UA) >=500 mg/dL (Negative) 06/04/20 19:16 Urine Ketones 20 mg/dL (Negative) 06/04/20 19:16 Urine Blood Neg (Negative) 06/04/20 19:16 Urine Nitrite Neg (Negative) 06/04/20 19:16 Urine Bilirubin Neg (Negative) 06/04/20 19:16 Urine Urobilinogen < 2.0 mg/dL (<2.0) 06/04/20 19:16 Ur Leukocyte Esterase Neg (Negative) 06/04/20 19:16 Urine WBC (Auto) 6.0 /HPF (0.0-6.0) 06/04/20 19:16 Urine RBC (Auto) 2.0 /HPF (0.0-6.0) 06/04/20 19:16 U Epithel Cells (Auto) 1.0 /HPF (0-13.0) 06/04/20 19:16 Urine Opiates Screen Presumptive negative 06/04/20 19:16 Urine Methadone Screen Presumptive negative 06/04/20 19:16 Acetaminophen 5.0 ug/mL (10.0-30.0) L 06/04/20 18:10 Ur Barbiturates Screen Presumptive negative 06/04/20 19:16 Ur Phencyclidine Scrn Presumptive negative 06/04/20 19:16 Ur Amphetamines Screen Presumptive negative 06/04/20 19:16 U Benzodiazepines Scrn Presumptive negative 06/04/20 19:16 Urine Cocaine Screen Presumptive positive 06/04/20 19:16 U Marijuana (THC) Screen Presumptive negative 06/04/20 19:16 Drugs of Abuse Note Disclamer 06/04/20 19:16 Plasma/Serum Alcohol < 0.01 % (0-0.07) 06/04/20 18:10 Coronavirus (PCR) Negative (Negative) 06/09/20 Unknown - Diagnostic Impressions Diagnostic Impressions: Echocardiogram 06/05/20 01:47 Transthoracic Echocardiogram Indication: Chest Pain BP: 148/87 Conclusions *The left ventricular chamber size is normal. *Mild to moderate concentric left ventricular hypertrophy is observed. *The estimated ejection fraction is 60-65%. *Abnormal left ventricular diastolic filling is observed, consistent with impaired relaxation. *The left atrium is normal in size with no visual thrombus identified. *The right ventricular chamber size and systolic function are within normal limits. *The aortic valve is trileaflet. *The right ventricular systolic pressure is calculated at 23 mmHg. Findings Procedure Info: The study quality is fair. Left Ventricle: The left ventricular chamber size is normal. Mild to moderate concentric left ventricular hypertrophy is observed. The estimated ejection fraction is 60-65%. Abnormal left ventricular diastolic filling is observed, consistent with impaired relaxation. Left Atrium: The left atrium is normal in size with no visual thrombus identified. Right Ventricle: The right ventricular chamber size and systolic function are within normal limits. Right Atrium: The right atrium appears normal. Aortic Valve: The aortic valve is trileaflet. Mild aortic leaflet calcification is visualized. There is trace of aortic regurgitation. There is no evidence of aortic stenosis. Mitral Valve: The mitral valve leaflets appear normal. There is trace of mitral regurgitation. There is no evidence of mitral stenosis. Tricuspid Valve: The tricuspid valve leaflets are normal. There is trace tricuspid regurgitation. The right ventricular systolic pressure is calculated at 23 mmHg. There is no tricuspid stenosis. Pulmonic Valve: The pulmonic valve appears normal in structure and function. Pericardium: The pericardium appears normal. Aorta: The aorta appears normal. Pulmonary Artery: The main pulmonary artery appears normal. Venous: The inferior vena cava appears normal in size. There is a greater than 50% respiratory change in the inferior vena cava dimension. Measurements Chambers 2D Name Value Normal Range IVSd (2D) 1.37 cm (0.6 - 1.1) LVPWd (2D) 1.22 cm (0.6 - 1.1) LVIDd (2D) 5.24 cm (3.7 - 5.6) LVIDs (2D) 3.46 cm (2 - 3.8) LV FS (2D) 34.04 % - EF Teichholz (2D) 62.56 % - Ao root diameter (2D) 3.3 cm (2 - 3.7) Volumes/Mass Name Value Normal Range LA ESV SP 4CH (A/L) 84.94 ml - LA ESV SP 2CH (A/L) 79.25 ml - LA ESV BP (A/L) 84.7 ml - LA ESV BP (A/L) index 33.61 ml/m2 - LA ESV SP 4CH (MOD) 81.89 ml - LA ESV SP 2CH (MOD) 78.96 ml - LA ESV BP (MOD) 82.33 ml - LA ESV BP (MOD) index 32.67 ml/m2 - LV EDV SP 4CH (MOD) 153.69 ml - LV ESV SP 4CH (MOD) 51.13 ml - EF SP 4CH (MOD) 66.73 % - LV EDV SP 2CH (MOD) 110.18 ml - LV ESV SP 2CH (MOD) 42.38 ml - EF SP 2CH (MOD) 61.54 % - LV EDV BP 132.71 ml - LV ESV BP 46.25 ml - BP EF (MOD) 65.15 % - Diastolic/Systolic Function Name Value Normal Range MV E-wave Vmax 0.59 m/sec - MV deceleration time 155.37 msec - MV A-wave Vmax 1 m/sec - MV E:A ratio 0.59 ratio - Aortic Valve Name Value Normal Range AV Vmax 1.52 m/sec - AV VTI 29.1 cm - AV peak gradient 9.23 mmHg - AV mean gradient 5.2 mmHg - LVOT diameter 2.54 cm - LVOT Vmax 0.88 m/sec - LVOT VTI 19.35 cm - LVOT peak gradient 3.08 mmHg - LVOT mean gradient 1.61 mmHg - SV LVOT 98.36 ml - LUKAS (continuity Vmax) 2.94 cm2 - LUKAS (continuity VTI) 3.38 cm2 - Ascending Ao 3.45 cm - Tricuspid Valve Name Value Normal Range TV E-wave Vmax 0.57 m/sec - TR Vmax 2.28 m/sec - TR peak gradient 20.75 mmHg - RAP 3 mmHg - RVSP 23 mmHg - IVC diameter 1.47 cm (1.2 - 2.3) Pulmonic Valve/Qp:Qs Name Value Normal Range PV Vmax 1.36 m/sec - PV peak gradient 7.41 mmHg - RVOT Vmax 0.74 m/sec - RVOT VTI 14 cm - RVOT peak gradient 2.22 mmHg - PV acceleration time 156.04 msec - [place]/IV: Voiding Method Toilet IV Catheter Type [Left Hand] INT / Saline Lock Active Medications - Current Medications Current Medications: Generic Name Dose Route Start Last Admin Trade Name Freq PRN Reason Stop Dose Admin Acetaminophen 650 mg 06/05/20 01:42 06/09/20 13:57 Acetaminophen 325 Mg Tab PO 650 mg Q4H PRN Administration Pain MILD(1-3)/Fever >100.5/CUNHA Amlodipine Besylate 10 mg 06/16/20 10:00 06/19/20 09:27 Amlodipine 10 Mg Tab PO 10 mg DAILY LEONIE Administration Buspirone HCl 10 mg 06/14/20 22:00 06/19/20 22:23 Buspirone 10 Mg Tab PO 10 mg BID LEONIE Administration Dextrose 0 ml 06/05/20 01:42 Dextrose 50% In Water (25gm) 50 Ml Syringe IV Q30MIN PRN Hypoglycemia Protocol Divalproex Sodium 250 mg 06/16/20 22:00 06/19/20 22:[address] 250 Mg Tab PO 250 mg BID LEONIE Administration Docusate Sodium 100 mg 06/17/20 22:00 06/19/20 22:23 Docusate Sodium 100 Mg Cap PO 100 mg BID LEONIE Administration Famotidine 20 mg 06/17/20 15:00 06/19/20 09:28 Famotidine 20 Mg Tab PO 20 mg QDAY LEONIE Administration Gemfibrozil 600 mg 06/05/20 22:00 06/19/20 22:23 Gemfibrozil 600 Mg Tab PO 600 mg BID LEONIE Administration Heparin Sodium (Porcine) 5,000 unit 06/05/20 06:00 06/20/20 09:22 Heparin 5,000 Unit/1 Ml Vial SUB-Q Not Given Q8HR [facility] Insulin Glargine 10 units 06/16/20 22:00 06/19/20 22:24 Insulin Glargine 100 Units/Ml SUB-Q 10 units QHS LEONIE Administration Insulin Human Isoph/Insulin Regular 47 unit 06/18/20 17:00 06/19/20 22:23 Insulin Nph/Regular 70/30 Inj SUB-Q 47 unit BIDDIAB [facility] Administration Insulin Human Lispro 0 unit 06/07/20 16:30 06/19/20 22:30 Insulin Lispro 100 Unit/Ml Vial 3 Ml SUB-Q 6 unit ACHS [facility] Administration Protocol Insulin Human Lispro 2 unit 06/19/20 16:30 06/20/20 09:23 Insulin Lispro 100 Unit/Ml Vial 3 Ml SUB-Q Not Given ACHS [facility] Lisinopril 5 mg 06/18/20 10:00 06/19/20 09:27 Lisinopril 5 Mg Tab PO 5 mg QDAY [facility] Administration Loratadine/Pseudoephedrine Sulfate 1 each 06/06/20 22:00 06/20/20 09:22 Loratadine/Pseudoephedrine 5-120 Mg Tab 12hr PO Not Given Q12HR LEONIE Magnesium Hydroxide 30 ml 06/05/20 01:42 06/17/20 17:26 Magnesium Hydroxide (Mom) Oral Liqd Udc PO 30 ml Q4H PRN Administration Constipation Morphine Sulfate 2 mg 06/05/20 01:42 06/17/20 07:31 Morphine 2 Mg/1 Ml Inj IV 2 mg Q5MIN PRN Administration Chest Pain Nitroglycerin 0.4 mg 06/05/20 01:42 Nitroglycerin 0.4 Mg Tab Subl SL Q5M PRN Chest Pain Ondansetron HCl 4 mg 06/05/20 01:42 Ondansetron 4 Mg/2 Ml Inj IV Q8H PRN Nausea And Vomiting Oxycodone/Acetaminophen 2 tab 06/16/20 16:00 06/19/20 20:30 Oxycodone /Acetaminophen 5-325mg Tab PO 2 tab Q6H PRN Administration Pain, Moderate (4-6) Quetiapine Fumarate 200 mg 06/18/20 10:00 06/19/20 09:27 Quetiapine 200 Mg Tab PO 200 mg QDAY@1000 LEONIE Administration Senna 17.2 mg 06/17/20 22:00 06/19/20 22:23 Sennosides 8.6 Mg Tab PO 17.2 mg QHS LEONIE Administration Sertraline HCl 50 mg 06/17/20 10:00 06/19/20 09:28 Sertraline 50 Mg Tab PO 50 mg QDAY LEONIE Administration Sodium Chloride 10 ml 06/05/20 10:00 06/19/20 22:30 Sodium Chloride 0.9% 10 Ml Flush Syringe IV 10 ml BID LEONIE Administration Sodium Chloride 10 ml 06/05/20 01:42 Sodium Chloride 0.9% 10 Ml Flush Syringe IV PRN PRN LINE FLUSH Nutrition/Malnutrition Assess - Dietary Evaluation Nutrition/Malnutrition Findings: Nutrition Notes Start: 06/05/20 11:49 Freq: Status: Active Protocol: Document 06/12/20 11:20 EN (Rec: 06/12/20 11:23 EN [email or web address]) Co-Sign 06/12/20 11:20 Nutrition Notes Need for Assessment generated from: LOS Initial or Follow up Brief Note Current Diagnosis Diabetes,Hypertension, Hyperlipidemia Other Pertinent Diagnosis Bipolar Disorder, Hyperglycemia Current Diet Cardiac/Consistent CHO Subjective/Other Information Pt screened for LOS. Pt states that he has a decreased appetite yesterday d/t new medication, however, pt consuming 100% of meals regardless. Pt states that he has been eating 100% of his meals consistently and that he has not had any recent weight loss. Pt denies N/V/D. Pt would like turkey sausage with breakfast. Nutrition Intervention Anticipated Discharge Needs: Cardiac/Consistent CHO diet Revisit per MD consult or patient Sign Off request:
[2020-06-20] MEDS: SERTRALINE 50 MG TAB PO SCH (12:21)
[2020-06-20] MEDS: DIVALPROEX DR 250 MG TAB PO SCH ×2 (12:21→21:24)
[2020-06-20] MEDS: DOCUSATE SODIUM 100 MG CAP PO SCH ×2 (12:21→21:24)
[2020-06-20] MEDS: FAMOTIDINE 20 MG TAB PO SCH (12:21)
[2020-06-20] MEDS: GEMFIBROZIL 600 MG TAB PO SCH ×2 (12:22→22:00)
[2020-06-20] MEDS: INSULIN NPH/REGULAR 70/30 INJ SUB-Q SCH ×3 (12:22→20:18)
[2020-06-20] MEDS: busPIRone 10 MG TAB PO SCH ×2 (12:22→21:24)
[2020-06-20] MEDS: amLODIPine 10 MG TAB PO SCH (12:22)
[2020-06-20] MEDS: LISINOPRIL 5 MG TAB PO SCH (12:22)
[2020-06-20] MEDS: QUEtiapine 200 MG TAB PO SCH (12:22)
[2020-06-20] MEDS: oxyCODONE /ACETAMINOPHEN 5-325MG TAB PO PRN ×2 (16:30→22:56)
[2020-06-20] MEDS: SENNOSIDES 8.6 MG TAB PO SCH (21:24)
[2020-06-20] MEDS ORDERED: INSULIN GLARGINE 100 UNITS/ML SUB-Q SCH (22:00)
[2020-06-21] MEDS: HEPARIN 5,000 UNIT/1 ML VIAL SUB-Q SCH ×3 (05:05→22:09)
[2020-06-21 06:34] LABS: Basophils # (Auto) 0.1 K/mm3 (0.0-0.1); Basophils % (Auto) 0.9 % (0.0-1.8); Eosinophils # (Auto) 0.2 K/mm3 (0.0-0.4); Eosinophils % (Auto) 3.1 % (0.0-4.3); Hematocrit 36.4 % (35.5-45.6); Hemoglobin 12.4 gm/dl (11.8-15.2); Lymphocytes # (Auto) 3.1 K/mm3 (1.2-5.4); Lymphocytes % (Auto) 49.5 % (13.4-35.0); Mean Corpuscular HGB Conc 34 % (32-34); Mean Corpuscular Volume 80 fl (84-94); Monocytes # (Auto) 0.4 K/mm3 (0.0-0.8); Monocytes % (Auto) 6.3 % (0.0-7.3); Platelet Count 400 K/mm3 (140-440); Red Blood Count 4.54 M/mm3 (3.65-5.03); Red Cell Distribution Width 14.6 % (13.2-15.2)
[2020-06-21 06:42] LABS: Calcium 9.1 mg/dL (8.4-10.2); Hemolysis Index 8
[2020-06-21 06:51] LABS: BUN/Creatinine Ratio 17; Blood Urea Nitrogen 15 mg/dL (9-20)
--- NOTE | 2020-06-21 09:32 | Progress Note ---
Assessment and Plan Assessment and plan: (1) Hyperglycemia due to diabetes mellitus S/p 26 units of regular insulin in the emergency department given over 3 doses SSI 06/05 Lantus 5 units nightly started for persistent hyperglycemia, discontinued 06/08 06/05 Hemoglobin A1c 11.2 06/06 Novolin 70/30 started, titrate as needed 06/16 Lantus nightly started for persistent hyperglycemia Accu-Cheks AC at bedtime CC cardiac diet 06/19 added lispro with meals Homicidal ideation Patient states he has homicidal ideations Psychiatric consult Patient is on 1013 hold Sitter at bedside MDD (major depressive disorder) Psychiatry consult, appreciate recommendations BuSpar, Depakote, Seroquel, Zoloft Sitter at bedside Patient presented with SI/HI, currently on a 1013 hold Psychiatry recommending inpatient psychiatric hospitalization Hyponatremia Presented with a sodium of 134 Corrected sodium for hyperglycemia is remains within normal limits S/p 2 L normal saline in the emergency department Pseudohyponatremia HLD (hyperlipidemia) 06/06 lipid panel: triglycerides 574, cholesterol 189, HDL 34, cholesterol/HDL ratio 5.5 Gemfibrozil started Substance abuse in remission Per psychiatric note patient had substance abuse with cocaine and meth 3 years ago 06/04 UDS negative Noncompliance with medication regimen Patient reports recent homelessness outside maintenance worker/case management consult Counseled on medication compliance Constipation 06/17 Patient states he has not had a BM since admit and no documentation found Lactulose x1 ID now because pt refused suppository Colace, Senna scheduled PRN MOM 06/18 patient produced a bowel movement DVT prophylaxis SCDs to bilateral extremities while in bed Heparin subcu Patient has a history of a DVT in 06/05: Lantus nightly started 06/06: patient refused ischemic evaluation and cardiology recommend risk modification. Patient was evaluated by psych and recommended to inpatient psych admission. Patient is on 1012. Patient is still suicidal. 06/07/2020: Patient still suicidal, Refuses stress test, Patient on 1012, Mental health consult requested, Novolin 70/30 started 06/08: Lantus discontinued and Novolin 70/30 dose increased. outside maintenance worker made aware of inpatient psych recommendation and will start process of finding placement today. 06/09: Novolin 70/30 dose was increased, RN informs me that according to the psych nurse patient blood glucose has to be persistently less than 200s for transfer. Patient still remains with a 1013 and still has SI/HI however does not have a plan. 06/10: Novolin 70/30 increased due to persistent hyperglycemia 06/11: Novolin 70/30 increased due to persistent hyperglycemia 06/12: Patient remains hyperglycemic and Novolin 70/30 increased. Patient has not had any more chest pain during admission. 06/13: blood sugars are uncontrolled secondary to patient's noncompliance with diet. Will increase Novolin 70/30 dose to 35 units twice a day, awaiting inpatient psych placement 06/14 sitter in the room. patient is A&O, feels depressed and continues to admit SI and HI. he is on 1013. psych note reviewed. Awaiting transfer to inpatient psych. facility 06/15: He remains persistently hyperglycemic and his insulin has been increased again. Patient is medically stable for discharge and transfer to a psych facility for continued mental health care. No acute events reported overnight. 06/16: No acute events reported overnight. Psych has seen him today and adjuste d his medications. We also added Lantus to his insulin regimen. Awaiting peer to peer from inpatient psych center. 06/17: Today the patient states he has not had a BM since admit and has epigastric pain when eating, lactulose x1 ordered and placed on a bowel regimen. 06/18: Patient had a BM today, states he feels much better. Remains hyperglycemic, adjusted insulin. I spoke to [facility] regarding transfer, patient case reviewed by psych and awaiting medical review. 06/19: No new issues overnight. Patient denies any complaints. 06/20: BG better but still not consistently below 200. Increase Novolin 70/30 to 50 units twice daily. Increase Lantus insulin to 15 units at bedtime. Follow-up BG. Awaiting transfer to inpatient psych. facility when BG stable <200 06/20: BG better but still not consistently below 200. Increase Novolin 70/30 to 55 units twice daily. Increase Lantus insulin to 20 units at bedtime. Follow-up BG. A108/21: History Interval history: No new issues overnight. Hospitalist Physical - Constitutional Vitals: Temp Pulse Resp BP Pulse Ox 98.2 F 81 17 150/91 94 06/21/20 07:35 06/21/20 07:35 06/21/20 07:35 06/21/20 07:35 06/21/20 07:35 General appearance: Present: no acute distress, well-nourished - EENT Eyes: Present: PERRL, EOM intact ENT: hearing intact, clear oral mucosa, dentition normal - Neck Neck: Present: supple, normal ROM - Respiratory Respiratory effort: normal Respiratory: bilateral: CTA - Cardiovascular Rhythm: regular Heart Sounds: Present: S1 & S2. Absent: gallop, rub - Extremities Extremities: no ischemia, No edema, Full ROM - Abdominal General gastrointestinal: soft, non-tender, non-distended, normal bowel sounds - Integumentary Integumentary: Present: clear, warm, dry - Neurologic Neurologic: CNII-XII intact, moves all extremities HEART Score - HEART Score EKG: Normal Age: 45-65 Risk factors: > 3 risk factors or hx of atherosclerotic disease Troponin: Troponin T < 0.010 ng/mL (0.00-0.029) 06/05/20 15:11 Troponin: < normal limit Results - Labs CBC & Chem 7: 06/21/20 05:44 06/21/20 05:44 Labs: Laboratory Last Values WBC 6.3 K/mm3 (4.5-11.0) 06/21/20 05:44 RBC 4.54 M/mm3 (3.65-5.03) 06/21/20 05:44 Hgb 12.4 gm/dl (11.8-15.2) 06/21/20 05:44 Hct 36.4 % (35.5-45.6) 06/21/20 05:44 MCV 80 fl (84-94) L 06/21/20 05:44 MCH 27 pg (28-32) L 06/21/20 05:44 MCHC 34 % (32-34) 06/21/20 05:44 RDW 14.6 % (13.2-15.2) 06/21/20 05:44 Plt Count 400 K/mm3 (140-440) 06/21/20 05:44 Lymph % (Auto) 49.5 % (13.4-35.0) H 06/21/20 05:44 Loving % (Auto) 6.3 % (0.0-7.3) 06/21/20 05:44 Eos % (Auto) 3.1 % (0.0-4.3) 06/21/20 05:44 Baso % (Auto) 0.9 % (0.0-1.8) 06/21/20 05:44 Lymph # (Auto) 3.1 K/mm3 (1.2-5.4) 06/21/20 05:44 Loving # (Auto) 0.4 K/mm3 (0.0-0.8) 06/21/20 05:44 Eos # (Auto) 0.2 K/mm3 (0.0-0.4) 06/21/20 05:44 Baso # (Auto) 0.1 K/mm3 (0.0-0.1) 06/21/20 05:44 Seg Neutrophils % 40.2 % (40.0-70.0) 06/21/20 05:44 Seg Neutrophils # 2.5 K/mm3 (1.8-7.7) 06/21/20 05:44 PT 12.6 Sec. (12.2-14.9) 06/06/20 07:13 INR 0.96 (0.87-1.13) 06/06/20 07:13 D-Dimer 135.60 ng/mlDDU (0-234) 06/04/20 18:10 Sodium 136 mmol/L (137-145) L 06/21/20 05:44 Potassium 4.4 mmol/L (3.6-5.0) 06/21/20 05:44 Chloride 99.4 mmol/L (98-107) 06/21/20 05:44 Carbon Dioxide 25 mmol/L (22-30) 06/21/20 05:44 Anion Gap 16 mmol/L 06/21/20 05:44 BUN 15 mg/dL (9-20) 06/21/20 05:44 Creatinine 0.9 mg/dL (0.8-1.3) 06/21/20 05:44 Estimated GFR > 60 ml/min 06/21/20 05:44 BUN/Creatinine Ratio 17 % 06/21/20 05:44 Glucose 263 mg/dL (75-100) H 06/21/20 05:44 POC Glucose 251 mg/dL (70-105) H 06/21/20 08:41 Hemoglobin A1c 11.2 % (4-6) H 06/05/20 15:11 Calcium 9.1 mg/dL (8.4-10.2) 06/21/20 05:44 Total Bilirubin 0.30 mg/dL (0.1-1.2) 06/08/20 05:26 AST 7 units/L (5-40) 06/08/20 05:26 ALT 7 units/L (7-56) 06/08/20 05:26 Alkaline Phosphatase 114 units/L (35-129) 06/08/20 05:26 Troponin T < 0.010 ng/mL (0.00-0.029) 06/05/20 15:11 Total Protein 6.9 g/dL (6.3-8.2) 06/08/20 05:26 Albumin 3.5 g/dL (3.9-5) L 06/08/20 05:26 Albumin/Globulin Ratio 1.0 % 06/08/20 05:26 Triglycerides 574 mg/dL (2-149) H 06/05/20 15:11 Cholesterol 189 mg/dL (50-199) 06/05/20 15:11 LDL Cholesterol Direct TNR 06/05/20 15:11 HDL Cholesterol 34 mg/dL (40-59) L 06/05/20 15:11 Cholesterol/HDL Ratio 5.55 % 06/05/20 15:11 Urine Color Yellow (Yellow) 06/04/20 19:16 Urine Turbidity Clear (Clear) 06/04/20 19:16 Urine pH 5.0 (5.0-7.0) 06/04/20 19:16 Ur Specific [place] 1.018 (1.003-1.030) 06/04/20 19:16 Urine Protein <15 mg/dl mg/dL (Negative) 06/04/20 19:16 Urine Glucose (UA) >=500 mg/dL (Negative) 06/04/20 19:16 Urine Ketones 20 mg/dL (Negative) 06/04/20 19:16 Urine Blood Neg (Negative) 06/04/20 19:16 Urine Nitrite Neg (Negative) 06/04/20 19:16 Urine Bilirubin Neg (Negative) 06/04/20 19:16 Urine Urobilinogen < 2.0 mg/dL (<2.0) 06/04/20 19:16 Ur Leukocyte Esterase Neg (Negative) 06/04/20 19:16 Urine WBC (Auto) 6.0 /HPF (0.0-6.0) 06/04/20 19:16 Urine RBC (Auto) 2.0 /HPF (0.0-6.0) 06/04/20 19:16 U Epithel Cells (Auto) 1.0 /HPF (0-13.0) 06/04/20 19:16 Urine Opiates Screen Presumptive negative 06/04/20 19:16 Urine Methadone Screen Presumptive negative 06/04/20 19:16 Acetaminophen 5.0 ug/mL (10.0-30.0) L 06/04/20 18:10 Ur Barbiturates Screen Presumptive negative 06/04/20 19:16 Ur Phencyclidine Scrn Presumptive negative 06/04/20 19:16 Ur Amphetamines Screen Presumptive negative 06/04/20 19:16 U Benzodiazepines Scrn Presumptive negative 06/04/20 19:16 Urine Cocaine Screen Presumptive positive 06/04/20 19:16 U Marijuana (THC) Screen Presumptive negative 06/04/20 19:16 Drugs of Abuse Note Disclamer 06/04/20 19:16 Plasma/Serum Alcohol < 0.01 % (0-0.07) 06/04/20 18:10 Coronavirus (PCR) Negative (Negative) 06/09/20 Unknown - Diagnostic Impressions Diagnostic Impressions: Echocardiogram 06/05/20 01:47 Transthoracic Echocardiogram Indication: Chest Pain BP: 148/87 Conclusions *The left ventricular chamber size is normal. *Mild to moderate concentric left ventricular hypertrophy is observed. *The estimated ejection fraction is 60-65%. *Abnormal left ventricular diastolic filling is observed, consistent with impaired relaxation. *The left atrium is normal in size with no visual thrombus identified. *The right ventricular chamber size and systolic function are within normal limits. *The aortic valve is trileaflet. *The right ventricular systolic pressure is calculated at 23 mmHg. Findings Procedure Info: The study quality is fair. Left Ventricle: The left ventricular chamber size is normal. Mild to moderate concentric left ventricular hypertrophy is observed. The estimated ejection fraction is 60-65%. Abnormal left ventricular diastolic filling is observed, consistent with impaired relaxation. Left Atrium: The left atrium is normal in size with no visual thrombus identified. Right Ventricle: The right ventricular chamber size and systolic function are within normal limits. Right Atrium: The right atrium appears normal. Aortic Valve: The aortic valve is trileaflet. Mild aortic leaflet calcification is visualized. There is trace of aortic regurgitation. There is no evidence of aortic stenosis. Mitral Valve: The mitral valve leaflets appear normal. There is trace of mitral regurgitation. There is no evidence of mitral stenosis. Tricuspid Valve: The tricuspid valve leaflets are normal. There is trace tricuspid regurgitation. The right ventricular systolic pressure is calculated at 23 mmHg. There is no tricuspid stenosis. Pulmonic Valve: The pulmonic valve appears normal in structure and function. Pericardium: The pericardium appears normal. Aorta: The aorta appears normal. Pulmonary Artery: The main pulmonary artery appears normal. Venous: The inferior vena cava appears normal in size. There is a greater than 50% respiratory change in the inferior vena cava dimension. Measurements Chambers 2D Name Value Normal Range IVSd (2D) 1.37 cm (0.6 - 1.1) LVPWd (2D) 1.22 cm (0.6 - 1.1) LVIDd (2D) 5.24 cm (3.7 - 5.6) LVIDs (2D) 3.46 cm (2 - 3.8) LV FS (2D) 34.04 % - EF Teichholz (2D) 62.56 % - Ao root diameter (2D) 3.3 cm (2 - 3.7) Volumes/Mass Name Value Normal Range LA ESV SP 4CH (A/L) 84.94 ml - LA ESV SP 2CH (A/L) 79.25 ml - LA ESV BP (A/L) 84.7 ml - LA ESV BP (A/L) index 33.61 ml/m2 - LA ESV SP 4CH (MOD) 81.89 ml - LA ESV SP 2CH (MOD) 78.96 ml - LA ESV BP (MOD) 82.33 ml - LA ESV BP (MOD) index 32.67 ml/m2 - LV EDV SP 4CH (MOD) 153.69 ml - LV ESV SP 4CH (MOD) 51.13 ml - EF SP 4CH (MOD) 66.73 % - LV EDV SP 2CH (MOD) 110.18 ml - LV ESV SP 2CH (MOD) 42.38 ml - EF SP 2CH (MOD) 61.54 % - LV EDV BP 132.71 ml - LV ESV BP 46.25 ml - BP EF (MOD) 65.15 % - Diastolic/Systolic Function Name Value Normal Range MV E-wave Vmax 0.59 m/sec - MV deceleration time 155.37 msec - MV A-wave Vmax 1 m/sec - MV E:A ratio 0.59 ratio - Aortic Valve Name Value Normal Range AV Vmax 1.52 m/sec - AV VTI 29.1 cm - AV peak gradient 9.23 mmHg - AV mean gradient 5.2 mmHg - LVOT diameter 2.54 cm - LVOT Vmax 0.88 m/sec - LVOT VTI 19.35 cm - LVOT peak gradient 3.08 mmHg - LVOT mean gradient 1.61 mmHg - SV LVOT 98.36 ml - LUKAS (continuity Vmax) 2.94 cm2 - LUKAS (continuity VTI) 3.38 cm2 - Ascending Ao 3.45 cm - Tricuspid Valve Name Value Normal Range TV E-wave Vmax 0.57 m/sec - TR Vmax 2.28 m/sec - TR peak gradient 20.75 mmHg - RAP 3 mmHg - RVSP 23 mmHg - IVC diameter 1.47 cm (1.2 - 2.3) Pulmonic Valve/Qp:Qs Name Value Normal Range PV Vmax 1.36 m/sec - PV peak gradient 7.41 mmHg - RVOT Vmax 0.74 m/sec - RVOT VTI 14 cm - RVOT peak gradient 2.22 mmHg - PV acceleration time 156.04 msec - Rosenberg/IV: Voiding Method Urinal IV Catheter Type [Left Hand] INT / Saline Lock Active Medications - Current Medications Current Medications: Generic Name Dose Route Start Last Admin Trade Name Freq PRN Reason Stop Dose Admin Acetaminophen 650 mg 06/05/20 01:42 06/09/20 13:57 Acetaminophen 325 Mg Tab PO 650 mg Q4H PRN Administration Pain MILD(1-3)/Fever >100.5/CUNHA Amlodipine Besylate 10 mg 06/16/20 10:00 06/20/20 12:22 Amlodipine 10 Mg Tab PO 10 mg DAILY LEONIE Administration Buspirone HCl 10 mg 06/14/20 22:00 06/20/20 21:24 Buspirone 10 Mg Tab PO 10 mg BID LEONIE Administration Dextrose 0 ml 06/05/20 01:42 Dextrose 50% In Water (25gm) 50 Ml Syringe IV Q30MIN PRN Hypoglycemia Protocol Divalproex Sodium 250 mg 06/16/20 22:00 06/20/20 21:[address] 250 Mg Tab PO 250 mg BID LEONIE Administration Docusate Sodium 100 mg 06/17/20 22:00 06/20/20 21:24 Docusate Sodium 100 Mg Cap PO 100 mg BID LEONIE Administration Famotidine 20 mg 06/17/20 15:00 06/20/20 12:21 Famotidine 20 Mg Tab PO 20 mg QDAY LEONIE Administration Gemfibrozil 600 mg 06/05/20 22:00 06/20/20 22:00 Gemfibrozil 600 Mg Tab PO 600 mg BID LEONIE Administration Heparin Sodium (Porcine) 5,000 unit 06/05/20 06:00 06/21/20 05:05 Heparin 5,000 Unit/1 Ml Vial SUB-Q Not Given Q8HR [facility] Insulin Glargine 15 units 06/20/20 22:00 06/20/20 21:29 Insulin Glargine 100 Units/Ml SUB-Q 15 units QHS [facility] Administration Insulin Human Isoph/Insulin Regular 50 unit 06/20/20 11:30 06/20/20 20:18 Insulin Nph/Regular 70/30 Inj SUB-Q Not Given BIDDIAB [facility] Insulin Human Lispro 0 unit 06/07/20 16:30 06/20/20 21:29 Insulin Lispro 100 Unit/Ml Vial 3 Ml SUB-Q 4 unit ACHS [facility] Administration Protocol Insulin Human Lispro 2 unit 06/19/20 16:30 06/20/20 21:30 Insulin Lispro 100 Unit/Ml Vial 3 Ml SUB-Q 2 unit [facility] Administration Lisinopril 5 mg 06/18/20 10:00 06/20/20 12:22 Lisinopril 5 Mg Tab PO 5 mg QDAY LEONIE Administration Loratadine/Pseudoephedrine Sulfate 1 each 06/06/20 22:00 06/20/20 21:27 Loratadine/Pseudoephedrine 5-120 Mg Tab 12hr PO 1 each Q12HR LEONIE Administration Magnesium Hydroxide 30 ml 06/05/20 01:42 06/17/20 17:26 Magnesium Hydroxide (Mom) Oral Liqd Udc PO 30 ml Q4H PRN Administration Constipation Morphine Sulfate 2 mg 06/05/20 01:42 06/17/20 07:31 Morphine 2 Mg/1 Ml Inj IV 2 mg Q5MIN PRN Administration Chest Pain Nitroglycerin 0.4 mg 06/05/20 01:42 Nitroglycerin 0.4 Mg Tab Subl SL Q5M PRN Chest Pain Ondansetron HCl 4 mg 06/05/20 01:42 Ondansetron 4 Mg/2 Ml Inj IV Q8H PRN Nausea And Vomiting Oxycodone/Acetaminophen 2 tab 06/16/20 16:00 06/20/20 22:56 Oxycodone /Acetaminophen 5-325mg Tab PO 2 tab Q6H PRN Administration Pain, Moderate (4-6) Quetiapine Fumarate 200 mg 06/18/20 10:00 06/20/20 12:22 Quetiapine 200 Mg Tab PO 200 mg QDAY@1000 LEONIE Administration Senna 17.2 mg 06/17/20 22:00 06/20/20 21:24 Sennosides 8.6 Mg Tab PO 17.2 mg QHS LEONIE Administration Sertraline HCl 50 mg 06/17/20 10:00 06/20/20 12:21 Sertraline 50 Mg Tab PO 50 mg QDAY LEONIE Administration Sodium Chloride 10 ml 06/05/20 10:00 06/20/20 21:26 Sodium Chloride 0.9% 10 Ml Flush Syringe IV 10 ml BID LEONIE Administration Sodium Chloride 10 ml 06/05/20 01:42 Sodium Chloride 0.9% 10 Ml Flush Syringe IV PRN PRN LINE FLUSH Nutrition/Malnutrition Assess - Dietary Evaluation Nutrition/Malnutrition Findings: Nutrition Notes Start: 06/05/20 11:49 Freq: Status: Active Protocol: Document 06/12/20 11:20 EN (Rec: 06/12/20 11:23 EN [id number]) Co-Sign 06/12/20 11:20 MK Nutrition Notes Need for Assessment generated from: LOS Initial or Follow up Brief Note Current Diagnosis Diabetes,Hypertension, Hyperlipidemia Other Pertinent Diagnosis Bipolar Disorder, Hyperglycemia Current Diet Cardiac/Consistent CHO Subjective/Other Information Pt screened for LOS. Pt states that he has a decreased appetite yesterday d/t new medication, however, pt consuming 100% of meals regardless. Pt states that he has been eating 100% of his meals consistently and that he has not had any recent weight loss. Pt denies N/V/D. Pt would like turkey sausage with breakfast. Nutrition Intervention Anticipated Discharge Needs: Cardiac/Consistent CHO diet Revisit per MD consult or patient Sign Off request:
[2020-06-21] MEDS: QUEtiapine 200 MG TAB PO SCH (10:30)
[2020-06-21] MEDS: DOCUSATE SODIUM 100 MG CAP PO SCH ×2 (10:31→21:55)
[2020-06-21] MEDS: SERTRALINE 50 MG TAB PO SCH (10:31)
[2020-06-21] MEDS: GEMFIBROZIL 600 MG TAB PO SCH ×2 (10:31→21:55)
[2020-06-21] MEDS: busPIRone 10 MG TAB PO SCH ×2 (10:32→21:55)
[2020-06-21] MEDS: LORATADINE/PSEUDOEPHEDRINE 5-120 MG TAB 12HR PO SCH ×2 (10:32→22:21)
[2020-06-21] MEDS: LISINOPRIL 5 MG TAB PO SCH (10:32)
[2020-06-21] MEDS: FAMOTIDINE 20 MG TAB PO SCH (10:32)
[2020-06-21] MEDS: amLODIPine 10 MG TAB PO SCH (10:32)
[2020-06-21] MEDS: INSULIN LISPRO 100 UNIT/ML VIAL 3 mL SUB-Q SCH ×8 (10:33→22:10)
[2020-06-21] MEDS: DIVALPROEX DR 250 MG TAB PO SCH ×2 (10:33→21:59)
[2020-06-21] MEDS: INSULIN NPH/REGULAR 70/30 INJ SUB-Q SCH ×3 (10:34→19:32)
[2020-06-21] MEDS: oxyCODONE /ACETAMINOPHEN 5-325MG TAB PO PRN (15:00)
[2020-06-21] MEDS: SENNOSIDES 8.6 MG TAB PO SCH (21:59)
[2020-06-21] MEDS: INSULIN GLARGINE 100 UNITS/ML SUB-Q SCH (22:11)
[2020-06-22] MEDS: HEPARIN 5,000 UNIT/1 ML VIAL SUB-Q SCH ×3 (06:32→22:03)
[2020-06-22] MEDS: INSULIN LISPRO 100 UNIT/ML VIAL 3 mL SUB-Q SCH ×8 (08:22→22:04)
[2020-06-22] MEDS: INSULIN NPH/REGULAR 70/30 INJ SUB-Q SCH ×2 (10:09→17:07)
[2020-06-22] MEDS: DOCUSATE SODIUM 100 MG CAP PO SCH ×2 (10:10→22:03)
[2020-06-22] MEDS: FAMOTIDINE 20 MG TAB PO SCH (10:10)
[2020-06-22] MEDS: LISINOPRIL 5 MG TAB PO SCH (10:11)
[2020-06-22] MEDS: busPIRone 10 MG TAB PO SCH ×2 (10:11→22:03)
[2020-06-22] MEDS: GEMFIBROZIL 600 MG TAB PO SCH ×2 (10:11→22:03)
[2020-06-22] MEDS: amLODIPine 10 MG TAB PO SCH (10:11)
[2020-06-22] MEDS: SERTRALINE 50 MG TAB PO SCH (10:11)
[2020-06-22] MEDS: LORATADINE/PSEUDOEPHEDRINE 5-120 MG TAB 12HR PO SCH ×2 (10:13→22:18)
[2020-06-22] MEDS: DIVALPROEX DR 250 MG TAB PO SCH ×2 (10:13→22:03)
[2020-06-22] MEDS: QUEtiapine 200 MG TAB PO SCH (10:13)
--- NOTE | 2020-06-22 10:30 | Progress Note ---
Subjective - Reason for Consult Consult date: 06/22/20 Reason for consult: MHE Requesting physician: MILTON ROSARIO - Chief Complaint Chief complaint: Psych Progress Patient seen this a.m., endorses persistent SI thoughts, depressed mood and hopelessness. REVIEW OF SYSTEMS Constitutional: Negative for weight loss ENT: Negative for stridor Respiratory: Negative for cough or hemoptysis All other systems reviewed and are negative MENTAL STATUS EXAMINATION General Appearance and Behavior: Age appropriate, good hygiene, wearing appropriate clothes, poor eye contact, withdrawn Cooperation: Participating/engaged Psychomotor Behavior: Psychomotor normal Mood: depressed Affect and affective range: congruent with stated mood Thought Process: goal directed Thought Content: hopelessness Speech: Normal rate, volume and rhythm Suicidal Ideation: Yes Homicidal Ideation: Denies Hallucinations: Denies Delusions: None elicited Impulse Control: Linited Insight and Judgment: Limited insight and judgment Memory: Normal Attention: Normal Orientation: Alert, oriented Assessment and Plan (1) MDD (major depressive disorder) Current Visit: Yes Status: Acute Treatment Plan continue current meds Risks, benefits and alternatives of medications discussed with the patient, questions answered and consent obtained from patient. PSYCHOTHERAPY: Supportive psychotherapy provided MEDICAL: Per primary team DELIRIUM PRECAUTIONS: Please re-orient patient frequently, keep lights on during the day, and minimize benzodiazepines and opiates as these medications could worsen patient's confusion. DRILL DOCTOR: DISPOSITION: Recommend acute inpatient psychiatric hospitalization at this time LEGAL STATUS: 1013 FOLLOW-UP: Will follow the patient 06/25 Thank you for the consult. Please contact with any questions and/or concerns. Mental Status Exam - Vital signs Last Vital Signs Temp 99.6 F 06/22/20 07:46 Pulse 88 06/22/20 07:46 Resp 18 06/22/20 07:46 BP 130/69 06/22/20 07:46 Pulse Ox 95 06/22/20 07:46 Assessment and Plan - Patient Problems (1) MDD (major depressive disorder) Current Visit: Yes Status: Chronic Qualifiers: Major depression recurrence: recurrent
--- NOTE | 2020-06-22 16:31 | Progress Note ---
Assessment and Plan - Patient Problems (1) Hyperglycemia due to diabetes mellitus Current Visit: Yes Status: Acute Plan to address problem: S/p 26 units of regular insulin in the emergency department given over 3 doses SSI 06/05 Lantus 5 units nightly started for persistent hyperglycemia, discontinued 06/08 06/05 Hemoglobin A1c 11.2 06/06 Novolin 70/30 started, titrate as needed 06/16 Lantus nightly started for persistent hyperglycemia Accu-Cheks AC at bedtime CC cardiac diet 06/19 added lispro with meals (2) Homicidal ideation Current Visit: Yes Status: Acute Plan to address problem: Patient states he has homicidal ideations Psychiatric consult Patient is on 1013 hold Sitter at bedside (3) MDD (major depressive disorder) Current Visit: Yes Status: Chronic Qualifiers: Major depression recurrence: recurrent Plan to address problem: Psychiatry consult, appreciate recommendations BuSpar, Depakote, Seroquel, Zoloft Sitter at bedside Patient presented with SI/HI, currently on a 1013 hold Psychiatry recommending inpatient psychiatric hospitalization (4) Hyponatremia Current Visit: Yes Status: Acute Plan to address problem: Presented with a sodium of 134 Corrected sodium for hyperglycemia remains within normal limits S/p 2 L normal saline in the emergency department Pseudohyponatremia (5) HLD (hyperlipidemia) Current Visit: Yes Status: Chronic Plan to address problem: 06/06 lipid panel: triglycerides 574, cholesterol 189, HDL 34, cholesterol/HDL ratio 5.5 Gemfibrozil started (6) Substance abuse in remission Current Visit: Yes Status: Chronic Plan to address problem: Per psychiatric note patient had substance abuse with cocaine and meth 3 years ago 06/04 UDS negative (7) Noncompliance with medication regimen Current Visit: Yes Status: Chronic Plan to address problem: Patient reports recent homelessness early childhood worker/case management consult Counseled on medication compliance (8) DVT prophylaxis Current Visit: Yes Status: Acute Plan to address problem: SCDs to bilateral extremities while in bed Heparin subcu Patient has a history of a DVT in 1996 History Interval history: This is a 54 year-old male with bipolar disorder, HTN, HLD, history of DVT (1996) and DM who presented to the emergency department on 06/04 complaining of midsternal chest pain which started around 6 AM which was sharp and constant associated with shortness of breath, nausea with no vomiting and mild nonproductive cough. En route he was given nitroglycerin by EMS which improved his pain. Patient expressed homicidal and suicidal ideation therefore he is a 1 013. Work-up in the emergency department revealed hyperglycemia and his troponin, EKG and chest x-ray were within normal limits. Patient was admitted to the hospitalist service with consult to cardiology and psychiatry. Patient's blood sugar has been better controlled given current regimen. [facility] and will need a Covid 19 PCR before admission. COVID-19 PCR ordered for tomorrow morning. 06/05: Lantus nightly started 06/06: patient refused ischemic evaluation and cardiology recommend risk modification. Patient was evaluated by psych and recommended to inpatient psych admission. Patient is on 1013. Patient is still suicidal. 06/07/2020: Patient still suicidal, Refuses stress test, Patient on 1013, Mental health consult requested, Novolin 70/30 started 06/08: Lantus discontinued and Novolin 70/30 dose increased. early childhood worker made aware of inpatient psych recommendation and will start process of finding placement today. 06/09: Novolin 70/30 dose was increased, RN informs me that according to the psych nurse patient blood glucose has to be persistently less than 200s for transfer. Patient still remains with a 1013 and still has SI/HI however does not have a plan. 06/10: Novolin 70/30 increased due to persistent hyperglycemia 06/11: Novolin 70/30 increased due to persistent hyperglycemia 06/12: Patient remains hyperglycemic and Novolin 70/30 increased. Patient has not had any more chest pain during admission. 06/13: blood sugars are uncontrolled secondary to patient's noncompliance with diet. Will increase Novolin 70/30 dose to 35 units twice a day, awaiting inpatient psych placement 06/14 sitter in the room. patient is A&O, feels depressed and continues to admit SI and HI. he is on 1013. psych note reviewed. Awaiting transfer to inpatient psych. facility 06/15: He remains persistently hyperglycemic and his insulin has been increased again. Patient is medically stable for discharge and transfer to a psych facility for continued mental health care. No acute events reported overnight. 06/16: No acute events reported overnight. Psych has seen him today and adjusted his medications. We also added Lantus to his insulin regimen. Awaiting peer to peer from inpatient psych center. 06/17: Today the patient states he has not had a BM since admit and has epigastric pain when eating, lactulose x1 ordered and placed on a bowel regimen. 06/18: Patient had a BM today, states he feels much better. Remains hyperglycemic, adjusted insulin. I spoke to [facility] regarding transfer, patient case reviewed by psych and awaiting medical review. 06/19: No new issues overnight. Patient denies any complaints 06/20: BG better but still not consistently below 200. Increase Novolin 70/30 to 50 units twice daily. Increase Lantus insulin to 15 units at bedtime. Follow-up BG. Awaiting transfer to inpatient psych. facility when BG stable <200 06/20: BG better but still not consistently below 200. Increase Novolin 70/30 to 55 units twice daily. Increase Lantus insulin to 20 units at bedtime. Follow-up BG. A108/21: Hospitalist Physical - Constitutional Vitals: Temp Pulse Resp BP Pulse Ox 99.1 F 96 H 18 127/86 95 06/22/20 12:21 06/22/20 12:21 06/22/20 12:21 06/22/20 12:21 06/22/20 12:21 General appearance: Present: no acute distress, well-nourished - EENT Eyes: Present: PERRL, EOM intact ENT: hearing intact, poor dentition - Neck Neck: Present: normal ROM - Respiratory Respiratory effort: normal Respiratory: bilateral: CTA - Cardiovascular Rhythm: regular Heart Sounds: Present: S1 & S2. Absent: systolic murmur, diastolic murmur - Extremities Extremities: no ischemia, pulses intact, pulses symmetrical, No edema, normal temperature, normal color, Full ROM Peripheral Pulses: within normal limits - Abdominal General gastrointestinal: soft, non-tender, non-distended, normal bowel sounds - Integumentary Integumentary: Present: clear, warm, dry - Psychiatric Psychiatric: cooperative, depressed - Neurologic Neurologic: CNII-XII intact, no focal deficits, moves all extremities HEART Score - HEART Score EKG: Normal Age: 45-65 Risk factors: > 3 risk factors or hx of atherosclerotic disease Troponin: Troponin T < 0.010 ng/mL (0.00-0.029) 06/05/20 15:11 Troponin: < normal limit Results - Labs CBC & Chem 7: 06/21/20 05:44 06/21/20 05:44 Labs: Laboratory Last Values WBC 6.3 K/mm3 (4.5-11.0) 06/21/20 05:44 RBC 4.54 M/mm3 (3.65-5.03) 06/21/20 05:44 Hgb 12.4 gm/dl (11.8-15.2) 06/21/20 05:44 Hct 36.4 % (35.5-45.6) 06/21/20 05:44 MCV 80 fl (84-94) L 06/21/20 05:44 MCH 27 pg (28-32) L 06/21/20 05:44 MCHC 34 % (32-34) 06/21/20 05:44 RDW 14.6 % (13.2-15.2) 06/21/20 05:44 Plt Count 400 K/mm3 (140-440) 06/21/20 05:44 Lymph % (Auto) 49.5 % (13.4-35.0) H 06/21/20 05:44 Mccormick % (Auto) 6.3 % (0.0-7.3) 06/21/20 05:44 Eos % (Auto) 3.1 % (0.0-4.3) 06/21/20 05:44 Baso % (Auto) 0.9 % (0.0-1.8) 06/21/20 05:44 Lymph # (Auto) 3.1 K/mm3 (1.2-5.4) 06/21/20 05:44 Mccormick # (Auto) 0.4 K/mm3 (0.0-0.8) 06/21/20 05:44 Eos # (Auto) 0.2 K/mm3 (0.0-0.4) 06/21/20 05:44 Baso # (Auto) 0.1 K/mm3 (0.0-0.1) 06/21/20 05:44 Seg Neutrophils % 40.2 % (40.0-70.0) 06/21/20 05:44 Seg Neutrophils # 2.5 K/mm3 (1.8-7.7) 06/21/20 05:44 PT 12.6 Sec. (12.2-14.9) 06/06/20 07:13 INR 0.96 (0.87-1.13) 06/06/20 07:13 D-Dimer 135.60 ng/mlDDU (0-234) 06/04/20 18:10 Sodium 136 mmol/L (137-145) L 06/21/20 05:44 Potassium 4.4 mmol/L (3.6-5.0) 06/21/20 05:44 Chloride 99.4 mmol/L (98-107) 06/21/20 05:44 Carbon Dioxide 25 mmol/L (22-30) 06/21/20 05:44 Anion Gap 16 mmol/L 06/21/20 05:44 BUN 15 mg/dL (9-20) 06/21/20 05:44 Creatinine 0.9 mg/dL (0.8-1.3) 06/21/20 05:44 Estimated GFR > 60 ml/min 06/21/20 05:44 BUN/Creatinine Ratio 17 % 06/21/20 05:44 Glucose 263 mg/dL (75-100) H 06/21/20 05:44 POC Glucose 92 mg/dL (70-105) 06/22/20 16:11 Hemoglobin A1c 11.2 % (4-6) H 06/05/20 15:11 Calcium 9.1 mg/dL (8.4-10.2) 06/21/20 05:44 Total Bilirubin 0.30 mg/dL (0.1-1.2) 06/08/20 05:26 AST 7 units/L (5-40) 06/08/20 05:26 ALT 7 units/L (7-56) 06/08/20 05:26 Alkaline Phosphatase 114 units/L (35-129) 06/08/20 05:26 Troponin T < 0.010 ng/mL (0.00-0.029) 06/05/20 15:11 Total Protein 6.9 g/dL (6.3-8.2) 06/08/20 05:26 Albumin 3.5 g/dL (3.9-5) L 06/08/20 05:26 Albumin/Globulin Ratio 1.0 % 06/08/20 05:26 Triglycerides 574 mg/dL (2-149) H 06/05/20 15:11 Cholesterol 189 mg/dL (50-199) 06/05/20 15:11 LDL Cholesterol Direct TNR 06/05/20 15:11 HDL Cholesterol 34 mg/dL (40-59) L 06/05/20 15:11 Cholesterol/HDL Ratio 5.55 % 06/05/20 15:11 Urine Color Yellow (Yellow) 06/04/20 19:16 Urine Turbidity Clear (Clear) 06/04/20 19:16 Urine pH 5.0 (5.0-7.0) 06/04/20 19:16 Ur Specific [place] 1.018 (1.003-1.030) 06/04/20 19:16 Urine Protein <15 mg/dl mg/dL (Negative) 06/04/20 19:16 Urine Glucose (UA) >=500 mg/dL (Negative) 06/04/20 19:16 Urine Ketones 20 mg/dL (Negative) 06/04/20 19:16 Urine Blood Neg (Negative) 06/04/20 19:16 Urine Nitrite Neg (Negative) 06/04/20 19:16 Urine Bilirubin Neg (Negative) 06/04/20 19:16 Urine Urobilinogen < 2.0 mg/dL (<2.0) 06/04/20 19:16 Ur Leukocyte Esterase Neg (Negative) 06/04/20 19:16 Urine WBC (Auto) 6.0 /HPF (0.0-6.0) 06/04/20 19:16 Urine RBC (Auto) 2.0 /HPF (0.0-6.0) 06/04/20 19:16 U Epithel Cells (Auto) 1.0 /HPF (0-13.0) 06/04/20 19:16 Urine Opiates Screen Presumptive negative 06/04/20 19:16 Urine Methadone Screen Presumptive negative 06/04/20 19:16 Acetaminophen 5.0 ug/mL (10.0-30.0) L 06/04/20 18:10 Ur Barbiturates Screen Presumptive negative 06/04/20 19:16 Ur Phencyclidine Scrn Presumptive negative 06/04/20 19:16 Ur Amphetamines Screen Presumptive negative 06/04/20 19:16 U Benzodiazepines Scrn Presumptive negative 06/04/20 19:16 Urine Cocaine Screen Presumptive positive 06/04/20 19:16 U Marijuana (THC) Screen Presumptive negative 06/04/20 19:16 Drugs of Abuse Note Disclamer 06/04/20 19:16 Plasma/Serum Alcohol < 0.01 % (0-0.07) 06/04/20 18:10 Coronavirus (PCR) Negative (Negative) 06/09/20 Unknown - Diagnostic Impressions Diagnostic Impressions: Echocardiogram 06/05/20 01:47 Transthoracic Echocardiogram Indication: Chest Pain BP: 148/87 Conclusions *The left ventricular chamber size is normal. *Mild to moderate concentric left ventricular hypertrophy is observed. *The estimated ejection fraction is 60-65%. *Abnormal left ventricular diastolic filling is observed, consistent with impaired relaxation. *The left atrium is normal in size with no visual thrombus identified. *The right ventricular chamber size and systolic function are within normal limits. *The aortic valve is trileaflet. *The right ventricular systolic pressure is calculated at 23 mmHg. Findings Procedure Info: The study quality is fair. Left Ventricle: The left ventricular chamber size is normal. Mild to moderate concentric left ventricular hypertrophy is observed. The estimated ejection fraction is 60-65%. Abnormal left ventricular diastolic filling is observed, consistent with impaired relaxation. Left Atrium: The left atrium is normal in size with no visual thrombus identified. Right Ventricle: The right ventricular chamber size and systolic function are within normal limits. Right Atrium: The right atrium appears normal. Aortic Valve: The aortic valve is trileaflet. Mild aortic leaflet calcification is visualized. There is trace of aortic regurgitation. There is no evidence of aortic stenosis. Mitral Valve: The mitral valve leaflets appear normal. There is trace of mitral regurgitation. There is no evidence of mitral stenosis. Tricuspid Valve: The tricuspid valve leaflets are normal. There is trace tricuspid regurgitation. The right ventricular systolic pressure is calculated at 23 mmHg. There is no tricuspid stenosis. Pulmonic Valve: The pulmonic valve appears normal in structure and function. Pericardium: The pericardium appears normal. Aorta: The aorta appears normal. Pulmonary Artery: The main pulmonary artery appears normal. Venous: The inferior vena cava appears normal in size. There is a greater than 50% respiratory change in the inferior vena cava dimension. Measurements Chambers 2D Name Value Normal Range IVSd (2D) 1.37 cm (0.6 - 1.1) LVPWd (2D) 1.22 cm (0.6 - 1.1) LVIDd (2D) 5.24 cm (3.7 - 5.6) LVIDs (2D) 3.46 cm (2 - 3.8) LV FS (2D) 34.04 % - EF Teichholz (2D) 62.56 % - Ao root diameter (2D) 3.3 cm (2 - 3.7) Volumes/Mass Name Value Normal Range LA ESV SP 4CH (A/L) 84.94 ml - LA ESV SP 2CH (A/L) 79.25 ml - LA ESV BP (A/L) 84.7 ml - LA ESV BP (A/L) index 33.61 ml/m2 - LA ESV SP 4CH (MOD) 81.89 ml - LA ESV SP 2CH (MOD) 78.96 ml - LA ESV BP (MOD) 82.33 ml - LA ESV BP (MOD) index 32.67 ml/m2 - LV EDV SP 4CH (MOD) 153.69 ml - LV ESV SP 4CH (MOD) 51.13 ml - EF SP 4CH (MOD) 66.73 % - LV EDV SP 2CH (MOD) 110.18 ml - LV ESV SP 2CH (MOD) 42.38 ml - EF SP 2CH (MOD) 61.54 % - LV EDV BP 132.71 ml - LV ESV BP 46.25 ml - BP EF (MOD) 65.15 % - Diastolic/Systolic Function Name Value Normal Range MV E-wave Vmax 0.59 m/sec - MV deceleration time 155.37 msec - MV A-wave Vmax 1 m/sec - MV E:A ratio 0.59 ratio - Aortic Valve Name Value Normal Range AV Vmax 1.52 m/sec - AV VTI 29.1 cm - AV peak gradient 9.23 mmHg - AV mean gradient 5.2 mmHg - LVOT diameter 2.54 cm - LVOT Vmax 0.88 m/sec - LVOT VTI 19.35 cm - LVOT peak gradient 3.08 mmHg - LVOT mean gradient 1.61 mmHg - SV LVOT 98.36 ml - LUKAS (continuity Vmax) 2.94 cm2 - LUKAS (continuity VTI) 3.38 cm2 - Ascending Ao 3.45 cm - Tricuspid Valve Name Value Normal Range TV E-wave Vmax 0.57 m/sec - TR Vmax 2.28 m/sec - TR peak gradient 20.75 mmHg - RAP 3 mmHg - RVSP 23 mmHg - IVC diameter 1.47 cm (1.2 - 2.3) Pulmonic Valve/Qp:Qs Name Value Normal Range PV Vmax 1.36 m/sec - PV peak gradient 7.41 mmHg - RVOT Vmax 0.74 m/sec - RVOT VTI 14 cm - RVOT peak gradient 2.22 mmHg - PV acceleration time 156.04 msec - Rosenberg/IV: Voiding Method Toilet IV Catheter Type [Left Hand] INT / Saline Lock Active Medications - Current Medications Current Medications: Generic Name Dose Route Start Last Admin Trade Name Freq PRN Reason Stop Dose Admin Acetaminophen 650 mg 06/05/20 01:42 06/09/20 13:57 Acetaminophen 325 Mg Tab PO 650 mg Q4H PRN Administration Pain MILD(1-3)/Fever >100.5/CUNHA Amlodipine Besylate 10 mg 06/16/20 10:00 06/22/20 10:11 Amlodipine 10 Mg Tab PO 10 mg DAILY LEONIE Administration Buspirone HCl 10 mg 06/14/20 22:00 06/22/20 10:11 Buspirone 10 Mg Tab PO 10 mg BID LEONIE Administration Dextrose 0 ml 06/05/20 01:42 Dextrose 50% In Water (25gm) 50 Ml Syringe IV Q30MIN PRN Hypoglycemia Protocol Divalproex Sodium 250 mg 06/16/20 22:00 06/22/20 10:[address] 250 Mg Tab PO 250 mg BID LEONIE Administration Docusate Sodium 100 mg 06/17/20 22:00 06/22/20 10:10 Docusate Sodium 100 Mg Cap PO 100 mg BID LEONIE Administration Famotidine 20 mg 06/17/20 15:00 06/22/20 10:10 Famotidine 20 Mg Tab PO 20 mg QDAY LEONIE Administration Gemfibrozil 600 mg 06/05/20 22:00 06/22/20 10:11 Gemfibrozil 600 Mg Tab PO 600 mg BID LEONIE Administration Heparin Sodium (Porcine) 5,000 unit 06/05/20 06:00 06/22/20 15:02 Heparin 5,000 Unit/1 Ml Vial SUB-Q Not Given Q8HR LEONIE Insulin Glargine 20 units 06/21/20 22:00 06/21/20 22:11 Insulin Glargine 100 Units/Ml SUB-Q 20 units QHS [facility] Administration Insulin Human Isoph/Insulin Regular 55 unit 06/21/20 10:00 06/22/20 10:09 Insulin Nph/Regular 70/30 Inj SUB-Q 55 unit BIDDIAB [facility] Administration Insulin Human Lispro 0 unit 06/07/20 16:30 06/22/20 08:22 Insulin Lispro 100 Unit/Ml Vial 3 Ml SUB-Q Not Given [facility] Protocol Insulin Human Lispro 2 unit 06/19/20 16:30 06/22/20 10:10 Insulin Lispro 100 Unit/Ml Vial 3 Ml SUB-Q 2 unit ACHS [facility] Administration Lisinopril 5 mg 06/18/20 10:00 06/22/20 10:11 Lisinopril 5 Mg Tab PO 5 mg QDAY [facility] Administration Loratadine/Pseudoephedrine Sulfate 1 each 06/06/20 22:00 06/22/20 10:13 Loratadine/Pseudoephedrine 5-120 Mg Tab 12hr PO Not Given Q12HR [facility] Magnesium Hydroxide 30 ml 06/05/20 01:42 06/17/20 17:26 Magnesium Hydroxide (Mom) Oral Liqd Udc PO 30 ml Q4H PRN Administration Constipation Morphine Sulfate 2 mg 06/05/20 01:42 06/17/20 07:31 Morphine 2 Mg/1 Ml Inj IV 2 mg Q5MIN PRN Administration Chest Pain Nitroglycerin 0.4 mg 06/05/20 01:42 Nitroglycerin 0.4 Mg Tab Subl SL Q5M PRN Chest Pain Ondansetron HCl 4 mg 06/05/20 01:42 Ondansetron 4 Mg/2 Ml Inj IV Q8H PRN Nausea And Vomiting Oxycodone/Acetaminophen 2 tab 06/16/20 16:00 06/21/20 15:00 Oxycodone /Acetaminophen 5-325mg Tab PO 2 tab Q6H PRN Administration Pain, Moderate (4-6) Quetiapine Fumarate 200 mg 06/18/20 10:00 06/22/20 10:13 Quetiapine 200 Mg Tab PO Not Given QDAY@1000 [facility] Senna 17.2 mg 06/17/20 22:00 06/21/20 21:59 Sennosides 8.6 Mg Tab PO 17.2 mg QHS LEONIE Administration Sertraline HCl 50 mg 06/17/20 10:00 06/22/20 10:11 Sertraline 50 Mg Tab PO 50 mg QDAY LEONIE Administration Sodium Chloride 10 ml 06/05/20 10:00 06/22/20 10:13 Sodium Chloride 0.9% 10 Ml Flush Syringe IV Not Given BID LEONIE Sodium Chloride 10 ml 06/05/20 01:42 Sodium Chloride 0.9% 10 Ml Flush Syringe IV PRN PRN LINE FLUSH Nutrition/Malnutrition Assess - Dietary Evaluation Nutrition/Malnutrition Findings: Nutrition Notes Start: 06/05/20 11:49 Freq: Status: Active Protocol: Document 06/12/20 11:20 EN (Rec: 06/12/20 11:23 EN [id number]) Co-Sign 06/12/20 11:20 MK Nutrition Notes Need for Assessment generated from: LOS Initial or Follow up Brief Note Current Diagnosis Diabetes,Hypertension, Hyperlipidemia Other Pertinent Diagnosis Bipolar Disorder, Hyperglycemia Current Diet Cardiac/Consistent CHO Subjective/Other Information Pt screened for LOS. Pt states that he has a decreased appetite yesterday d/t new medication, however, pt consuming 100% of meals regardless. Pt states that he has been eating 100% of his meals consistently and that he has not had any recent weight loss. Pt denies N/V/D. Pt would like turkey sausage with breakfast. Nutrition Intervention Anticipated Discharge Needs: Cardiac/Consistent CHO diet Revisit per MD consult or patient Sign Off request:
[2020-06-22] MEDS: oxyCODONE /ACETAMINOPHEN 5-325MG TAB PO PRN (17:07)
[2020-06-22] MEDS: SENNOSIDES 8.6 MG TAB PO SCH (22:02)
[2020-06-22] MEDS: INSULIN GLARGINE 100 UNITS/ML SUB-Q SCH (22:03)
[2020-06-23] MEDS: HEPARIN 5,000 UNIT/1 ML VIAL SUB-Q SCH ×3 (06:24→22:16)
[2020-06-23] MEDS: INSULIN LISPRO 100 UNIT/ML VIAL 3 mL SUB-Q SCH ×7 (10:30→22:15)
[2020-06-23] MEDS: DIVALPROEX DR 250 MG TAB PO SCH ×2 (10:31→22:16)
[2020-06-23] MEDS: GEMFIBROZIL 600 MG TAB PO SCH ×2 (10:31→22:15)
[2020-06-23] MEDS: amLODIPine 10 MG TAB PO SCH (10:31)
[2020-06-23] MEDS: FAMOTIDINE 20 MG TAB PO SCH (10:31)
[2020-06-23] MEDS: DOCUSATE SODIUM 100 MG CAP PO SCH ×2 (10:31→22:16)
[2020-06-23] MEDS: INSULIN NPH/REGULAR 70/30 INJ SUB-Q SCH ×2 (10:31→17:19)
[2020-06-23] MEDS: LORATADINE/PSEUDOEPHEDRINE 5-120 MG TAB 12HR PO SCH (10:32)
[2020-06-23] MEDS: SERTRALINE 50 MG TAB PO SCH (10:32)
[2020-06-23] MEDS: busPIRone 10 MG TAB PO SCH ×2 (10:32→22:16)
[2020-06-23] MEDS: LISINOPRIL 5 MG TAB PO SCH (10:32)
[2020-06-23] MEDS: QUEtiapine 200 MG TAB PO SCH (10:36)
--- NOTE | 2020-06-23 10:43 | Discharge Summary ---
Providers - Providers Date of Admission: 06/05/20 15:10 Attending physician: SAMIA HENDRICKSON 06/05/20 Consult to Cardiac Rehabilitation [CONS] Routine Reason For Exam: Phase I 06/05/20 01:43 Consult to Dietitian/Nutrition [CONS] Routine Physician Instructions: Reason For Exam: Reason for Consult: Diet education 06/05/20 02:23 Consult to Mental Health [CONS] Routine Reason For Exam: Suicidal Ideations 06/05/20 07:27 Consult to Case Management [CONS] Routine Services Needed at Discharge: [employer] Supervisor Notified:: case management Comment:: Homelessness Primary care physician: [employer] Hospitalization Condition: Stable Hospital course: This is a 54 year-old male with bipolar disorder, HTN, HLD, history of DVT (1996) and DM who presented to the emergency department on 06/04 complaining of midsternal chest pain which started around 6 AM which was sharp and constant associated with shortness of breath, nausea with no vomiting and mild nonproductive cough. En route he was given nitroglycerin by EMS which improved his pain. Patient expressed homicidal and suicidal ideation therefore he is a 1013. Work-up in the emergency department revealed hyperglycemia and his troponin, EKG and chest x-ray were within normal limits. Patient was admitted to the hospitalist service with consult to cardiology and psychiatry. Psychiatry has started the patient on treatment for his major depressive disorder. Patient remained hyperglycemic with pseudohyponatremia throughout his stay. His blood sugars are better controlled now with his current insulin regimen of Novolin 70/30 twice daily, Lantus nightly and lispro with meals. Patient still has a flat affect but does not complain of any chest pain or respiratory distress. Patient care will be transferred to [facility].Patient COVID PCR was negative. Patient will need to follow-up with his primary care physician and pursue outpatient psychiatric services once discharge from inpatient care. Assessment and Plan - Patient Problems (1) Hyperglycemia due to diabetes mellitus Current Visit: Yes Status: Acute Plan to address problem: S/p 26 units of regular insulin in the emergency department given over 3 doses Continue sliding scale insulin 06/05 Hemoglobin A1c 11.2 06/06 Novolin 70/30 started, titrate as needed 06/16 Lantus nightly initiated, titrate as needed Continue Accu-Cheks AC at bedtime Continue CC cardiac diet 06/19 added lispro with meals, titrate as needed (2) Homicidal ideation Current Visit: Yes Status: Acute Plan to address problem: Patient states he has homicidal ideations Psychiatric consult Patient is on 1013 hold Sitter at bedside (3) MDD (major depressive disorder) Current Visit: Yes Status: Chronic Qualifiers: Major depression recurrence: recurrent Plan to address problem: Psychiatry consult, appreciate recommendations BuSpar, Depakote, Seroquel, Zoloft Sitter at bedside Patient presented with SI/HI, currently on a 1013 hold Psychiatry recommending inpatient psychiatric hospitalization Patient (4) Hyponatremia Current Visit: Yes Status: Acute Plan to address problem: Presented with a sodium of 134 Corrected sodium for hyperglycemia remains within normal limits S/p 2 L normal saline in the emergency department Pseudohyponatremia (5) HLD (hyperlipidemia) Current Visit: Yes Status: Chronic Plan to address problem: 06/06 lipid panel: triglycerides 574, cholesterol 189, HDL 34, cholesterol/HDL ratio 5.5 Continue gemfibrozil (6) Substance abuse in remission Current Visit: Yes Status: Chronic Plan to address problem: Per psychiatric note patient had substance abuse with cocaine and meth 3 years ago 06/04 UDS negative (7) Noncompliance with medication regimen Current Visit: Yes Status: Chronic Plan to address problem: 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 Counseled on medication compliance (8) DVT prophylaxis Current Visit: Yes Status: Acute Plan to address problem: SCDs to bilateral extremities while in bed Continue Heparin subcu Patient has a history of a DVT in 1996 Disposition: [id number]/TX-[id number] PSY HOSP/PSY UNIT Time spent for discharge: 35 Core Measure Documentation - Palliative Care Palliative Care/ Comfort Measures: Not Applicable - Core Measures Any of the following diagnoses?: none Exam - Constitutional Vitals: Temp Pulse Resp BP Pulse Ox 99.0 F 91 H 18 119/68 97 06/23/20 08:04 06/23/20 08:04 06/23/20 08:04 06/23/20 08:04 06/23/20 08:04 General appearance: Present: no acute distress, obese - EENT Eyes: Present: PERRL, EOM intact ENT: hearing intact, poor dentition - Neck Neck: Present: normal ROM - Respiratory Respiratory effort: normal Respiratory: bilateral: CTA - Cardiovascular Rhythm: regular Heart Sounds: Present: S1 & S2. Absent: systolic murmur, diastolic murmur - Extremities Extremities: no ischemia, pulses intact, pulses symmetrical, No edema, normal temperature, normal color, Full ROM Peripheral Pulses: within normal limits - Abdominal General gastrointestinal: Present: soft, non-tender, non-distended, normal bowel sounds - Integumentary Integumentary: Present: clear, warm, dry - Musculoskeletal Musculoskeletal: strength equal bilaterally - Psychiatric Psychiatric: cooperative, depressed - Neurologic Neurologic: CNII-XII intact, no focal deficits, moves all extremities - Allied Health Allied health notes reviewed: nursing Plan Activity: advance as tolerated Diet: low fat, diabetic Special Instructions: record daily BP diary, record blood sugar diary Additional Instructions: Present to nearest emergency department or contact primary care physician if you experience worsening symptoms. Patient's care will be transferred to [facility] for continued care. Follow up with: PRIMARY MD NEVAEH [Primary Care Provider] - 7 Days
[2020-06-23] MEDS ORDERED: metFORMIN 500 MG TAB PO SCH (17:00)
[2020-06-23] MEDS: oxyCODONE /ACETAMINOPHEN 5-325MG TAB PO PRN (17:18)
[2020-06-23 19:57] VITALS: BP 121/69
[2020-06-23] MEDS: INSULIN GLARGINE 100 UNITS/ML SUB-Q SCH (22:14)
[2020-06-23] MEDS: SENNOSIDES 8.6 MG TAB PO SCH (22:15)
== END 2020-06-23 22:30 | DRG 638 ==
LOC: ED 09:36 → 4A 21:42 → OBSVTOIN 06-05 15:10
PROVIDERS: ADMIT Internal Medicine Geriatric Medicine; ATTEND Internal Medicine
DX: E11.65 Type 2 diabetes mellitus with hyperglycemia (principal); E87.1 Hypo-osmolality and hyponatremia; R45.851 Suicidal ideations; F31.9 Bipolar disorder, unspecified; R45.850 Homicidal ideations; R07.89 Other chest pain; Z59.0 Homelessness; Z91.14 Patient's other noncompliance with medication regimen; Z20.828 Contact with and (suspected) exposure to other viral communicable diseases; F17.200 Nicotine dependence, unspecified, uncomplicated; E66.9 Obesity, unspecified; Z68.35 Body mass index [BMI] 35.0-35.9, adult; I10 Essential (primary) hypertension; Z79.4 Long term (current) use of insulin; Z86.718 Personal history of other venous thrombosis and embolism; Z91.19 Patient's noncompliance with other medical treatment and regimen; E78.5 Hyperlipidemia, unspecified; Z88.6 Allergy status to analgesic agent; Z82.49 Family history of ischemic heart disease and other diseases of the circulatory system; K59.00 Constipation, unspecified; F14.11 Cocaine abuse, in remission; F15.11 Other stimulant abuse, in remission
CPT/HCPCS: 36415; 71046; 78452; 80048; 80053; 80061; 80307; 80320; 81001; 82962; 83036; 84484; 85025; 85379; 85610; 90471; 93005; 93017; 93306; 96365; 96375; 96376; G0378; A9502; G0480; J1644; J1815; J2270; J2405; J2785; J7030; U0003